=== PATIENT | female | born 1990 | race Caucasian/White ===

== ENCOUNTER → 2019-12-12 | Outpatient (REF) | payer OTHER, MEDICAID | LOC: M PLALAB 10:03 | PROVIDERS: ATTEND Obstetrics & Gynecology | DX: Z53.9 Procedure and treatment not carried out, unspecified reason (principal) ==

== ENCOUNTER → 2019-12-25 | Outpatient (REF) | payer OTHER, MEDICAID | LOC: M LAB REF 19:59 | PROVIDERS: ATTEND Physician Assistant | DX: J02.9 Acute pharyngitis, unspecified (principal) ==

== ENCOUNTER → 2019-12-25 | Outpatient (REF) | payer OTHER, MEDICAID | LOC: M SFHCLERA 18:34 | PROVIDERS: ATTEND Physician Assistant | DX: J02.9 Acute pharyngitis, unspecified (principal) ==

== ENCOUNTER → 2019-12-28 | Outpatient (REF) | payer OTHER, MEDICAID | LOC: M PLALAB 11:02 | PROVIDERS: ATTEND Obstetrics & Gynecology | DX: E28.2 Polycystic ovarian syndrome (principal) ==

== ENCOUNTER → 2020-03-23 | Outpatient (CLI) | payer OTHER ==
[~2020-03-23] MED LIST: LEVO50TA5; LEVO75TA4
[2020-03-23 13:18] LABS: HCG, SERUM QUALITATIVE POSITIVE (NEGATIVE)
[2020-03-23 13:21] LABS: HCG, SERUM QUANTITATIVE 76 MIU/ML
== END ==
LOC: M LAB 12:02
PROVIDERS: ATTEND Physician Assistant Medical
DX: Z32.01 Encounter for pregnancy test, result positive (principal)

== ENCOUNTER 2020-03-28 19:07 | Emergency (ER) | payer OTHER ==
[~2020-03-28] VITALS: Ht 165.1 cm; Wt 147.5 kg
[2020-03-28] MEDS ORDERED: LEVO50TA5 (19:18)
[2020-03-28] MEDS ORDERED: LEVO75TA4 (19:18)
[2020-03-28] MEDS ORDERED: NS 1,000 ML IV ONE (20:00)
[2020-03-28 20:25] LABS: APPEARANCE, URINE HAZY (CLEAR); BACTERIA, URINE AUTO 1+ (NEGATIVE); BILIRUBIN, URINE AUTO NEGATIVE (NEGATIVE); BLOOD, URINE BLOOD NEGATIVE (NEGATIVE); CALCIUM OXALATE CRYSTALS SMALL; COLOR, URINE YELLOW (YELLOW); GLUCOSE, URINE (UA) AUTO NEGATIVE (NEGATIVE); KETONE, URINE AUTO NEGATIVE (NEGATIVE); LEUKOCYTE ESTERASE, URINE AUTO 1+ (NEGATIVE); MUCUS, URINE SMALL (NEGATIVE); NITRITE, URINE AUTO NEGATIVE (NEGATIVE); PROTEIN, URINE AUTO NEGATIVE (NEGATIVE); RBC, URINE AUTO 2 /HPF (0-3); SPECIFIC GRAVITY URINE AUTO 1.025 (1.002-1.035); SQUAMOUS EPITHELIAL CELL UR AU 7 /HPF (0-6); WBC, URINE AUTO 7 /HPF (0-3)
--- NOTE | 2020-03-28 20:58 | REPVR ---
PROCEDURE INFORMATION: Exam: US First Trimester, Transabdominal Exam date and time: 03/28/2020 8:17 PM Age: 30 years old Clinical indication: Lmp or gestational age (in weeks): 3-4 wks; Other: Spotting; ; Additional info: Vaginal bleeding TECHNIQUE: Imaging protocol: Real-time transabdominal obstetrical ultrasound of the maternal pelvis and a first trimester , less than 14 weeks 0 days, with image documentation. COMPARISON: No relevant prior studies available. FINDINGS: Gestation: No gestational sac is apparent within the uterus. Heart rate: n/a Placenta: n/a Amniotic fluid: n/a BIOMETRY: Estimated gestational age: n/a MATERNAL: Uterus: The uterus measures 8.7 x 4.2 x 5 cm. The endometrial bilayer is 1.2 cm. Cervix: Unremarkable. Right adnexa: Right ovary measures 2.7 x 4.1 x 2.9 cm. Blood flow is detected. Left adnexa: The left ovary measures 3.9 x 4.3 x 3.8 cm. Blood flow is detected. Intraperitoneal space: There is a minimal amount of free fluid in the cul-de-sac. IMPRESSION: No gestational sac is seen within the uterus. No fluid is seen within the endometrial canal. A minimal amount of free fluid is seen in the cul-de-sac. The ovaries are normal appearance. Electronically signed by: Deepti Infante On 03/28/2020 20:57:48 PM
[2020-03-28 21:02] LABS: BASO # 0.1 10^3/uL (0.0-0.2); BASO % 0.6 % (0.0-1.0); EOS # 0.1 10^3/uL (0.0-0.5); EOS % 0.6 % (0.0-3.0); HEMATOCRIT 40.4 % (36.0-47.0); HEMOGLOBIN 13.3 g/dl (12.0-15.5); LYMPH # 2.9 10^3/uL (1.5-5.0); LYMPH % 20.9 % (24.0-44.0); MEAN CORPUSCULAR HEMOGLOBIN 30.6 pg (27.0-33.0); MEAN CORPUSCULAR HGB CONC 32.9 g/dl (32.0-36.5); MEAN CORPUSCULAR VOLUME 93.1 fl (80.0-96.0); MONO # 0.7 10^3/uL (0.0-0.8); MONO % 4.9 % (0.0-5.0); NEUTROPHILS # 10.2 10^3/uL (1.5-8.5); NEUTROPHILS % 72.6 % (36.0-66.0); PLATELET COUNT, AUTOMATED 273 10^3/uL (150-450); RED BLOOD COUNT 4.34 10^6/uL (4.00-5.40)
[2020-03-28 21:38] VITALS: BP 145/88
== END 2020-03-28 21:39 | disposition home or self-care (01) ==
LOC: M ED 19:07
DX: O20.9 Hemorrhage in early pregnancy, unspecified (principal); Z3A.01 Less than 8 weeks gestation of pregnancy; O99.511 Diseases of the respiratory system complicating pregnancy, first trimester; J45.909 Unspecified asthma, uncomplicated; O99.281 Endocrine, nutritional and metabolic diseases complicating pregnancy, first trimester; E28.2 Polycystic ovarian syndrome; Z79.899 Other long term (current) drug therapy; Z88.0 Allergy status to penicillin

== ENCOUNTER → 2020-04-01 | Outpatient (CLI) | payer OTHER | LOC: M LAB 11:47 | PROVIDERS: ATTEND Advanced Practice Midwife | DX: O20.0 Threatened abortion (principal) ==

== ENCOUNTER → 2020-04-17 | Outpatient (REF) | payer OTHER, MEDICAID | LOC: M PLALAB 14:33 | PROVIDERS: ATTEND Specialist | DX: N91.2 Amenorrhea, unspecified (principal) ==

== ENCOUNTER → 2020-04-30 | Outpatient (REF) | payer OTHER, MEDICAID ==
[2020-06-15 09:40] LABS: CHOLESTEROL RISK RATIO 3.666 (<5); TOTAL 25(OH) VITAMIN D 17.4 NG/ML (30.0-100.0)
== END ==
LOC: M SFHCPLAZ 15:22
PROVIDERS: ATTEND Physician Assistant
DX: Z13.220 Encounter for screening for lipoid disorders (principal); E55.9 Vitamin D deficiency, unspecified

== ENCOUNTER → 2020-04-30 | Outpatient (REF) | payer OTHER, MEDICAID ==
[2020-05-27 15:03] LABS: BASO % 0.4 % (0.0-1.0); EOS % 0.3 % (0.0-3.0); HEMATOCRIT 42.1 % (36.0-47.0); LYMPH % 17.4 % (24.0-44.0); MEAN CORPUSCULAR HEMOGLOBIN 30.7 pg (27.0-33.0); MEAN CORPUSCULAR HGB CONC 33.3 g/dl (32.0-36.5); MEAN CORPUSCULAR VOLUME 92.3 fl (80.0-96.0); MONO % 4.8 % (0.0-5.0); NEUTROPHILS % 76.8 % (36.0-66.0); PLATELET COUNT, AUTOMATED 274 10^3/uL (150-450); RED BLOOD COUNT 4.56 10^6/uL (4.00-5.40); WHITE BLOOD COUNT 14.2 10^3/uL (4.0-10.0)
[2020-05-27 15:04] LABS: BASO # 0.1 10^3/uL (0.0-0.2); LYMPH # 2.5 10^3/uL (1.5-5.0); MONO # 0.7 10^3/uL (0.0-0.8); NEUTROPHILS # 10.9 10^3/uL (1.5-8.5)
[2020-06-15 09:41] LABS: HEPATITIS C VIRUS ABY INDEX 0.2 INDEX (<0.8); HIV 1&2 SCREEN CENTAUR NEGATIVE (NEGATIVE)
== END ==
LOC: M SFHCWAGY 15:20
PROVIDERS: ATTEND Specialist
DX: Z34.80 Encounter for supervision of other normal pregnancy, unspecified trimester (principal); Z3A.00 Weeks of gestation of pregnancy not specified

== ENCOUNTER → 2020-05-20 | Outpatient (REF) | payer OTHER, MEDICAID ==
[2020-05-20 18:46] LABS: APPEARANCE, URINE HAZY (CLEAR); BACTERIA, URINE AUTO 1+ (NEGATIVE); BILIRUBIN, URINE AUTO NEGATIVE (NEGATIVE); BLOOD, URINE BLOOD NEGATIVE (NEGATIVE); COLOR, URINE YELLOW (YELLOW); GLUCOSE, URINE (UA) AUTO NEGATIVE (NEGATIVE); KETONE, URINE AUTO NEGATIVE (NEGATIVE); LEUKOCYTE ESTERASE, URINE AUTO 2+ (NEGATIVE); MUCUS, URINE SMALL (NEGATIVE); NITRITE, URINE AUTO NEGATIVE (NEGATIVE); PROTEIN, URINE AUTO NEGATIVE (NEGATIVE); RBC, URINE AUTO 1 /HPF (0-3); SPECIFIC GRAVITY URINE AUTO 1.014 (1.002-1.035); SQUAMOUS EPITHELIAL CELL UR AU 2 /HPF (0-6); UROBILINOGEN, URINE AUTO 0.2 mg/dL (0.0-2.0); WBC, URINE AUTO 2 /HPF (0-3)
== END ==
LOC: M LAB REF 18:15
PROVIDERS: ATTEND Obstetrics & Gynecology
DX: R39.15 Urgency of urination (principal)

== ENCOUNTER → 2020-05-22 | Outpatient (REF) | payer OTHER, MEDICAID | LOC: M LAB REF 15:21 | PROVIDERS: ATTEND Obstetrics & Gynecology | DX: R35.0 Frequency of micturition (principal) ==

== ENCOUNTER → 2020-05-28 | Outpatient (REF) | payer OTHER, MEDICAID | LOC: M LAB REF 17:47 | PROVIDERS: ATTEND Specialist | DX: Z36.89 Encounter for other specified antenatal screening (principal) ==

== ENCOUNTER → 2020-07-16 | Outpatient (CLI) | payer OTHER, MEDICAID ==
[2020-07-16 18:20] LABS: HEMATOCRIT 35.2 % (36.0-47.0); HEMOGLOBIN 11.6 g/dl (12.0-15.5); MEAN CORPUSCULAR HEMOGLOBIN 30.2 pg (27.0-33.0); MEAN CORPUSCULAR VOLUME 91.7 fl (80.0-96.0); PLATELET COUNT, AUTOMATED 222 10^3/uL (150-450); RED BLOOD COUNT 3.84 10^6/uL (4.00-5.40); WHITE BLOOD COUNT 12.5 10^3/uL (4.0-10.0)
== END ==
LOC: M PLALAB 15:21
PROVIDERS: ATTEND Specialist
DX: Z34.01 Encounter for supervision of normal first pregnancy, first trimester (principal); Z3A.00 Weeks of gestation of pregnancy not specified

== ENCOUNTER → 2020-07-16 | Outpatient (CLI) | payer OTHER, MEDICAID ==
--- NOTE | 2020-07-16 12:25 | REP ---
INDICATION: ANATOMY COMPARISON: 03/28/2020 TECHNIQUE: Transabdominal obstetrical ultrasound with color Doppler evaluation. FINDINGS: Examination demonstrates a single live intrauterine in cephalic presentation. motion is identified by technologist. Placenta is noted right fundal and grade 1 without evidence for placenta previa or abruption. Amniotic fluid volume is normal. Cervix measures 4.1 cm in length and appears closed. No evidence for nuchal cord. Gestational age by LMP with DAVID . Gestational age by current measurements 20 weeks 1 day with DAVID 12/02/2020. FHR equals 141 beats per minute. BPD: 4.6 cm 19 weeks 6 days HC: 17.2 cm 19 weeks 5 days AC: 14.9 cm 20 weeks 1 day FL: 3.4 cm 20 weeks 5 days HL: 3.1 cm 20 weeks 2 days HC/AC: 1.15 Estimated weight 349 grams (greater than 97th percentile based on age by known estimated date of delivery at 19 weeks 0 days). Anatomical assessment demonstrates normal cranium, cerebellum/posterior fossa, facial profile, diaphragm, stomach, abdominal wall, kidneys/bladder, spine, upper extremities and left lower extremity and 3 vessel cord. Limited evaluation of the cranial ventricles and choroid plexus, nose/lips, heart/ventricular outflow tracts. Right clubfoot cannot be excluded. IMPRESSION: 1. Single live intrauterine in cephalic presentation. 2. Greater than expected estimated weight based on age of 19 weeks 0 days. 3. Anatomical limitations and findings to suggest right clubfoot noted and follow-up may be warranted. <Electronically signed by Manny Rowland > 07/16/20 [id number]
== END ==
LOC: M WHC 10:12
PROVIDERS: ATTEND Obstetrics & Gynecology
DX: O99.212 Obesity complicating pregnancy, second trimester (principal); E66.9 Obesity, unspecified; Z3A.00 Weeks of gestation of pregnancy not specified

== ENCOUNTER → 2020-07-16 | Outpatient (REF) | payer OTHER, MEDICAID ==
[2020-07-16 19:01] LABS: FREE T4 1.09 NG/DL (0.76-1.46)
== END ==
LOC: M PLALAB 15:18
PROVIDERS: ATTEND Obstetrics & Gynecology
DX: Z3A.20 20 weeks gestation of pregnancy (principal)

== ENCOUNTER → 2020-07-30 | Outpatient (CLI) | payer OTHER, MEDICAID | LOC: M WHC 13:11 | PROVIDERS: ATTEND Obstetrics & Gynecology | DX: Z36.89 Encounter for other specified antenatal screening (principal); Z3A.22 22 weeks gestation of pregnancy; Z53.9 Procedure and treatment not carried out, unspecified reason ==

== ENCOUNTER → 2020-08-27 | Outpatient (REF) | payer OTHER, MEDICAID | LOC: M PLALAB 09:42 | PROVIDERS: ATTEND Obstetrics & Gynecology | DX: Z34.92 Encounter for supervision of normal pregnancy, unspecified, second trimester (principal); Z3A.26 26 weeks gestation of pregnancy ==

== ENCOUNTER → 2020-08-27 | Outpatient (CLI) | payer OTHER ==
--- NOTE | 2020-08-27 09:06 | REP ---
INDICATION: F/U ANATOMY COMPARISON: 07/16/2020 TECHNIQUE: Transabdominal obstetrical ultrasound with color Doppler evaluation. FINDINGS: Examination demonstrates a single live intrauterine in cephalic presentation. motion is identified by technologist. Placenta is noted fundal and grade 1 without evidence for placenta previa or abruption. Amniotic fluid volume is normal. Cervix measures 4.1 cm in length and appears closed.. Gestational age by LMP 26 weeks 2 days with DAVID 12/01/2020. Gestational age by current measurements 26 weeks 3 days with DAVID 11/30/2020. FHR equals 144 beats per minute. Estimated weight 925 grams (41stpercentile). Anatomical assessment demonstrates normal structures including cranium, ventricles, choroid plexus, cerebellum/posterior fossa, facial features, nose/lips, diaphragm/stomach, kidneys/bladder, and three-vessel cord. Right lower extremity suggests clubfoot. IMPRESSION: Single live intrauterine in cephalic presentation demonstrating appropriate interval growth. Continued limited evaluation of the heart/ventricular outflow tracts noted along with findings to suggest clubfoot. Follow-up is recommended. <Electronically signed by Manny Rowland > 08/27/20 0902
== END ==
LOC: M WHC 07:48
PROVIDERS: ATTEND Obstetrics & Gynecology
DX: Z3A.22 22 weeks gestation of pregnancy (principal)

== ENCOUNTER → 2020-09-02 | Outpatient (REF) | payer OTHER, MEDICAID ==
[2020-09-02 18:28] LABS: HEMATOCRIT 37.7 % (36.0-47.0); HEMOGLOBIN 12.2 g/dl (12.0-15.5); MEAN CORPUSCULAR HEMOGLOBIN 30.3 pg (27.0-33.0); MEAN CORPUSCULAR HGB CONC 32.4 g/dl (32.0-36.5); MEAN CORPUSCULAR VOLUME 93.5 fl (80.0-96.0); PLATELET COUNT, AUTOMATED 219 10^3/uL (150-450); RED BLOOD COUNT 4.03 10^6/uL (4.00-5.40); WHITE BLOOD COUNT 9.2 10^3/uL (4.0-10.0)
== END ==
LOC: M PLALAB 12:12
PROVIDERS: ATTEND Obstetrics & Gynecology
DX: Z3A.26 26 weeks gestation of pregnancy (principal)

== ENCOUNTER → 2020-09-10 | Outpatient (CLI) | payer OTHER, MEDICAID | LOC: M WHC 14:34 | PROVIDERS: ATTEND Obstetrics & Gynecology | DX: Z36.89 Encounter for other specified antenatal screening (principal); Z3A.28 28 weeks gestation of pregnancy; Z53.9 Procedure and treatment not carried out, unspecified reason ==

== ENCOUNTER 2020-09-11 20:01 | Outpatient (CLI) | payer OTHER, MEDICAID ==
[~2020-09-11] VITALS: Ht 166.4 cm; Wt 154.4 kg
[2020-09-11 20:39] VITALS: BP 144/54
[2020-09-11 21:12] LABS: HEMATOCRIT 35.4 % (36.0-47.0); HEMOGLOBIN 11.5 g/dl (12.0-15.5); MEAN CORPUSCULAR HEMOGLOBIN 29.6 pg (27.0-33.0); MEAN CORPUSCULAR HGB CONC 32.5 g/dl (32.0-36.5); PLATELET COUNT, AUTOMATED 190 10^3/uL (150-450); RED BLOOD COUNT 3.89 10^6/uL (4.00-5.40); WHITE BLOOD COUNT 10.9 10^3/uL (4.0-10.0)
[2020-09-11 21:14] VITALS: BP 108/52
[2020-09-11 21:38] LABS: ALT/SGPT 18 U/L (12-78); BILIRUBIN,TOTAL 0.2 MG/DL (0.2-1.0); CREATININE FOR GFR 0.55 MG/DL (0.55-1.30); GLOMERULAR FILTRATION RATE > 60.0 (>60); LDH LACTATE DEHYDROGENASE 134 U/L (84-246); URIC ACID 3.4 MG/DL (2.6-6.0)
[2020-09-11 21:43] VITALS: BP 117/54
[2020-09-11] MEDS ORDERED: ACETAMINOPHEN 500 MG TAB PO ONE (21:45)
[2020-09-11 22:55] VITALS: BP 111/56
[2020-09-11 23:05] LABS: CREATININE,RANDOM URINE 94.7 MG/DL; TOTAL PROTEIN,RANDOM URINE 21.1 MG/DL (0.0-12.0)
[2020-09-11 23:08] VITALS: BP 111/59
--- NOTE | 2020-09-12 06:50 | IPN ---
PROGRESS NOTE DATE: 09/11/2020 SUBJECTIVE: Lela is a 30-year-old 1 para 0 at 28 weeks and 3 days, EDC of 12/01/2020 based on last menstrual period. She presents to Labor and Delivery with a complaint of a headache and some visual disturbances, seeing black spots after eating dinner. She also reports some mild dizziness at that time. She denies vaginal bleeding, leakage of fluid, the fetus has been active. care was [facility] in the first trimester. course complicated by a history of gastric sleeve. She had an abnormal panorama for triploidy and she did undergo an amniocentesis that was normal. Morbid obesity, hypothyroidism, asthma, migraines, PCOS, and clubfoot. OBSTETRIC HISTORY: Primigravida. PAST MEDICAL HISTORY: PCOS, asthma and hypothyroid. PAST SURGICAL HISTORY: Gastric sleeve, carpal tunnel, D and C, cholecystectomy. FAMILY HISTORY: Coronary artery disease, rheumatoid arthritis, diabetes, hypertension, hypercholesterolemia, and lung cancer. SOCIAL HISTORY: The patient is single although the father of the baby is involved. She is a recent nonsmoker and quit approximately one year ago. She denies alcohol and drug use. Denies a history of any sexually transmitted infections and denies a history of abuse, physical, sexual and emotional. ALLERGIES: Penicillin and latex gloves. CURRENT MEDICATIONS: 1. vitamin. OBJECTIVE: VITAL SIGNS: Upon arrival one elevated blood pressure at 144/54, repeat normotensive 108/52, 117/54, 111/56 and 111/59. Temperature 98.8 and respiratory rate 19. heart rate 130 with moderate variability, positive accelerations, negative decelerations, appropriate for gestational age. There is no pattern of contractions. Sterile vaginal exam deferred. The patient is alert and oriented x3 and she is smiling and talkative. LABORATORY DATA: Preeclamptic profile: Normal results. Hemoglobin 11.5, hematocrit 35.4, platelets 190,000. Spot urine is 0.22. Uric acid 3.4. LDH 134, ALT 18 and AST 4. ASSESSMENT: Intrauterine at 28 and 3 days. heart rate appropriate for gestation. Normotensive pressures. Normal preeclamptic labs. PLAN: Discharge the patient home. She has received 1000 mg of Tylenol and reports her headache is resolving. Denies any current visual disturbances. She is to keep her next appointment that she has scheduled. I did review access to care, danger signs to report, signs and symptoms of labor and movement counseling, all of her questions have been answered.
== END 2020-09-11 23:23 | disposition home or self-care (01) ==
LOC: M LDO 20:01
PROVIDERS: ATTEND Advanced Practice Midwife
DX: O26.893 Other specified pregnancy related conditions, third trimester (principal); R51.9 Headache, unspecified; Z88.0 Allergy status to penicillin; Z3A.28 28 weeks gestation of pregnancy

== ENCOUNTER → 2020-09-16 | Outpatient (CLI) | payer OTHER ==
--- NOTE | 2020-09-16 14:04 | REP ---
INDICATION: F/U ANATOMY FOR CARDIAC VIEWS COMPARISON: 08/27/2020 TECHNIQUE: Transabdominal obstetrical ultrasound with color Doppler evaluation. FINDINGS: Examination demonstrates a single live intrauterine in cephalic presentation. motion is identified by technologist. Placenta is noted fundal and grade 1 without evidence for placenta previa or abruption. Amniotic fluid volume is normal. Cervix measures 3.6 cm in length and appears closed.. Gestational age by LMP 29 weeks 1 day with DAVID 12/01/2020. Gestational age by current measurements 28 weeks 6 days with DAVID 12/03/2020. FHR equals 149 beats per minute. DIMITRY: 14.6 cm Estimated weight 1348 grams (40thpercentile). Anatomical assessment demonstrates normal cranium, facial features, four-chamber heart/ventricular outflow tracts, diaphragm, stomach, and bladder. Right clubfoot is again suggested and warrants follow-up. IMPRESSION: Single live intrauterine in cephalic presentation demonstrating appropriate interval growth. Visualized images of the heart and cardiac ventricular outflow tracts are normal. Clubfoot again suspected. <Electronically signed by Manny Rowland > 09/16/20 1400
== END ==
LOC: M WHC 11:59
PROVIDERS: ATTEND Obstetrics & Gynecology
DX: Z34.93 Encounter for supervision of normal pregnancy, unspecified, third trimester (principal); Z3A.29 29 weeks gestation of pregnancy

== ENCOUNTER → 2020-10-22 | Outpatient (CLI) | payer OTHER | LOC: M WHC 15:13 | PROVIDERS: ATTEND Advanced Practice Midwife | DX: Z53.9 Procedure and treatment not carried out, unspecified reason (principal); O26.849 Uterine size-date discrepancy, unspecified trimester; Z3A.00 Weeks of gestation of pregnancy not specified ==

== ENCOUNTER → 2020-10-31 | Outpatient (CLI) | payer OTHER ==
--- NOTE | 2020-11-01 04:21 | REP ---
INDICATION: UTERINE SIZE DATE DISCREPANCY,GROWTH,DIMITRY COMPARISON: 09/16/2020 TECHNIQUE: Transabdominal obstetrical ultrasound with color Doppler evaluation. FINDINGS: Examination demonstrates a single live intrauterine in cephalic presentation. motion is identified by technologist. Placenta is noted fundal and grade 2 without evidence for placenta previa or abruption. Amniotic fluid volume is normal. Cervix measures 3.9 cm in length and appears closed.. Gestational age by LMP 35 weeks 4 days with DAVID 12/01/2020. Gestational age by current measurements 35 weeks 3 days with DAVID 12/02/2020. FHR equals 136 beats per minute. BPD: 8.6 cm 34 weeks 4 days HC: 32.3 cm 36 weeks 4 days AC: 31.81 cm 35 weeks 0 days FL: 6.8 cm 35 weeks 1 day HL: 6.2 cm 36 weeks 0 days HC/AC: 1.04 Estimated weight 2603 grams (36thpercentile). DIMITRY: 10.3 cm IMPRESSION: Single live intrauterine in cephalic presentation demonstrating appropriate estimated weight and growth. <Electronically signed by Manny Rowland > 11/01/20 0417
== END ==
LOC: M WHC 13:34
PROVIDERS: ATTEND Advanced Practice Midwife
DX: Z36.9 Encounter for antenatal screening, unspecified (principal); Z3A.35 35 weeks gestation of pregnancy

== ENCOUNTER → 2020-11-07 | Outpatient (REF) | payer OTHER | LOC: M PLALAB 08:44 | PROVIDERS: ATTEND Obstetrics & Gynecology | DX: Z34.93 Encounter for supervision of normal pregnancy, unspecified, third trimester (principal); Z3A.36 36 weeks gestation of pregnancy ==

== ENCOUNTER → 2020-11-13 | Outpatient (CLI) | payer OTHER ==
[~2020-11-13] MED LIST changes: +BIOT5000 PO; +MULTTAB20 PO
--- NOTE | 2020-11-14 05:05 | REP ---
INDICATION: GROWTH COMPARISON: 10/31/2020 TECHNIQUE: Transabdominal obstetrical ultrasound with color Doppler evaluation. FINDINGS: Examination demonstrates a single live intrauterine in cephalic presentation. motion is identified by technologist. Placenta is noted anterior and grade 2 without evidence for placenta previa or abruption. Amniotic fluid volume is decreased suggesting oligohydramnios. Cervix measures 3.9 cm in length and appears closed. Gestational age by LMP 37 weeks 3 days with DAVID 12/01/2020. Gestational age by current measurements 36 weeks 6 days with DAVID 12/05/2020. FHR equals 134 beats per minute. BPD: 9.0 cm at 36 weeks 3 days HC: 33.2 cm at 37 weeks 6 days AC: 32.4 cm at 36 weeks 2 days FL: 7.0 cm at 35 weeks 5 days HL: 6.5 cm at 37 weeks 3 days HC/AC: 1.03 Estimated weight 2923 grams (32ndpercentile). DIMITRY: 6.8 cm (7.4-24.2) IMPRESSION: 1. Single live advanced gestation in cephalic presentation. 2. Amniotic fluid volume is below normal range suggesting mild oligohydramnios <Electronically signed by Manny Rowland > 11/14/20 8535
== END ==
LOC: M WHC 10:45
PROVIDERS: ATTEND Obstetrics & Gynecology
DX: O99.213 Obesity complicating pregnancy, third trimester (principal); Z3A.37 37 weeks gestation of pregnancy

== ENCOUNTER 2020-11-16 07:38 | Inpatient (IN) | payer OTHER ==
[2020-11-16] VITALS (17 sets, daily range): BP systolic 89–147; BP diastolic 48–93
[~2020-11-16] VITALS: Ht 165.1 cm; Wt 156.1 kg
[~2020-11-16 07:38] MED LIST changes: -BIOT5000 PO; -MULTTAB20 PO
--- OUTSIDE RECORDS SUMMARY | 2020-11-16 07:41 | CCD ---
Author Author [facility] Organization [facility] Address Unknown Phone Unavailable Care Team Providers Care Career Development Specialist Name Role Phone Christine Palm Unavailable PROBLEMS Type Condition ICD9-CM Code [id number] Code Onset Dates Condition S tatus SNOMED Code Notes Problem Vitamin D deficiency E55.9 Active 63120540 Problem Constipation K59.00 Active 15609850 Problem Morbid obesity E66.01 Active 983629843 Problem Amenorrhea N91.2 Active 49318209 Problem Supervision of other normal Z34.80 Ac tive 324168655 Problem Obesity complicating in second trimester O99.212 Active 925868332779 Problem Obesity E66.9 Active 284534520 ALLERGIES Allergen (clinical drug ingredient) Drug/Non Drug Allergy do cumented on EMR Reaction Allergy Type Onset Date Status penicillin Rash Non Drug Allergy Active Latex Exam Gloves Rash Drug Allergy Activ e ENCOUNTERS from 1989 to 2020-08-31 Encounter Location Date Provider Diagnosis [facility] [address] [place] [id number] Aug, Christine Palm 26 weeks gestation o f Z3A.26 ; Constipation K59.00 ; Nausea R11.0 ; Morbid obesity E66.01 and Obesity complicating in second trimester O99.212 IMMUNIZATIONS No Information SOCIAL HISTORY Tobacco Use: Social History Observation Description Date Details (start date - stop date) Former Smoker Sex Assigned At : Social History Observation Description Sex Assigned At Unknown Alcohol Screening: Question Answer Notes Did you have a drink containing alcohol in the past year? No Points 0 Interpretation Negative Tobacco Use: Question Answer Notes Are you a: former smoker REASON FOR REFERRAL No Information VITAL SIGNS Weight 342 lbs Aug, Height 65 in Aug, BMI 56.912 kg/m2 Aug, Blood pressure systolic 136 mm Hg Aug, Blood pressure diastolic 82 mm Hg Aug, MEDICATIONS Medication SIG (Take, Route, Frequency, Duration) Notes Start Da te End Date Status Rizatriptan Benzoate 10 MG 1 tablet Orally Once a day Not-Taking Iron 325 (65 Fe) MG 1 tablet Orally Once a day Active 27-1 MG 1 tablet Orally Once a day Active MiraLax 17 GM 1 packet mixed with 8 ounces of fluid Orally Once a day for 30 day(s) Aug, Active ClomiPHENE Citrate 50 MG 1 tablet Orally Once a day, day 3-7 for 5 da y(s) Not-Taking Ondansetron 4 MG 1 tablet on the tongue and a llow to dissolve Orally every 6 hours as needed for nausea for 30 day(s) Aug, Active Levothyroxine Sodium 50 MCG 1 tablet in the morning on an empty stomach Orally Once a day Not-Taking Biotin 1000 MCG 1 tablet Orally Once a day Not-Taking Calcium 600 MG 1 tablet with meals Orally Twice a day Active Topiramate 50 MG 1 tablet Orally Once a day Not-Taking Ondansetron 4 MG 1 tablet on the tongue and allow to diss olve Orally Once a day Active Escitalopram Oxalate 20 MG 1 tablet Orally Once a day Not-Taking Colace 100 MG 1 capsule Orally Twice a day for 30 day(s) 0 Aug, Active Metformin HCl 500 MG 1 tablet with a meal Orally twice a day for 30 day(s) January, Not-Taking Gummies/DHA & FA 0.4-32.5 MG as directed Orally Not-Taking PROCEDURES No Information RESULTS Component Value Reference Range CBC - Complete Blood Count Reviewed date:09/03/2020 08:09:44 Interpretation: Performing Lab:[facility] [address] [address] , [place] [address] WHITE BLOOD COUNT 9.2 4.0-10.0 RED BLOOD COUNT 4.03 4.00-5.40 HEMOGLOBIN 12.2 12.0-15.5 HEMATOCRIT 37.7 36.0-47.0 MEAN CORPUSCULAR VOLUME 93.5 80.0-96.0 MEAN CORPUSCULAR HEMOGLOBIN 30.3 27.0-33.0 MEAN CORPUSCULAR HGB CONC 32.4 32.0-36.5 RED CELL DISTRIBUTION WIDTH 13.7 11.5-14.5 PLATELET COUNT, AUTOMATED 219 150-450 Glucose Challenge Test 1 Hour Reviewed date:09/03/2020 08:09:55 Interpretation: Performing Lab:[facility] [address] [address] , [place] [address] GLUCOSE CHALLENGE TEST 1 HOUR 70 LESS THAN 140 REASON FOR VISIT 4WK PN MEDICAL (GENERAL) HISTORY Type Description Date Medical History hypothyroidism Medical History PCOS Medical History asthma Surgical History gastric sleeve 05/2019 Surgical History carpal tunnel both hands Surgical History D&C x 3 Surgical History Gallbladder removal 2017 Hospitalization History Surgical related Goals Section No Information Health Concerns No Information MEDICAL EQUIPMENT No Information MENTAL STATUS No Information FUNCTIONAL STATUS No Information ASSESSMENTS Encounter Date Diagnosis Assessment Notes Treatment Notes Treatm ent Clinical Notes Aug, 26 weeks gestation of (ICD-10 - Z3A.26 ) Aug, Constipation (ICD-10 - K59.00) Aug, Nausea (ICD-10 - R11.0) Aug, Morbid obesity (ICD-10 - E66.01) Aug, Obesity complicating pregnan cy in second trimester (ICD-10 - O99.212) PLAN OF TREATMENT Medication Medication Name Sig Start Date Stop Date Ondansetron 4 MG 1 tablet on the tongue and a llow to dissolve Orally every 6 hours as needed for nausea for 30 day(s) Aug, Colace 100 MG 1 capsule Orally Twice a day for 30 day(s) 2019 MiraLax 17 GM 1 packet mixed with 8 ounces of fluid Orally Once a day for 30 day(s) Aug, Treatment Notes Test Name Order Date CBC - Complete Blood Count 2020-08-31 Glucose Challenge Test 1 Hour 2020-08-31 Next Appt Details 2 Weeks Reason:PN Provider Name:Christine D Arpita, 2020-08 02:00:00 PM, [address] [place], [address], Follow Up:2 WeeksPN Insurance Providers Payer Name Payer Address Payer Phone Insured Name Patient Relati onship to Insured Coverage Start Date Coverage End Date MEDICAID [employer] [address] [facility] [id number] JAMES BETANCUR [facility] CORPORATE CLAIMS DEPT [address] REPLACED BY [facility] [phone] JAMES BETANCUR self
--- OUTSIDE RECORDS SUMMARY | 2020-11-16 07:41 | CCD ---
Author Author [facility] Organization [facility] Address Unknown Phone Unavailable Care Team Providers Care Spiral Winding Machine Helper Name Role Phone Christine Palm Unavailable PROBLEMS Type Condition ICD9-CM Code [id number] Code Onset Dates Condition S tatus SNOMED Code Notes Problem Vitamin D deficiency E55.9 Active 33707893 Problem Amenorrhea N91.2 Active 06290043 Problem Morbid obesity E66.01 Active 896929379 Problem Obesity affecting in third trimester O99 .213 Active 661991621166 Problem Supervision of other normal Z34.80 Ac tive 639330179 Problem Obesity complicating in second trimester O99.212 Active 146204649127 Problem Obesity E66.9 Active 660707125 Problem Constipation K59.00 Active 44339060 ALLERGIES Allergen (clinical drug ingredient) Drug/Non Drug Allergy do cumented on EMR Reaction Allergy Type Onset Date Status penicillin Rash Non Drug Allergy Active Latex Exam Gloves Rash Drug Allergy Activ e ENCOUNTERS from 1989 to 2020-09-17 Encounter Location Date Provider Diagnosis [facility] [address] [place] [address] Aug, Christine Palm Obesity affecting pr egnancy in third trimester O99.213 ; Morbid obesity E66.01 ; 28 weeks gestation of Z3A.28 and Encounter for immunization Z23 IMMUNIZATIONS Vaccine Route Administration Date Status TDAP 0.5mL (Boostrix) IM Intramuscular Sep 10, 2020 Administe red Influenza (6mo & up) Fluzone IM Intramuscular Sep 10, 2020 Ad ministered SOCIAL HISTORY Tobacco Use: Social History Observation [...] FOR REFERRAL No Information VITAL SIGNS Weight 338.2 lbs Aug, Height 65 in Aug, BMI 56.279 kg/m2 Aug, Blood pressure systolic 120 mm Hg Aug, Blood pressure diastolic 74 mm Hg Aug, MEDICATIONS Medication SIG (Take, Route, Frequency, Duration) Notes Start Da te End Date Status Biotin 1000 MCG 1 tablet Orally Once a day Not-Taking Topiramate 50 MG 1 tablet Orally Once a day Not-Taking ClomiPHENE Citrate 50 MG 1 tablet Orally Once a day, day 3-7 for 5 da y(s) Not-Taking Colace 100 MG 1 capsule Orally Twice a day for 30 day(s) 0 Aug, Active Ondansetron 4 MG 1 tablet on the tongue and a llow to dissolve Orally every 6 hours as needed for nausea for 30 day(s) Aug, Active MiraLax 17 GM 1 packet mixed with 8 ounces of fluid Orally Once a day for 30 day(s) Aug, Active Levothyroxine Sodium 50 MCG 1 tablet in the morning on an empty stomach Orally Once a day Not-Taking Gummies/DHA & FA 0.4-32.5 MG as directed Orally Not-Taking 27-1 MG 1 tablet Orally Once a day Active Metformin HCl 500 MG 1 tablet with a meal Orally twice a day for 30 day(s) January, Not-Taking Rizatriptan Benzoate 10 MG 1 tablet Orally Once a day Not-Taking Iron 325 (65 Fe) MG 1 tablet Orally Once a day Active Calcium 600 MG 1 tablet with meals Orally Twice a day Active Zofran 4 MG 1 tablet Orally every 6 hours as needed for naus ea for 30 day(s) Aug, Active Ondansetron 4 MG 1 tablet on the tongue and allow to diss olve Orally Once a day Active Escitalopram Oxalate 20 MG 1 tablet Orally Once a day Not-Taking PROCEDURES from 1989 to 2020-09-17 Procedure Date Ordered Result Body Site Immunization: Boostrix 0.5mL IM (TDAP) 2020-09-10 N/A Immunization: Fluzone (6mo & older) 0.5mL IM (Influenza) 2020-08 N/A RESULTS Component Value Reference Range [facility] OBS FOLLOW UP OR REPEAT Reviewed date:09/17/2020 12:47:13 Interpretation: Performing Lab:[facility],[address] ,[place] [address] REASON FOR VISIT 4WK PN MEDICAL (GENERAL) [...] Treatment Notes Treatm ent Clinical Notes Aug, Obesity affecting in [facility] (ICD-10 - O99.213) Aug, Morbid obesity (ICD-10 - E66.01) Aug, 28 weeks gestation of (ICD-10 - Z3A.28 ) Aug, Encounter for immunization (ICD-10 - Z23) PLAN OF TREATMENT Medication Medication Name Sig Start Date Stop Date Zofran 4 MG 1 tablet Orally every 6 hours as needed for nausea for 30 day(s) Aug, Next Appt Details 2 Weeks Reason:PN Provider Name:Shanita Carrillo, 2020-09-24 1 1:20:00 AM, [address] [place], [address], Follow Up:2 WeeksPN Insurance Providers Payer Name Payer Address Payer Phone Insured Name Patient Relati onship to Insured Coverage Start Date Coverage End Date [facility] CORPORATE CLAIMS DEPT [address] [facility] [phone] JAMES BETANCUR self MEDICAID [employer] [address] [facility] [id number] JAMES BETANCUR self
--- OUTSIDE RECORDS SUMMARY | 2020-11-16 07:41 | CCD ---
Author Author [facility] Organization [facility] Address Unknown Phone Unavailable Care Team Providers Care President [employer] Name Role Phone Katie Choi Unavailable PROBLEMS Type Condition ICD9-CM Code [id number] Code Onset Dates Condition S tatus SNOMED Code Notes Problem Hypothyroidism (acquired) E03.9 Active 945421 002 Problem Anxiety with depression F41.8 Active 78327149 6 Problem Amenorrhea N91.2 Active 91140810 Problem Supervision of other normal Z34.80 Ac tive 310701414 Problem Obesity complicating in second trimester O99.212 Active 239616315685 Problem Obesity complicating , third trimester O9 9.213 Active 058529487443 Problem Vitamin D deficiency E55.9 Active 87939876 Problem Asthma exacerbation J45.901 Active 914338671 Problem Migraine without status migr ainosus, not intractable, unspecified migraine type G43.909 Active 45794967 Problem Obesity E66.9 Active 403225490 Problem Constipation K59.00 Active 53444287 Problem Morbid obesity E66.01 Active 110183007 Problem Obesity affecting in third trimester O99 .213 Active 640716187310 ALLERGIES Allergen (clinical drug ingredient) Drug/Non Drug Allergy do cumented on EMR Reaction Allergy Type Onset Date Status penicillin Rash Non Drug Allergy Active Latex Exam Gloves Rash Drug Allergy Activ e ENCOUNTERS from 1989 to 2020-10-11 Encounter Location Date Provider Diagnosis [facility] Women's [facility] and Breast Care [address] [place] [phone] Sep, Katie Choi Asthma exacerbati on J45.901 IMMUNIZATIONS Vaccine Route Administration Date Status TDAP [...] REASON FOR REFERRAL No Information VITAL SIGNS No information MEDICATIONS Medication SIG (Take, Route, Frequency, Duration) Notes Start Da te End Date Status Ondansetron 4 MG 1 tablet on the tongue and allow to diss olve Orally Once a day Not-Taking Topiramate 50 MG 1 tablet Orally Once a day Not-Taking Calcium 600 MG 1 tablet with meals Orally Twice a day Active Ondansetron 4 MG 1 tablet on the tongue and a llow to dissolve Orally every 6 hours as needed for nausea for 30 day(s) Aug, Not-Taking Iron 325 (65 Fe) MG 1 tablet Orally Once a day Active Metformin HCl 500 MG 1 tablet with a meal Orally twice a day for 30 day(s) January, Not-Taking Zofran 4 MG 1 tablet Orally every 6 hours as needed for naus ea for 30 day(s) Aug, Active MiraLax 17 GM 1 packet mixed with 8 ounces of fluid Orally Once a day for 30 day(s) Aug, Active 27-1 MG 1 tablet Orally Once a day Active Escitalopram Oxalate 20 MG 1 tablet Orally Once a day Not-Taking Gummies/DHA & FA 0.4-32.5 MG as directed Orally Not-Taking Albuterol Sulfate HFA 108 (90 Base) MCG/ACT 2 puffs as needed Inhalation every 4 hrs for 30 days Sep, Active ClomiPHENE Citrate 50 MG 1 tablet Orally Once a day, day 3-7 for 5 da y(s) Not-Taking Rizatriptan Benzoate 10 MG 1 tablet Orally Once a day Not-Taking Biotin 1000 MCG 1 tablet Orally Once a day Active Colace 100 MG 1 capsule Orally Twice a day for 30 day(s) 0 Aug, Active Levothyroxine Sodium 50 MCG 1 tablet in the morning on an empty stomach Orally Once a day Not-Taking PROCEDURES No Information RESULTS No Results REASON FOR VISIT Refill MEDICAL (GENERAL) HISTORY Type Description Date Medical [...] Notes Treatment Notes Treatm ent Clinical Notes Sep, Asthma exacerbation (ICD-10 - J45.901) PLAN OF TREATMENT Medication Medication Name Sig Start Date Stop Date Albuterol Sulfate HFA 108 (90 Base) MCG/ACT 2 puffs as needed Inhalation every 4 hrs for 30 days Sep, Next Appt Details Provider Name:Shanita Carrillo, 2020-10-22 0 2:40:00 PM, [address] [place], [address], Insurance Providers Payer Name Payer Address Payer Phone Insured Name Patient Relati onship to Insured Coverage Start Date Coverage End Date MEDICAID [employer] [address] [facility] [id number] JAMES BETANCUR self [employer] CORPORATE CLAIMS DEPT [address] [facility] [phone] JAMES BETANCUR self
--- OUTSIDE RECORDS SUMMARY | 2020-11-16 07:41 | CCD ---
Author Author [facility] Organization [facility] Address Unknown Phone Unavailable Care Team Providers Care Call Center Operator Name Role Phone Reagan, Tona Unavailable PROBLEMS Type Condition ICD9-CM Code [id number] Code Onset Dates Condition S tatus SNOMED Code Notes Problem Hypothyroidism (acquired) E03.9 Active 000142 002 Problem Anxiety with depression F41.8 Active 40471178 6 Problem Amenorrhea N91.2 Active 90406254 Problem Supervision of other normal Z34.80 Ac tive 364357411 Problem Obesity complicating in second trimester O99.212 Active 562778980541 Problem Obesity complicating , third trimester O9 9.213 Active 482563014470 Problem Vitamin D deficiency E55.9 Active 82430080 Problem Asthma exacerbation J45.901 Active 136810628 Problem Migraine without status migr ainosus, not intractable, unspecified migraine type G43.909 Active 98912391 Problem Obesity E66.9 Active 938321682 Problem Constipation K59.00 Active 07639901 Problem Morbid obesity E66.01 Active 330877675 Problem Obesity affecting in third trimester O99 .213 Active 691678677588 ALLERGIES Allergen (clinical drug ingredient) Drug/Non Drug Allergy do cumented on EMR Reaction Allergy Type Onset Date Status penicillin Rash Non Drug Allergy Active Latex Exam Gloves Rash Drug Allergy Activ e ENCOUNTERS from 1989 to 2020-10-11 Encounter Location Date Provider Diagnosis [address] [address] Mar, Tona Kirk Supervision of other normal Z3 4.80 ; Migraine without status migrainosus, not intractable, unspecified migraine type G43.909 ; Anxiety with depression F41.8 ; Hypothyroidism (acquired) E03.9 ; Vitamin D deficiency E55.9 and Screening for lipid disorders Z13.220 IMMUNIZATIONS Vaccine Route Administration Date Status TDAP [...] FOR REFERRAL No Information VITAL SIGNS Weight 327.0 lbs Mar, Height 65 in Mar, BMI 54.41 kg/m2 Mar, Heart Rate 99 /min Mar, Respiratory Rate 20 /min Mar, Temperature 97.9 degrees Fahrenheit Mar, Oximetry 97 Mar, Blood pressure systolic 126 mm Hg Mar, Blood pressure diastolic 74 mm Hg Mar, MEDICATIONS Medication SIG (Take, Route, Frequency, Duration) [...] Twice a day for 30 day(s) 0 1 Aug, 2020 Active Levothyroxine Sodium 50 MCG 1 tablet in the morning on an empty stomach Orally Once a day Not-Taking PROCEDURES No Information RESULTS No Results REASON FOR VISIT to [facility] MEDICAL (GENERAL) HISTORY Type Description Date Medical [...] Notes Treatment Notes Treatm ent Clinical Notes Mar, Supervision of other normal (ICD-10 - Z34.80) Mar, Migraine without status migr ainosus, not intractable, unspecified migraine type (ICD-10 - G43.909) doing okay without rizatriptan, was well controlled on the rizatripton prior to becoming Mar, Anxiety with depression (ICD-10 - F41.8) was controlled on her medications, we discussed the importance of being honest with her OB about her symptoms, especially post Mar, Hypothyroidism (acquired) (ICD-10 - E03.9) asymptomatic on her current dose of levothyroxine Mar, Vitamin D deficiency (ICD-10 - E55.9) will check patient's vitamin D today Mar, Screening for lipid disorders (ICD-10 - Z13.220) PLAN OF TREATMENT Medication Medication Name Sig Start Date Stop Date Albuterol Sulfate HFA 108 (90 Base) MCG/ACT 2 puffs as needed Inhalation every 4 hrs for 30 days Sep, Treatment Notes Assessment Notes Clinical Notes Migraine without status migrainosus, not intractable, unspecified migraine type doing okay without rizatriptan, was well controlled on the rizatripton prior to becoming Anxiety with depression was controlled o n her medications, we discussed the importance of being honest with her OB about her symptoms, especially post Hypothyroidism (acquired) asymptomatic o n her current dose of levothyroxine Vitamin D deficiency will check patient' s vitamin D today Future Test Test Name Order Date LIPID PANEL (CARDIAC RISK) 20200419 VITAMIN D 25-HYDROXY 20200419 Next Appt Details after patient has her baby Reason: Provider Name:Shanita Carrillo, 2020-10-22 0 2:40:00 PM, [facility] [place], [address], Insurance Providers Payer Name Payer Address Payer Phone Insured Name Patient Relati onship to Insured Coverage Start Date Coverage End Date [facility] [employer] DEPT [address] [facility] [phone] JAMES BETANCUR MEDICAID [facility] [address] [facility] [address] JAMES BETANCUR self
--- OUTSIDE RECORDS SUMMARY | 2020-11-16 07:41 | CCD ---
Author Author [facility] Organization [facility] Address Unknown Phone Unavailable Care Team Providers Care Supervisor Sample Name Role Phone Christine Palm Unavailable PROBLEMS Type Condition ICD9-CM Code [id number] Code Onset Dates Condition S tatus SNOMED Code Notes Problem Vitamin D deficiency E55.9 Active 19920642 Problem Constipation K59.00 Active 60678519 Problem Morbid obesity E66.01 Active 473226028 Problem Amenorrhea N91.2 Active 37424472 Problem Supervision of other normal Z34.80 Ac tive 478846153 Problem Obesity complicating in second trimester O99.212 Active 347160693447 Problem Obesity E66.9 Active 505701322 ALLERGIES Allergen (clinical drug ingredient) Drug/Non Drug Allergy do cumented on EMR Reaction Allergy Type Onset Date Status penicillin Rash Non Drug Allergy Active Latex Exam Gloves Rash Drug Allergy Activ e ENCOUNTERS from 1989 to 2020-08-27 Encounter Location Date Provider Diagnosis [facility] Women's Wellness and Breast Care [facility] [place] [address] Jun, Christine Palm Obesity complicating in second trimester O99.212 ; Maternal care for other (suspected) abnormality and damage, not applicable or unspecified O35.8XX0 and 20 weeks gestation of pregnan cy Z3A.20 IMMUNIZATIONS No Information SOCIAL HISTORY Tobacco Use: [...] FOR REFERRAL No Information VITAL SIGNS Weight 341.8 lbs Jun, Height 65 in Jun, BMI 56.878 kg/m2 Jun, Blood pressure systolic 122 mm Hg Jun, Blood pressure diastolic 74 mm Hg Jun, MEDICATIONS Medication SIG (Take, Route, Frequency, Duration) [...] directed Orally Not-Taking PROCEDURES No Information RESULTS REASON FOR VISIT 4 WK PN MEDICAL (GENERAL) HISTORY Type Description Date [...] Notes Treatment Notes Treatm ent Clinical Notes Jun, Obesity complicating pregnan cy in second trimester (ICD-10 - O99.212) Jun, Maternal care for other (brandt pected) abnormality and damage, not applicable or unspecified (ICD-10 - O35.8XX0) Jun, 20 weeks gestation of (ICD-10 - Z3A.20 ) PLAN OF TREATMENT Medication Medication Name Sig [...] Order Date CBC - Complete Blood Count 2020-08-27 CHLAMYDIA & GC DNA AMPLIFICAT 2020-08-27 Next Appt Details 2 Weeks Reason:COB Provider Name:Christine New Arpita, 2020-08 02:00:00 PM, [address] [place], [address], Follow Up:2 WeeksCOB Insurance Providers Payer Name Payer Address Payer Phone Insured Name Patient Relati onship to Insured Coverage Start Date Coverage End Date MEDICAID [employer] [address] [facility] [id number] JAMES BETANCUR [employer]ATE CLAIMS DEPT [address] [facility] [phone] JAMES BETANCUR self
--- OUTSIDE RECORDS SUMMARY | 2020-11-16 07:41 | CCD ---
Author Author [facility] Organization [facility] Address Unknown Phone Unavailable Care Team Providers Care Transmission Systems Operator Name Role Phone Alejandra Morales Unavailable PROBLEMS Type Condition ICD9-CM Code RKC70-KH Code Onset Dates Condition S tatus SNOMED Code Notes Problem Hypothyroidism (acquired) E03.9 Active 045234 002 Problem Anxiety with depression F41.8 Active 50929860 6 Problem Amenorrhea N91.2 Active 88915787 Problem Supervision of other normal Z34.80 Ac tive 444407358 Problem Obesity complicating in second trimester O99.212 Active 469947452649 Problem Obesity complicating , third trimester O9 9.213 Active 718683375998 Problem Vitamin D deficiency E55.9 Active 92281424 Problem Asthma exacerbation J45.901 Active 326973881 Problem Migraine without status migr ainosus, not intractable, unspecified migraine type G43.909 Active 58503660 Problem Obesity E66.9 Active 924930529 Problem Constipation K59.00 Active 49225966 Problem Morbid obesity E66.01 Active 444673234 Problem Obesity affecting in third trimester O99 .213 Active 783818239790 ALLERGIES Allergen (clinical drug ingredient) Drug/Non Drug Allergy do cumented on EMR Reaction Allergy Type Onset Date Status penicillin Rash Non Drug Allergy Active Latex Exam Gloves Rash Drug Allergy Activ e ENCOUNTERS from 1989 to 2020-10-14 Encounter Location Date Provider Diagnosis [facility] Women's Wellness and Breast Care [address] [place] [phone] Sep, Alejandra Morales Obesity complicating in third trimester O99.213 IMMUNIZATIONS Vaccine Route Administration Date Status TDAP [...] FOR REFERRAL No Information VITAL SIGNS Weight 341.2 lbs Sep, Weight-kg 154.77 kg Sep, Height 65 in Sep, BMI 56.779 kg/m2 Sep, Blood pressure systolic 122 mm Hg Sep, Blood pressure diastolic 80 mm Hg Sep, MEDICATIONS Medication SIG (Take, Route, Frequency, Duration) [...] stomach Orally Once a day Not-Taking PROCEDURES from 1989 to 2020-10-14 Procedure Date Ordered Result Body Site non-stress test 2020-10-03 N/A RESULTS No Results REASON FOR VISIT DECREASED MOVEMENT MEDICAL (GENERAL) HISTORY Type Description Date Medical [...] Treatment Notes Treatm ent Clinical Notes Sep, Obesity complicating pregnan cy in third trimester (ICD-10 - O99.213) PLAN OF TREATMENT Medication Medication Name Sig Start Date Stop Date Albuterol Sulfate HFA 108 (90 Base) MCG/ACT 2 puffs as needed Inhalation every 4 hrs for 30 days Sep, Next Appt Details Provider Name:Shanita Carrillo, 2020-10-22 0 2:40:00 PM, [address] [place], [address], Insurance Providers Payer Name Payer Address Payer Phone Insured Name Patient Relati onship to Insured Coverage Start Date Coverage End Date [facility] CORPORATE CLAIMS DEPT [address] [facility] [phone] JAMES BETANCUR MEDICAID [facility] [address] [facility] [id number] JAMES BETANCUR
--- OUTSIDE RECORDS SUMMARY | 2020-11-16 07:41 | CCD ---
Author Author [facility] [employer] [facility] Organization [facility] [employer] [facility] Address Unknown Phone Unavailable Care Team Providers Care Vest Busheler Name Role Phone Christine Palm Unavailable PROBLEMS Type Condition ICD9-CM Code [id number] Code Onset Dates Condition S tatus W/U Status Risk SNOMED Code Notes Problem Hypothyroidism (acquired) E03.9 Active confirmed 952606491 Problem Anxiety with depression F41.8 Active confirmed 833435722 Problem Amenorrhea N91.2 Active confirmed 48269257 Problem Supervision of other normal Z34.80 Ac tive confirm 180938665 Problem Obesity complicating in second trimester O99.212 Active confirmed 084044936119 Problem Obesity complicating , third trimester O9 9.213 Active confirmed 734314879109 Problem Vitamin D deficiency E55.9 Active confirmed 07579385 Problem Asthma exacerbation J45.901 Active confirmed 452793185 Problem Migraine without status migr ainosus, not intractable, unspecified migraine type G43.909 Active confirmed 68065055 Problem Obesity E66.9 Active confirmed 953409333 Problem Constipation K59.00 Active confirmed 7606557 8 Problem Morbid obesity E66.01 Active confirmed 59628 6002 Problem Obesity affecting in third trimester O99 .213 Active confirmed 230789270632 ALLERGIES Allergen (clinical drug ingredient) Drug/Non Drug Allergy do cumented on EMR Reaction Allergy Type Onset Date Status penicillin Rash Non Drug Allergy Active Latex Exam Gloves Rash Drug Allergy Activ e ENCOUNTERS from 1989 to 2020-11-14 Encounter Location Date Provider Diagnosis [facility] Women's Wellness and Breast Care [address] [place] [phone] 11 Oct, 2020 Christine Palm 36 weeks gestation o f Z3A.36 ; Obesity complicating in third trimester O99.213 ; Morbid obesity E66.01 ; Hypothyroidism (acquired) E03.9 and Endocrine, nutritional and metabolic diseases complicating , third trimester O99.283 IMMUNIZATIONS Vaccine Route Administration Date Status TDAP 0.5mL (Boostrix) IM Intramuscular Sep 10, 2020 Administe red Imm: Influenza 6mo & up Fluzone IM Intramuscular Sep 10, 2020 Administered SOCIAL HISTORY Tobacco Use: Social History Observation [...] FOR REFERRAL No Information VITAL SIGNS Weight 341.0 lbs Oct, Weight-kg 154.67 kg Oct, Height 65 in Oct, BMI 56.745 kg/m2 Oct, Blood pressure systolic 122 mm Hg Oct, Blood pressure diastolic 82 mm Hg Oct, MEDICATIONS Medication SIG (Take, Route, Frequency, Duration) Notes Start Da te End Date Status Topiramate 50 MG 1 tablet Orally Once a day Not-Taking Calcium 600 MG 1 tablet with meals Orally Twice a day Active Albuterol Sulfate HFA 108 (90 Base) MCG/ACT 2 puffs as needed Inhalation every 4 hrs for 30 days Sep, Active Levothyroxine Sodium 50 MCG 1 tablet in the morning on an empty stomach Orally Once a day Not-Taking Metformin HCl 500 MG 1 tablet with a meal Orally twice a day for 30 day(s) January, Not-Taking Gummies/DHA & FA 0.4-32.5 MG as directed Orally Not-Taking Zofran 4 MG 1 tablet Orally every 6 hours as needed for naus ea for 30 day(s) Aug, Active Colace 100 MG 1 capsule Orally Twice a day for 30 day(s) 0 1 Aug, 2020 Active Iron 325 (65 Fe) MG 1 tablet Orally Once a day Active Biotin 1000 MCG 1 tablet Orally Once a day Active ClomiPHENE Citrate 50 MG 1 tablet Orally Once a day, day 3-7 for 5 da y(s) Not-Taking 27-1 MG 1 tablet Orally Once a day Active Ondansetron 4 MG 1 tablet on the tongue and allow to diss olve Orally Once a day Not-Taking Rizatriptan Benzoate 10 MG 1 tablet Orally Once a day Not-Taking MiraLax 17 GM 1 packet mixed with 8 ounces of fluid Orally Once a day for 30 day(s) Aug, Active Ondansetron 4 MG 1 tablet on the tongue and a llow to dissolve Orally every 6 hours as needed for nausea for 30 day(s) Aug, Not-Taking Escitalopram Oxalate 20 MG 1 tablet Orally Once a day Not-Taking PROCEDURES No Information RESULTS Component Value Reference Range GROUP B STREP CULTURE Reviewed date:11/11/2020 09:40:49 Interpretation: Performing Lab:[facility], [facility] [address] [facility] [address] , ,[place] [address] REASON FOR VISIT 2 WK PN MEDICAL (GENERAL) HISTORY Type Description [...] Notes Treatment Notes Treatm ent Clinical Notes Oct, 36 weeks gestation of (ICD-10 - Z3A.36 ) Oct, Obesity complicating pregnan cy in third trimester (ICD-10 - O99.213) Oct, Morbid obesity (ICD-10 - E66.01) Oct, Hypothyroidism (acquired) (ICD-10 - E03.9) Oct, Endocrine, nutritional and m etabolic diseases complicating , third trimester (ICD-10 - O99.283) PLAN OF TREATMENT Treatment Notes Test Name Order Date [facility] OBS FOLLOW UP OR REPEAT 2020-11-07 Next Appt Details 1 Weeks Reason:PN Provider Name:Christine Palm, 2020-10 01:20:00 PM, [address] [place], [address], Follow Up:1 WeeksPN Insurance Providers Payer Name Payer Address Payer Phone Insured Name Patient Relati onship to Insured Coverage Start Date Coverage End Date [facility] CORPORATE CLAIMS DEPT [address] [facility] [phone] JAMES BETANCUR self
--- OUTSIDE RECORDS SUMMARY | 2020-11-16 07:41 | CCD ---
Author Author [facility] Organization [facility] Address Unknown Phone Unavailable Care Team Providers Care Wildland Firefighter Name Role Phone Shanita Carrillo Unavailable PROBLEMS Type Condition ICD9-CM Code RNO79-AA Code Onset Dates Condition S tatus SNOMED Code Notes Problem Vitamin D deficiency E55.9 Active 65064992 Problem Amenorrhea N91.2 Active 71792818 Problem Morbid obesity E66.01 Active 696098123 Problem Obesity affecting in third trimester O99 .213 Active 888244657681 Problem Supervision of other normal Z34.80 Ac tive 577529920 Problem Obesity complicating in second trimester O99.212 Active 242960914882 Problem Obesity E66.9 Active 202546589 Problem Constipation K59.00 Active 89676443 ALLERGIES Allergen (clinical drug ingredient) Drug/Non Drug Allergy do cumented on EMR Reaction Allergy Type Onset Date Status penicillin Rash Non Drug Allergy Active Latex Exam Gloves Rash Drug Allergy Activ e ENCOUNTERS from 1989 to 2020-09-25 Encounter Location Date Provider Diagnosis [facility] Women's Wellness and Breast Care [address] [place] [phone] Aug, Shanita Carrillo Obesity complicating in third trimester O99.213 ; Body mass index (BMI) of 40.0 to 49.9 E66.01 ; 30 weeks gestation of Z3A.30 and Discharge of vagina N89.8 IMMUNIZATIONS Vaccine Route Administration Date Status TDAP [...] FOR REFERRAL No Information VITAL SIGNS Weight 343.8 lbs Aug, Weight-kg 155.94 kg Aug, Height 65 in Aug, BMI 57.211 kg/m2 Aug, Blood pressure systolic 128 mm Hg Aug, Blood pressure diastolic 82 mm Hg Aug, MEDICATIONS Medication SIG (Take, Route, Frequency, Duration) Notes Start Da te End Date Status Biotin 1000 MCG 1 tablet Orally Once a day Active Topiramate 50 MG 1 tablet Orally Once a day Not-Taking Ondansetron 4 MG 1 tablet on the tongue and allow to diss olve Orally Once a day Not-Taking 27-1 MG 1 tablet Orally Once a day Active Metformin HCl 500 MG 1 tablet with a meal Orally twice a day for 30 day(s) January, Not-Taking Ondansetron 4 MG 1 tablet on the tongue and a llow to dissolve Orally every 6 hours as needed for nausea for 30 day(s) Aug, Not-Taking Colace 100 MG 1 capsule Orally Twice a day for 30 day(s) 0 Aug, Active Iron 325 (65 Fe) MG 1 tablet Orally Once a day Active ClomiPHENE Citrate 50 MG 1 tablet Orally Once a day, day 3-7 for 5 da y(s) Not-Taking Rizatriptan Benzoate 10 MG 1 tablet Orally Once a day Not-Taking Levothyroxine Sodium 50 MCG 1 tablet in the morning on an empty stomach Orally Once a day Not-Taking Escitalopram Oxalate 20 MG 1 tablet Orally Once a day Not-Taking Gummies/DHA & FA 0.4-32.5 MG as directed Orally Not-Taking MiraLax 17 GM 1 packet mixed with 8 ounces of fluid Orally Once a day for 30 day(s) Aug, Active Calcium 600 MG 1 tablet with meals Orally Twice a day Active Zofran 4 MG 1 tablet Orally every 6 hours as needed for naus ea for 30 day(s) Aug, Active PROCEDURES No Information RESULTS No Results REASON FOR VISIT 4WK PN MEDICAL (GENERAL) [...] Notes Treatm ent Clinical Notes Aug, Obesity complicating pregnan cy in third trimester (ICD-10 - O99.213) Aug, Body mass index (BMI) of 40.0 to 49.9 (ICD-10 - E66.01) Aug, 30 weeks gestation of (ICD-10 - Z3A.30 ) Aug, Discharge of vagina (ICD-10 - N89.8) PLAN OF TREATMENT Next Appt Details 2 Weeks Reason: Provider Name:Antoine Eric Adam, 08:00:00 AM, [address] [place] [address], [phone], Insurance Providers Payer Name Payer Address Payer Phone Insured Name Patient Relati onship to Insured Coverage Start Date Coverage End Date MEDICAID [employer] [address] [facility] [id number] JAMES BETANCUR [employer] CLAIMS DEPT [address] [facility] [phone] JAMES BETANCUR self
--- OUTSIDE RECORDS SUMMARY | 2020-11-16 07:41 | CCD ---
Author Author [facility] Organization [facility] Address Unknown Phone Unavailable Care Team Providers Care Veneer Jointer Helper Name Role Phone Antoine Adam Unavailable PROBLEMS Type Condition ICD9-CM Code [id number] Code Onset Dates Condition S tatus SNOMED Code Notes Problem Hypothyroidism (acquired) E03.9 Active 362528 002 Problem Anxiety with depression F41.8 Active 87400492 6 Problem Amenorrhea N91.2 Active 65336243 Problem Supervision of other normal Z34.80 Ac tive 389867341 Problem Obesity complicating in second trimester O99.212 Active 498852354783 Problem Obesity complicating , third trimester O9 9.213 Active 334069448376 Problem Vitamin D deficiency E55.9 Active 51790869 Problem Asthma exacerbation J45.901 Active 402822858 Problem Migraine without status migr ainosus, not intractable, unspecified migraine type G43.909 Active 36338696 Problem Obesity E66.9 Active 504261481 Problem Constipation K59.00 Active 36985268 Problem Morbid obesity E66.01 Active 348062042 Problem Obesity affecting in third trimester O99 .213 Active 497070063579 ALLERGIES Allergen (clinical drug ingredient) Drug/Non Drug Allergy do cumented on EMR Reaction Allergy Type Onset Date Status penicillin Rash Non Drug Allergy Active Latex Exam Gloves Rash Drug Allergy Activ e ENCOUNTERS from 1989 to 2020-10-12 Encounter Location Date Provider Diagnosis [facility] [address] [place] [phone] Sep, Antoine Adam 32 weeks gestation o f Z3A.32 and Obesity complicating , third trimester O99.213 IMMUNIZATIONS Vaccine Route Administration [...] FOR REFERRAL No Information VITAL SIGNS Weight 343 lbs Sep, Height 65 in Sep, BMI 57.07 kg/m2 Sep, Blood pressure systolic 118 mm Hg Sep, Blood pressure diastolic 64 mm Hg Sep, MEDICATIONS Medication SIG (Take, [...] Information RESULTS No Results REASON FOR VISIT 2WK PN MEDICAL (GENERAL) HISTORY Type Description Date [...] Treatment Notes Treatm ent Clinical Notes Sep, 32 weeks gestation of (ICD-10 - Z3A.32 ) Sep, Obesity complicating , third tr imester (ICD-10 - O99.213) PLAN OF TREATMENT Medication Medication Name Sig Start Date Stop Date Albuterol Sulfate HFA 108 (90 Base) MCG/ACT 2 puffs as needed Inhalation every 4 hrs for 30 days Sep, Next Appt Details 2 Weeks Reason:follow-up Provider Name:Shanita Carrillo, 2020-10-22 0 2:40:00 PM, [address] [place], [address], Follow Up:2 Weeksfollow-up Insurance Providers Payer Name Payer Address Payer Phone Insured Name Patient Relati onship to Insured Coverage Start Date Coverage End Date MEDICAID [employer] [address] [facility] [id number] [phone] JAMES BETANCUR [employer] DEPT [address] [facility] [phone] AJMES BETANCUR
--- OUTSIDE RECORDS SUMMARY | 2020-11-16 07:41 | CCD ---
Author Author [facility] Organization [facility] Address Unknown Phone Unavailable Care Team Providers Care Drug Room Clerk Name Role Phone Shanita Carrillo Unavailable PROBLEMS Type Condition ICD9-CM Code [id number] Code Onset Dates Condition S tatus SNOMED Code Notes Problem Hypothyroidism (acquired) E03.9 Active 271142 002 Problem Anxiety with depression F41.8 Active 31552203 6 Problem Amenorrhea N91.2 Active 45672335 Problem Supervision of other normal Z34.80 Ac tive 373615636 Problem Obesity complicating in second trimester O99.212 Active 183176581025 Problem Obesity complicating , third trimester O9 9.213 Active 531146125053 Problem Vitamin D deficiency E55.9 Active 88196418 Problem Asthma exacerbation J45.901 Active 319126976 Problem Migraine without status migr ainosus, not intractable, unspecified migraine type G43.909 Active 58052308 Problem Obesity E66.9 Active 541470516 Problem Constipation K59.00 Active 47978157 Problem Morbid obesity E66.01 Active 102479768 Problem Obesity affecting in third trimester O99 .213 Active 537242722154 ALLERGIES Allergen (clinical drug ingredient) Drug/Non Drug Allergy do cumented on EMR Reaction Allergy Type Onset Date Status penicillin Rash Non Drug Allergy Active Latex Exam Gloves Rash Drug Allergy Activ e ENCOUNTERS from 1989 to 2020-10-23 Encounter Location Date Provider Diagnosis [facility] [address] [place] [phone] Sep, Shanita Carrillo Uterine size date di screpancy, antepartum O26.849 and Encounter for supervision of normal first , third trimester Z34.03 IMMUNIZATIONS Vaccine Route Administration Date Status TDAP [...] FOR REFERRAL No Information VITAL SIGNS Weight 338.8 lbs Sep, Weight-kg 153.68 kg Sep, Height 65 in Sep, BMI 56.379 kg/m2 Sep, Blood pressure systolic 120 mm Hg Sep, Blood pressure diastolic 72 mm Hg Sep, MEDICATIONS Medication SIG (Take, Route, Frequency, Duration) Notes Start Da te End Date Status Escitalopram Oxalate 20 MG 1 tablet Orally [...] day 3-7 for 5 da y(s) Not-Taking Metformin HCl 500 MG 1 tablet with a meal Orally twice a day for 30 day(s) January, Not-Taking Zofran 4 MG 1 tablet Orally every 6 hours as needed for naus ea for 30 day(s) Aug, Active Biotin 1000 MCG 1 tablet Orally Once a day Active Calcium 600 MG 1 tablet with meals Orally Twice a day Active Topiramate 50 MG 1 tablet Orally Once a day Not-Taking Albuterol Sulfate HFA 108 (90 Base) MCG/ACT 2 puffs as needed Inhalation every 4 hrs for 30 days Sep, Active Colace 100 MG 1 capsule Orally Twice a day for 30 day(s) 0 1 Aug, 2020 Active Ondansetron 4 MG 1 tablet on the tongue and allow to diss olve Orally Once a day Not-Taking Levothyroxine Sodium 50 MCG 1 tablet in the morning on an empty stomach Orally Once a day Not-Taking Gummies/DHA & FA 0.4-32.5 MG as directed Orally Not-Taking Ondansetron 4 MG 1 tablet on the tongue and a llow to dissolve Orally every 6 hours as needed for nausea for 30 day(s) Aug, Not-Taking Rizatriptan Benzoate 10 MG 1 tablet Orally Once a day Not-Taking PROCEDURES No Information RESULTS No Results REASON FOR VISIT 2WK PN MEDICAL (GENERAL) HISTORY Type Description Date Medical History hypothyroidism Medical History PCOS Medical History asthma Surgical History gastric sleeve 05/2019 Surgical History carpal tunnel both hands Surgical History D&C x 3 Surgical History Gallbladder removal 2016 Hospitalization History Surgical related Goals Section No Information Health Concerns No Information MEDICAL EQUIPMENT No Information MENTAL STATUS No Information FUNCTIONAL STATUS No Information ASSESSMENTS Encounter Date Diagnosis Assessment Notes Treatment Notes Treatm ent Clinical Notes Sep, Uterine size date discrepancy, antepartum (ICD-1 0 - O26.849) Sep, Encounter for supervision of normal first , third trimester (ICD-10 - Z34.03) PLAN OF TREATMENT Treatment Notes Test Name Order Date [facility] OBS FOLLOW UP OR REPEAT 2020-10-23 Next Appt Details 2 Weeks Reason: Provider Name:Christine Palm, 2020-10 02:40:00 PM, [address] [place], [address], Insurance Providers Payer Name Payer Address Payer Phone Insured Name Patient Relati onship to Insured Coverage Start Date Coverage End Date [facility] [employer] [facility] DEPT [address] [place] [phone] JAMES BETANCUR self
--- OUTSIDE RECORDS SUMMARY | 2020-11-16 07:41 | CCD ---
Author Author [facility] Organization [facility] Address Unknown Phone Unavailable Care Team Providers Care Data Visualization Developer Name Role Phone Christine Palm Unavailable PROBLEMS Type Condition ICD9-CM Code [id number] Code Onset Dates Condition S tatus SNOMED Code Notes Problem Vitamin D deficiency E55.9 Active 81209874 Problem Constipation K59.00 Active 25457873 Problem Morbid obesity E66.01 Active 916915675 Problem Amenorrhea N91.2 Active 11256712 Problem Supervision of other normal Z34.80 Ac tive 133990888 Problem Obesity complicating in second trimester O99.212 Active 126398195769 Problem Obesity E66.9 Active 527730213 ALLERGIES Allergen (clinical drug ingredient) Drug/Non Drug Allergy do cumented on EMR Reaction Allergy Type Onset Date Status penicillin Rash Non Drug Allergy Active Latex Exam Gloves Rash Drug Allergy Activ e ENCOUNTERS from 1989 to 2020-08-27 Encounter Location Date Provider Diagnosis [facility] [address] [place] [phone] Jul, Christine Palm Obesity complicating in second trimester O99.212 ; Maternal care for other (suspected) abnormality and damage, not applicable or unspecified O35.8XX0 and 22 weeks gestation of pregnan cy Z3A.22 IMMUNIZATIONS No Information SOCIAL HISTORY Tobacco Use: [...] FOR REFERRAL No Information VITAL SIGNS Weight 344 lbs Jul, Height 65 in Jul, BMI 57.245 kg/m2 Jul, Blood pressure systolic 134 mm Hg Jul, Blood pressure diastolic 82 mm Hg Jul, MEDICATIONS Medication SIG (Take, Route, Frequency, Duration) [...] directed Orally Not-Taking PROCEDURES No Information RESULTS No Results REASON FOR VISIT 2 WK PN MEDICAL [...] Notes Treatment Notes Treatm ent Clinical Notes Jul, Obesity complicating pregnan cy in second trimester (ICD-10 - O99.212) Jul, Maternal care for other (brandt pected) abnormality and damage, not applicable or unspecified (ICD-10 - O35.8XX0) Jul, 22 weeks gestation of (ICD-10 - Z3A.22 ) PLAN OF TREATMENT Medication Medication Name [...] Aug, Treatment Notes Test Name Order Date WW OBS COMPLETE 2020-08-27 Next Appt Details 4 Weeks Reason:COB Provider Name:Christine Palm, 2020-08 02:00:00 PM, [facility] [place], [address], Follow Up:4 WeeksCOB Insurance Providers Payer Name Payer Address Payer Phone Insured Name Patient Relati onship to Insured Coverage Start Date Coverage End Date MEDICAID [employer] [address] [facility] [id number] JAMES BETANCUR [employer]S DEPT [address] [facility] [phone] JAMES BETANCUR self
--- OUTSIDE RECORDS SUMMARY | 2020-11-16 07:42 | CCD ---
Author Author [facility] Organization [facility] Address Unknown Phone Unavailable Care Team Providers Care Mail Processing Clerk Name Role Phone Alfredo CORBETT MD Unavailable Unavailable Alfredo CORBETT MD Unavailable Unavailable Alfredo CORBETT MD Unavailable Unavailable Alfredo CORBETT MD Unavailable Unavailable Alfredo CORBETT MD Unavailable Unavailable Alfredo CORBETT MD Unavailable Unavailable ARIC P CARLINE MONTES DE OCA Unavailable Unavailable ARIC P CARLINE MONTES DE OCA Unavailable Unavailable CORBETT P CARLINE MONTES DE OCA Unavailable Unavailable CORBETT P CARLINE MONTES DE OCA Unavailable Unavailable CORBETT P CARLINE MONTES DE OCA Unavailable Unavailable CORBETT P CARLINE MONTES DE OCA Unavailable Unavailable CORBETT P CARLINE MONTES DE OCA Unavailable Unavailable CORBETT P CARLINE MONTES DE OCA Unavailable Unavailable CORBETT P CARLINE MONTES DE OCA Unavailable Unavailable CORBETT P CARLINE MONTES DE OCA Unavailable Unavailable CORBETT P CARLINE MONTES DE OCA Unavailable Unavailable CORBETT P CARLINE MONTES DE OCA Unavailable Unavailable CORBETT P CARLINE MONTES DE OCA Unavailable Unavailable CORBETT P CARLINE MONTES DE OCA Unavailable Unavailable CORBETT P CARLINE MONTES DE OCA Unavailable Unavailable CORBETT P CARLINE MONTES DE OCA Unavailable Unavailable CORBETT P CARLINE MONTES DE OCA Unavailable Unavailable CORBETT P CARLINE MONTES [place] OCA Unavailable Unavailable CORBETT P CARLINE Unavailable Unavailable CORBETT P CARLINE MD Unavailable Unavailable CORBETT P CARLINE Unavailable Unavailable CORBETT P CARLINE MD Unavailable Unavailable CORBETT P CARLINE MD Unavailable Unavailable CORBETT P CARLINE Unavailable Unavailable CORBETT P CARLINE Unavailable Unavailable CORBETT P CARLINE MD Unavailable Unavailable CORBETT P CARLINE MD Unavailable Unavailable CORBETT P CARLINE Unavailable Unavailable CORBETT P CARLINE Unavailable Unavailable CORBETT P CARLINE MONTES DE OCA Unavailable Unavailable CORBETT P CARLINE MONTES DE OCA Unavailable Unavailable CORBETT, P CARLINE MD Unavailable Unavailable Alfredo CORBETT MD Unavailable Unavailable Alfredo CORBETT MD Unavailable Unavailable NOSOVITCH JRSusan MD Unavailable Unavailable NOSOVITCH JRSusan MD Unavailable Unavailable NOSOVITCH JRSusan MD Unavailable Unavailable NOSOVITCH JRSusan MD Unavailable Unavailable NOSOVITCH JRSusan MD Unavailable Unavailable NOSOVITCH JRSusna MD Unavailable Unavailable NOSOVITCH JRSusan MD Unavailable Unavailable NOSOVITCH JRSusan MD Unavailable Unavailable NOSOVITCH JRSusan MD Unavailable Unavailable NOSOVITCH JRSusan MD Unavailable Unavailable NOSOVITCH JRSusan MD Unavailable Unavailable NOSOVITCH JRSusan MD Unavailable Unavailable NOSOVITCH JRSusan MD Unavailable Unavailable NOSOVITCH JRSusan MD Unavailable Unavailable NOSOVITCH JR, Susan CROWLEY MD Unavailable Unavailable NOSOVITCH JRSusan MD Unavailable Unavailable NOSOVITCH JRSusan MD Unavailable Unavailable NOSOVITCH JRSusan MD Unavailable Unavailable NOSOVITCH JRSusan MD Unavailable Unavailable NOSOVITCH JRSusan MD Unavailable Unavailable NOSOVITCH JRSusan MD Unavailable Unavailable NOSOVITCH JRSusan MD Unavailable Unavailable NOSOVITCH JRSusan MD Unavailable Unavailable NOSOVITCH JRSusan MD Unavailable Unavailable NOSOVITCH JRSusan MD Unavailable Unavailable NOSOVITCH JRSusan MD Unavailable Unavailable NOSOVITCH JR, Susan CROWLEY MD Unavailable Unavailable NOSOVITCH JRSusan MD Unavailable Unavailable RENEEDENA CONTEA TALENT CONSULTANT-C, MSN Unavailable Unavailab le RENEEDENA ROYAL RONAN TALENT CONSULTANT-C, MSN Unavailable Unavailab le RENEEDENA ROYAL RONAN TALENT CONSULTANT-C, MSN Unavailable Unavailab le RENEEDENA RONAN TALENT CONSULTANT-C, MSN Unavailable Unavailab le RENEEDENA RONAN TALENT CONSULTANT-C, MSN Unavailable Unavailab le RENEEDENA RONAN TALENT CONSULTANT-C, MSN Unavailable Unavailab le RENEEDENA RONAN TALENT CONSULTANT-C, MSN Unavailable Unavailab le RENEE, DENA RONAN TALENT CONSULTANT-C, MSN Unavailable Unavailab le RENEE, DENA RONAN TALENT CONSULTANT-C, MSN Unavailable Unavailab le RENEEDENA RONAN TALENT CONSULTANT-C, MSN Unavailable Unavailab le RENEE, DENA RONAN TALENT CONSULTANT-C, MSN Unavailable Unavailab le RENEE, DENA RONAN TALENT CONSULTANT-C, MSN Unavailable Unavailab le RENEE, DENA ORNAN TALENT CONSULTANT-C, MSN Unavailable Unavailab le RENEE, DENA RONAN TALENT CONSULTANT-C, MSN Unavailable Unavailab le RENEE, DENA RONAN TALENT CONSULTANT-C, MSN Unavailable Unavailab le RENEE, DENA RONAN TALENT CONSULTANT-C, MSN Unavailable Unavailab le RENEE, DENA RONAN TALENT CONSULTANT-C, MSN Unavailable Unavailab le RENEE, DENA RONAN TALENT CONSULTANT-C, MSN Unavailable Unavailab le RENEE, DENA RONAN TALENT CONSULTANT-C, MSN Unavailable Unavailab le RENEE, DENA RONAN TALENT CONSULTANT-C, MSN Unavailable Unavailab le RENEE, DENA RONAN TALENT CONSULTANT-C, MSN Unavailable Unavailab le RENEE, DENA RONAN TALENT CONSULTANT-C, MSN Unavailable Unavailab le RENEE, DENA RONAN TALENT CONSULTANT-C, MSN Unavailable Unavailab le RENEE, DENA RONAN TALENT CONSULTANT-C, MSN Unavailable Unavailab le RENEE, DENA RONAN TALENT CONSULTANT-C, MSN Unavailable Unavailab le RENEE, DENA RONAN TALENT CONSULTANT-C, MSN Unavailable Unavailab le RENEE, DENA RONAN TALENT CONSULTANT-C, MSN Unavailable Unavailab le RENEE, DENA RONAN TALENT CONSULTANT-C, MSN Unavailable Unavailab le RENEE, DENA RONAN TALENT CONSULTANT-C, MSN Unavailable Unavailab le RENEE, DENA RONAN TALENT CONSULTANT-C, MSN Unavailable Unavailab le RENEE, DENA RONAN TALENT CONSULTANT-C, MSN Unavailable Unavailab le RENEE, DENA RONAN TALENT CONSULTANT-C, MSN Unavailable Unavailab le RENEE, DENA RONAN TALENT CONSULTANT-C, MSN Unavailable Unavailab le RENEE, DENA RONAN TALENT CONSULTANT-C, MSN Unavailable Unavailab le RENEE, DENA RONAN TALENT CONSULTANT-C, MSN Unavailable Unavailab le RENEE, DENA RONAN TALENT CONSULTANT-C, MSN Unavailable Unavailab le RENEE, DENA RONAN TALENT CONSULTANT-C, MSN Unavailable Unavailab le RENEE, DENA WHATLEYNDA TALENT CONSULTANT-C, MSN Unavailable Unavailab le RENEE, DENA WHATLEYNDA TALENT CONSULTANT-C, MSN Unavailable Unavailab le RENEE, DENA WHATLEYNDA TALENT CONSULTANT-C, MSN Unavailable Unavailab le RENEE, DENA WHATLEYNDA TALENT CONSULTANT-C, MSN Unavailable Unavailab le RENEE, DENA WHATLEYNDA TALENT CONSULTANT-C, MSN Unavailable Unavailab le RENEE, DENA WHATLEYNDA TALENT CONSULTANT-C, MSN Unavailable Unavailab le JESUS, KRUPA Unavailable Unavailable MAESTRI, FRANNY GODINEZ MS Unavailable Unavailable MAESTRI, FRANNY GODINEZ MS Unavailable Unavailable Re-disclosure Warning The records that you are about to access may contain information from federally-assisted alcohol or drug abuse programs. If such information is present, then the following federally mandated warning applies: This information has been disclosed to you from records protected by federal confidentiality rules (42 CFR part 2). The federal rules prohibit you from making any further disclosure of this information unless further disclosure is expressly permitted by the written consent of the person to whom it pertains or as otherwise permitted by 42 CFR part 2. A general authorization for the release of medical or other information is NOT sufficient for this purpose. The Federal rules restrict any use of the information to criminally investigate or prosecute any alcohol or drug abuse patient.The records that you are about to access may contain highly sensitive health information, the redisclosure of which is protected by Article 27-F of the [facility] Public Health law. If you continue you may have access to information: Regarding HIV / AIDS; Provided by facilities licensed or operated by the [facility] Office of Mental Health; or Provided by the [facility] Office for People With Developmental Disabilities. If such information is present, then the following [facility] mandated warning applies: This information has been disclosed to you from confidential records which are protected by state law. State law prohibits you from making any further disclosure of this information without the specific written consent of the person to whom it pertains, or as otherwise permitted by law. Any unauthorized further disclosure in violation of state law may result in a fine or long-term sentence or both. A general authorization for the release of medical or other information is NOT sufficient authorization for further disc losure. Allergies and Adverse Reactions Type Description Substance Reaction Status Data Source(s ) Drug Class PENICILLINS Penicillin [facility] DRUG INGREDI LATEX Latex [facility] penicillin penicillin penicillin Unknown Active eCW1 ([facility]) Latex Latex Latex rash, itching Active eCW1 ([facility]) Penicillin G Sodium Penicillin G Sodium Penicillin G Sodium 150417 UNT/ML Injectable Solution anaphylaxis Active eCW1 ([facility]) Latex Latex Latex rash, itching Active eCW1 ([facility]) Encounters Encounter Providers Location Date Indications Data Source(s ) ( ESTOB) enter Est OB [address] [place] [address] 11/07/2020 12:00:00 AM EST eCW1 (formerly [facility]) ( ESTOB) [facility] Est OB [address] [place] [address] 10/22/2020 12:00:00 AM EST eCW1 (Formerly [facility]) Unknown [address] [facility] [address] 10/11/2020 12:00:00 AM EST eCW1 ([facility]) Outpatient Attender: GRETCHEN BARRAZAGeorge MS 10/10/2020 12:00:[address] [facility] Outpatient 10/10/2020 12:00:[address] [facility] ( ESTOB) [facility] Est OB [address] [place] [address] 10/08/2020 12:00:00 AM EST eCW1 (formerly [facility]) ( ESTOB) enter Est OB [address] [place] [address] 10/03/2020 12:00:00 AM EST eCW1 (formerly [facility]) ( ESTOB) enter Est OB [address] [place] [address] 09/24/2020 12:00:00 AM EST eCW1 (formerly [facility]) ( ESTOB) enter Est OB [address] [place] [address] 09/10/2020 12:00:00 AM EST eCW1 (formerly [facility]) ( ESTOB) [facility] Est OB [address] [place] [address] 08/27/2020 12:00:00 AM EST eCW1 (Formerly [facility]) Outpatient Attender: CARLINE WINTERS ttender: GRETCHEN RONNIE MSAdmitter: CARLINE QUIJANO JRReferrer: CARLINE CORBETT MD [id number] 08/01/2020 12:00 :00 AM EST - 08/01/2020 01:00:30 PM EST Abnormal hematological finding on antena marlon screening of mother [facility] Abnormal hematological finding on antena marlon screening of mother Outpatient Attender: RKUPA LEE 08/01/2020 12:00:[address] [facility] Outpatient 08/01/2020 12:00:[address] [facility] ( ESTOB) [facility] Est OB [address] [place] [address] 07/30/2020 12:00:00 AM EST eCW1 (Formerly [facility]) ( ESTOB) [facility] Est OB [address] [place] [address] 07/16/2020 12:00:00 AM EDT eCW1 (Formerly [facility]) Outpatient Attender: GRETCHEN TRUJILLO MSReferrer: CARLINE CORBETT MD [id number] 07/11/2020 12:00:00 AM EDT - 07/11/2020 01:22:27 PM EDT Abnormal hematological finding on screening of mother [facility] Abnormal hematological finding on antena marlon screening of mother Outpatient Attender: KRUPA LEEReferrer: CARLINE CORBETT MD 07/11/2020 12:00:00 AM [facility] Outpatient Referrer: CARLINE CORBETT MD 07/11/2020 12:00:00 A M [facility] Unknown [address] [facility] [address] 06/18/2020 12:00:00 AM EDT eCW1 (Formerly [facility]) [facility] [address] [place] [address] 05/22/2020 12:00:00 AM EDT eCW1 ([facility]) Outpatient [address] [facility] [address] 04/19/2020 12:00:00 AM EDT eCW1 (Formerly [facility]) Office Visit, New Pt., Level 3 PC [address] [place] [address] 04/17/2020 12:00:00 AM EDT eCW1 ([facility]) Unknown [address] [facility] [place] [address] 04/11/2020 12:00:00 AM EDT eCW1 (Formerly [facility]) [facility] C ENTER 03/18/2020 12:00:00 AM EDT eCW1 ([facility]) [facility] C ENTER 03/18/2020 12:00:00 AM EDT eCW1 ([facility]) [facility] [address] [place] [address] 02/14/2020 12:00:00 AM EDT eCW1 ([facility]) Outpatient [address] [facility] [place] [address] 02/07/2020 12:00:00 AM EDT eCW1 ([facility]) [facility] [address] [place] [address] 01/04/2020 12:00:00 AM EDT eCW1 ([facility]) [facility] [address] [place] [address] 12/25/2019 12:00:00 AM EDT eCW1 (Formerly [facility]) [facility] [address] [place] [address] 12/12/2019 12:00:00 AM EDT eCW1 ([facility]) Outpatient Attender: RONAN HERNANDEZ, MSN 11/29/2019 1 0:18:00 AM EST [facility] C ENTER 11/29/2019 12:00:00 AM EST eCW1 ([facility]) [facility] C ENTER 11/20/2019 12:00:00 AM EST eCW1 ([facility]) [facility] C ENTER 11/17/2019 12:00:00 AM EST eCW1 ([facility]) Outpatient Attender: RONAN HERNANDEZ, MSN 11/08/2019 0 3:00:00 PM EST [facility] Outpatient Attender: RONAN HERNANDEZ, MSNReferr er: RONAN HERNANDEZ, MSN [facility] 10/31/2019 03:00:00 PM EST - 10/31/2019 03:00:00 PM EST [facility] C ENTER 10/31/2019 12:00:00 AM EST eCW1 ([facility]) Immunizations Vaccine Date Status Description Data Source(s) New in 2011. IIV4 09/10/2020 03:18:00 PM EST completed eCW1 ([facility]) Tdap 09/10/2020 03:18:00 PM EST completed e CW1 ([facility]) New in 2011. IIV4 09/10/2020 03:18:00 PM EST completed eCW1 ([facility]) Tdap 09/10/2020 03:18:00 PM EST completed e CW1 ([facility]) New in 2011. IIV4 09/10/2020 03:18:00 PM EST completed eCW1 ([facility]) Tdap 09/10/2020 03:18:00 PM EST completed e CW1 ([facility]) New in 2011. IIV4 09/10/2020 03:18:00 PM EST completed eCW1 ([facility]) Tdap 09/10/2020 03:18:00 PM EST completed e CW1 ([facility]) New in 2011. IIV4 09/10/2020 03:18:00 PM EST completed eCW1 ([facility]) Tdap 09/10/2020 03:18:00 PM EST completed e CW1 ([facility]) New in 2011. IIV4 09/10/2020 03:18:00 PM EST completed eCW1 ([facility]) Tdap 09/10/2020 03:18:00 PM EST completed e CW1 ([facility]) New in 2011. IIV4 09/10/2020 03:18:00 PM EST completed eCW1 ([facility]) Tdap 09/10/2020 03:18:00 PM EST completed e CW1 ([facility]) New in 2011. IIV4 09/10/2020 03:18:00 PM EST completed eCW1 ([facility]) Tdap 09/10/2020 03:18:00 PM EST completed e CW1 ([facility]) Medications Medication Brand Name Start Date Product Form Dose Route Admi nistrative Instructions Pharmacy Instructions Status Indications Reaction Description Data Source(s) Albuterol Sulfate HFA 108 (90 Base) MCG/ACT Albuterol Sulfate HFA 108 (90 Base) MCG/ACT 10/11/2020 12:00:00 AM EST 2.0 {puffs_as_needed} active Albuterol Sulfate HFA 108 (90 Base) MCG/ACT eCW1 ([facility]) Albuterol Sulfate HFA 108 (90 Base) MCG/ACT Albuterol Sulfate HFA 108 (90 Base) MCG/ACT 10/11/2020 12:00:00 AM EST 2.0 {puffs_as_needed} active Albuterol Sulfate HFA 108 (90 Base) MCG/ACT eCW1 ([facility]) Albuterol Sulfate HFA 108 (90 Base) MCG/ACT Albuterol Sulfate HFA 108 (90 Base) MCG/ACT 10/11/2020 12:00:00 AM EST 2.0 {puffs_as_needed} active Albuterol Sulfate HFA 108 (90 Base) MCG/ACT eCW1 ([facility]) Albuterol Sulfate HFA 108 (90 Base) MCG/ACT Albuterol Sulfate HFA 108 (90 Base) MCG/ACT 10/11/2020 12:00:00 AM EST 2.0 {puffs_as_needed} active Albuterol Sulfate HFA 108 (90 Base) MCG/ACT eCW1 ([facility]) Albuterol Sulfate HFA 108 (90 Base) MCG/ACT Albuterol Sulfate HFA 108 (90 Base) MCG/ACT 10/11/2020 12:00:00 AM EST 2.0 {puffs_as_needed} active Albuterol Sulfate HFA 108 (90 Base) MCG/ACT eCW1 ([facility]) Albuterol Sulfate HFA 108 (90 Base) MCG/ACT Albuterol Sulfate HFA 108 (90 Base) MCG/ACT 10/11/2020 12:00:00 AM EST 2.0 {puffs_as_needed} active Albuterol Sulfate HFA 108 (90 Base) MCG/ACT eCW1 ([facility]) Ondansetron 4 MG Oral Tablet [Zofran] Zofran 4 MG Zofran 4 M G 09/10/2020 12:00:00 AM EST 1.0 {tablet} active Zo ashley 4 MG eCW1 ([facility]) Ondansetron 4 MG Oral Tablet [Zofran] Zofran 4 MG Zofran 4 M G 09/10/2020 12:00:00 AM EST 1.0 {tablet} active Zo ashley 4 MG eCW1 ([facility]) Ondansetron 4 MG Oral Tablet [Zofran] Zofran 4 MG Zofran 4 M G 09/10/2020 12:00:00 AM EST 1.0 {tablet} active Zo ashley 4 MG eCW1 ([facility]) Ondansetron 4 MG Oral Tablet [Zofran] Zofran 4 MG Zofran 4 M G 09/10/2020 12:00:00 AM EST 1.0 {tablet} active Zo ashley 4 MG eCW1 ([facility]) Ondansetron 4 MG Oral Tablet [Zofran] Zofran 4 MG Zofran 4 M G 09/10/2020 12:00:00 AM EST 1.0 {tablet} active Zo ashley 4 MG eCW1 ([facility]) Ondansetron 4 MG Oral Tablet [Zofran] Zofran 4 MG Zofran 4 M G 09/10/2020 12:00:00 AM EST 1.0 {tablet} active Zo ashley 4 MG eCW1 ([facility]) Ondansetron 4 MG Oral Tablet [Zofran] Zofran 4 MG Zofran 4 M G 09/10/2020 12:00:00 AM EST 1.0 {tablet} active Zo ashley 4 MG eCW1 ([facility]) Ondansetron 4 MG Oral Tablet [Zofran] Zofran 4 MG Zofran 4 M G 09/10/2020 12:00:00 AM EST 1.0 {tablet} active Zo ashley 4 MG eCW1 ([facility]) Ondansetron 4 MG Disintegrating Oral Tablet Ondansetron 4 MG 08/27/2020 12:00:00 AM EST 1.0 {tablet_on_the_tongue_and_allow_to_dissolve} suspended Ondansetron 4 MG eCW1 ([facility]) POLYETHYLENE GLYCOL 3350 142 MG/ML Oral Solution [Sheridan lax] MiraLax 17 GM MiraLax 17 GM 08/27/2020 12:00:00 AM EST 1.0 {packet_mixed_with_8_ou nces_of_fluid} active MiraLax 17 GM eCW1 ([facility]) POLYETHYLENE GLYCOL 3350 142 MG/ML Oral Solution [Sheridan lax] MiraLax 17 GM MiraLax 17 GM 08/27/2020 12:00:00 AM EST 1.0 {packet_mixed_with_8_ou nces_of_fluid} active MiraLax 17 GM eCW1 ([facility]) Docusate Sodium 100 MG Oral Capsule [Colace] Colace 100 MG C olace 100 MG 08/27/2020 12:00:00 AM EST 1.0 {capsule} active Colace 100 MG eCW1 ([facility]) Docusate Sodium 100 MG Oral Capsule [Colace] Colace 100 MG C olace 100 MG 08/27/2020 12:00:00 AM EST 1.0 {capsule} active Colace 100 MG eCW1 ([facility]) POLYETHYLENE GLYCOL 3350 142 MG/ML Oral Solution [Sheridan lax] MiraLax 17 GM MiraLax 17 GM 08/27/2020 12:00:00 AM EST 1.0 {packet_mixed_with_8_ou nces_of_fluid} active MiraLax 17 GM eCW1 ([facility]) POLYETHYLENE GLYCOL 3350 142 MG/ML Oral Solution [Sheridan lax] MiraLax 17 GM MiraLax 17 GM 08/27/2020 12:00:00 AM EST 1.0 {packet_mixed_with_8_ou nces_of_fluid} active MiraLax 17 GM eCW1 ([facility]) Ondansetron 4 MG Disintegrating Oral Tablet Ondansetron 4 MG 08/27/2020 12:00:00 AM EST 1.0 {tablet_on_the_tongue_and_allow_to_dissolve} suspended Ondansetron 4 MG eCW1 ([facility]) POLYETHYLENE GLYCOL 3350 142 MG/ML Oral Solution [Sheridan lax] MiraLax 17 GM MiraLax 17 GM 08/27/2020 12:00:00 AM EST 1.0 {packet_mixed_with_8_ou nces_of_fluid} active MiraLax 17 GM eCW1 ([facility]) Docusate Sodium 100 MG Oral Capsule [Colace] Colace 100 MG C olace 100 MG 08/27/2020 12:00:00 AM EST 1.0 {capsule} active Colace 100 MG eCW1 ([facility]) Ondansetron 4 MG Disintegrating Oral Tablet Ondansetron 4 MG 08/27/2020 12:00:00 AM EST 1.0 {tablet_on_the_tongue_and_allow_to_dissolve} active Ondansetron 4 MG eCW1 ([facility]) Ondansetron 4 MG Disintegrating Oral Tablet Ondansetron 4 MG 08/27/2020 12:00:00 AM EST 1.0 {tablet_on_the_tongue_and_allow_to_dissolve} suspended Ondansetron 4 MG eCW1 ([facility]) Docusate Sodium 100 MG Oral Capsule [Colace] Colace 100 MG C olace 100 MG 08/27/2020 12:00:00 AM EST 1.0 {capsule} active Colace 100 MG eCW1 ([facility]) Ondansetron 4 MG Disintegrating Oral Tablet Ondansetron 4 MG 08/27/2020 12:00:00 AM EST 1.0 {tablet_on_the_tongue_and_allow_to_dissolve} suspended Ondansetron 4 MG eCW1 ([facility]) Ondansetron 4 MG Disintegrating Oral Tablet Ondansetron 4 MG 08/27/2020 12:00:00 AM EST 1.0 {tablet_on_the_tongue_and_allow_to_dissolve} suspended Ondansetron 4 MG eCW1 ([facility]) Docusate Sodium 100 MG Oral Capsule [Colace] Colace 100 MG C olace 100 MG 08/27/2020 12:00:00 AM EST 1.0 {capsule} active Colace 100 MG eCW1 ([facility]) POLYETHYLENE GLYCOL 3350 142 MG/ML Oral Solution [Sheridan lax] MiraLax 17 GM MiraLax 17 GM 08/27/2020 12:00:00 AM EST 1.0 {packet_mixed_with_8_ou nces_of_fluid} active MiraLax 17 GM eCW1 ([facility]) Docusate Sodium 100 MG Oral Capsule [Colace] Colace 100 MG C olace 100 MG 08/27/2020 12:00:00 AM EST 1.0 {capsule} active Colace 100 MG eCW1 ([facility]) Docusate Sodium 100 MG Oral Capsule [Colace] Colace 100 MG C olace 100 MG 08/27/2020 12:00:00 AM EST 1.0 {capsule} active Colace 100 MG eCW1 ([facility]) Ondansetron 4 MG Disintegrating Oral Tablet Ondansetron 4 MG 08/27/2020 12:00:00 AM EST 1.0 {tablet_on_the_tongue_and_allow_to_dissolve} suspended Ondansetron 4 MG eCW1 ([facility]) POLYETHYLENE GLYCOL 3350 142 MG/ML Oral Solution [Sheridan lax] MiraLax 17 GM MiraLax 17 GM 08/27/2020 12:00:00 AM EST 1.0 {packet_mixed_with_8_ou nces_of_fluid} active MiraLax 17 GM eCW1 ([facility]) POLYETHYLENE GLYCOL 3350 142 MG/ML Oral Solution [Sheridan lax] MiraLax 17 GM MiraLax 17 GM 08/27/2020 12:00:00 AM EST 1.0 {packet_mixed_with_8_ou nces_of_fluid} active MiraLax 17 GM eCW1 ([facility]) Ondansetron 4 MG Disintegrating Oral Tablet Ondansetron 4 MG 08/27/2020 12:00:00 AM EST 1.0 {tablet_on_the_tongue_and_allow_to_dissolve} active Ondansetron 4 MG eCW1 ([facility]) POLYETHYLENE GLYCOL 3350 142 MG/ML Oral Solution [Sheridan lax] MiraLax 17 GM MiraLax 17 GM 08/27/2020 12:00:00 AM EST 1.0 {packet_mixed_with_8_ou nces_of_fluid} active MiraLax 17 GM eCW1 ([facility]) POLYETHYLENE GLYCOL 3350 142 MG/ML Oral Solution [Sheridan lax] MiraLax 17 GM MiraLax 17 GM 08/27/2020 12:00:00 AM EST 1.0 {packet_mixed_with_8_ou nces_of_fluid} active MiraLax 17 GM eCW1 ([facility]) Ondansetron 4 MG Disintegrating Oral Tablet Ondansetron 4 MG 08/27/2020 12:00:00 AM EST 1.0 {tablet_on_the_tongue_and_allow_to_dissolve} active Ondansetron 4 MG eCW1 ([facility]) Docusate Sodium 100 MG Oral Capsule [Colace] Colace 100 MG C olace 100 MG 08/27/2020 12:00:00 AM EST 1.0 {capsule} active Colace 100 MG eCW1 ([facility]) Docusate Sodium 100 MG Oral Capsule [Colace] Colace 100 MG C olace 100 MG 08/27/2020 12:00:00 AM EST 1.0 {capsule} active Colace 100 MG eCW1 ([facility]) Ondansetron 4 MG Disintegrating Oral Tablet Ondansetron 4 MG 08/27/2020 12:00:00 AM EST 1.0 {tablet_on_the_tongue_and_allow_to_dissolve} suspended Ondansetron 4 MG eCW1 ([facility]) Docusate Sodium 100 MG Oral Capsule [Colace] Colace 100 MG C olace 100 MG 08/27/2020 12:00:00 AM EST 1.0 {capsule} active Colace 100 MG eCW1 ([facility]) Docusate Sodium 100 MG Oral Capsule [Colace] Colace 100 MG C olace 100 MG 08/27/2020 12:00:00 AM EST 1.0 {capsule} active Colace 100 MG eCW1 ([facility]) Ondansetron 4 MG Disintegrating Oral Tablet Ondansetron 4 MG 08/27/2020 12:00:00 AM EST 1.0 {tablet_on_the_tongue_and_allow_to_dissolve} active Ondansetron 4 MG eCW1 ([facility]) POLYETHYLENE GLYCOL 3350 142 MG/ML Oral Solution [Sheridan lax] MiraLax 17 GM MiraLax 17 GM 08/27/2020 12:00:00 AM EST 1.0 {packet_mixed_with_8_ou nces_of_fluid} active MiraLax 17 GM eCW1 ([facility]) Metformin hydrochloride 500 MG Oral Tablet Metformin H Cl 500 MG Metformin HCl 500 MG 02/07/2020 12:00:00 AM EDT 1.0 {tablet_with_a_meal} suspended Metformin HCl 500 MG eCW1 ([facility]) Metformin hydrochloride 500 MG Oral Tablet Metformin H Cl 500 MG Metformin HCl 500 MG 02/07/2020 12:00:00 AM EDT 1.0 {tablet_with_a_meal} active Metformin HCl 500 MG eCW1 ([facility]) Metformin hydrochloride 500 MG Oral Tablet Metformin H Cl 500 MG Metformin HCl 500 MG 02/07/2020 12:00:00 AM EDT active 1 tablet with a meal eCW1 ([facility]) Metformin hydrochloride 500 MG Oral Tablet Metformin H Cl 500 MG Metformin HCl 500 MG 02/07/2020 12:00:00 AM EDT 1.0 {tablet_with_a_meal} suspended Metformin HCl 500 MG eCW1 ([facility]) Metformin hydrochloride 500 MG Oral Tablet Metformin H Cl 500 MG Metformin HCl 500 MG 02/07/2020 12:00:00 AM EDT 1.0 {tablet_with_a_meal} suspended Metformin HCl 500 MG eCW1 ([facility]) Metformin hydrochloride 500 MG Oral Tablet Metformin H Cl 500 MG Metformin HCl 500 MG 02/07/2020 12:00:00 AM EDT 1.0 {tablet_with_a_meal} suspended Metformin HCl 500 MG eCW1 ([facility]) Metformin hydrochloride 500 MG Oral Tablet Metformin H Cl 500 MG Metformin HCl 500 MG 02/07/2020 12:00:00 AM EDT 1.0 {tablet_with_a_meal} suspended Metformin HCl 500 MG eCW1 ([facility]) Metformin hydrochloride 500 MG Oral Tablet Metformin H Cl 500 MG Metformin HCl 500 MG 02/07/2020 12:00:00 AM EDT 1.0 {tablet_with_a_meal} suspended Metformin HCl 500 MG eCW1 ([facility]) Metformin hydrochloride 500 MG Oral Tablet Metformin H Cl 500 MG Metformin HCl 500 MG 02/07/2020 12:00:00 AM EDT 1.0 {tablet_with_a_meal} suspended Metformin HCl 500 MG eCW1 ([facility]) Metformin hydrochloride 500 MG Oral Tablet Metformin H Cl 500 MG Metformin HCl 500 MG 02/07/2020 12:00:00 AM EDT 1.0 {tablet_with_a_meal} suspended Metformin HCl 500 MG eCW1 ([facility]) Metformin hydrochloride 500 MG Oral Tablet Metformin H Cl 500 MG Metformin HCl 500 MG 02/07/2020 12:00:00 AM EDT 1.0 {tablet_with_a_meal} suspended Metformin HCl 500 MG eCW1 ([facility]) Metformin hydrochloride 500 MG Oral Tablet Metformin H Cl 500 MG Metformin HCl 500 MG 02/07/2020 12:00:00 AM EDT 1.0 {tablet_with_a_meal} suspended Metformin HCl 500 MG eCW1 ([facility]) Metformin hydrochloride 500 MG Oral Tablet Metformin H Cl 500 MG Metformin HCl 500 MG 02/07/2020 12:00:00 AM EDT 1.0 {tablet_with_a_meal} suspended Metformin HCl 500 MG eCW1 ([facility]) Metformin hydrochloride 500 MG Oral Tablet Metformin H Cl 500 MG Metformin HCl 500 MG 02/07/2020 12:00:00 AM EDT 1.0 {tablet_with_a_meal} suspended Metformin HCl 500 MG eCW1 ([facility]) Metformin hydrochloride 500 MG Oral Tablet Metformin H Cl 500 MG Metformin HCl 500 MG 02/07/2020 12:00:00 AM EDT 1.0 {tablet_with_a_meal} suspended Metformin HCl 500 MG eCW1 ([facility]) Metformin hydrochloride 500 MG Oral Tablet Metformin H Cl 500 MG Metformin HCl 500 MG 02/07/2020 12:00:00 AM EDT 1.0 {tablet_with_a_meal} active Metformin HCl 500 MG eCW1 ([facility]) Loratadine 10 MG Oral Tablet Loratadine 10 MG 11/29/2019 12:00:[address] active 1 tablet eCW1 ([facility]) Sudafed 30 MG Sudafed 30 MG 11/29/2019 12:00:00 AM EST active 2 tablets only as needed eCW1 ([facility]) Flonase Allergy Relief 50 MCG/ACT Flonase Allergy Relief 50 MCG/ACT 11/29/2019 12:00:00 AM EST active 1 spray in each nostril eCW1 ([facility]) Insurance Providers Payer name Policy type / Coverage type Policy ID Covered constitution party ID Covered constitution party's relationship to mcelroy Policy [place]el[place] Plan Information ESTEFANY [id number] SP [id number] [place]ARE [place] [id number] S [id number] EMEDNY [id number] SP [id number] MEDICAID M [id number] S [id number] ESTEFANY I [id number] Self [id number] ESTEFANY CARE MEDICAID [id number] S [id number] MEDICAID [id number] SP [id number] ESTEFANY [facility] [place] [id number] SP [id number] MEDICAID [id number] S [id number] MEDICAID [id number] S [id number] Problems, Conditions, and Diagnoses Code Display Name Description Problem Type Effective Dates Data Source(s) G43.909 [id number] Migraine without sta tus migrainosus, not intractable, unspecified migraine type Problem 10/11/2020 12:00:00 AM EST eCW1 ([facility]) J45.901 Exacerbation of asthma Asthma exacerbation Problem 10/11/2020 12:00:00 AM EST eCW1 ([facility]) F41.8 [id number] Anxiety with depression Problem 10/11/2020 1 2:00:00 AM EST eCW1 ([facility]) E03.9 [id number] Hypothyroidism (acquired) Problem 10/11/2020 12:00:00 AM EST eCW1 ([facility]) O99.213 [id number] Obesity complicating , third tri mester Problem 10/08/2020 12:00:00 AM EST eCW1 ([facility]) O99.213 Maternal obesity complicatin g , childbirth and the puerperium, antepartum Obesity affecting in third trimester Problem 09/11/2020 12:00:00 AM EST eCW1 ([facility]) E66.01 Morbid obesity Morbid obesity Problem 08/27/2020 12:00: 00 AM EST eCW1 ([facility]) K59.00 Constipation Constipation Problem 08/27/2020 12:00:00 A M EST eCW1 ([facility]) E66.9 Obesity Obesity Problem 07/16/2020 12:00:00 AM ED T eCW1 ([facility]) O99.212 Maternal obesity complicatin g , childbirth and the puerperium, antepartum Obesity complicating in second trimester Problem 07/16/2020 12:00:00 AM EDT eCW1 ([facility]) E55.9 [id number] Vitamin D deficiency Problem 04/19/2020 12:0 0:00 AM EDT eCW1 ([facility]) Z34.80 care Supervision of other normal P roblem 04/17/2020 12:00:00 AM EDT eCW1 ([facility]) N91.2 Amenorrhea Amenorrhea Problem 04/17/2020 12:00:00 AM ED T eCW1 ([facility]) J30.9 [id number] Acute allergic rhinitis Problem 11/29/2019 1 2:00:00 AM EST eCW1 ([facility]) E55.9 [id number] Vitamin D deficiency Problem 11/29/2019 12:0 0:00 AM EST eCW1 ([facility]) N92.6 [id number] Missed menses Problem 11/29/2019 12:00:00 AM EST eCW1 ([facility]) G43.009 [id number] Migraine without aur a, not intractable, without status migrainosus Problem 11/08/2019 12:00:00 AM EST eCW1 ([facility]) E28.2 111128915 PCOS (polycystic ovarian syndrome) Proble m 10/31/2019 12:00:00 AM EST eCW1 ([facility]) E66.01 [id number] Obesity, morbid, BMI 50 or higher Problem 10/31/2019 12:00:00 AM EST eCW1 ([facility]) Z68.43 870730561 BMI 50.0-59.9, adult Problem 10/31/2019 12:0 0:00 AM EST eCW1 ([facility]) K21.9 [id number] Gastroesophageal reflux disease without e sophagitis Problem 10/31/2019 12:00:00 AM EST eCW1 ([facility]) E03.9 [id number] Acquired hypothyroidism Problem 10/31/2019 1 2:00:00 AM EST eCW1 ([facility]) D50.9 12615019 Iron deficiency anemia, unspecif ied iron deficiency anemia type Problem 10/31/2019 12:00:00 AM EST eCW1 ([facility]) F41.8 [id number] Depression with anxiety Problem 10/31/2019 1 2:00:00 AM EST eCW1 ([facility]) O28.0 Abnormal hematological finding on antena marlon screening of mother Abnormal hematological finding on screening of mother Diagnosis 07/11/2020 02:47:20 PM [facility] Z31.5 Encounter for procreative genetic counse rhonda Encounter for procreative genetic counseling Diagnosis 07/11/2020 09:14:25 AM [facility] Z03.73 Encounter for suspected anomaly ru led out Encounter for suspected anomaly ruled out Diagnosis 07/11/2020 09:14:25 AM EDT [facility] Z68.42 Body mass index (BMI) 45.0-49.9, adult B EUGENIE MASS INDEX (BMI) 45.0-49.9, ADULT Diagnosis 11/29/2019 10:18:00 AM [facility] l E66.01 Morbid (severe) obesity due to excess ca lories MORBID (SEVERE) OBESITY DUE TO EXCESS CALORIES Diagnosis 11/29/2019 10:18:00 AM [facility] J30.9 Allergic rhinitis, unspecified ALLERGIC RHINITIS, UNSP ECIFIED Diagnosis 11/29/2019 10:18:00 AM [facility] E55.9 Vitamin D deficiency, unspecified VITAMIN D DEFI CIENCY, UNSPECIFIED Diagnosis 11/29/2019 10:18:00 AM [facility] E28.2 Polycystic ovarian syndrome POLYCYSTIC OVARIAN SYNDROM E Diagnosis 11/29/2019 10:18:00 AM [facility] J02.9 Acute pharyngitis, unspecified ACUTE PHARYNGITIS, UNSP ECIFIED Diagnosis 11/29/2019 10:18:00 AM [facility] J00 Acute nasopharyngitis [common cold] ACUTE NASOPH ARYNGITIS [COMMON COLD] Diagnosis 11/29/2019 10:18:00 AM [facility] N92.6 Irregular menstruation, unspecified IRREGULAR ME NSTRUATION, UNSPECIFIED Diagnosis 11/29/2019 10:18:00 AM [facility] E03.9 Hypothyroidism, unspecified HYPOTHYROIDISM, UNSPECIFIE D Diagnosis 11/29/2019 10:18:00 AM [facility] G43.009 Migraine without aura, not intractable, without status migrainosus MIGRAINE W/O AURA, NOT INTRACTABLE, W/O STATUS LISA Diagnosis 12/2019 03:00:00 PM [facility] Z13.21 Encounter for screening for nutritional disorder ENCOUNTER FOR SCREENING FOR NUTRITIONAL DISORDER Diagnosis 10/31/2019 03:00:00 PM [facility] Z68.43 Body mass index (BMI) 50-59.9 , adult ROCIO DY MASS INDEX (BMI) 50.0-59.9, ADULT Diagnosis 10/31/2019 03:00:00 PM [facility] l Z86.69 Personal history of other di seases of the nervous system and sense organs PERSONAL HISTORY OF DIS OF THE NERVOUS S Diagnosis 020 03:00:00 PM [facility] K21.9 Gastro-esophageal reflux disease without esophagitis GASTRO-ESOPHAGEAL REFLUX DISEASE WITHOUT Diagnosis 10/31/2019 03:00:00 PM [facility] Z98.84 Bariatric surgery status BARIATRIC SURGERY STATUS Diag nosis 10/31/2019 03:00:00 PM [facility] Z76.89 Persons encountering health services in other specified circumstances PERSONS ENCOUNTERING HEALTH SERVICES IN Diagnosis 10/31/2019 03:00:00 PM [facility] Z00.00 Encounter for general adult medical examination without abnormal findings ENCNTR FOR GENERAL ADULT MEDICAL EXAM W/ Diagnosis 020 03:00:00 PM [facility] D50.9 Iron deficiency anemia, unspecified IRON DEFICIE NCY ANEMIA, UNSPECIFIED Diagnosis 10/31/2019 03:00:00 PM [facility] Z13.1 Encounter for screening for diabetes varun litus ENCOUNTER FOR SCREENING FOR DIABETES VARUN Diagnosis 10/31/2019 [facility] F[facility].8 Other specified anxiety disorders OTHER SPECIFIE D ANXIETY DISORDERS Diagnosis 10/31/2019 03:00:00 PM [facility] Surgeries/Procedures Procedure Description Date Indications Data Source(s) NONSTRESS TEST 10/03/2020 12:00:00 AM EST eCW1 ([facility]) INFLUENZA VIRUS VACC SPLIT PRSRV FREE 3 YRS/> IM 09/10 12:00:00 AM EST eCW1 ([facility]) Immunization: Boostrix 0.5mL IM (TDAP) 09/10/2020 12:0 0:00 AM EST eCW1 ([facility]) STREP A ASSAY W/OPTIC 12/25/2019 12:00:00 AM EDT eCW1 ([facility]) CULTURE TYPING, ADDED METHOD 11/29/2019 12:00:00 AM ES T eCW1 ([facility]) CHORIONIC GONADOTROPIN ASSAY 11/29/2019 12:00:00 AM ES T eCW1 ([facility]) Results ID Date Data Source GROUP B STREP CULTURE 11/07/2020 12:00:00 AM EST eCW1 ([facility]) Name Value Range Interpretation Code Description Data Nela rce(s) Supporting Document(s) GROUP B STREP CULTURE eCW1 ([facility]) ID Date Data Source WWBC OBS FOLLOW UP OR REPEAT 09/16/2020 12:00:00 AM EST eCW1 ([facility]) Name Value Range Interpretation Code Description Data Nela rce(s) Supporting Document(s) WWBC OBS FOLLOW UP OR REPEAT e CW1 ([facility]) ID Date Data Source Glucose Challenge Test 1 Hour 09/02/2020 12:00:00 AM EST eCW 1 ([facility]) Name Value Range Interpretation Code Description Data Nela rce(s) Supporting Document(s) 70 LESS THAN 140 GLUCOSE CHALLENGE TEST 1 HOUR eCW1 ([facility]) ID Date Data Source CBC - Complete Blood Count 09/02/2020 12:00:00 AM EST eCW1 ( [facility]) Name Value Range Interpretation Code Description Data Nela rce(s) Supporting Document(s) 4.03 4.00-5.40 RED BLOOD COUNT eCW1 ([facility]) 9.2 4.0-10.0 WHITE BLOOD COUNT eCW1 ([facility]) 93.5 80.0-96.0 MEAN CORPUSCULAR VOLUME e CW1 ([facility]) 12.2 12.0-15.5 HEMOGLOBIN eCW1 ([facility]) 37.7 36.0-47.0 HEMATOCRIT eCW1 ([facility]) 30.3 27.0-33.0 MEAN CORPUSCULAR HEMOGLOB IN eCW1 ([facility]) 32.4 32.0-36.5 MEAN CORPUSCULAR HGB CONC eCW1 ([facility]) 13.7 11.5-14.5 RED CELL DISTRIBUTION WID TH eCW1 ([facility]) 219 150-450 PLATELET COUNT, AUTOMATED eCW1 ([facility]) ID Date Data Source [id number] 08/08/2020 05:45:03 PM EST [facility] Name Value Range Interpretation Code Description Data Nela rce(s) Supporting Document(s) Progress Note [facility] YAFOUd0yLcJPCsNw72/JJIpiZKHrt5SlIDmjAPd0YNnwDFFvC1FbWSY1aE4oODU5OQuGVlGwTnQbGZWh lbm [file] AgICAgICAgICAgICAgICAgICAgICAgICAgICAgICAgICAgICAgICAgICAgICAgICAgICAgICAgICAgIC ElUK3CQPJyZJUgHXHeTSDvXGYmTSVwOTLaLGDnILPt ICAgICAgICAgICAgICAgICAgICAgICAgICAgICAgICAgICAgICAgICAgICAgICAgICAgICAgICAgICAg FIJpMZZxLIAlYUOnBH5URGVcNNJvDWVvAZDpDLHwZUBeVUKcBWVqWQWiVHClYERfMJWuPNEuRPLjEHLf ICAgICAgICAgICAgICAgICAgICAgICAgICAgICAgIC NpKNDpAZAlFGQnDPIaDVTdSWKmEOGiLX4FSEVrQVSbXGElDTGiXWAdDIChGGYjEEGpDCKpYPPdFKUyFF AgICAgICAgICAgICAgICAgICAgICAgICAgICAgICAgICAgICAgICAgICAgICAgICAgICAgICAgICAgIC JxFJZbBZ0BIJAfHJUrBQQaORHpFBGdTQZiODKoIUUl ICAgICAgICAgICAgICAgICAgICAgICAgICAgICAgICAgICAgICAgICAgICAgICAgICAgICAgICAgICAg EBLnOLYbQKMyRIEuQKQgWB0ISXHnQNIuHSPqCDSiDDYiMTZmUOUbOGOaGBLqQYVbLWKlMXIaIMLtOHSb ICAgICAgICAgICAgICAgICAgICAgICAgICAgICAgIC YbWIKrPCTpKZOeOHPeFJJjLGUdLEHwHZQdRC9MFGBeKKWtDOSxYUElWVCoCLJfJZOdDFRzAZNrXOPzIS AgICAgICAgICAgICAgICAgICAgICAgICAgICAgICAgICAgICAgICAgICAgICAgICAgICAgICAgICAgIC HgRTRyEBYgSF7LDNSgTJZoJVDcHVXiSPYaFICkMJMi ICAgICAgICAgICAgICAgICAgICAgICAgICAgICAgICAgICAgICAgICAgICAgICAgICAgICAgICAgICAg WIKqOAGzTFPhFKHfOFFvDHSkTB8UMUTiRDTxJYYiDRTpHLDmYWUwRFJeMFBmVVTpMEIiFNTlQTZeMTTi ICAgICAgICAgICAgICAgICAgICAgICAgICAgICAgIC IaKECcZBKrMTLtJKMcDEWxWRPcIIMoGUDpKGQrUI1JTNFzQYMhOVSmNIJmBQNiSSCcLCDqUJWcLIIqSO AgICAgICAgICAgICAgICAgICAgICAgICAgICAgICAgICAgICAgICAgICAgICAgICAgICAgICAgICAgIC PuXHZvYWLiZPPeHT1CGN10aCJod0K4ADDyUS3tjlw/ By8NXWlovwAzlKVoUT7IZtGtZV4bis8OBxEgBV9qgh1DDEqQHhWjP4X5tRWnFTItLHQHTdLwZ45dPLaj Jj71HQgaDRCzDzSqWEa1Mj5ZXhJpY6jqCHUyGhL5GFErGfT5PTFkQrQdQNidNU1Hx7RypAIaWNe+Pg0K SN6nh9VjOUneHGRcVA8ljj9HEKuGDdVoZ6RyilX6GR PmXXAaNu3CQDVjRJRoaGFzVkCsFIQKJbCiC7TuiH73ZLWDLq9+NHykclSgQmaLLfSmNTGxm8OiXEb7MQ 9OSLPiVYb5vJXyGULyM8Twb8IjQs01QMRyIkknQo5wfrFPFB7cq475qNZaoHhrFYCbADCwHSIrHZ9hEH QmEOLaUvLvPRGZDC3CXPOkERGsiCBvCWSdPGTTIH5S UVhwWEH1OLWdflBniIYsJGkmRA8JSVVncsPwSaMoEXMMSTo+Xd4RQA7lk4YwSOrlNfWpWN8cnj9ATJkJ TnYeT2B5pAXmO6S7YIfrLq9VRNEzKTRpSBlaIVVNWMbqAI7KPG2pokG2MN9InNDxYHRuSAXpwIFlHRx0 Y79gdHRqPNmtMX1YGCP+Lilly+Bc2MCHGtBSGoHZVpKd HtAIIXDwKoR5AuW7QTp7SmW8WxXU72rWxixgZcITxtRJ0EAA8sQWIdNTKHRP0JpQQnmP6dcfJtMACjAX EZQzUaP46ezKKeQFVzPBEwVOFeKz9RCFCvD5QrgjBmhXxgwrBoGUAfBJZXCB1ZMPnzuiOpwHSfaLkwGC 37pQtcPV5CPk6MZjZgNO8xvu5BnFDnJw8DALDmJS8D YSWtMKVnLMYwQSB3OZCoHwFnLXkdXUEeZKXsKYW7AJGxUYQqHN2KWkYhWINxEHvxSGWxJBBwGWMqrq1R BYElWRFpNPJpNcCyBYFdSSOxQTaqBTTiQESvMSB7EVKmMERnLC8JGnUhMOBvBZYfABXyDESaRVDwbn1Q NOPdTHVlGjJ4YWYyHDXoRNPwEGxnNDIsEWEiFHU3FO YjSUJtHZ9KLmBqWVCqXGVwBgYlCSSsMGCyof1YODIfJOMaTNY8MGEoLZMjSEOkCMelOGCvEEI6OJa0JF ErNKZoMN4IPlNrFOXbBWP1YkSnBCVaTGJyie8TLEXnIVWpGEAnZTRdHYQuHKWoAFdyJULiQKF7UNG2UJ HrOAIhUJ3TRqJrQZMwNEVhRWGiZIJoZMVybb1VFEMn LWNzLoB6DJUkFPRfEHNvKWecFAPjOCX6Kvi7HTRcTUSxLG4FEjWjONDfMUa8PZQsDFXxLPQaxi0LBGYx GRSzDUIgNUJaBCIeOVFuFRiuOVMeJQL1DbzqVIUrLFSkNP4AUyHdSWLvRAt8YOAcJJYrSGRknk0UNBJs SDSqPQGcTzAtEMPfKCYtBInlVJVwPXUuXJl9WTRxZU IyJH8BPaUjFXSnVaQoKNvwXNKoCTStdp7WrMSazXyxut0MEPkDYw7JxWfaOZA2QIlbZp0mhCWuIbBgLO YYWt1NolLxSNSoFKCLRHzfTWPhYCIvQZXjOGJ4ZOVhRbzaXYRcXKa9JfTfUZO4EjX7UPttAqL3DKF4KT J8NGF3GWArCKCjFNVbJsmbUDGpPwxiQhN6BpA+IF0g DQo+Yh0Hj9ZsroS7muUpYUenHIZ3Yb4AYGRMO2RXIv== ID Date Data Source [id number] 08/02/2020 12:37:00 PM EST [facility] Cytogenetics Report See Addendum BelowNa me: JAMES BETANCURMRN: [id number] Number: [id number] Date: 08/01/2020 12:22Received Date: 08/01/2020 14:19Physician(s): CARLINE QUIJANO MD NOSOVITCH, JOHN T,DONELLpecimen(s) ReceivedA: Amnio -Karyotype and Interphase FISHClinical [id number] patient with 21-week, 2-day specimen being tested forpossible triploidyTEST REQUESTED/PERFORMED: Karyotype Analysis and Fluorescence in situhybridization - FISHProcedures/AddendaAddendum Date Complete: 08/08/2020 Date Reported: 08/08/2020 16:28 Addendum Diagnosis T EST REQUESTED/PERFORMED: Karyotype Analysis CYTOGENETIC RESULTS: 46,XY INTERPRETATION: A male chromosome complement was observed in 15 metaphases analyzed.Within the limits of the resolution of this karyotype analysis, nostructural and/ or numerical chromosome aberration was detected. Geneticcounseling suggested.A concurrent fluorescence in situ hybridization (FISH) study showed anormal signal pattern (2 signals each) for chromosomes 13,18 and 21, onesignal for the DXZ1 locus, and one signal for the DYZ3 locus, indicatingan XY (male) sex chromosome complement, and was reported on 08/02/20. Test DataChromosome Analysis:Colonies Evaluated Metaphases Counted and Analyzed Metaphases KaryotypedBanding Technique Band Resolution Culture Type 15 15 2 GTG 400-450 Insitu, 21-week, 2-day specimen Disclaimer: Conventional chromosomeanalysis may not detect submicroscopic chromosome aberrations or low levelmosaicism. Procedure Electronically Signed Amber Bowden, Ph.D., [facility], Director of Cytogenetics 08/08/2020 16:28 FISH RESULTS: nuc mj(DXZ1,DYZ3x1)x1[100],(13q14.2x2)[100],(S43D7d8)[100],(E99M638/X89T851/F27Z895 )x2[97/100]INTERPRETATION:Fluorescence in situ hybridization (FISH) showed a normal signal pattern(2 signals each) for chromosomes 13,18 and 21, one signal for the QRG1rxggp, and one signal for the DYZ3 locus, indicating an XY (male) sexchromosome complement. Genetic counseling suggested.Karyotype results are pending and will be reported in an addendum oncecomplete.Electronically Signed By Amber Bowden, Ph.D., [facility], Director ofCytogenetics 08/02/2020 12:37 :28DATA:NUCLEI EVALUATED FOR FISH: 200ISCN NOMENCLATURE: nuc mj(DXZ1,DYZ3x1)x1[100],(13q14.2x2)[100],(L38X6o1)[100],(R84N328/E24N454/R28J127 )x2[97/100] COMMENTS:To investigate the possibility of trisomy 13,18 or 21, or an abnormal sexchromosome complement, molecular cytogenetic studies (fluorescence in situhybridization - FISH) were performed. Interphase FISH was performedutilizing chromosome 13,18,21 and X and Y probes from [email or web address], whichincludes the following probe mixtures:Probe Mixture #1: CEP 18 - D18Z1: This is an alpha satellite probe that hybridizes tocentromere region of chromo some 18 (18 p11.1-q11.1) and is labeledspectrum aqua.CEP X - DXZ1: This is an alpha satellite probe that hybridizes to thecentromere region of the X chromosome (Xp11.1-q11.1) and is labeledspectrum green.CEP Y - DYZ3: This is an alpha satellite probe that hybridizes to thecentromere region of the Y chromosome (Yp11.1-q1.1) and is labeledspectrum orange.Probe Mixture #2: LSI 13/13q14.2: This probe hybridizes to chromosome 13 at the 13q14.2locus and is labeled spectrum green.LSI 21/21q22.13: This is a combination probe that hybridizes tochromosome 21 at loci T50P087, A29L572, and S29S536. It is labeledspectrum orange. These three probes are located within the Down syndromecritical region.Hybridization was carried out as per the stated protocol and cells werecounterstained with DAPI. There was no significant background or crosshybridization of signal. The laboratory validation data for this probeindicated 3% as the lower limit for sensitivity. Two signals each for the13, 18 and 21 probes were detected. There is no evidence in this study tosupport the presence of a trisomy involving chromosomes 13,18 or 21. Forthe X and Y probes, one green and one orange signal was observed,indicating an XY (male) chromosome complement.NOTE: This test was developed and its performance determined by theCytogenetics section of the Department of Clinical Pathology at [facility]. Although the test has not been cleared orapproved by the U.S. Food and Drug Administration (FDA), the FDA has determined that suchapproval is not necessary. The test has been validated and authorized forclinical use by the [facility] ([facility]). However, theprocedure is considered investigational, and should not be used as thesole criteria for diagnosis. Name Value Range Interpretation Code Description Data Nela rce(s) Supporting Document(s) ID Date Data Source [id number] 08/06/2020 12:06:07 AM [facility] Name Value Range Interpretation Code Description Data Nela rce(s) Supporting Document(s) AFP,Amniotic Fluid [facility] 4.2 Srcxb-9-Grhswgqeotl [Multiple of the median] adjusted in Amnioti c fluid 0.77 [facility] Gestational age in weeks 21 [facility] Aphzv-0-Xfhhvvffurq interpretation in Amniotic [facility] (NOTE)The amniotic fluid AFP value is NO T ELEVATED for the gestational ageprovided.Comment(NOTE)Kathia Goldberg, Ph.D., DABCCDirectorPerformed At: [facility] [id number] [facility] [place], [place] [id number] Ph:[phone] ID Date Data Source SYPHILIS ANTIBODY (RPR SCREEN) 07/16/2020 12:00:00 AM EDT eC W1 ([facility]) Name Value Range Interpretation Code Description Data Nela rce(s) Supporting Document(s) NONREACTIVE NONREACTIVE eCW1 ([facility]) ID Date Data Source FREE T4 & TSH PANEL 07/16/2020 12:00:00 AM EDT eCW1 ([facility]) Name Value Range Interpretation Code Description Data Nela rce(s) Supporting Document(s) 1.09 0.76-1.46 eCW1 ([facility]) 1.170 0.358-3.740 eCW1 ([facility]) ID Date Data Source [id number] 07/11/2020 02:51:18 PM EDT [facility] Name Value Range Interpretation Code Description Data Nela rce(s) Supporting Document(s) Progress Note [facility] KSWNGt0jFvLZRgWo76/NTZqmRQSjn2ExXLliXOs0UAthDQOvO9JcEGU6cA5zBJF7YIyPYxYtNeBuMMV7 lbm VdPwiPZuJbWUSoXwoPOiSoVEsxDtthrUBrSW2KiDB3XSZdH76hSPZhCXPoD3CoLYM9ZBI+Fh8QDXIloM CsEN3GTifM0V2Eg1pSEN1RcH7EQDUUD4aP8ruWWMMBc10TLX9glGBC4cSKsmDdNZ87XhgPc99ZY36Qoe 9R4OtnkVTtQ65gaoeg4csdKg5b48QwEJov9pvN/3c/ 59N5EmkAZ//iLB/tfa9tz6/eToUKrYQ5Zm4Qdbzeyr/2vOQmD4dvZAzw7O5tTVPCUCKadO3fEN0+eHH5 +/j9sSX1T29zUodd3+bVnik38mi3jK/nzKYDOKlO3mpDQ98y/upUohbCymz57Geu0eD/ZZedX7jWLF/y 32A2jsAAjDdrI/rSkqDuaXb2vwh8N/VjE7I/s+qwUz fb+WHv9FNHyQIj718WngryYCSXfCKoXn9gw0exDc0KW6v3zIyn7l0TR/PJ+BTsHE6pDR6jn7c7r9FypA HhiPwcd1W15l8UqjYss4aOQcSa68bQXDfNXObpsnkotc3zqCZ79o8OE4Z25k3czTrMh0Rv9YZzz2lXz4 GxpldnQePsEVyFlajnZ21TjKLFwCYjot/tperggygH [file] nkK0gmQiMTkbZHH5Fz8GIRFUN7RWFj== ID Date Data Source HCG, SERUM QUANTITATIVE 04/19/2020 08:21:28 AM EDT eCW1 ([facility]) Name Value Range Interpretation Code Description Data Nela rce(s) Supporting Document(s) [id number] HCG, SERUM QUANTITATIVE eCW1 ( [facility]) ID Date Data Source [id number] 11/15/2019 09:49:00 AM EST [facility] DATE OF EXAMINATION: 11/15/2019 9:17 EST THYROID COMPARED TO: No priors HISTORY: Hypothyroidism Real-time ultrasound imaging was performed utilizing B-mode/churchill scale and colorDoppler imaging where applicable. Both thyroid lobes appear normal with the right thyroid lobe measuring 4 x 2 x2cm and the left thyroid lobe measuring 5 x 1.5 x 1.5cm. Normal homogeneousarchitecture is noted throughout without any focal nodules or cysts. IMPRESSION: Normal thyroid sonogram. Electronically signed in PS360 by: Monserrat Larose M.D. 11/15/2019 9:43 EST Name Value Range Interpretation Code Description Data Nela rce(s) Supporting Document(s) ID Date Data Source [id number] 11/16/2019 06:09:00 PM EST [facility] Name Value Range Interpretation Code Description Data Nela rce(s) Supporting Document(s) FOLATE (FOLIC ACID), SERUM 18.5 ng/mL >3.0 [facility] A serum folate concentration of less conor n 3.1 ng/mL isconsidered to represent clinical deficiency.Performed at: [facility] [id number] Director: Rebeca Yoder MD, Phone: [phone] ID Date Data Source [id number] 11/16/2019 08:10:00 AM EST [facility] Name Value Range Interpretation Code Description Data Nela rce(s) Supporting Document(s) VITAMIN D, 25-HYDROXY 39.8 ng/mL 30.0-100.0 [facility] Vitamin D deficiency has been defined by the [place] and an Endocrine Society practice guideline as alevel of serum 25-OH vitamin D less than 20 ng/mL (1,2).The Endocrine Society went on to further define vitamin Dinsufficiency as a level between 21 and 29 ng/mL (2).1. IOM ([place] [employer]). 2010. Dietary reference intakes for calcium and D. Self DC: The National Academies Press.2. Linda MF, Mary NC, Nidia SEGUNDO, et al. Evaluation, treatment, and prevention of vitamin D deficiency: an Endocrine Society clinical practice guideline. JCEM. 2010; 96(7):1911- 30.Performed at: [facility] [id number] Director: Rebeca Yoder MD, Phone: [phone] ID Date Data Source [id number] 11/16/2019 04:05:00 PM EST [facility] l Name Value Range Interpretation Code Description Data Nela rce(s) Supporting Document(s) VITAMIN B12 736 pg/mL 232-1245 [facility] Performed at: [facility] [address] [place], [place] [id number] Director: Rebeca Yoder MD, Phone: [phone] ID Date Data Source [id number] 11/16/2019 08:07:00 AM EST [facility] Name Value Range Interpretation Code Description Data Nela rce(s) Supporting Document(s) Vitamin D, 25-Hydroxy 39.8 ng/mL 30.0-100.0 [facility] Vitamin D deficiency has been defined by the [place] [employer] and an Endocrine Society practice guideline as alevel of serum 25-OH vitamin D less than 20 ng/mL (1,2).The Endocrine Society went on to further define vitamin Dinsufficiency as a level between 21 and 29 ng/mL (2).1. IOM ([place] [employer]). 2010. Dietary reference intakes for calcium and D. Self DC: The National Academies Press.2. Linda MF, Mary NC, Nidia SEGUNDO, et al. Evaluation, treatment, and prevention of vitamin D deficiency: an Endocrine Society clinical practice guideline. JCEM. 2010; 96(3):1911-30. ID Date Data Source [id number] 11/16/2019 04:05:00 PM EST [facility] Name Value Range Interpretation Code Description Data Nela rce(s) Supporting Document(s) Vitamin B12 736 pg/mL 232-1245 [facility] ID Date Data Source [id number] 11/16/2019 06:05:00 PM EST [facility] Name Value Range Interpretation Code Description Data Nela rce(s) Supporting Document(s) Folate (Folic Acid), Serum 18.5 ng/mL >3.0 [facility] A serum folate concentration of less conor n 3.1 ng/mL isconsidered to represent clinical deficiency. ID Date Data Source [id number] 11/15/2019 10:00:00 AM EST [facility] Name Value Range Interpretation Code Description Data Nela rce(s) Supporting Document(s) IRON 57 ug/dL 50-170 [facility] TIBC 263 ug/dL 250-450 [facility] % SATURATION 22 % 20-50 [facility] ID Date Data Source [id number] 11/15/2019 10:01:00 AM EST [facility] Name Value Range Interpretation Code Description Data Nela rce(s) Supporting Document(s) TSH 4.99 uIU/mL 0.36-3.74 H [facility] ID Date Data Source [id number] 11/15/2019 10:01:00 AM EST [facility] Name Value Range Interpretation Code Description Data Nela rce(s) Supporting Document(s) FREE T4 0.94 ng/dL 0.76-1.46 [facility] ID Date Data Source [id number] 11/15/2019 10:00:00 AM EST [facility] Name Value Range Interpretation Code Description Data Nela rce(s) Supporting Document(s) FERRITIN 196 ng/mL 8-252 [facility] ID Date Data Source [id number] 11/15/2019 10:00:00 AM [facility] l Name Value Range Interpretation Code Description Data Nela rce(s) Supporting Document(s) GLUCOSE 91 mg/dL 74-106 [facility] BLOOD UREA NITROGEN 12 mg/dL 7-18 [facility] ital CREATININE 0.7 mg/dL 0.6-1.0 [facility] SODIUM 144 mmol/L 136-145 [facility] POTASSIUM 3.7 mmol/L 3.5-5.1 [facility] CHLORIDE 106 mmol/L 98-107 [facility] CO2 29 mmol/L 21-32 [facility] CALCIUM 8.5 mg/dL 8.5-10.1 [facility] ANION GAP 9.0 mmol/L 5-12 [facility] GLOMERULAR FILTRATION RATE >90 mL/min [facility] GFR IS CALCULATED IN mL/min/1.73m2 LEYLA L FUNCTION: >90MILDLY DECREASED: 60-89MILDY TO MODERATELY DECREASED: 45-59 MODERATELY TO SEVERELY DECREASED: 30-44SEVERELY DECREASED: 15-29RENAL FAILURE: <15 ID Date Data Source [id number] 11/15/2019 09:29:00 AM [facility] l Name Value Range Interpretation Code Description Data Nela rce(s) Supporting Document(s) HGBA1C 5.2 % 4.5-6.2 [facility] ID Date Data Source [id number] 11/15/2019 09:29:00 AM [facility] Name Value Range Interpretation Code Description Data Nela rce(s) Supporting Document(s) ESTIMATED AVERAGE GLUCOSE 102.5 mg/dL [facility] ID Date Data Source [id number] 11/15/2019 09:16:00 AM [facility] Name Value Range Interpretation Code Description Data Nela rce(s) Supporting Document(s) WHITE BLOOD COUNT 9.9 K/mm3 4.0-10.0 [facility] al RED BLOOD COUNT 4.44 M/mm3 4.00-5.50 [facility] HEMOGLOBIN 13.7 gm/dL 12.0-16.0 [facility] HEMATOCRIT 40.2 % 36.0-48.8 [facility] MEAN CELL VOLUME 90.5 fl 80-96 [facility] CORPUSCULAR HEMOGLOBIN 30.9 pg 27.0-31.0 [facility] MEAN CORPUSCULAR HGB CONC 34.1 g/dl 32.0-36.0 [facility] RED CELL DISTRIBUTION WIDTH 12.6 % 10.0-14.5 [facility] PLATELET COUNT 268 K/mm3 172-450 [facility] MEAN PLATELET VOLUME 9.9 fl 9.0-13.0 [facility] pital GRAN % 69.7 % 50-80.0 [facility] IG% 0.2 % 0.0-0.2 [facility] LYMPH % 23.6 % 25.0-50.0 L [facility] MONO % 5.0 % 2.0-10.0 [facility] EOS % 1.1 % 0-5.0 [facility] BASO % 0.4 % 0.0-2.0 [facility] GRAN # 6.9 K/mm3 2.0-8.00 [facility] IG# 0.0 K/mm3 0.0-0.2 [facility] LYMPH # 2.3 K/mm3 1.0-5.0 [facility] MONO # 0.5 K/mm3 0.10-1.20 [facility] EOS # 0.1 K/mm3 0.0-0.5 [facility] BASO # 0.0 K/mm3 0.0-0.2 [facility] Procedure Social History Code Duration Value Status Description Data Source(s ) Smoking 11/07/2020 12:00:00 AM EST Former Smoker completed Former Smoker eCW1 ([facility]) Smoking 10/17/2020 12:00:00 AM EST Former Smoker completed Former Smoker eCW1 ([facility]) Smoking 10/08/2020 12:00:00 AM EST Former Smoker completed Former Smoker eCW1 ([facility]) Smoking 10/08/2020 12:00:00 AM EST Former Smoker completed Former Smoker eCW1 ([facility]) Smoking 10/08/2020 12:00:00 AM EST Former Smoker completed Former Smoker eCW1 ([facility]) Smoking 10/08/2020 12:00:00 AM EST Former Smoker completed Former Smoker eCW1 ([facility]) Smoking 09/23/2020 12:00:00 AM EST Former Smoker completed Former Smoker eCW1 ([facility]) Smoking 09/16/2020 12:00:00 AM EST Former Smoker completed Former Smoker eCW1 ([facility]) Smoking 08/27/2020 12:00:00 AM EST Former Smoker completed Former Smoker eCW1 ([facility]) Smoking 08/27/2020 12:00:00 AM EST Former Smoker completed Former Smoker eCW1 ([facility]) Smoking 08/27/2020 12:00:00 AM EST Former Smoker completed Former Smoker eCW1 ([facility]) Smoking 04/19/2020 12:00:00 AM EDT Former Smoker completed Former Smoker eCW1 ([facility]) Smoking 04/19/2020 12:00:00 AM EDT Former Smoker completed Former Smoker eCW1 ([facility]) Smoking 02/07/2020 12:00:00 AM EDT Never Smoker completed Never S moker eCW1 ([facility]) Smoking 02/07/2020 12:00:00 AM EDT Never Smoker completed Never S moker eCW1 ([facility]) Vital Signs ID Date Data Source [id number] Name Value Range Interpretation Code Description Data Source(s) Diastolic blood pressure 82 mm[Hg] 82 mm[Hg] eCW1 ([facility]) Systolic blood pressure 122 mm[Hg] 122 mm[Hg] e CW1 ([facility]) Body mass index (BMI) [Ratio] 56.745 kg/m2 56.7 45 kg/m2 W1 ([facility]) Body height 65 [in_i] 65 [in_i] eCW1 ([facility]) Body weight 154.67 kg 154.67 kg W1 ([facility]) Body weight 341.0 [lb_av] 341.0 [lb_av] eCW1 ([facility]) Diastolic blood pressure 72 mm[Hg] 72 mm[Hg] eCW1 ([facility]) Systolic blood pressure 120 mm[Hg] 120 mm[Hg] e CW1 ([facility]) Body mass index (BMI) [Ratio] 56.379 kg/m2 56.3 79 kg/m2 eCW1 ([facility]) Body height 65 [in_i] 65 [in_i] eCW1 ([facility]) Body weight 153.68 kg 153.68 kg eCW1 ([facility]) Body weight 338.8 [lb_av] 338.8 [lb_av] eCW1 ([facility]) Diastolic blood pressure 64 mm[Hg] 64 mm[Hg] eCW1 ([facility]) Systolic blood pressure 118 mm[Hg] 118 mm[Hg] e CW1 ([facility]) Body mass index (BMI) [Ratio] 57.07 kg/m2 57.07 kg/m2 eCW1 ([facility]) Body height 65 [in_i] 65 [in_i] eCW1 ([facility]) Body weight 343 [lb_av] 343 [lb_av] eCW1 ([facility]) Diastolic blood pressure 80 mm[Hg] 80 mm[Hg] eCW1 ([facility]) Systolic blood pressure 122 mm[Hg] 122 mm[Hg] e CW1 ([facility]) Body mass index (BMI) [Ratio] 56.779 kg/m2 56.7 79 kg/m2 W1 ([facility]) Body height 65 [in_i] 65 [in_i] eCW1 ([facility]) Body weight 154.77 kg 154.77 kg eCW1 ([facility]) Body weight 341.2 [lb_av] 341.2 [lb_av] eCW1 ([facility]) Diastolic blood pressure 82 mm[Hg] 82 mm[Hg] eCW1 ([facility]) Systolic blood pressure 128 mm[Hg] 128 mm[Hg] e CW1 ([facility]) Body mass index (BMI) [Ratio] 57.211 kg/m2 57.2 11 kg/m2 eCW1 ([facility]) Body height 65 [in_i] 65 [in_i] eCW1 ([facility]) Body weight 155.94 kg 155.94 kg eCW1 ([facility]) Body weight 343.8 [lb_av] 343.8 [lb_av] eCW1 ([facility]) Diastolic blood pressure 74 mm[Hg] 74 mm[Hg] eCW1 ([facility]) Systolic blood pressure 120 mm[Hg] 120 mm[Hg] e CW1 ([facility]) Body mass index (BMI) [Ratio] 56.279 kg/m2 56.2 79 kg/m2 eCW1 ([facility]) Body height 65 [in_i] 65 [in_i] eCW1 ([facility]) Body weight 338.2 [lb_av] 338.2 [lb_av] eCW1 ([facility]) Diastolic blood pressure 82 mm[Hg] 82 mm[Hg] eCW1 ([facility]) Systolic blood pressure 136 mm[Hg] 136 mm[Hg] e CW1 ([facility]) Body mass index (BMI) [Ratio] 56.912 kg/m2 56.9 12 kg/m2 eCW1 ([facility]) Body height 65 [in_i] 65 [in_i] eCW1 ([facility]) Body weight 342 [lb_av] 342 [lb_av] eCW1 ([facility]) Diastolic blood pressure 82 mm[Hg] 82 mm[Hg] eCW1 ([facility]) Systolic blood pressure 134 mm[Hg] 134 mm[Hg] e CW1 ([facility]) Body mass index (BMI) [Ratio] 57.245 kg/m2 57.2 45 kg/m2 eCW1 ([facility]) Body height 65 [in_i] 65 [in_i] eCW1 ([facility]) Body weight 344 [lb_av] 344 [lb_av] eCW1 ([facility]) Diastolic blood pressure 74 mm[Hg] 74 mm[Hg] eCW1 ([facility]) Systolic blood pressure 122 mm[Hg] 122 mm[Hg] e CW1 ([facility]) Body mass index (BMI) [Ratio] 56.878 kg/m2 56.8 78 kg/m2 eCW1 ([facility]) Body height 65 [in_i] 65 [in_i] eCW1 ([facility]) Body weight 341.8 [lb_av] 341.8 [lb_av] eCW1 ([facility]) Diastolic blood pressure 74 mm[Hg] 74 mm[Hg] eCW1 ([facility]) Systolic blood pressure 126 mm[Hg] 126 mm[Hg] e CW1 ([facility]) Body temperature 97.9 [degF] 97.9 [degF] eCW1 ( [facility]) Respiratory rate 20 /min 20 /min eCW1 ([facility]) Heart rate 99 /min 99 /min eCW1 ([facility]) Body mass index (BMI) [Ratio] 54.41 kg/m2 54.41 kg/m2 eCW1 ([facility]) Body height 65 [in_i] 65 [in_i] eCW1 ([facility]) Body weight 327.0 [lb_av] 327.0 [lb_av] eCW1 ([facility]) Diastolic blood pressure 76 mm[Hg] 76 mm[Hg] eCW1 ([facility]) Systolic blood pressure 124 mm[Hg] 124 mm[Hg] e CW1 ([facility]) Body mass index (BMI) [Ratio] 54.05 kg/m2 54.05 kg/m2 eCW1 ([facility]) Body height 65 [in_i] 65 [in_i] eCW1 ([facility]) Body weight 324.8 [lb_av] 324.8 [lb_av] eCW1 ([facility]) Diastolic blood pressure 86 mm[Hg] 86 mm[Hg] eCW1 ([facility]) Systolic blood pressure 138 mm[Hg] 138 mm[Hg] e CW1 ([facility]) Body mass index (BMI) [Ratio] 53.24 kg/m2 53.24 kg/m2 eCW1 ([facility]) Body height 65 [in_i] 65 [in_i] eCW1 ([facility]) Body weight 320 [lb_av] 320 [lb_av] eCW1 ([facility]) Diastolic blood pressure 82 mm[Hg] 82 mm[Hg] eCW1 ([facility]) Systolic blood pressure 137 mm[Hg] 137 mm[Hg] e CW1 ([facility]) Body temperature 97.8 [degF] 97.8 [degF] eCW1 ( [facility]) Respiratory rate 20 /min 20 /min eCW1 ([facility]) Heart rate 84 /min 84 /min eCW1 ([facility]) Body mass index (BMI) [Ratio] 51.75 kg/m2 51.75 kg/m2 eCW1 ([facility]) Body height 65 [in_us] 65 [in_us] eCW1 ([facility]) Body weight Measured 311 [lb_av] 311 [lb_av] eC W1 ([facility]) Deprecated Oxygen saturation in Capillary blood by Oximetry 98 % 98 % eCW1 ([facility]) Respiratory rate 18 /min 18 /min eCW1 ([facility]) Heart rate 69 /min 69 /min eCW1 ([facility]) Body temperature 98.3 [degF] 98.3 [degF] eCW1 ( [facility]) Body mass index (BMI) [Ratio] 50.55 kg/m2 50.55 kg/m2 eCW1 ([facility]) Body weight Measured 313.2 [lb_av] 313.2 [lb_av ] eCW1 ([facility]) Body height 66 [in_us] 66 [in_us] eCW1 ([facility]) Deprecated Oxygen saturation in Capillary blood by Oximetry 97 % 97 % eCW1 ([facility]) Respiratory rate 18 /min 18 /min eCW1 ([facility]) Heart rate 86 /min 86 /min eCW1 ([facility]) Body temperature 98.2 [degF] 98.2 [degF] eCW1 ( [facility]) Body mass index (BMI) [Ratio] 50.58 kg/m2 50.58 kg/m2 eCW1 ([facility]) Body weight Measured 313.4 [lb_av] 313.4 [lb_av ] eCW1 ([facility]) Body height 66 [in_us] 66 [in_us] eCW1 ([facility]) Patient Treatment Plan of Care Planned Activity Planned Date Details Description Data Source (s) Albuterol Sulfate HFA 108 (90 Base) MCG/ACT 10/11/2020 12:00:00 AM EST eCW1 ([facility]) Albuterol Sulfate HFA 108 (90 Base) MCG/ACT 10/11/2020 12:00:00 AM EST eCW1 ([facility]) Albuterol Sulfate HFA 108 (90 Base) MCG/ACT 10/11/2020 12:00:00 AM EST eCW1 ([facility]) Albuterol Sulfate HFA 108 (90 Base) MCG/ACT 10/11/2020 12:00:00 AM EST eCW1 ([facility]) Ondansetron 4 MG Oral Tablet [Zofran] 09/10/2020 12:00:00 AM EST eCW1 ([facility]) Docusate Sodium 100 MG Oral Capsule [Colace] 08/27/2020 12:00:00 AM EST eCW1 ([facility]) Ondansetron 4 MG Disintegrating Oral Tablet 08/27/2020 12:00:00 AM EST eCW1 ([facility]) POLYETHYLENE GLYCOL 3350 142 MG/ML Oral Solution [Sheridan lax] 08/27/2020 12:00:00 AM EST eCW1 ([facility]) Docusate Sodium 100 MG Oral Capsule [Colace] 08/27/2020 12:00:00 AM EST eCW1 ([facility]) Ondansetron 4 MG Disintegrating Oral Tablet 08/27/2020 12:00:00 AM EST eCW1 ([facility]) POLYETHYLENE GLYCOL 3350 142 MG/ML Oral Solution [Sheridan lax] 08/27/2020 12:00:00 AM EST eCW1 ([facility]) Docusate Sodium 100 MG Oral Capsule [Colace] 08/27/2020 12:00:00 AM EST eCW1 ([facility]) Ondansetron 4 MG Disintegrating Oral Tablet 08/27/2020 12:00:00 AM EST eCW1 ([facility]) POLYETHYLENE GLYCOL 3350 142 MG/ML Oral Solution [Sheridan lax] 08/27/2020 12:00:00 AM EST eCW1 ([facility]) Metformin hydrochloride 500 MG Oral Tablet 02/07/2020 12:00:00 AM E DT eCW1 ([facility]) Metformin hydrochloride 500 MG Oral Tablet 02/07/2020 12:00:00 AM E DT eCW1 ([facility]) Metformin hydrochloride 500 MG Oral Tablet 02/07/2020 12:00:00 AM E DT eCW1 ([facility]) Loratadine 10 MG Oral Tablet 11/29/2019 12:00:00 AM EST eCW1 ([facility]) Sudafed 30 MG 11/29/2019 12:00:00 AM EST eCW1 ([facility]) Flonase Allergy Relief 50 MCG/ACT 11/29/2019 12:00:00 AM EST eCW1 ([facility])
[2020-11-16] MEDS ORDERED: MULTTAB20 PO (08:03)
[2020-11-16] MEDS ORDERED: BIOT5000 PO (08:03)
--- NOTE | 2020-11-16 08:35 | HPEPDOC ---
Obstetrical History & Physical General Date of Admission Nov 16, 2020 at 07:38 History of Present Illness 30 yo at 37 6/7 weeks gestation by LMP c/w 1st trimester ultrasound present s for laboir induction due to borderline oligohydramnios. Information Provided By: Patient Care Care: Good Care Dating Final EDC: Dec 01, 2020 Final EDC by: LMP, 1st trimester (US) Antepartum Course Diagnos(e)s Abnormal NIPT suggesting triploidy. Amniocentesis was normal. Past Medical History Past Obstetrical History : Past Obstetrical History: Primgravida Past Medical History Medical History med hx: PCOS obesity asthma surgical hx: gastric sleeve Family History Significant Family History: No pertinent family hx Social History Marital Status: Single Family situation: Spouse/partner home * Smoker: non-smoker Allergies Coded Allergies: latex (Verified Allergy, Intermediate, hives, 11/16/20) Penicillins (Verified Allergy, Unknown, rash, 03/28/20) Medications Scheduled No122/Iron/Folic Acid ( Multi Tablet) 1 Each Tablet, 1 TAB PO DAILY Miscellaneous Medications Biotin (Biotin) 5 Mg Capsule, 5,000 MCG PO Physical Examination Physical Examination GENERAL: Alert and oriented times three. BREAST: . ABDOMEN: Gravid and non-tender to touch. FETUS: Is vertex (VTX) by sterile vaginal examination (SVE), fetus is vertex (VTX) by Javi. HEART RATE: Regular rate and rhythm. LUNGS: Clear to auscultation (CTA). EXTREMITIES: No edema. No clonus. Deep tendon reflexes (DTRs) + . Laboratory Data [facility] Laboratory Tests 2 11/16/20 07:53: Serology Scanned Report Hepatitis B Testing Pertinent Laboratoy Data Blood Type: A+ Group B Streptococcus: Negative Steroid Therapy Steroid Therapy: No Vaginal Examination Dilation: None Effacement: 30% Station: -3 Cervical Consistency: Medium Cervical Position: Posterior Presentation: Cephalic presentation Assessment Variability: Moderate Accelerations: Positive Decelerations: None Tocometer Contractions: No Assessment/Plan Assessment Pt is a 30-year-old (G)1 para (P)0 at 37+6 weeks by LMP c/w 7-week ultrasound presents to Labor and Delivery for induction due to borderline oligohydramnios. Plan Admit and orient. Hydrotherapist and consent. Group B Streptococcus (GBS) negative. Labs and intravenous (IV) per unit protocol. Counseled on Misoprostol and induction of labor (IOL). CARLINE CORBETT MD Nov 16, 2020 08:35
[2020-11-16 08:56] LABS: HEMATOCRIT 33.2 % (36.0-47.0); HEMOGLOBIN 11.3 g/dl (12.0-15.5); MEAN CORPUSCULAR HEMOGLOBIN 30.7 pg (27.0-33.0); MEAN CORPUSCULAR VOLUME 90.2 fl (80.0-96.0); PLATELET COUNT, AUTOMATED 206 10^3/uL (150-450); RED BLOOD COUNT 3.68 10^6/uL (4.00-5.40); WHITE BLOOD COUNT 9.5 10^3/uL (4.0-10.0)
[2020-11-16] MEDS: miSOPROStol 50MCG 1/2 TABLET SL SCH ×3 (08:56→17:22)
[2020-11-17] VITALS (12 sets, daily range): BP systolic 97–120; BP diastolic 50–69
[2020-11-17] MEDS: miSOPROStol 50MCG 1/2 TABLET SL SCH (05:19)
[2020-11-17] MEDS ORDERED: ACETAMINOPHEN 500 MG TAB PO ONE (05:45)
[2020-11-17] MEDS ORDERED: LACTATED RINGER'S 1000 ML IV STA (09:12)
[2020-11-17] MEDS ORDERED: ceFAZolin SOD 2 GM in IV 1 EA IV STA (09:12)
[2020-11-17] MEDS ORDERED: LR 1,000 ML IV SCH (09:12)
[2020-11-17] MEDS ORDERED: BICITRA 30ML SOLN UDC PO ONE (09:15)
--- NOTE | 2020-11-17 09:21 | IPNPDOC ---
Obstetrical Progress Note Date of Service Nov 17, 2020 Subjective 30 yo at 38 weeks day#2 induction for oligohydramnios. Pt has moderate cramping. Objective Vital Signs Date Time Temp Pulse Resp B/P (MAP) Pulse Ox O2 Delivery O2 Flow Rate FiO2 11/17/20 05:12 76 16 98/50 (66) 11/17/20 04:31 98.0 11/16/20 20:56 100 Room Air Assessment Variability: Moderate Accelerations: Positive Decelerations: None Heart Rate Tracing: Category I Tocometer Contractions: Yes Frequency: regular Sterile Vaginal Examination Dilation: None Effacement (%): 30% Station: -3 Cervical Consistency: Medium Cervical Position: Anterior Postion/Presentation: Cephalic presentation Assessment and Plan Status: Reassuring Additional Comments 30 G1 at 38 weeks, Day#2 induction for oligohydramnios No progress after >24 hours Pt has received 4 doses of Misoprostol vertex is still extremely high Likelihood of vaginal delivery is very low After discussing pros/cons of continuing induction, pt has opted for delivery CARLINE CORBETT MD Nov 17, 2020 09:21
[2020-11-17] MEDS ORDERED: MORPHINE PRES-FREE INJ 10 MG/10 ML VIAL (J2274) As Ordered ONE (09:22)
[2020-11-17] MEDS ORDERED: OXYTOCIN 30 UNITS IN 0.9% NaCl 500ML IV BAG (J2590) As Ordered ONE ×2 (09:22→10:51)
[2020-11-17] MEDS ORDERED: METOCLOPRAMIDE INJ 10MG/2ML VIAL (J2765 PER 1) IV PRN (09:45)
[2020-11-17] MEDS ORDERED: ONDANSETRON 4MG/2ML VIAL IV PRN ×3 (09:45→11:00)
[2020-11-17] MEDS ORDERED: NALOXONE INJ 0.4MG/1ML VIAL (J2310 PER 1MG) IV PRN ×2 (09:45)
[2020-11-17] MEDS ORDERED: NALBUPHINE HCL 10 MG/ML AMP (J2300) IV PRN (09:45)
[2020-11-17] MEDS ORDERED: ePHEDrine SULFATE 25 MG/5 ML(5MG/ML) SYRINGE As Ordered ONE (09:50)
[2020-11-17] MEDS ORDERED: ONDANSETRON 4MG/2ML VIAL As Ordered ONE ×2 (09:52→10:36)
[2020-11-17] MEDS ORDERED: METOCLOPRAMIDE INJ 10MG/2ML VIAL (J2765 PER 1) As Ordered ONE (10:36)
[2020-11-17] MEDS ORDERED: dexameTHASONE 4 MG/ML 1ML VIAL (J1100 PER 1MG) As Ordered ONE (10:36)
[2020-11-17] MEDS ORDERED: OXYTOCIN DRIP 30 UNITS in IV 1 EA IV SCH (10:47)
[2020-11-17] MEDS ORDERED: PERCOCET 5MG/325MG TAB PO PRN ×2 (11:00)
[2020-11-17] MEDS ORDERED: oxyCODONE 5MG TAB PO PRN (11:00)
[2020-11-17] MEDS ORDERED: MEASLES,MUMPS,RUBELLA VACCINE INJ (MMR-II) (90707) SC SCH (11:00)
[2020-11-17] MEDS ORDERED: SIMETHICONE 80MG CHEW TAB PO PRN (11:00)
[2020-11-17] MEDS ORDERED: RHOGAM 300 MCG (1500 IU) INJ (J2790) IM SCH (11:00)
[2020-11-17] MEDS ORDERED: fentaNYL 100 MCG/2 ML INJECTION (J3010) IV PRN (11:00)
[2020-11-17] MEDS ORDERED: DOCUSATE SODIUM 100MG CAPSULE PO PRN (11:00)
[2020-11-17] MEDS: KETOROLAC 30 MG/ML 1ML VIAL IV SCH ×3 (12:30→22:38)
--- NOTE | 2020-11-17 13:43 | ROOPDOC ---
[facility] Report Of Operation Report of Operation DATE OF PROCEDURE: 11/17/20 Report of operation Preoperative diagnosis: 38 weeks, oligohydramnios, arrest of dilation Postoperative diagnosis: same Procedure: Primary low transverse section Surgeon: Carline oCrbett M.D. Asst.: Jose Luis Enrique DO EBL: 600 ml. Urine output: 100 mL's. Findings: 6 lbs. 5 oz. male , Score 8 and 9 g normal uterus, fallopian tubes, ovaries. Operative summary: Patient taken to the operating room where spinal anesthesia was induced. She was prepped and draped in a sterile fashion in the supine po sition. A Black catheter was placed. A Pfannenstiel skin incision was made with scalpel. Fascia was incised and extended bilaterally. The peritoneal cavity was entered. A Mobius retractor was placed. A bladder flap was created. A curvilinear incision was made in lower uterine segment until Clear fluid was noted. The incision was extended manually. The was delivered from the vertex position without difficulty. Cord was double clamped and cut. The was handed waiting nurses. . The placenta was expressed. Uterus was closed with O-Vicryl in a running locked fashion. A second imbricating layer of Vicryl was placed. Peritoneum was closed with 2-0 Vicryl a running fashion. Fascia was closed with 0 Vicryl in running fashion. Skin was closed 4-0 Monocryl subcuticular sutures. Sponge, instrument and needle counts were correct. Jose Luis Enrique DO, assisted with all aspects of the procedure. She helped each layer of the incision and deliver the fetus. CARLINE CORBETT MD Nov 17, 2020 13:43
[2020-11-17] MEDS: diphenhydrAMINE 50MG/ML VIAL (J1200) IV PRN ×2 (15:35→20:28)
[2020-11-17] MEDS: LR 1,000 ML IV SCH ×2 (15:35→17:48)
[2020-11-18 01:58] VITALS: BP 100/52
[2020-11-18] MEDS: LR 1,000 ML IV SCH (05:48)
[2020-11-18 05:55] VITALS: BP 127/64
--- NOTE | 2020-11-18 06:32 | IPNPDOC ---
Progress Note Date of Service: Nov 18, 2020 Progress Note SUBJECT:No complaints OBJECTIVE: VITAL SIGNS: Within normal limits, afebrile. Alert and oriented times three. Breath sounds clear to auscultation. Heart rate: Regular rate and rhythm, no murmurs, rubs or gallops. Abdomen: Fundus firm at U-2. Soft, NTTP. [Minimal] lochia. ASSESSMENT: 30 yo POD#1 s/p section PLAN: Doing well. Ambulate. D/C parra. CBC pending for this morning. VS, I&O, 24H, Fishbone Vital Signs/I&O Vital Signs Date Time Temp Pulse Resp B/P (MAP) Pulse Ox O2 Delivery O2 Flow Rate FiO2 11/18/20 05:55 96.2 65 18 127/64 (85) 98 Room Air I&O- Last 24 Hours up to 6 AM 11/18/20 06:00 Intake Total 1450 ml Output Total 1760 ml Balance -310 ml Laboratory Data Microbiology Microbiology 11/17/20 Respiratory Virus Panel (PCR) ([facility]) - Final, Complete CARLINE CORBETT MD Nov 18, 2020 06:32
[2020-11-18 06:55] LABS: HEMATOCRIT 31.4 % (36.0-47.0); HEMOGLOBIN 10.4 g/dl (12.0-15.5); MEAN CORPUSCULAR HEMOGLOBIN 30.2 pg (27.0-33.0); MEAN CORPUSCULAR HGB CONC 33.1 g/dl (32.0-36.5); MEAN CORPUSCULAR VOLUME 91.3 fl (80.0-96.0); PLATELET COUNT, AUTOMATED 195 10^3/uL (150-450); RED BLOOD COUNT 3.44 10^6/uL (4.00-5.40); WHITE BLOOD COUNT 11.8 10^3/uL (4.0-10.0)
[2020-11-18] MEDS ORDERED: IBUPROFEN 800 MG TAB PO SCH (07:00)
[2020-11-18] MEDS: PRENATAL VITAMINS CHEWABLE TABLET PO SCH (07:31)
[2020-11-18 10:00] VITALS: BP 137/68
[2020-11-18 14:00] VITALS: BP 134/70
[2020-11-18 18:00] VITALS: BP 132/71
[2020-11-18] MEDS ORDERED: CitaloPRAM (CeleXA) 10 MG TABLET PO SCH (21:00)
[2020-11-18 22:00] VITALS: BP 110/53
[2020-11-19 02:00] VITALS: BP 100/50
[2020-11-19 06:00] VITALS: BP 114/61
[2020-11-19] MEDS: PRENATAL VITAMINS CHEWABLE TABLET PO SCH (08:28)
--- NOTE | 2020-11-19 08:41 | DS.PDOC ---
Discharge Summary General Date of Admission Nov 16, 2020 at 07:38 Date of Discharge 11/19/20 Attending Physician: CARLINE CORBETT MD Discharge Summary PROCEDURES PERFORMED DURING STAY: Primary section ADMITTING DIAGNOSES: 1. IUP at 37.6 weeks 2. oligohydramnios 3. PCOS 4. Morbid obesity DISCHARGE DIAGNOSES: 1. Primary section. COMPLICATIONS/CHIEF COMPLAINT: Induction. HISTORY OF PRESENT ILLNESS: Lela is a 30-year-old female who is now a who presented to L&D for an induction of labor. She received 24 hour of Cytotec for induction. The decision was made to have a primary section due to arrest of dilation. Her was complicated by PCOS, gastric bypass, morbid obesity, and boarder line oligohydramnios. DISCHARGE MEDICATIONS: Please see below. ALLERGIES: Please see below. PHYSICAL EXAMINATION ON DISCHARGE: VITAL SIGNS: Please see below. GENERAL: No apparent distress. Alert and oriented. Speech is clear. RESPIRATORY EXAMINATION: Regular rate with no use of accessory muscles. ABDOMINAL EXAMINATION: Fundus is firm. Incision is covered with dressing without erythema. EXTREMITIES: 1+ pitting edema. SKIN: warm, dry without rash or lesion. PSYCHIATRIC EXAMINATION: Mood is appropriate and happy. Affect is normal. LABORATORY DATA: Please see below. ACTIVITY: As tolerated. DIET: regular DISCHARGE INSTRUCTIONS: 1. Patient discharged to home 2. Patient to make appointment for 1-2 weeks for incision check and 6-8 weeks for . 3. Patient needs to remove bandage in 3 days. 4. Reviewed DISCHARGE CONDITION: Stable. Vital Signs/I&Os Vital Signs Date Time Temp Pulse Resp B/P (MAP) Pulse Ox O2 Delivery O2 Flow Rate FiO2 11/19/20 06:00 98.4 81 16 114/61 (78) 97 Room Air I&O- Last 24 Hours up to 6 AM 11/19/20 06:00 Intake Total 1480 ml Output Total 850 ml Balance 630 ml Laboratory Data CBC/BMP Item Value Date Time White Blood Count 11.8 10^3/uL H 11/18/20618 Red Blood Count 3.44 10^6/uL L 11/18/20618 Hemoglobin 10.4 g/dl L 11/18/20618 Hematocrit 31.4 % L 11/18/20618 Mean Corpuscular Volume 91.3 fl 11/18/20618 Mean Corpuscular Hemoglobin 30.2 pg 11/18/20618 Platelet Count 195 10^3/uL 11/18/20618 Mean Corpuscular Hemoglobin Concent 33.1 g/dl 11/18/20618 Red Cell Distribution Width 14.4 % 11/18/20618 Microbiology Microbiology 11/17/20 Respiratory Virus Panel (PCR) ([facility]) - Final, Complete Discharge Medications Scheduled No122/Iron/Folic Acid ( Multi Tablet) 1 Each Tablet, 1 TAB PO DAILY, (Reported) Miscellaneous Medications Biotin (Biotin) 5 Mg Capsule, 5,000 MCG PO, (Reported) Allergies Coded Allergies: latex (Verified Allergy, Intermediate, hives, 11/16/20) Penicillins (Verified Allergy, Unknown, rash, 03/28/20) RUCHI VILLASEÑOR CNM Nov 19, 2020 08:41
[2020-11-19] MEDS ORDERED: CELE10TA PO (08:53)
[2020-11-19] MEDS ORDERED: PERCOCET PO (08:53)
[2020-11-19 10:00] VITALS: BP 116/53
[2020-11-19] MEDS ORDERED: OXYC1TAB23 PO (10:04)
== END 2020-11-19 11:45 | disposition home or self-care (01) | DRG 540 ==
LOC: M LDI 07:38 → M OBS 11-17 12:10
PROVIDERS: ADMIT Specialist; ATTEND Specialist
PROC: 3E0DXGC Introduction of Other Therapeutic Substance into Mouth and Pharynx, External Approach (ICD-10-PCS; 2020-11-16)
PROC: 10D00Z1 Extraction of Products of Conception, Low, Open Approach (ICD-10-PCS; principal; 2020-11-17 09:13)
DX: O41.03X0 Oligohydramnios, third trimester, not applicable or unspecified (principal); O62.0 Primary inadequate contractions; Z37.0 Single live birth; Z3A.37 37 weeks gestation of pregnancy; Z88.0 Allergy status to penicillin; Z91.040 Latex allergy status

== ENCOUNTER → 2021-02-14 | Outpatient (REF) | payer OTHER ==
[~2021-02-14] MED LIST changes: +BIOT5000 PO; +CELE10TA PO; +MULTTAB20 PO; +OXYC1TAB23 PO; +PERCOCET PO
[2021-02-14 14:10] LABS: FREE T4 0.98 NG/DL (0.76-1.46); THYROID STIMULATING HORMONE 1.93 uIU/ML (0.358-3.740)
== END ==
LOC: M PLALAB 12:50
PROVIDERS: ATTEND Physician Assistant
DX: E03.9 Hypothyroidism, unspecified (principal)

== ENCOUNTER → 2021-03-20 | Outpatient (CLI) | payer OTHER ==
--- NOTE | 2021-03-20 12:50 | REP ---
INDICATION: PAIN. COMPARISON: None. TECHNIQUE: AP view bilateral knees, lateral and sunrise views left knee. FINDINGS: There is no acute fracture or dislocation. There is not significant joint space narrowing bilaterally. There is a mild to moderate suprapatellar effusion on the left. There is a tiny spur of the lateral patellar facet. IMPRESSION: Joint spaces are unremarkable. Mild to moderate left suprapatellar effusion. <Electronically signed by Mathew Green > 03/20/21 [id number]
== END ==
LOC: M SOG 08:34
PROVIDERS: ATTEND Orthopaedic Surgery Adult Reconstructive Orthopaedic Surgery
DX: M25.462 Effusion, left knee (principal); M25.562 Pain in left knee

== ENCOUNTER → 2021-06-10 | Outpatient (CLI) | payer OTHER ==
[2021-06-10 10:54] LABS: BASO % 0.4 % (0.0-1.0); EOS # 0.1 10^3/uL (0.0-0.5); EOS % 0.9 % (0.0-3.0); HEMATOCRIT 39.6 % (36.0-47.0); HEMOGLOBIN 12.8 g/dl (12.0-15.5); LYMPH # 2.2 10^3/uL (1.5-5.0); LYMPH % 24.4 % (24.0-44.0); MEAN CORPUSCULAR HEMOGLOBIN 27.9 pg (27.0-33.0); MEAN CORPUSCULAR HGB CONC 32.3 g/dl (32.0-36.5); MEAN CORPUSCULAR VOLUME 86.5 fl (80.0-96.0); MONO # 0.5 10^3/uL (0.0-0.8); MONO % 5.1 % (2.0-8.0); NEUTROPHILS # 6.2 10^3/uL (1.5-8.5); NEUTROPHILS % 68.9 % (36.0-66.0); PLATELET COUNT, AUTOMATED 279 10^3/uL (150-450); RED BLOOD COUNT 4.58 10^6/uL (4.00-5.40); WHITE BLOOD COUNT 8.9 10^3/uL (4.0-10.0)
[2021-06-10 11:26] LABS: ALBUMIN 3.4 GM/DL (3.2-5.2); ALT/SGPT 17 U/L (12-78); BILIRUBIN,TOTAL 0.6 MG/DL (0.2-1.0); BLOOD UREA NITROGEN 9 MG/DL (7-18); CALCIUM LEVEL 8.5 MG/DL (8.5-10.1); CARBON DIOXIDE LEVEL 31 MEQ/L (21-32); CHLORIDE LEVEL 105 MEQ/L (98-107); CHOLESTEROL LEVEL 169 MG/DL (<200); CREATININE FOR GFR 0.63 MG/DL (0.55-1.30); FREE T4 0.95 NG/DL (0.76-1.46); GLOMERULAR FILTRATION RATE > 60.0 (>60); GLUCOSE, FASTING 91 MG/DL (70-100); HDL CHOLESTEROL 48 MG/DL (>40); LDL CHOLESTEROL 98 MG/DL (<100); NON-HDL-C 121 MG/DL; POTASSIUM SERUM 4.5 MEQ/L (3.5-5.1); SODIUM LEVEL 139 MEQ/L (136-145); TOTAL PROTEIN 6.5 GM/DL (6.4-8.2); TRIGLYCERIDES LEVEL 115 MG/DL (<150)
[2021-06-10 11:28] LABS: TOTAL 25(OH) VITAMIN D 16.7 NG/ML (30.0-100.0); VITAMIN B12 LEVEL 527 PG/ML (247-911)
[2021-06-10 13:24] LABS: HEMOGLOBIN A1c 5.3 %
== END ==
LOC: M PLALAB 08:49
PROVIDERS: ATTEND Surgery
DX: K21.9 Gastro-esophageal reflux disease without esophagitis (principal)

== ENCOUNTER 2021-07-27 09:15 | Emergency (ER) | payer OTHER ==
[~2021-07-27] VITALS: Ht 165.1 cm; Wt 163.6 kg
[2021-07-27 09:15] VITALS: BP 138/88
--- OUTSIDE RECORDS SUMMARY | 2021-07-27 09:20 | CCD ---
Author Author [facility] Organization [facility] Address Unknown Phone Unavailable Care Team Providers Care Electrical Automation Engineer Name Role Phone Mariia Linda Unavailable PROBLEMS Type Condition ICD9-CM Code [id number] Code Onset Dates Condition S tatus W/U Status Risk SNOMED Code Notes Problem Anxiety with depression F41.8 Active confirmed 026053520 Problem Migraine without status migr ainosus, not intractable, unspecified migraine type G43.909 Active confirmed 09746635 Problem Hypothyroidism (acquired) E03.9 Active confirmed 465088625 Problem Amenorrhea N91.2 Active confirmed 63824848 Problem Obesity complicating in second trimester O99.212 Active confirmed 665592444169 Problem Obesity E66.9 Active confirmed 828755782 Problem Asthma exacerbation J45.901 Active confirmed 504496940 Problem Supervision of other normal Z34.80 Ac tive confirm 393006864 Problem Mild intermittent asthma without complication J45. 20 Active confirmed 887886855 Problem Vitamin D deficiency E55.9 Active confirmed 43343163 Problem Constipation K59.00 Active confirmed 6740596 8 Problem Morbid obesity E66.01 Active confirmed 50594 6002 Problem Obesity affecting in third trimester O99 .213 Active confirmed 729103776962 Problem Obesity complicating , third trimester O9 9.213 Active confirmed 492395845882 ALLERGIES Allergen (clinical drug ingredient) Drug/Non Drug Allergy do cumented on EMR Reaction Allergy Type Onset Date Status penicillin V Penicillin Rash Drug Allergy Active Tape Unknown Drug Allergy 11/15/2020 Active Latex Exam Gloves Rash Drug Allergy Activ e ENCOUNTERS from 1989 to 2021-07-17 Encounter Location Date Provider Diagnosis [facility] [address] [facility] [phone] [place] [address] Jun, Mariia Linda IMMUNIZATIONS Vaccine Route Administration Date Status COVID-19 dose #2 given elsewhere Unspecified Unknown Feb Administered COVID-19 dose #1 given elsewhere Unspecified Unknown Feb Administered TDAP 0.5mL (Boostrix) IM Intramuscular Sep 10, 2020 Administe red Influenza 6mo & up Fluzone IM Intramuscular Sep 10, 2020 Admi nistered SOCIAL HISTORY Tobacco Use: Social History Observation Description Date Details (start date - stop date) Former Smoker Sex Assigned At : Social History Observation Description Sex Assigned At Unknown Education: Question Answer Notes Level of Education: High School Audit Question Answer Notes Total Score: 0 Interpretation: Alcohol Education Language: Question Answer Notes Languages spoken: Estonian Yazidism: Question Answer Notes Yazidism 08 Sikhism Sexual Hx: Question Answer Notes Had sex in the last 12 months (vaginal, oral, or anal)? Yes LMP: 01/2021 Have you ever had an STD? No Prevention Strategies discussed: Other with Men only Use protection? No Drug and Alcohol Question Answer Notes Total Score: 0 Interpretation: No problems reported Alcohol Screening: Question Answer Notes Did you have a drink containing alcohol in the past year? No Points 0 Interpretation Negative Tobacco Use: Question Answer Notes Are you a: former smoker REASON FOR REFERRAL No Information VITAL SIGNS No information MEDICATIONS Medication SIG (Take, Route, Frequency, Duration) Notes Start Da te End Date Status 27-1 MG 1 tablet Orally Once a day Active Gummies/DHA & FA 0.4-32.5 MG as directed [...] empty stomach Orally Once a day Not-Taking metFORMIN HCl 500 MG 1 tablet with a meal Orally twice a day for 30 day(s) January, Not-Taking Rizatriptan Benzoate 10 MG 1 tablet at onset of sympto ms and if symptoms persist 2 hours later can take 1 more tablet Orally MDD: 2; 3-4 migraines a month for 30 days Active Citalopram Hydrobromide 20 MG take 1 tablet by mouth o nce daily at bedtime Orally for 30 Days Active Ondansetron 4 MG 1 tablet on the tongue and allow to diss olve Orally Once a day Not-Taking Topiramate 50 MG 1 tablet Orally Once a day Not-Taking Iron 325 (65 Fe) MG 1 tablet Orally Once a day Active MiraLax 17 GM 1 packet mixed with 8 ounces of fluid Orally Once a day for 30 day(s) Aug, Not-Taking clomiPHENE Citrate 50 MG 1 tablet Orally Once a day, day 3-7 for 5 day(s) days 3-7 of menses Not-Taking Zofran 4 MG 1 tablet Orally every 6 hours as needed for naus ea for 30 day(s) Aug, Active Albuterol Sulfate HFA 108 (90 Base) MCG/ACT 2 puffs as needed Inhalation every 4 hrs for 30 days Sep, Active Calcium 600 MG 1 tablet with meals Orally Twice a day Active Colace 100 MG 1 capsule Orally Twice a day for 30 day(s) 0 Aug, Not-Taking Biotin 1000 MCG 1 tablet Orally Once a day Active PROCEDURES No Information RESULTS No Results REASON FOR VISIT paperwork for gastric bypass sx MEDICAL (GENERAL) HISTORY Type Description Date Medical History hypothyroidism Medical History PCOS Medical History asthma Surgical History gastric sleeve 05/2019 Surgical History carpal tunnel both hands Surgical History D&C x 3 Surgical History Gallbladder removal 2016 Surgical History 11/17/2020 Hospitalization History Surgical related Hospitalization History Childbirth Goals Section No Information Health Concerns No Information MEDICAL EQUIPMENT No Information MENTAL STATUS No Information FUNCTIONAL STATUS No Information ASSESSMENTS No Information PLAN OF TREATMENT Next Appt Details Provider Name:Meghana Chavarria, 2021-07-17 10:20:00 AM, [address] [place] [address] , [place], [address], Provider Name:Mariia Linda, 2020-09 08:15:00 AM, [address] [place] [address] , [place], [address], Provider Name:Mariia Linda, 2020-09 01:00:00 PM, [address] [place] [address] , [place], [address], Insurance Providers Payer Name Payer Address Payer Phone Insured Name Patient Relati onship to Insured Coverage Start Date Coverage End Date [facility] DEPT [address] FOR[facility] [phone] JAMES BETANCUR self
--- OUTSIDE RECORDS SUMMARY | 2021-07-27 09:20 | CCD ---
Author Author [facility] Organization [facility] Address Unknown Phone Unavailable Care Team Providers Care Group Manager Name Role Phone Mariia Linda Unavailable PROBLEMS Type Condition ICD9-CM Code BOY99-CE Code Onset Dates Condition S tatus W/U Status Risk SNOMED Code Notes Problem Anxiety with depression F41.8 Active confirmed 879325469 Problem Migraine without status migr ainosus, not intractable, unspecified migraine type G43.909 Active confirmed 73301580 Problem Hypothyroidism (acquired) E03.9 Active confirmed 422754748 Problem Amenorrhea N91.2 Active confirmed 26893089 Problem Obesity complicating in second trimester O99.212 Active confirmed 947359397228 Problem Obesity E66.9 Active confirmed 664925064 Problem Asthma exacerbation J45.901 Active confirmed 720260623 Problem Supervision of other normal Z34.80 Ac tive confirm 875392348 Problem Mild intermittent asthma without complication J45. 20 Active confirmed 760179070 Problem Vitamin D deficiency E55.9 Active confirmed 65095040 Problem Constipation K59.00 Active confirmed 6754692 8 Problem Morbid obesity E66.01 Active confirmed 84483 6002 Problem Obesity affecting in third trimester O99 .213 Active confirmed 513965179296 Problem Obesity complicating , third trimester O9 9.213 Active confirmed 854343834388 ALLERGIES Allergen (clinical drug ingredient) Drug/Non Drug Allergy do cumented on EMR Reaction Allergy Type Onset Date Status penicillin V Penicillin Rash Drug Allergy Active Tape Unknown Drug Allergy 11/15/2020 Active Latex Exam Gloves Rash Drug Allergy Activ e ENCOUNTERS from 1989 to 2021-07-22 Encounter Location Date Provider Diagnosis [facility] [address] [facility] [phone] [place] [address] Jun, Mariia Linda IMMUNIZATIONS Vaccine Route Administration [...] Education Language: Question Answer Notes Languages spoken: [place]an Sikh: Question Answer Notes Sikh 08 Lutheran Sexual Hx: Question Answer Notes Had sex [...] Information RESULTS No Results REASON FOR VISIT no show MEDICAL (GENERAL) HISTORY Type Description Date Medical [...] PLAN OF TREATMENT Next Appt Details Provider Name:Mariia Linda, 2020-09 01:00:00 PM, [address] [facility], , [place], [address], Insurance Providers Payer Name Payer Address Payer Phone Insured Name Patient Relati onship to Insured Coverage Start Date Coverage End Date [facility] [employer]POR[facility] CLAIMS DEPT [address] [facility] [phone] JAMES BETANCUR self
--- OUTSIDE RECORDS SUMMARY | 2021-07-27 09:21 | CCD | Continuity of Care Document ---
Author Author Lela KIRAN DO Organization Unknown Address [address] [place] [address], [address] [place] [address] Phone [phone] Care Team Providers Care Low Heel Builder Name Role Phone No PCP AUTM Unavailable Problems Description No Information Available Social History Type Date Description Comments Sex Unknown ETOH Use Denies alcohol use Tobacco Use Start: Unknown End: Unknown Patient is a former smoker Allergies, Adverse Reactions, Alerts Active Allergies Criticality Reaction | Severity Comments Date Penicillin V Unable to assess criticality 06/05/2021 Medications Active Medications SIG Qnty Indications Ordering Provide r Date Citalopram Hydrobromide 20mg Table ts Take 1 Tablet By Mouth Once Daily AT Bedtime Unknown Rizatriptan Benzoate 10mg Tablets Unknown Albuterol Sulfate HFA 108(90Base) mcg/Act Aerosol Unknown Immunizations Description No Information Available Vital Signs Date Vital Result Comment 06/05/2021 12:52pm Height 65.00 inches 5'5" Weight 358.12 lb BMI (Body Mass Index) 59.6 kg/m2 BP Systolic 123 mmHg BP Diastolic 72 mmHg Heart Rate 103 /min Body Temperature 97.0 F Body Temperature 36.1 C O2 % BldC Oximetry 97 % Results Description No Information Available Procedures Date Code Description Status 06/05/2021 81696 Office/Outpatient New Moderate M DM 45-59 Minutes Completed Medical Devices Description No Information Available Encounters Type Date Location Provider Dx Diagnosis Office Visit 06/05/2021 1:00p [facility] Mich Kiran DO K21.9 Gastro-esophageal reflux disease without esophagitis E66.01 Morbid (severe) obesity due to excess calories Z68.43 Body mass index [BMI] 50.0-5 9.9, adult Assessments Date Code Description Provider 06/05/2021 K21.9 Gastro-esophageal reflux disease without esophagitis Mich Kiran, 06/05/2021 E66.01 Morbid (severe) obesity due to e xcess calories Mich Kiran DO 06/05/2021 Z68.43 Body mass index [BMI] 50.0-59.9, adult Mich Kiran DO Plan of Treatment Future Appointment(s):* 07/24/2021 9:30 am - Mich Kiran DO at [facility] Surgical Services 06/05/2021 - Mich Kiran DO* K21.9 Gastro-esophageal reflux disease without esophagitis * E66.01 Morbid (severe) obesity due to excess calories* Referral:* Manasa Hernandez RD CDN, Dietitian, Registered * Yoni Kee M.D., Clinical/Psych * Z68.43 Body mass index [BMI] 50.0-59.9, adult* Comments:* Provided dietary and behavioral counseling. Encouraged weight loss. Encouraged daily physical activity exercise consistent with the patients abilities. Discussed risks benefits, and complications of the bariatric procedure. Encouraged patient to attend the support group. Given her her GERD symptoms and think the only logical course is to pursue a gastric bypass. I would like to do an endoscopy to assess her esophagus that she reports a lot of symptoms with respect to the GERD. Functional Status Description No Information Available Mental Status Description No Information Available Referrals Refer to Dr Reason for Referral Status Appt Date Manasa Hernandez RD CDN Obesity Created [address], [address] [place] [address] [phone] Yoni Kee M.D. Obesity Created [facility], [facility] [address], [address] [place] [address] [phone]
--- OUTSIDE RECORDS SUMMARY | 2021-07-27 09:21 | CCD | Continuity of Care Document ---
Author Author Lela KIRAN DO Organization Unknown Address [address] [place] [address], [address] [place] [address] Phone [phone] Care Team Providers Care Ice Cream Freezer Helper Name Role Phone No PCP AUTM Unavailable [...] Available Procedures Date Code Description Status 06/05/2021 11131 Office/Outpatient New Moderate M DM 45-59 Minutes [...] 9:30 am - Mich Kiran DO at [facility] Surgical Services 06/05/2021 - Mich Kiran DO* [...] Manasa Hernandez RD CDN Obesity Created [address], [address] [place] [address] [phone] Yoni Kee M.D. Obesity Created [facility], [facility] [address] [facility], [address] [place] [address] [phone]
--- OUTSIDE RECORDS SUMMARY | 2021-07-27 09:21 | CCD ---
Author Author [facility] Organization [facility] Address Unknown Phone Unavailable Care Team Providers Care Plate Shear Operator Name Role Phone Tona Kirk Unavailable PROBLEMS Type Condition ICD9-CM Code SQR10-ZO Code Onset Dates Condition S tatus W/U Status Risk SNOMED Code Notes Problem Anxiety with depression F41.8 Active confirmed 662404589 Problem Migraine without status migr ainosus, not intractable, unspecified migraine type G43.909 Active confirmed 84133770 Problem Hypothyroidism (acquired) E03.9 Active confirmed 289340271 Problem Amenorrhea N91.2 Active confirmed 63898309 Problem Obesity complicating in second trimester O99.212 Active confirmed 933358893501 Problem Obesity E66.9 Active confirmed 739258560 Problem Asthma exacerbation J45.901 Active confirmed 021567005 Problem Supervision of other normal Z34.80 Ac tive confirm 811852179 Problem Mild intermittent asthma without complication J45. 20 Active confirmed 123660066 Problem Vitamin D deficiency E55.9 Active confirmed 91589702 Problem Constipation K59.00 Active confirmed 9657168 8 Problem Morbid obesity E66.01 Active confirmed 29557 6002 Problem Obesity affecting in third trimester O99 .213 Active confirmed 910785338899 Problem Obesity complicating , third trimester O9 9.213 Active confirmed 741032340652 ALLERGIES Allergen (clinical drug ingredient) Drug/Non Drug Allergy do cumented on EMR Reaction Allergy Type Onset Date Status Penicillin penicillin Rash Non Drug Allergy Active Latex Exam Gloves Rash Drug Allergy Activ e tape Unknown Non Drug Allergy 11/15/2020 Active ENCOUNTERS from 1989 to 2021-06-18 Encounter Location Date Provider Diagnosis [facility] [address] [facility] [phone] [place] [address] 20 May, 2021 Tona Kirk IMMUNIZATIONS Vaccine Route Administration Date Status COVID-19 [...] Education Language: Question Answer Notes Languages spoken: Turkish Advent: Question Answer Notes Advent 08 Cheondoism Sexual Hx: Question Answer Notes Had sex [...] Information RESULTS No Results REASON FOR VISIT blood work results MEDICAL (GENERAL) HISTORY Type Description Date Medical [...] Details Provider Name:Meghana Chavarria, 2021-07-17 10:20:00 AM, [address] [place] [address], , [place], [address], Provider Name:Mariia Linda, 2020-09 01:00:00 PM, [address] [place] [address], , [place], [address], Insurance Providers Payer Name Payer Address Payer Phone Insured Name Patient Relati onship to Insured Coverage Start Date Coverage End Date [employer] CLAIMS DEPT [address] FOR[facility]LY [facility] [phone] JAMES BETANCUR self
--- OUTSIDE RECORDS SUMMARY | 2021-07-27 09:21 | CCD | Continuity of Care Document ---
Author Author eLla KIRAN DO Organization Unknown Address [address], [address] [place] [address] Phone [phone] Care Team Providers Care Sql Server Bi Developer Name Role Phone No PCP AUTM Unavailable [...] O2 % BldC Oximetry 97 % Results Test Acquired Date Facility Test Result H/L Range Note CBC With Differential 06/10/2021 [facility] [address] [place] [address] [phone] White Blood Count 8.9 10 Normal 4.0-10.0 Red Blood Count 4.58 10 Normal 4.00-5.40 Hemoglobin 12.8 g/dL Normal 12.0-15.5 Hematocrit 39.6 % Normal 36.0-47.0 Mean Corpuscular Volume 86.5 fl Normal 80.0-96.0 Mean Corpuscular Hemoglobin 27.9 pg Normal 27.0-33.0 Mean Corpuscular HGB Conc 32.3 g/dL Normal 32.0-36.5 Red Cell Distribution Width 13.2 % Normal 11.5-14.5 Platelet Count, Automated 279 10 Normal 150-450 Neutrophils % 68.9 % High 36.0-66.0 Lymph % 24.4 % Normal 24.0-44.0 [place] % 5.1 % Normal 2.0-8.0 Eos % 0.9 % Normal 0.0-3.0 Baso % 0.4 % Normal 0.0-1.0 Immature Granulocyte % 0.3 % Normal 0-3.0 Nucleated Red Blood Cell % 0.0 % Normal 0-0 Neutrophils # 6.2 10 Normal 1.5-8.5 Lymph # 2.2 10 Normal 1.5-5.0 [place] # 0.5 10 Normal 0.0-0.8 Eos # 0.1 10 Normal 0.0-0.5 Baso # 0.0 10 Normal 0.0-0.2 Hemoglobin A1c 06/10/2021 [facility] [address] [place] [address] [phone] Hemoglobin A1c 5.3 % Normal 1 Estimated Average Glucose 105 mg/dL Normal 60-110 Comprehensive Metabolic Profil 06/10/2021 [address] [place] [address] [phone] Glucose, Fasting 91 mg/dL Normal 70-100 Blood Urea Nitrogen 9 mg/dL Normal 7-18 Creatinine For GFR 0.63 mg/dL Normal 0.55-1.30 Glomerular Filtration Rate > 60.0 Normal >60 2 Sodium Level 139 mEq/L Normal 136-145 Potassium Serum 4.5 mEq/L Normal 3.5-5.1 Chloride Level 105 mEq/L Normal 98-107 Carbon Dioxide Level 31 mEq/L Normal 21-32 Anion Gap 3 mEq/L Low 8-16 Calcium Level 8.5 mg/dL Normal 8.5-10.1 Ast/Sgot 8 U/L Normal 7-37 Alt/SGPT 17 U/L Normal 12-78 Alkaline Phosphatase 75 U/L Normal 45-117 Bilirubin,Total 0.6 mg/dL Normal 0.2-1.0 Total Protein 6.5 GM/DL Normal 6.4-8.2 Albumin 3.4 GM/DL Normal 3.2-5.2 Albumin/Globulin Ratio 1.1 Low 1.2-2.2 Lipid Panel 06/10/2021 [facility] [address] [place] [id number] [phone] Triglycerides Level 115 mg/dL Normal <150 Cholesterol Level 169 mg/dL Normal <200 HDL Cholesterol 48 mg/dL Normal >40 LDL Cholesterol 98 mg/dL Normal <100 Non-HDL-C 121 mg/dL Normal Cholesterol Risk Ratio 3.520 Normal <5 FT4&TSH Panel 06/10/2021 [facility] [address] [place] [address] [phone] Thyroid Stimulating Hormone 2.570 uIU/ML Normal 0. 358-3.740 Free T4 0.95 ng/dL Normal 0.76-1.46 Laboratory test finding 06/10/2021 [facility] [address] [place] [address] [phone] Vitamin B12 Level 527 pg/mL Normal 247-911 3 Total 25(Oh) Vitamin D 16.7 NG/ML Low 30.0-100.0 1 REFERENCE RANGES: <=5.6% NORMAL 5.7-6.4% SUGGESTS IMPAIRED GLUCOSE META BOLISM/PREDIABETIC >= 6.5% ABNORMAL 2 Units are mL/min/1.73 m2 Chronic Kidney Disease Staging per NKF: Stage I & II GFR >=60 Normal to Mildly Decreased Stage III GFR 30-59 Moderately Decreased Stage IV GFR 15-29 Severely Decreased Stage V GFR <15 Very Little GFR Left ESRD GFR <15 on VALVE ASSEMBLER 3 VITAMIN B12 NORMAL RANGE NORMAL 247 - 911 PG/ML INDETERMINATE 211 - 246 PG/ML DEFICIENT LESS THAN 211 PG/ML Procedures Date Code Description Status 06/05/2021 00174 Office/Outpatient New Moderate M DM 45-59 Minutes Completed Medical Devices Description No Information Available Encounters Type Date Location Provider Dx Diagnosis Office Visit 06/05/2021 1:00p [facility] Surgical Services Mich Kiran DO K21.9 Gastro-esophageal reflux disease without esophagitis E66.01 Morbid (severe) obesity due to excess calories Z68.43 Body mass index [BMI] 50.0-5 9.9, adult Assessments Date Code Description Provider 06/05/2021 K21.9 Gastro-esophageal reflux disease without esophagitis Mich Kiran DO 06/05/2021 E66.01 Morbid (severe) obesity due to e xcess calories Mich Kiran DO 06/05/2021 Z68.43 Body mass index [BMI] 50.0-59.9, adult Mich Kiran DO Plan of Treatment Future Appointment(s):* 07/24/2021 9:30 am - Mich Kiran DO at [facility] Surgical Services 06/05/2021 - Mich Kiran DO* [...] Appt Date Manasa Hernandez RD CDN Obesity Closed 000 [facility] [address], [address] [place] [address] [phone] Yoni Kee M.D. Obesity Closed [facility], [facility] [address], [address] [place] [address] [phone]
--- OUTSIDE RECORDS SUMMARY | 2021-07-27 09:21 | CCD | Continuity of Care Document ---
Author Author Lela KIRAN DO Organization Unknown Address [address], [address] [place] [address] Phone [phone] Care Team Providers Care Radial Arm Saw Operator Name Role Phone No PCP AUTM Unavailable [...] H/L Range Note CBC With Differential 06/10/2021 [facility] [address] [place] [address] [phone] White Blood Count 8.9 10 Normal 4.0-10.0 [...] 36.0-66.0 Lymph % 24.4 % Normal 24.0-44.0 [place] % 5.1 % Normal 2.0-8.0 Eos % 0.9 % Normal 0.0-3.0 Baso % 0.4 % Normal 0.0-1.0 Immature Granulocyte % 0.3 % Normal 0-3.0 Nucleated Red Blood Cell % 0.0 % Normal 0-0 Neutrophils # 6.2 10 Normal 1.5-8.5 Lymph # 2.2 10 Normal 1.5-5.0 [place] # 0.5 10 Normal 0.0-0.8 Eos # 0.1 10 Normal 0.0-0.5 Baso # 0.0 10 Normal 0.0-0.2 Hemoglobin A1c 06/10/2021 [facility] [address] [place] [address] [phone] Hemoglobin A1c 5.3 % Normal 1 Estimated Average Glucose 105 mg/dL Normal 60-110 Comprehensive Metabolic Profil 06/10/2021 [address] [place] [address] [phone] Glucose, Fasting 91 mg/dL Normal 70-100 Blood [...] Ratio 1.1 Low 1.2-2.2 Lipid Panel 06/10/2021 [facility] [address] [place] [id number] [phone] Triglycerides Level 115 mg/dL Normal <150 Cholesterol Level 169 mg/dL Normal <200 HDL Cholesterol 48 mg/dL Normal >40 LDL Cholesterol 98 mg/dL Normal <100 Non-HDL-C 121 mg/dL Normal Cholesterol Risk Ratio 3.520 Normal <5 FT4&TSH Panel 06/10/2021 [facility] [address] [place] [address] [phone] Thyroid Stimulating Hormone 2.570 uIU/ML Normal 0. 358-3.740 Free T4 0.95 ng/dL Normal 0.76-1.46 Laboratory test finding 06/10/2021 [facility] [address] [place] [address] [phone] Vitamin B12 Level 527 pg/mL Normal 247-911 [...] Little GFR Left ESRD GFR <15 on FOUND[employer]ATIVE OFFICER 3 VITAMIN B12 NORMAL RANGE NORMAL 247 - 911 PG/ML INDETERMINATE 211 - 246 PG/ML DEFICIENT LESS THAN 211 PG/ML Procedures Date Code Description Status 06/05/2021 60303 Office/Outpatient New Moderate M DM 45-59 Minutes Completed Medical Devices Description No Information Available Encounters Type Date Location Provider Dx Diagnosis Office Visit 06/05/2021 1:00p [facility] Surgical Services Mich Kiran DO K21.9 Gastro-esophageal reflux disease without esophagitis E66.01 Morbid (severe) obesity due to excess calories Z71.3 Dietary counseling and surve illance Z68.43 Body mass index [BMI] 50.0-5 9.9, adult Assessments Date Code Description Provider 06/05/2021 K21.9 Gastro-esophageal reflux disease without esophagitis Mich Kiran, 06/05/2021 E66.01 Morbid (severe) obesity due to e xcess calories Mich Kiran, 06/05/2021 Z71.3 Dietary counseling and surveilla nce Mich Kiran, DO 06/05/2021 Z68.43 Body mass index [BMI] 50.0-59.9, adult Mich Kiran DO Plan of Treatment Future Appointment(s):* 07/24/2021 9:30 am - Mich Kiran DO at [facility] Surgical Services 06/05/2021 - Mich Kiran DO* K21.9 Gastro-esophageal reflux disease without esophagitis * E66.01 Morbid (severe) obesity due to excess calories* Referral:* Manasa Hernandez RD CDN, Dietitian, Registered * Yoni Kee M.D., Clinical/Psych * Z71.3 Dietary counseling and surveillance * Z68.43 Body mass index [BMI] 50.0-59.9, [...] Date Manasa Hernandez RD CDN Obesity Closed 0 000 [facility] [address], [address] [place] [address] [phone] Yoni Kee M.D. Obesity Closed [facility] Psychological Associates, [facility] [address] [facility] [address] [facility], [address] [place] [address] [phone]
--- OUTSIDE RECORDS SUMMARY | 2021-07-27 09:21 | CCD | Continuity of Care Document ---
Author Author Lela KIRAN DO Organization Unknown Address [address] [place] [address], [address] [place] [address] Phone [phone] Care Team Providers Care Manager Machine Name Role Phone No PCP AUTM Unavailable [...] Available Procedures Date Code Description Status 06/05/2021 32753 Office/Outpatient New Moderate M DM 45-59 Minutes [...] 9:30 am - Mich Kiran DO at [facility] Surgical Services 06/05/2021 - Mich Kiran [...] Manasa Hernandez RD CDN Obesity Created 000 [address], [address] [place] [address] [phone] Yoni Kee M.D. Obesity Created [facility], [facility] [address], [address] [place] [address] [phone]
--- OUTSIDE RECORDS SUMMARY | 2021-07-27 09:21 | CCD | Continuity of Care Document ---
Author Author Lela KIRAN DO Organization Unknown Address [address] [place] [address], [address] [place] [address] Phone [phone] Care Team Providers Care Java Lead Developer Name Role Phone No PCP AUTM [...] Available Procedures Date Code Description Status 06/05/2021 39622 Office/Outpatient New Moderate M DM 45-59 Minutes [...] 9:30 am - Mich Kiran DO at [facility] Surgical Services 06/05/2021 - Mich Kiran [...] Manasa Hernandez RD CDN Obesity Created [address], [address] [place] [address] [phone] Yoni Kee M.D. Obesity Created [facility], [facility] [address], [address] [place] [address] [phone]
--- OUTSIDE RECORDS SUMMARY | 2021-07-27 09:21 | CCD ---
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 Role Phone Maring, Francis PA Unavailable Unavailable Maring, Francis PA Unavailable Unavailable Maring, Francis PA Unavailable Unavailable Maring, Francis PA Unavailable Unavailable Maring, Francis PA Unavailable Unavailable Maring, Francis PA Unavailable Unavailable Maring, Francis PA Unavailable Unavailable Maring, Francis PA Unavailable Unavailable Maring, Francis PA Unavailable Unavailable Maring, Francis PA Unavailable Unavailable Maring, Francis PA Unavailable Unavailable Maring, Francis PA Unavailable Unavailable Maring, Francis PA Unavailable Unavailable Maring, Francis PA Unavailable Unavailable Maring, Francis PA Unavailable Unavailable Maring, Francis PA Unavailable Unavailable KRUPA LEE Unavailable Unavailable Sky Landaverde MD Unavailable Unavailable Sky Landaverde MD Unavailable Unavailable Sky Landaverde MD Unavailable Unavailable Sky Landaverde MD Unavailable Unavailable Sky Landaverde MD Unavailable Unavailable Sky Landaverde MD Unavailable Unavailable Sky Landaevrde MD Unavailable Unavailable Sky Landaverde MD Unavailable Unavailable Sky Landaverde MD Unavailable Unavailable Sky Landaverde MD Unavailable Unavailable Alfredo CORBETT MD Unavailable Unavailable Alfredo CORBETT MD Unavailable Unavailable Alfredo CORBETT MD Unavailable Unavailable Alfredo CORBETT MD Unavailable Unavailable Alfredo CORBETT MD Unavailable Unavailable Alfredo CORBETT MD Unavailable Unavailable Alfredo CORBETT MD Unavailable Unavailable Alfredo CORBETT MD Unavailable Unavailable Alfredo CORBETT MD Unavailable Unavailable Alfredo CORBETT MD Unavailable Unavailable Alfredo CORBETT MD Unavailable Unavailable CORBETT, P CARLINE MD Unavailable Unavailable CORBETT, P CARLINE MD Unavailable Unavailable CORBETT, P CARLINE MD Unavailable Unavailable CORBETT, P CARLINE MD Unavailable Unavailable CORBETT, P CARLINE MD Unavailable Unavailable CORBETT, P CARLINE MD Unavailable Unavailable CORBETT, P CARLINE MD Unavailable Unavailable CORBETT, P CARLINE MD Unavailable Unavailable CORBETT, P CARLINE MD Unavailable Unavailable CORBETT, P CARLINE MD Unavailable Unavailable CORBETT, P CARLINE MD Unavailable Unavailable CORBETT, P CARLINE MD Unavailable Unavailable CORBETT, P CARLINE MD Unavailable Unavailable CORBETT, P CARLINE MD Unavailable Unavailable CORBETT, P CARLINE MD Unavailable Unavailable CORBETT, P CARLINE MD Unavailable Unavailable CORBETT, P CARLINE MD Unavailable Unavailable CORBETT, P CARLINE MD Unavailable Unavailable CORBETT, P CARLINE MD Unavailable Unavailable CORBETT, P CARLINE MD Unavailable Unavailable CORBETT, P CARLINE MD Unavailable Unavailable CORBETT, P CARLINE MD Unavailable Unavailable CORBETT, P CARLINE MD Unavailable Unavailable CORBETT, P CARLINE MD Unavailable Unavailable CORBETT, P CARLINE MD Unavailable Unavailable CORBETT, P CARLINE MD Unavailable Unavailable CORBETT, P CARLINE MD Unavailable Unavailable CORBETT, P CARLINE MD Unavailable Unavailable CORBETT, P CARLINE MD Unavailable Unavailable CORBETT, P CARLINE MD Unavailable Unavailable CORBETT, P CARLINE MD Unavailable Unavailable CORBETT, P CARLINE MD Unavailable Unavailable MAFRANNY CASSIDY MS Unavailable Unavailable MAESTRFRANNY Vazquez MS Unavailable Unavailable NOSOVITCH Susan RUIZ MD Unavailable Unavailable NOSOVITCH Susan RUIZ MD Unavailable Unavailable NOSOVITCH Susan RUIZ MD Unavailable Unavailable NOSOVITCH Susan RUIZ MD Unavailable Unavailable NOSOVITCH Susan RUIZ MD Unavailable Unavailable NOSOVITCH Susan RUIZ MD Unavailable Unavailable NOSOVITCH Susan RUIZ MD Unavailable Unavailable NOSOVITCH Susan RUIZ MD Unavailable Unavailable NOSOVITCH Susan RUIZ MD Unavailable Unavailable NOSOVITCH Susan RUIZ MD Unavailable Unavailable NOSOVITCH Susan RUIZ MD Unavailable Unavailable NOSOVITCH Susan RUIZ MD Unavailable Unavailable NOSOVITCH Susan RUIZ MD Unavailable Unavailable NOSOVITCH Susan RUIZ MD Unavailable Unavailable NOSOVITCH Susan RUIZ MD Unavailable Unavailable NOSOVITCH Susan RUIZ MD Unavailable Unavailable NOSOVITCH Susan RUIZ MD Unavailable Unavailable NOSOVITCH Susan RUIZ MD Unavailable Unavailable NOSOVITCH Susan RUIZ MD Unavailable Unavailable NOSOVITCH Susan RUIZ MD Unavailable Unavailable NOSOVITCH Susan RUIZ MD Unavailable Unavailable NOSOVITCH Susan RUIZ MD Unavailable Unavailable NOSOVITCH Susan RUIZ MD Unavailable Unavailable NOSOVITCH Susan RUIZ MD Unavailable Unavailable NOSOVITCH Susan RUIZ MD Unavailable Unavailable NOSOVITCH Susan RUIZ MD Unavailable Unavailable NOSOVITCH JR, Susan CROWLEY MD Unavailable Unavailable NOSOVITCH , T CARLINE [place]CA Unavailable Unavailable NOSOVITCH , T CARLINE [place] Unavailable Unavailable NOSOVITCH , T CARLINE [place] Unavailable Unavailable NOSOVITCH , T CARLINE [place] Unavailable Unavailable MAGNO, M CAPRI DO Unavailable Unavailable MAGNO, M CAPRI DO Unavailable Unavailable MAGNO, M CAPRI DO Unavailable Unavailable MAGNO, M CAPRI DO Unavailable Unavailable MAGNO, M CAPRI DO Unavailable Unavailable MAGNO, M CAPRI DO Unavailable Unavailable MAGNO, M CAPRI DO Unavailable Unavailable MAGNO, M CAPRI DO Unavailable Unavailable MAGNO, M CAPRI DO Unavailable Unavailable MAGNO, M CAPRI DO Unavailable Unavailable MAGNO, M CAPRI DO Unavailable Unavailable MAGNO, M CAPRI DO Unavailable Unavailable MAGNO, M CAPRI DO Unavailable Unavailable MAGNO, M CAPRI DO Unavailable Unavailable MAGNO, M CAPRI DO Unavailable Unavailable MAGNO, M CAPRI DO Unavailable Unavailable MAGNO, M CAPRI DO Unavailable Unavailable MAGNO, M CAPRI DO Unavailable Unavailable MAGNO, M CAPRI DO Unavailable Unavailable MAGNO, M CAPRI DO Unavailable Unavailable MAGNO, M CAPRI DO Unavailable Unavailable MAGNO, M CAPRI DO Unavailable Unavailable MAGNO, M CAPRI DO Unavailable Unavailable MAGNO, M CAPRI DO Unavailable Unavailable MAGNO, M CAPRI DO Unavailable Unavailable MAGNO, M CAPRI DO Unavailable Unavailable MAGNO, M CAPRI DO Unavailable Unavailable MAGNO, M CAPRI DO Unavailable Unavailable MAGNO, M CAPRI DO Unavailable Unavailable MAGNO, M CAPRI DO Unavailable Unavailable MAGNO, M CAPRI DO Unavailable Unavailable MAGNO, M CAPRI DO Unavailable Unavailable MAGNO, M CAPRI DO Unavailable Unavailable MAGNO, M CAPRI DO Unavailable Unavailable MAGNO, M CAPRI DO Unavailable Unavailable MAGNO, M CAPRI DO Unavailable Unavailable MAGNO, M CAPRI DO Unavailable Unavailable MAGNO, M CAPRI DO Unavailable Unavailable MAGNO, M CAPRI DO Unavailable Unavailable MAGNO, M CAPRI DO Unavailable Unavailable MAGNO, M CAPRI DO Unavailable Unavailable MAGNO, M CAPRI DO Unavailable Unavailable MAGNO, M CAPRI DO Unavailable Unavailable MAGNO, M CAPRI DO Unavailable Unavailable MAGNO, M CAPRI DO Unavailable Unavailable AMGNO, M CAPRI DO Unavailable Unavailable MAGNO, M CAPRI DO Unavailable Unavailable MAGNO, M CAPRI DO Unavailable Unavailable MAGNO, M CAPRI DO Unavailable Unavailable MAGNO, M CAPRI DO Unavailable Unavailable MAGNO, M CAPRI DO Unavailable Unavailable MAGNO, M CAPRI DO Unavailable Unavailable MAGNO, M CAPRI DO Unavailable Unavailable MAGNO, M CAPRI DO Unavailable Unavailable MAGNO, M CAPRI DO Unavailable Unavailable MAGNO, M CAPRI DO Unavailable Unavailable MAGNO, M CAPRI DO Unavailable Unavailable MAGNO, M CAPRI DO Unavailable Unavailable MAGNO, M CAPRI DO Unavailable Unavailable MAGNO, M CAPRI DO Unavailable Unavailable MAGNO, M CAPRI DO Unavailable Unavailable MAGNO, M CAPRI DO Unavailable Unavailable MAGNO, M CAPRI DO Unavailable Unavailable MAGNO, M CAPRI DO Unavailable Unavailable MAGNO, M CAPRI DO Unavailable Unavailable MAGNO, M CAPRI DO Unavailable Unavailable MAGNO, M CAPRI DO Unavailable Unavailable MAGNO, M CAPRI DO Unavailable Unavailable Re-disclosure Warning The records that [...] is protected by Article 27-F of the [facility] Public Health law. If you continue you may have access to information: Regarding HIV / AIDS; Provided by facilities licensed or operated by the [facility] Office of Mental Health; or Provided by the [facility] Office for People With Developmental Disabilities. If such information is present, then the following [facility] mandated warning applies: This information has been [...] law may result in a fine or senior care sentence or both. A general authorization for the release of medical or other information is NOT sufficient authorization for further disc losure. Allergies and Adverse Reactions Type Description Substance Reaction Status Data Source(s ) Propensity to adverse reactions Tape Drug allergy Unknown Ac tive eCW1 ([facility]) Propensity to adverse reactions Tape Drug allergy Unknown Ac tive eCW1 ([facility]) Propensity to adverse reactions tape Propensity to adverse reactions Unknown Active eCW1 ([facility]) Propensity to adverse reactions tape Propensity to adverse reactions Unknown Active eCW1 ([facility]) Propensity to adverse reactions tape Propensity to adverse reactions Unknown Active eCW1 ([facility]) Propensity to adverse reactions tape Propensity to adverse reactions Unknown Active eCW1 ([facility]) Propensity to adverse reactions tape Propensity to adverse reactions Unknown Active eCW1 ([facility]) Propensity to adverse reactions tape Propensity to adverse reactions Unknown Active eCW1 ([facility]) Propensity to adverse reactions tape Propensity to adverse reactions Unknown Active eCW1 ([facility]) Propensity to adverse reactions tape Propensity to adverse reactions Unknown Active eCW1 ([facility]) Propensity to adverse reactions PENICILLINS Penicillin [facility] Propensity to adverse reactions LATEX Latex [facility] Encounters Encounter Providers Location Date Indications Data Source(s ) [place] [address] [facility] [address] 07/22/2021 12:00:00 AM EDT eCW1 ([facility]) [place] [address] [facility] [address] 07/14/2021 12:00:00 AM EDT eCW1 ([facility]) [place] [address] [facility] [address] 06/16/2021 12:00:00 AM EDT eCW1 ([facility]) Outpatient Attender: Francis ALTAMIRANO 06/07/20 08:46:17 AM EDT - 06/07/2021 08:49:30 AM EDT DocuTap ([facility] ) Outpatient Attender: CAPRI KIRAN DO, CMP Internal [facility] 06/05/2021 01:00:00 PM EDT MEDENT ([facility]) Outpatient Attender: Sky Vega/Socorro/Minh/Rein israel 03/20/2021 10:30:00 AM EDT [facility] ([facility]) [place] [address] [facility] [address] 03/17/2021 12:00:00 AM EDT eCW1 ([facility]) Unknown [address] [facility] [place] [address] 02/25/2021 12:00:00 AM EDT eCW1 ([facility]) (WC ESTOB) [facility] Est OB [address] [place] [address] 02/06/2021 12:00:00 AM EDT eCW1 ([facility]) [place] [address] [facility] [address] 02/05/2021 12:00:00 AM EDT eCW1 ([facility]) Outpatient [address] [facility] [place] [address] 02/04/2021 12:00:00 AM EDT eCW1 ([facility]) Unknown [address] [facility] [place] [address] 11/27/2020 12:00:00 AM EST eCW1 ([facility]) (WC ESTOB) [facility] [address] [place] [address] 11/15/2020 12:00:00 AM EST eCW1 ([facility]) (WC ESTOB) [facility] [address] [place] [address] 11/07/2020 12:00:00 AM EST eCW1 ([facility]) (WC ESTOB) [facility] [address] [place] [address] 10/22/2020 12:00:00 AM EST eCW1 ([facility]) Unknown [address] [facility] [place] [address] 10/11/2020 12:00:00 AM EST eCW1 ([facility]) Outpatient Attender: GRETCHEN TRUJILLO MS 10/10/2020 12:00:00 A M [facility] Outpatient 10/10/2020 12:00:00 AM [facility] ( ESTOB) [facility] [address] [place] [address] 10/08/2020 12:00:00 AM EST eCW1 ([facility]) ( ESTOB) [facility] [address] [place] [address] 10/03/2020 12:00:00 AM EST eCW1 ([facility]) ( ESTOB) [facility] [address] [place] [address] 09/24/2020 12:00:00 AM EST eCW1 ([facility]) ( ESTOB) [facility] [address] [place] [address] 09/10/2020 12:00:00 AM EST eCW1 ([facility]) ( ESTOB) [facility] OB [address] [place] [address] 08/27/2020 12:00:00 AM EST eCW1 ([facility]) Outpatient Attender: CARLINE WINTERS ttender: GRETCHEN TRUJILLO MSAdmitter: CARLINE QUIJANO JRReferrer: CARLINE CORBETT MD [id number] 08/01/2020 12:00 :00 AM EST - 08/01/2020 01:00:30 PM EST Abnormal hematological finding on antena marlon screening of mother [facility] Abnormal hematological finding on antena marlon screening of mother Outpatient Attender: KRUPA LEE 08/01/2020 12:00:00 AM [facility] Outpatient 08/01/2020 12:00:00 AM [facility] ( ESTOB) [facility] OB [address] [place] [address] 07/30/2020 12:00:00 AM EST eCW1 ([facility]) ( ESTOB) enter Est OB [address] [place] [address] 07/16/2020 12:00:00 AM EDT eCW1 ([facility]) Outpatient Attender: GRETCHEN TRUJILLO MSReferrer: CARLINE CORBETT MD [id number] 07/11/2020 12:00:00 AM EDT - 07/11/2020 01:22:27 PM EDT Abnormal hematological finding on screening of mother [facility] Abnormal hematological finding on antena marlon screening of mother Outpatient Attender: KRUPA LEEReferrer: CARLINE CORBETT MD 07/11/2020 12:00:00 AM EDT [facility] Outpatient Referrer: CARLINE CORBETT MD 07/11/2020 12:00:00 A M EDT [facility] Unknown [address] [facility] [address] 06/18/2020 12:00:00 AM EDT eCW1 ([facility]) Immunizations Vaccine Date Status Description Data Source(s) COVID-19 dose #2 given elsewhere Unspecified 03/24/2021 11:3 3:00 AM EDT completed eCW1 ([facility]) COVID-19 dose #2 given elsewhere Unspecified 03/24/2021 11:3 3:00 AM EDT completed eCW1 ([facility]) COVID-19 dose #2 given elsewhere Unspecified 03/24/2021 11:3 3:00 AM EDT completed eCW1 ([facility]) COVID-19 dose #2 given elsewhere Unspecified 03/24/2021 11:3 3:00 AM EDT completed eCW1 ([facility]) COVID-19 VACCINE Moderna 03/24/2021 12:00:00 AM EDT completed [facility] Vaccine Series Complete: YESThis Data wa s Submitted to [facility] Via [employer]. COVID-19 dose #1 given elsewhere Unspecified 02/25/2021 03:3 6:00 PM EDT completed eCW1 ([facility]) COVID-19 dose #1 given elsewhere Unspecified 02/25/2021 03:3 6:00 PM EDT completed eCW1 ([facility]) COVID-19 dose #1 given elsewhere Unspecified 02/25/2021 03:3 6:00 PM EDT completed eCW1 ([facility]) COVID-19 dose #1 given elsewhere Unspecified 02/25/2021 03:3 6:00 PM EDT completed eCW1 ([facility]) COVID-19 dose #1 given elsewhere Unspecified 02/25/2021 03:3 6:00 PM EDT completed eCW1 ([facility]) COVID-19 dose #1 given elsewhere Unspecified 02/25/2021 03:3 6:00 PM EDT completed eCW1 ([facility]) COVID-19 VACCINE Moderna 02/25/2021 12:00:00 AM EDT completed [facility] Vaccine Series Complete: NOThis Data was Submitted to [facility] Via [employer]. New in 2011. IIV4 09/10/2020 03:18:00 PM EST completed eCW1 ([facility]) Tdap 09/10/2020 03:18:00 PM EST completed e CW1 ([facility]) New in 2011. IIV4 09/10/2020 03:18:00 PM EST completed eCW1 ([facility]) Tdap 09/10/2020 03:18:00 PM EST completed e CW1 ([facility]) New in 2011. IIV4 09/10/2020 03:18:00 PM EST completed eCW1 ([facility]) Tdap 09/10/2020 03:18:00 PM EST completed e CW1 ([facility]) New in 2011. IIV4 09/10/2020 03:18:00 PM EST completed eCW1 ([facility]) Tdap 09/10/2020 03:18:00 PM EST completed e CW1 ([facility]) New in 2011. IIV4 09/10/2020 03:18:00 PM EST completed eCW1 ([facility]) Tdap 09/10/2020 03:18:00 PM EST completed e CW1 ([facility]) New in 2011. IIV4 09/10/2020 03:18:00 PM EST completed eCW1 ([facility]) Tdap 09/10/2020 03:18:00 PM EST completed e CW1 ([facility]) New in 2011. IIV4 09/10/2020 03:18:00 PM EST completed eCW1 ([facility]) Tdap 09/10/2020 03:18:00 PM EST completed e CW1 ([facility]) New in 2011. IIV4 09/10/2020 03:18:00 PM EST completed eCW1 ([facility]) Tdap 09/10/2020 03:18:00 PM EST completed e CW1 ([facility]) New in 2011. IIV4 09/10/2020 03:18:00 PM EST completed eCW1 ([facility]) Tdap 09/10/2020 03:18:00 PM EST completed e CW1 ([facility]) New in 2011. IIV4 09/10/2020 03:18:00 PM EST completed eCW1 ([facility]) Tdap 09/10/2020 03:18:00 PM EST completed e CW1 ([facility]) New in 2011. IIV4 09/10/2020 03:18:00 PM EST completed eCW1 ([facility]) Tdap 09/10/2020 03:18:00 PM EST completed e CW1 ([facility]) New in 2011. IIV4 09/10/2020 03:18:00 PM EST completed eCW1 ([facility]) Tdap 09/10/2020 03:18:00 PM EST completed e CW1 ([facility]) New in 2011. IIV4 09/10/2020 03:18:00 PM EST completed eCW1 ([facility]) Tdap 09/10/2020 03:18:00 PM EST completed e CW1 ([facility]) New in 2011. IIV4 09/10/2020 03:18:00 PM EST completed eCW1 ([facility]) Tdap 09/10/2020 03:18:00 PM EST completed e CW1 ([facility]) New in 2011. IIV4 09/10/2020 03:18:00 PM EST completed eCW1 ([facility]) Tdap 09/10/2020 03:18:00 PM EST completed e CW1 ([facility]) New in 2011. IIV4 09/10/2020 03:18:00 PM EST completed eCW1 ([facility]) Tdap 09/10/2020 03:18:00 PM EST completed e CW1 ([facility]) New in 2011. IIV4 09/10/2020 03:18:00 PM EST completed eCW1 ([facility]) Tdap 09/10/2020 03:18:00 PM EST completed e CW1 ([facility]) New in 2011. IIV4 09/10/2020 03:18:00 PM EST completed eCW1 ([facility]) Tdap 09/10/2020 03:18:00 PM EST completed e CW1 ([facility]) Medications Medication Brand Name Start Date Product Form Dose Route Admi nistrative Instructions Pharmacy Instructions Status Indications Reaction Description Data Source(s) Albuterol Sulfate HFA 108 (90 Base) MCG/ACT Albuterol Sulfate HFA 108 (90 Base) MCG/ACT 10/11/2020 12:00:00 AM EST 2.0 {puffs_as_needed} active Albuterol Sulfate HFA 108 (90 Base) MCG/ACT eCW1 ([facility]) Albuterol Sulfate HFA 108 (90 Base) MCG/ACT Albuterol Sulfate HFA 108 (90 Base) MCG/ACT 10/11/2020 12:00:00 AM EST 2.0 {puffs_as_needed} active Albuterol Sulfate HFA 108 (90 Base) MCG/ACT eCW1 ([facility]) Albuterol Sulfate HFA 108 (90 Base) MCG/ACT Albuterol Sulfate HFA 108 (90 Base) MCG/ACT 10/11/2020 12:00:00 AM EST 2.0 {puffs_as_needed} active Albuterol Sulfate HFA 108 (90 Base) MCG/ACT eCW1 ([facility]) Albuterol Sulfate HFA 108 (90 Base) MCG/ACT Albuterol Sulfate HFA 108 (90 Base) MCG/ACT 10/11/2020 12:00:00 AM EST 2.0 {puffs_as_needed} active Albuterol Sulfate HFA 108 (90 Base) MCG/ACT eCW1 ([facility]) Albuterol Sulfate HFA 108 (90 Base) MCG/ACT Albuterol Sulfate HFA 108 (90 Base) MCG/ACT 10/11/2020 12:00:00 AM EST 2.0 {puffs_as_needed} active Albuterol Sulfate HFA 108 (90 Base) MCG/ACT eCW1 ([facility]) Albuterol Sulfate HFA 108 (90 Base) MCG/ACT Albuterol Sulfate HFA 108 (90 Base) MCG/ACT 10/11/2020 12:00:00 AM EST 2.0 {puffs_as_needed} active Albuterol Sulfate HFA 108 (90 Base) MCG/ACT eCW1 ([facility]) Albuterol Sulfate HFA 108 (90 Base) MCG/ACT Albuterol Sulfate HFA 108 (90 Base) MCG/ACT 10/11/2020 12:00:00 AM EST 2.0 {puffs_as_needed} active Albuterol Sulfate HFA 108 (90 Base) MCG/ACT eCW1 ([facility]) Albuterol Sulfate HFA 108 (90 Base) MCG/ACT Albuterol Sulfate HFA 108 (90 Base) MCG/ACT 10/11/2020 12:00:00 AM EST 2.0 {puffs_as_needed} active Albuterol Sulfate HFA 108 (90 Base) MCG/ACT eCW1 ([facility]) Albuterol Sulfate HFA 108 (90 Base) MCG/ACT Albuterol Sulfate HFA 108 (90 Base) MCG/ACT 10/11/2020 12:00:00 AM EST 2.0 {puffs_as_needed} active Albuterol Sulfate HFA 108 (90 Base) MCG/ACT eCW1 ([facility]) Albuterol Sulfate HFA 108 (90 Base) MCG/ACT Albuterol Sulfate HFA 108 (90 Base) MCG/ACT 10/11/2020 12:00:00 AM EST 2.0 {puffs_as_needed} active Albuterol Sulfate HFA 108 (90 Base) MCG/ACT eCW1 ([facility]) Albuterol Sulfate HFA 108 (90 Base) MCG/ACT Albuterol Sulfate HFA 108 (90 Base) MCG/ACT 10/11/2020 12:00:00 AM EST 2.0 {puffs_as_needed} active Albuterol Sulfate HFA 108 (90 Base) MCG/ACT eCW1 ([facility]) Albuterol Sulfate HFA 108 (90 Base) MCG/ACT Albuterol Sulfate HFA 108 (90 Base) MCG/ACT 10/11/2020 12:00:00 AM EST 2.0 {puffs_as_needed} active Albuterol Sulfate HFA 108 (90 Base) MCG/ACT eCW1 ([facility]) Albuterol Sulfate HFA 108 (90 Base) MCG/ACT Albuterol Sulfate HFA 108 (90 Base) MCG/ACT 10/11/2020 12:00:00 AM EST 2.0 {puffs_as_needed} active Albuterol Sulfate HFA 108 (90 Base) MCG/ACT eCW1 ([facility]) Albuterol Sulfate HFA 108 (90 Base) MCG/ACT Albuterol Sulfate HFA 108 (90 Base) MCG/ACT 10/11/2020 12:00:00 AM EST 2.0 {puffs_as_needed} active Albuterol Sulfate HFA 108 (90 Base) MCG/ACT eCW1 ([facility]) Albuterol Sulfate HFA 108 (90 Base) MCG/ACT Albuterol Sulfate HFA 108 (90 Base) MCG/ACT 10/11/2020 12:00:00 AM EST 2.0 {puffs_as_needed} active Albuterol Sulfate HFA 108 (90 Base) MCG/ACT eCW1 ([facility]) Albuterol Sulfate HFA 108 (90 Base) MCG/ACT Albuterol Sulfate HFA 108 (90 Base) MCG/ACT 10/11/2020 12:00:00 AM EST 2.0 {puffs_as_needed} active Albuterol Sulfate HFA 108 (90 Base) MCG/ACT eCW1 ([facility]) Ondansetron 4 MG Oral Tablet [Zofran] Zofran 4 MG Zofran 4 M G 09/10/2020 12:00:00 AM EST 1.0 {tablet} active Zo ashley 4 MG eCW1 ([facility]) Ondansetron 4 MG Oral Tablet [Zofran] Zofran 4 MG Zofran 4 M G 09/10/2020 12:00:00 AM EST 1.0 {tablet} active Zo ashley 4 MG eCW1 ([facility]) Ondansetron 4 MG Oral Tablet [Zofran] Zofran 4 MG Zofran 4 M G 09/10/2020 12:00:00 AM EST 1.0 {tablet} active Zo ashley 4 MG eCW1 ([facility]) Ondansetron 4 MG Oral Tablet [Zofran] Zofran 4 MG Zofran 4 M G 09/10/2020 12:00:00 AM EST 1.0 {tablet} active Zo ashley 4 MG eCW1 ([facility]) Ondansetron 4 MG Oral Tablet [Zofran] Zofran 4 MG Zofran 4 M G 09/10/2020 12:00:00 AM EST 1.0 {tablet} active Zo ashley 4 MG eCW1 ([facility]) Ondansetron 4 MG Oral Tablet [Zofran] Zofran 4 MG Zofran 4 M G 09/10/2020 12:00:00 AM EST 1.0 {tablet} active Zo ashley 4 MG eCW1 ([facility]) Ondansetron 4 MG Oral Tablet [Zofran] Zofran 4 MG Zofran 4 M G 09/10/2020 12:00:00 AM EST 1.0 {tablet} active Zo ashley 4 MG eCW1 ([facility]) Ondansetron 4 MG Oral Tablet [Zofran] Zofran 4 MG Zofran 4 M G 09/10/2020 12:00:00 AM EST 1.0 {tablet} active Zo ashley 4 MG eCW1 ([facility]) Ondansetron 4 MG Oral Tablet [Zofran] Zofran 4 MG Zofran 4 M G 09/10/2020 12:00:00 AM EST 1.0 {tablet} active Zo ashley 4 MG eCW1 ([facility]) Ondansetron 4 MG Oral Tablet [Zofran] Zofran 4 MG Zofran 4 M G 09/10/2020 12:00:00 AM EST 1.0 {tablet} active Zo ashley 4 MG eCW1 ([facility]) Ondansetron 4 MG Oral Tablet [Zofran] Zofran 4 MG Zofran 4 M G 09/10/2020 12:00:00 AM EST 1.0 {tablet} active Zo ashley 4 MG eCW1 ([facility]) Ondansetron 4 MG Oral Tablet [Zofran] Zofran 4 MG Zofran 4 M G 09/10/2020 12:00:00 AM EST 1.0 {tablet} active Zo ashley 4 MG eCW1 ([facility]) Ondansetron 4 MG Oral Tablet [Zofran] Zofran 4 MG Zofran 4 M G 09/10/2020 12:00:00 AM EST 1.0 {tablet} active Zo ashley 4 MG eCW1 ([facility]) Ondansetron 4 MG Oral Tablet [Zofran] Zofran 4 MG Zofran 4 M G 09/10/2020 12:00:00 AM EST 1.0 {tablet} active Zo ashley 4 MG eCW1 ([facility]) Ondansetron 4 MG Oral Tablet [Zofran] Zofran 4 MG Zofran 4 M G 09/10/2020 12:00:00 AM EST 1.0 {tablet} active Zo ashley 4 MG eCW1 ([facility]) Ondansetron 4 MG Oral Tablet [Zofran] Zofran 4 MG Zofran 4 M G 09/10/2020 12:00:00 AM EST 1.0 {tablet} active Zo ashley 4 MG eCW1 ([facility]) Ondansetron 4 MG Oral Tablet [Zofran] Zofran 4 MG Zofran 4 M G 09/10/2020 12:00:00 AM EST 1.0 {tablet} active Zo ashley 4 MG eCW1 ([facility]) Ondansetron 4 MG Oral Tablet [Zofran] Zofran 4 MG Zofran 4 M G 09/10/2020 12:00:00 AM EST 1.0 {tablet} active Zo ashley 4 MG eCW1 ([facility]) Docusate Sodium 100 MG Oral Capsule [Colace] Colace 100 MG C olace 100 MG 08/27/2020 12:00:00 AM EST 1.0 {capsule} active Colace 100 MG eCW1 ([facility]) Docusate Sodium 100 MG Oral Capsule [Colace] Colace 100 MG C olace 100 MG 08/27/2020 12:00:00 AM EST 1.0 {capsule} suspended Colace 100 MG eCW1 ([facility]) Docusate Sodium 100 MG Oral Capsule [Colace] Colace 100 MG C olace 100 MG 08/27/2020 12:00:00 AM EST 1.0 {capsule} active Colace 100 MG eCW1 ([facility]) Docusate Sodium 100 MG Oral Capsule [Colace] Colace 100 MG C olace 100 MG 08/27/2020 12:00:00 AM EST 1.0 {capsule} suspended Colace 100 MG eCW1 ([facility]) Ondansetron 4 MG Disintegrating Oral Tablet Ondansetron 4 MG 08/27/2020 12:00:00 AM EST 1.0 {tablet_on_the_tongue_and_allow_to_dissolve} active Ondansetron 4 MG eCW1 ([facility]) POLYETHYLENE GLYCOL 3350 142 MG/ML Oral Solution [Sheridan lax] MiraLax 17 GM MiraLax 17 GM 08/27/2020 12:00:00 AM EST 1.0 {packet_mixed_with_8_ou nces_of_fluid} active MiraLax 17 GM eCW1 ([facility]) Docusate Sodium 100 MG Oral Capsule [Colace] Colace 100 MG C olace 100 MG 08/27/2020 12:00:00 AM EST 1.0 {capsule} suspended Colace 100 MG eCW1 ([facility]) Docusate Sodium 100 MG Oral Capsule [Colace] Colace 100 MG C olace 100 MG 08/27/2020 12:00:00 AM EST 1.0 {capsule} suspended Colace 100 MG eCW1 ([facility]) POLYETHYLENE GLYCOL 3350 142 MG/ML Oral Solution [Sheridan lax] MiraLax 17 GM MiraLax 17 GM 08/27/2020 12:00:00 AM EST 1.0 {packet_mixed_with_8_ou nces_of_fluid} active MiraLax 17 GM eCW1 ([facility]) Ondansetron 4 MG Disintegrating Oral Tablet Ondansetron 4 MG 08/27/2020 12:00:00 AM EST 1.0 {tablet_on_the_tongue_and_allow_to_dissolve} suspended Ondansetron 4 MG eCW1 ([facility]) Docusate Sodium 100 MG Oral Capsule [Colace] Colace 100 MG C olace 100 MG 08/27/2020 12:00:00 AM EST 1.0 {capsule} suspended Colace 100 MG eCW1 ([facility]) Ondansetron 4 MG Disintegrating Oral Tablet Ondansetron 4 MG 08/27/2020 12:00:00 AM EST 1.0 {tablet_on_the_tongue_and_allow_to_dissolve} suspended Ondansetron 4 MG eCW1 ([facility]) POLYETHYLENE GLYCOL 3350 142 MG/ML Oral Solution [Sheridan lax] MiraLax 17 GM MiraLax 17 GM 08/27/2020 12:00:00 AM EST 1.0 {packet_mixed_with_8_ou nces_of_fluid} suspended MiraLax 17 GM eCW1 ([facility]) Docusate Sodium 100 MG Oral Capsule [Colace] Colace 100 MG C olace 100 MG 08/27/2020 12:00:00 AM EST 1.0 {capsule} suspended Colace 100 MG eCW1 ([facility]) Ondansetron 4 MG Disintegrating Oral Tablet Ondansetron 4 MG 08/27/2020 12:00:00 AM EST 1.0 {tablet_on_the_tongue_and_allow_to_dissolve} active Ondansetron 4 MG eCW1 ([facility]) POLYETHYLENE GLYCOL 3350 142 MG/ML Oral Solution [Sheridan lax] MiraLax 17 GM MiraLax 17 GM 08/27/2020 12:00:00 AM EST 1.0 {packet_mixed_with_8_ou nces_of_fluid} suspended MiraLax 17 GM eCW1 ([facility]) POLYETHYLENE GLYCOL 3350 142 MG/ML Oral Solution [Sheridan lax] MiraLax 17 GM MiraLax 17 GM 08/27/2020 12:00:00 AM EST 1.0 {packet_mixed_with_8_ou nces_of_fluid} suspended MiraLax 17 GM eCW1 ([facility]) Ondansetron 4 MG Disintegrating Oral Tablet Ondansetron 4 MG 08/27/2020 12:00:00 AM EST 1.0 {tablet_on_the_tongue_and_allow_to_dissolve} suspended Ondansetron 4 MG eCW1 ([facility]) Docusate Sodium 100 MG Oral Capsule [Colace] Colace 100 MG C olace 100 MG 08/27/2020 12:00:00 AM EST 1.0 {capsule} active Colace 100 MG eCW1 ([facility]) POLYETHYLENE GLYCOL 3350 142 MG/ML Oral Solution [Sheridan lax] MiraLax 17 GM MiraLax 17 GM 08/27/2020 12:00:00 AM EST 1.0 {packet_mixed_with_8_ou nces_of_fluid} suspended MiraLax 17 GM eCW1 ([facility]) POLYETHYLENE GLYCOL 3350 142 MG/ML Oral Solution [Sheridan lax] MiraLax 17 GM MiraLax 17 GM 08/27/2020 12:00:00 AM EST 1.0 {packet_mixed_with_8_ou nces_of_fluid} active MiraLax 17 GM eCW1 ([facility]) Ondansetron 4 MG Disintegrating Oral Tablet Ondansetron 4 MG 08/27/2020 12:00:00 AM EST 1.0 {tablet_on_the_tongue_and_allow_to_dissolve} suspended Ondansetron 4 MG eCW1 ([facility]) Ondansetron 4 MG Disintegrating Oral Tablet Ondansetron 4 MG 08/27/2020 12:00:00 AM EST 1.0 {tablet_on_the_tongue_and_allow_to_dissolve} suspended Ondansetron 4 MG eCW1 ([facility]) POLYETHYLENE GLYCOL 3350 142 MG/ML Oral Solution [Sheridan lax] MiraLax 17 GM MiraLax 17 GM 08/27/2020 12:00:00 AM EST 1.0 {packet_mixed_with_8_ou nces_of_fluid} active MiraLax 17 GM eCW1 ([facility]) POLYETHYLENE GLYCOL 3350 142 MG/ML Oral Solution [Sheridan lax] MiraLax 17 GM MiraLax 17 GM 08/27/2020 12:00:00 AM EST 1.0 {packet_mixed_with_8_ou nces_of_fluid} active MiraLax 17 GM eCW1 ([facility]) POLYETHYLENE GLYCOL 3350 142 MG/ML Oral Solution [Sheridan lax] MiraLax 17 GM MiraLax 17 GM 08/27/2020 12:00:00 AM EST 1.0 {packet_mixed_with_8_ou nces_of_fluid} suspended MiraLax 17 GM eCW1 ([facility]) Docusate Sodium 100 MG Oral Capsule [Colace] Colace 100 MG C olace 100 MG 08/27/2020 12:00:00 AM EST 1.0 {capsule} active Colace 100 MG eCW1 ([facility]) Ondansetron 4 MG Disintegrating Oral Tablet Ondansetron 4 MG 08/27/2020 12:00:00 AM EST 1.0 {tablet_on_the_tongue_and_allow_to_dissolve} suspended Ondansetron 4 MG eCW1 ([facility]) Docusate Sodium 100 MG Oral Capsule [Colace] Colace 100 MG C olace 100 MG 08/27/2020 12:00:00 AM EST 1.0 {capsule} active Colace 100 MG eCW1 ([facility]) Ondansetron 4 MG Disintegrating Oral Tablet Ondansetron 4 MG 08/27/2020 12:00:00 AM EST 1.0 {tablet_on_the_tongue_and_allow_to_dissolve} suspended Ondansetron 4 MG eCW1 ([facility]) POLYETHYLENE GLYCOL 3350 142 MG/ML Oral Solution [Sheridan lax] MiraLax 17 GM MiraLax 17 GM 08/27/2020 12:00:00 AM EST 1.0 {packet_mixed_with_8_ou nces_of_fluid} suspended MiraLax 17 GM eCW1 ([facility]) POLYETHYLENE GLYCOL 3350 142 MG/ML Oral Solution [Sheridan lax] MiraLax 17 GM MiraLax 17 GM 08/27/2020 12:00:00 AM EST 1.0 {packet_mixed_with_8_ou nces_of_fluid} active MiraLax 17 GM eCW1 ([facility]) Ondansetron 4 MG Disintegrating Oral Tablet Ondansetron 4 MG 08/27/2020 12:00:00 AM EST 1.0 {tablet_on_the_tongue_and_allow_to_dissolve} suspended Ondansetron 4 MG eCW1 ([facility]) Ondansetron 4 MG Disintegrating Oral Tablet Ondansetron 4 MG 08/27/2020 12:00:00 AM EST 1.0 {tablet_on_the_tongue_and_allow_to_dissolve} suspended Ondansetron 4 MG eCW1 ([facility]) Ondansetron 4 MG Disintegrating Oral Tablet Ondansetron 4 MG 08/27/2020 12:00:00 AM EST 1.0 {tablet_on_the_tongue_and_allow_to_dissolve} suspended Ondansetron 4 MG eCW1 ([facility]) POLYETHYLENE GLYCOL 3350 142 MG/ML Oral Solution [Sheridan lax] MiraLax 17 GM MiraLax 17 GM 08/27/2020 12:00:00 AM EST 1.0 {packet_mixed_with_8_ou nces_of_fluid} active MiraLax 17 GM eCW1 ([facility]) Ondansetron 4 MG Disintegrating Oral Tablet Ondansetron 4 MG 08/27/2020 12:00:00 AM EST 1.0 {tablet_on_the_tongue_and_allow_to_dissolve} active Ondansetron 4 MG eCW1 ([facility]) Ondansetron 4 MG Disintegrating Oral Tablet Ondansetron 4 MG 08/27/2020 12:00:00 AM EST 1.0 {tablet_on_the_tongue_and_allow_to_dissolve} suspended Ondansetron 4 MG eCW1 ([facility]) POLYETHYLENE GLYCOL 3350 142 MG/ML Oral Solution [Sheridan lax] MiraLax 17 GM MiraLax 17 GM 08/27/2020 12:00:00 AM EST 1.0 {packet_mixed_with_8_ou nces_of_fluid} active MiraLax 17 GM eCW1 ([facility]) Ondansetron 4 MG Disintegrating Oral Tablet Ondansetron 4 MG 08/27/2020 12:00:00 AM EST 1.0 {tablet_on_the_tongue_and_allow_to_dissolve} suspended Ondansetron 4 MG eCW1 ([facility]) Ondansetron 4 MG Disintegrating Oral Tablet Ondansetron 4 MG 08/27/2020 12:00:00 AM EST 1.0 {tablet_on_the_tongue_and_allow_to_dissolve} suspended Ondansetron 4 MG eCW1 ([facility]) Docusate Sodium 100 MG Oral Capsule [Colace] Colace 100 MG C olace 100 MG 08/27/2020 12:00:00 AM EST 1.0 {capsule} active Colace 100 MG eCW1 ([facility]) Ondansetron 4 MG Disintegrating Oral Tablet Ondansetron 4 MG 08/27/2020 12:00:00 AM EST 1.0 {tablet_on_the_tongue_and_allow_to_dissolve} active Ondansetron 4 MG eCW1 ([facility]) Docusate Sodium 100 MG Oral Capsule [Colace] Colace 100 MG C olace 100 MG 08/27/2020 12:00:00 AM EST 1.0 {capsule} active Colace 100 MG eCW1 ([facility]) POLYETHYLENE GLYCOL 3350 142 MG/ML Oral Solution [Sheridan lax] MiraLax 17 GM MiraLax 17 GM 08/27/2020 12:00:00 AM EST 1.0 {packet_mixed_with_8_ou nces_of_fluid} active MiraLax 17 GM eCW1 ([facility]) Ondansetron 4 MG Disintegrating Oral Tablet Ondansetron 4 MG 08/27/2020 12:00:00 AM EST 1.0 {tablet_on_the_tongue_and_allow_to_dissolve} suspended Ondansetron 4 MG eCW1 ([facility]) POLYETHYLENE GLYCOL 3350 142 MG/ML Oral Solution [Sheridan lax] MiraLax 17 GM MiraLax 17 GM 08/27/2020 12:00:00 AM EST 1.0 {packet_mixed_with_8_ou nces_of_fluid} active MiraLax 17 GM eCW1 ([facility]) Ondansetron 4 MG Disintegrating Oral Tablet Ondansetron 4 MG 08/27/2020 12:00:00 AM EST 1.0 {tablet_on_the_tongue_and_allow_to_dissolve} suspended Ondansetron 4 MG eCW1 ([facility]) POLYETHYLENE GLYCOL 3350 142 MG/ML Oral Solution [Sheridan lax] MiraLax 17 GM MiraLax 17 GM 08/27/2020 12:00:00 AM EST 1.0 {packet_mixed_with_8_ou nces_of_fluid} active MiraLax 17 GM eCW1 ([facility]) Docusate Sodium 100 MG Oral Capsule [Colace] Colace 100 MG C olace 100 MG 08/27/2020 12:00:00 AM EST 1.0 {capsule} active Colace 100 MG eCW1 ([facility]) Docusate Sodium 100 MG Oral Capsule [Colace] Colace 100 MG C olace 100 MG 08/27/2020 12:00:00 AM EST 1.0 {capsule} active Colace 100 MG eCW1 ([facility]) Docusate Sodium 100 MG Oral Capsule [Colace] Colace 100 MG C olace 100 MG 08/27/2020 12:00:00 AM EST 1.0 {capsule} active Colace 100 MG eCW1 ([facility]) POLYETHYLENE GLYCOL 3350 142 MG/ML Oral Solution [Sheridan lax] MiraLax 17 GM MiraLax 17 GM 08/27/2020 12:00:00 AM EST 1.0 {packet_mixed_with_8_ou nces_of_fluid} suspended MiraLax 17 GM eCW1 ([facility]) Docusate Sodium 100 MG Oral Capsule [Colace] Colace 100 MG C olace 100 MG 08/27/2020 12:00:00 AM EST 1.0 {capsule} active Colace 100 MG eCW1 ([facility]) POLYETHYLENE GLYCOL 3350 142 MG/ML Oral Solution [Sheridan lax] MiraLax 17 GM MiraLax 17 GM 08/27/2020 12:00:00 AM EST 1.0 {packet_mixed_with_8_ou nces_of_fluid} active MiraLax 17 GM eCW1 ([facility]) POLYETHYLENE GLYCOL 3350 142 MG/ML Oral Solution [Sheridan lax] MiraLax 17 GM MiraLax 17 GM 08/27/2020 12:00:00 AM EST 1.0 {packet_mixed_with_8_ou nces_of_fluid} suspended MiraLax 17 GM eCW1 ([facility]) Docusate Sodium 100 MG Oral Capsule [Colace] Colace 100 MG C olace 100 MG 08/27/2020 12:00:00 AM EST 1.0 {capsule} suspended Colace 100 MG eCW1 ([facility]) Docusate Sodium 100 MG Oral Capsule [Colace] Colace 100 MG C olace 100 MG 08/27/2020 12:00:00 AM EST 1.0 {capsule} suspended Colace 100 MG eCW1 ([facility]) Ondansetron 4 MG Disintegrating Oral Tablet Ondansetron 4 MG 08/27/2020 12:00:00 AM EST 1.0 {tablet_on_the_tongue_and_allow_to_dissolve} suspended Ondansetron 4 MG eCW1 ([facility]) Ondansetron 4 MG Disintegrating Oral Tablet Ondansetron 4 MG 08/27/2020 12:00:00 AM EST 1.0 {tablet_on_the_tongue_and_allow_to_dissolve} suspended Ondansetron 4 MG eCW1 ([facility]) Docusate Sodium 100 MG Oral Capsule [Colace] Colace 100 MG C olace 100 MG 08/27/2020 12:00:00 AM EST 1.0 {capsule} active Colace 100 MG eCW1 ([facility]) Docusate Sodium 100 MG Oral Capsule [Colace] Colace 100 MG C olace 100 MG 08/27/2020 12:00:00 AM EST 1.0 {capsule} active Colace 100 MG eCW1 ([facility]) POLYETHYLENE GLYCOL 3350 142 MG/ML Oral Solution [Sheridan lax] MiraLax 17 GM MiraLax 17 GM 08/27/2020 12:00:00 AM EST 1.0 {packet_mixed_with_8_ou nces_of_fluid} active MiraLax 17 GM eCW1 ([facility]) Insurance Providers Payer name Policy type / Coverage type Policy ID Covered green party ID Covered green party's relationship to mcelroy Policy Mcelroy Plan Information ESTEFANY I [id number] Self [id number] 100 Medicaid Medicaid [id number] Self [id number] [employer] [id number] Self [id number] MEDICAID M [id number] S [id number] ESTEFANY CARE MEDICAID [id number] S [id number] MEDICAID [id number] SP [id number] ESTEFANY [facility] [place] [id number] SP [id number] MEDICAID [id number] S [id number] ESTEFANY [id number] SP [id number] 100 MEDICAID [id number] S [id number] ESTEFANY CARE [place] [id number] S [id number] EMEDNY [id number] SP [id number] Problems, Conditions, and Diagnoses Code Display Name Description Problem Type Effective Dates Data Source(s) O28.0 Abnormal hematological finding on antena marlon screening of mother Abnormal hematological finding on screening of mother Diagnosis 07/11/2020 02:47:20 PM EDT [facility] Z31.5 Encounter for procreative genetic counse rhonda Encounter for procreative genetic counseling Diagnosis 07/11/2020 09:14:25 AM EDT [facility] Z03.73 Encounter for suspected anomaly ru led out Encounter for suspected anomaly ruled out Diagnosis 07/11/2020 09:14:[address] [facility] J45.20 [id number] Mild intermittent asthma without complica tion Problem 02/04/2021 12:00:00 AM EDT eCW1 ([facility]) J45.901 Exacerbation of asthma Asthma exacerbation Problem 10/11/2020 12:00:00 AM EST eCW1 ([facility]) E03.9 [id number] Hypothyroidism (acquired) Problem 10/11/2020 12:00:00 AM EST eCW1 ([facility]) G43.909 [id number] Migraine without sta tus migrainosus, not intractable, unspecified migraine type Problem 10/11/2020 12:00:00 AM EST eCW1 ([facility]) F41.8 [id number] Anxiety with depression Problem 10/11/2020 1 2:00:00 AM EST eCW1 ([facility]) O99.213 [id number] Obesity complicating , third tri mester Problem 10/08/2020 12:00:00 AM EST eCW1 ([facility]) O99.213 Maternal obesity complicatin g , childbirth and the puerperium, antepartum Obesity affecting in third trimester Problem 09/11/2020 12:00:00 AM EST eCW1 ([facility]) E66.01 Morbid obesity Morbid obesity Problem 08/27/2020 12:00: 00 AM EST eCW1 ([facility]) K59.00 Constipation Constipation Problem 08/27/2020 12:00:00 A M EST eCW1 ([facility]) E66.9 Obesity Obesity Problem 07/16/2020 12:00:00 AM ED T eCW1 ([facility]) O99.212 Maternal obesity complicatin g , childbirth and the puerperium, antepartum Obesity complicating in second trimester Problem 07/16/2020 12:00:00 AM EDT eCW1 ([facility]) Surgeries/Procedures Procedure Description Date Indications Data Source(s) OFFICE OUTPATIENT NEW 45 MINUTES 06/05/2021 12:00:00 A M EDT [facility] ([facility]) OFFICE OUTPATIENT NEW 30 MINUTES 03/20/2021 12:00:00 A M EDT [facility] ([facility], ) NONSTRESS TEST 10/03/2020 12:00:00 AM EST eCW1 ([facility]) INFLUENZA VIRUS VACC SPLIT PRSRV FREE 3 YRS/> IM 09/10 12:00:00 AM EST eCW1 ([facility]) Immunization: Boostrix 0.5mL IM (TDAP) 09/10/2020 12:0 0:00 AM EST eC1 ([facility]) Results ID Date Data Source [id number] 06/10/2021 09:10:00 AM EDT [facility]) Name Value Range Interpretation Code Description Data Nela rce(s) Supporting Document(s) Cobalamin (Vitamin B12) [Mass/volume] in Serum or Plasma 527 pg/ mL 247-911 Normal (applies to non-numeric results) [facility] ([facility]) VITAMIN B12 NORMAL RANGE NORMAL 247 - 911 PG/ML INDETERMINATE 211 - 246 PG/ML DEFICIENT LESS THAN 211 PG/ML Calcidiol [Mass/volume] in Serum or Plasma 16.7 ng/mL 30.0- 100.0 Below low normal [facility] ([facility] [place]) ID Date Data Source [id number] 06/10/2021 09:10:00 AM EDT [facility] ([facility]) Name Value Range Interpretation Code Description Data Nela rce(s) Supporting Document(s) Thyroid Stimulating Hormone 2.570 uIU/ML 0.358-3.740 Norm al (applies to non- numeric results) [facility] Free T4 0.95 ng/dL 0.76-1.46 Normal (applies to non-numeric resul ts) [facility] ID Date Data Source [id number] 06/10/2021 09:10:00 AM EDT [facility] ([facility]) Name Value Range Interpretation Code Description Data Nela rce(s) Supporting Document(s) HDL Cholesterol 48 mg/dL Normal (applies to non-numeric results) [facility]) Triglycerides Level 115 mg/dL Normal (applies to non-nume ayan results) [facility]) Cholesterol Level 169 mg/dL Normal (applies to non-numeri c results) [facility]) Non-HDL-C 121 mg/dL Normal (applies to non-numeric resul ts) [facility]) LDL Cholesterol 98 mg/dL Normal (applies to non-numeric results) [facility]) Cholesterol Risk Ratio 3.520 Normal (applies to non-n umeric results) [facility]) ID Date Data Source [id number] 06/10/2021 09:10:00 AM EDT [facility]) Name Value Range Interpretation Code Description Data Nela rce(s) Supporting Document(s) Glucose, Fasting 91 mg/dL 70-100 Normal (applies to non-numeric results) [facility]) Blood Urea Nitrogen 9 mg/dL 7-18 Normal (applies to non-nume ayan results) [facility]) Glomerular Filtration Rate Laboratory test result Normal (applies to non- numeric results) [facility]) <content>Units are mL/min/1.73 m2</content>
<content></content>
<content>Chronic Kidney Disease Staging per NKF:</content>
<content></content>
<content>Stage I & II GFR >=60 Normal to Mildly Decreased</content>
<content>Stage III GFR 30- 59 Moderately Decreased</content>
<content>Stage IV GFR 15-29 Severely Decreased</content>
<content>Stage V GFR <15 Very Little GFR Left</content>
<content>ESRD GFR <15 on ORDER ENTRY TECHNICIAN</content>
<content></content> Creatinine For GFR 0.63 mg/dL 0.55-1.30 Normal (applies to non -numeric results) [facility]) Sodium Level 139 meq/L 136-145 Normal (applies to non-numeric res ults) [facility]) Potassium Serum 4.5 meq/L 3.5-5.1 Normal (applies to non-numeric results) [facility]) Chloride Level 105 meq/L 98-107 Normal (applies to non-numeric r esults) [facility]) Calcium Level 8.5 mg/dL 8.5-10.1 Normal (applies to non-numeric re sults) [facility] ([facility]) Anion Gap 3 meq/L 8-16 Below low normal [facility] ([facility]) Carbon Dioxide Level 31 meq/L 21-32 Normal (applies to non-num andrey results) [facility]) Ast/Sgot 8 U/L 7-37 Normal (applies to non-numeric resul ts) [facility] ([facility]) Alt/SGPT 17 U/L 12-78 Normal (applies to non-numeric resul ts) [facility] ([facility]) Alkaline Phosphatase 75 U/L 45-117 Normal (applies to non-num andrey results) [facility]) Total Protein 6.5 GM/DL 6.4-8.2 Normal (applies to non-numeric re sults) [facility]) Bilirubin,Total 0.6 mg/dL 0.2-1.0 Normal (applies to non-numeric results) [facility]) Albumin 3.4 GM/DL 3.2-5.2 Normal (applies to non-numeric resul ts) [facility]) Albumin/Globulin Ratio 1.1 1.2-2.2 Below low normal [facility] ([facility]) ID Date Data Source [id number] 06/10/2021 09:10:00 AM EDT [facility]) Name Value Range Interpretation Code Description Data Nlea rce(s) Supporting Document(s) Hemoglobin A1c 5.3 % Normal (applies to non-numeric r esults) [facility]) <content>REFERENCE RANGES:</content><br/ ><content></content>
<content><=5.6% NORMAL</content>
<content>5.7-6.4% SUGGESTS IMPAIRED GLUCOSE METABOLISM/PREDIABETIC</content>
<content>>= 6.5% ABNORMAL</content>
<content></content> Estimated Average Glucose 105 mg/dL 60-110 Normal (applies to non-numeric results) [facility]) ID Date Data Source [id number] 06/10/2021 09:10:00 AM EDT [facility] ([facility]) Name Value Range Interpretation Code Description Data Nela rce(s) Supporting Document(s) Red Blood Count 4.58 10 4.00-5.40 Normal (applies to non-numeric results) [facility]) White Blood Count 8.9 10 4.0-10.0 Normal (applies to non-numeri c results) [facility]) Hematocrit 39.6 % 36.0-47.0 Normal (applies to non-numeric resul ts) [facility] [facility] Hemoglobin 12.8 g/dL 12.0-15.5 Normal (applies to non-numeric resul ts) [facility]) Mean Corpuscular Volume 86.5 fl 80.0-96.0 Normal ( applies to non-numeric results) [facility]) Mean Corpuscular HGB Conc 32.3 g/dL 32.0-36.5 Normal (applies to non-numeric results) [facility]) Mean Corpuscular Hemoglobin 27.9 pg 27.0-33.0 Norm al (applies to non-numeric results) [facility]) Neutrophils % 68.9 % 36.0-66.0 Above high normal MEDE NT [facility]) Red Cell Distribution Width 13.2 % 11.5-14.5 Norm al (applies to non-numeric results) [facility]) Platelet Count, Automated 279 10 150-450 Normal (applies to non-numeric results) [facility]) Lymph % 24.4 % 24.0-44.0 Normal (applies to non-numeric resul ts) [facility] Winn % 5.1 % 2.0-8.0 Normal (applies to non-numeric resul ts) [facility]) Immature Granulocyte % 0.3 % 0-3.0 Normal (applies to non-n umeric results) [facility]) Eos % 0.9 % 0.0-3.0 Normal (applies to non-numeric resul ts) [facility] Baso % 0.4 % 0.0-1.0 Normal (applies to non-numeric resul ts) [facility] Nucleated Red Blood Cell % 0.0 % 0-0 Normal (applies to n on-numeric results) [facility] ([facility]) Lymph # 2.2 10 1.5-5.0 Normal (applies to non-numeric resul ts) [facility] ([facility]) Winn # 0.5 10 0.0-0.8 Normal (applies to non-numeric resul ts) [facility] ([facility]) Neutrophils # 6.2 10 1.5-8.5 Normal (applies to non-numeric re sults) [facility] ([facility]) Baso # 0.0 10 0.0-0.2 Normal (applies to non-numeric resul ts) [facility] ([facility]) Eos # 0.1 10 0.0-0.5 Normal (applies to non-numeric resul ts) [facility] ([facility]) ID Date Data Source [id number] 06/07/2021 09:00:00 AM EDT [facility] Name Value Range Interpretation Code Description Data Nela rce(s) Supporting Document(s) SARS-CoV-2 RNA Resp Ql MARYSE+probe NOT DETECTED [facility] This lab was ordered by NGUYEN seals and reported by NGUYEN Camilo. ID Date Data Source [id number] 11/17/2020 08:00:00 AM EST [facility] Name Value Range Interpretation Code Description Data Nela rce(s) Supporting Document(s) SARS-CoV-2 (COVID 19) NEGATIVE - SARS-CoV-2 (COVID19) [facility] This lab was ordered by [facility] a nd reported by [facility]. ID Date Data Source GROUP B STREP CULTURE 11/07/2020 12:00:00 AM EST eCW1 ([facility]) Name Value Range Interpretation Code Description Data Nela rce(s) Supporting Document(s) GROUP B STREP CULTURE eCW1 ([facility]) ID Date Data Source WWBC OBS FOLLOW UP OR REPEAT 09/16/2020 12:00:00 AM EST eCW1 ([facility]) Name Value Range Interpretation Code Description Data Nela rce(s) Supporting Document(s) WWBC OBS FOLLOW UP OR REPEAT e CW1 ([facility]) ID Date Data Source Glucose Challenge Test 1 Hour 09/02/2020 12:00:00 AM EST eCW 1 ([facility]) Name Value Range Interpretation Code Description Data Nela rce(s) Supporting Document(s) 70 LESS THAN 140 GLUCOSE CHALLENGE TEST 1 HOUR eCW1 ([facility]) ID Date Data Source CBC - Complete Blood Count 09/02/2020 12:00:00 AM EST eCW1 ( [facility]) Name Value Range Interpretation Code Description Data Nela rce(s) Supporting Document(s) 4.03 4.00-5.40 RED BLOOD COUNT eCW1 ([facility]) 9.2 4.0-10.0 WHITE BLOOD COUNT eCW1 ([facility]) 93.5 80.0-96.0 MEAN CORPUSCULAR VOLUME e CW1 ([facility]) 12.2 12.0-15.5 HEMOGLOBIN eCW1 ([facility]) 37.7 36.0-47.0 HEMATOCRIT eCW1 ([facility]) 30.3 27.0-33.0 MEAN CORPUSCULAR HEMOGLOB IN eCW1 ([facility]) 32.4 32.0-36.5 MEAN CORPUSCULAR HGB CONC eCW1 ([facility]) 13.7 11.5-14.5 RED CELL DISTRIBUTION WID TH eCW1 ([facility]) 219 150-450 PLATELET COUNT, AUTOMATED eCW1 ([facility]) ID Date Data Source [id number] 08/08/2020 05:45:03 PM [facility] Name Value Range Interpretation Code Description Data Nela rce(s) Supporting Document(s) Progress Note [facility] JLIUWe8fSuPPXmQk33/OORyiTLVaj2FnNDbrIZz7OTauQXBtF2PmSFG3cC5sOUS3PRbRUeHuEbVkBWIn lbm [file] AgICAgICAgICAgICAgICAgICAgICAgICAgICAgICAgICAgICAgICAgICAgICAgICAgICAgICAgICAgIC CjFR0HABNsYYKgNXWdXWNhWNJxISGyGOSkGIXfKOVk ICAgICAgICAgICAgICAgICAgICAgICAgICAgICAgICAgICAgICAgICAgICAgICAgICAgICAgICAgICAg EPRuAOIsKATgGIYoVU5EHRBbZJTdJWLdGXMcSBXjKPXvTCGcEMInXTXuHTWrGGIwCFKrBGSzBJNzSRUa ICAgICAgICAgICAgICAgICAgICAgICAgICAgICAgIC LcGWYtVRFyBKXzDWVqLYLqALQsDYOhSK4GFFAyRBNtQZDrAIExJGSxQHKfTYCxIRGgLOFwZVSdPAZtGF AgICAgICAgICAgICAgICAgICAgICAgICAgICAgICAgICAgICAgICAgICAgICAgICAgICAgICAgICAgIC FsLXZfEI6QYHXvXHHmXFPfTMJkYFBfAFMcHEMlVCVo ICAgICAgICAgICAgICAgICAgICAgICAgICAgICAgICAgICAgICAgICAgICAgICAgICAgICAgICAgICAg HKXmFIZzFPEpFLZaGWWjVU7QBPXePQRkLPKvGLTyKWTkTQLsWEVhQBOkEFTfEFKrXMSgTDQjYWHoQQCs ICAgICAgICAgICAgICAgICAgICAgICAgICAgICAgIC ZaIMYpTGUeRJNhEXObSCSqFDKmUBMySQFfBK9TLVYjHNDvKWKwYDFdOLGwVZTjYQBqKSIqDKZiLOCuRS AgICAgICAgICAgICAgICAgICAgICAgICAgICAgICAgICAgICAgICAgICAgICAgICAgICAgICAgICAgIC RkSIOeDBQhGL3SHSNuKQAsLICmFWJdPJCmMTIfYPFz ICAgICAgICAgICAgICAgICAgICAgICAgICAgICAgICAgICAgICAgICAgICAgICAgICAgICAgICAgICAg BPWtTUNjNHQmQKQkDZOzHZMaAO6PMVFjWAFmLZNiUMXbSDGdNEZuGZHgIOLuGJOzNRWoHYUpKYZoLZMf ICAgICAgICAgICAgICAgICAgICAgICAgICAgICAgIC HfEXMzWUMsEILdDTOtZGCkPNQbTURyWHQdJMWiUR2HQIIdOVVrTXGpWREiEAHkYFRsRQHnRFJgPWTlLH AgICAgICAgICAgICAgICAgICAgICAgICAgICAgICAgICAgICAgICAgICAgICAgICAgICAgICAgICAgIC CeDBDiXMGgRJQgMK3DYK33jKZne2W2DJQwXQ9ufch/ Wn7BGTqtnpXkmYYnYP3UAjDeGZ1xaj4DMdKqVP2bat2AAVaHDyZtP4P4jFAoPKNqCYNCGlScJ82bTFrm Ek72MDkiJCUjCjMwCOp8Lx8OMaOhQ1gtBGVsQyV7GGDlKkI0FHLsYuQgSXhqTH5Vc3TneNBdKKb+Pg0K LT7xx7UyEPigTGGeRH9njr3OKRpRBvAmU2MlycR6PZ HqEUTuKu4EGBXbBSNznKKvFvBeZXWRHqRkH5IsfS77LVNOOl5+JSbhbgImBbwJBrXzEQVeg3OtSNd2NB 5CHNBnYMa1jSHgLDFjK8Xmq0XaWp43LGPaPhddGk1egcWRAD2rh346oYWgiVnhWZJyGHMkBAFqRH9hBD IkBNHeDeBaUWKXCE1ZFKWnJUYghFQuOKIrXAFRNX1C NOhcVUI5HOIxnvRleLXaPEssEX2VOOWaoiSsEsSrQLBOMCh+Vd2VUL9tj2TlZBopWiQvCR9jxl8FDMaQ UmQaP3A5rCWyE0E7XAwyRh5MDOJzEWHvFPzqWDAMXKihRT1WNK0sfoH8SP8OrATbZWXiRWYvvXPsYYi7 J80spUDgENhfHZ0VILH+Lilly+Pi1KAFFsMOPfMUPfVy GaHZKBQdNkB5AlT7MJc0IpC6WnLH78zXurtbNlSPcmEO7YWD9pZYFeQGDFXL0MmSRpjO5ivjTyKOLkVQ LPStQnX46xqROjKTYlVURuSZFxRp7CWAEoJ7OitwHgeMhwkmHrOENaVCHJFU9EWObirwFjbGRfjJfrDM 62xRqsCI2PYs0UPeBrNN8cnw9EzLQmBd6TWVWaDJ5Z PECjIXZcEYLwOCI3UIJbGyNeRKjiIVMpOSRdUKQ1DNLoKBAbWH4FPsRgEUIvIVzkWFGhEJXnVBVxgl2T CPXjXZJpFGChZgEhCYToJQBuQEoxFZMsUOSxTCF9FPZrDOKnKR3EOcRgPKQiREFkEXOnRJXpPJQlla3Y ZRVdWSKsQyL1PLXsPYQwSKWnRSfvTGXzBSJvFGM7YK AdSMKpVT4TEkMkSRUsMBBdFlFgQTUfUSKlmg1PFPWhILCiDFO5NZChESStJVVsIAwhDQIkJRR9LSj7AA WvLMUyTP6SCdAgQFDgOAC1VjSmMGHrOFBtzz9RZWTcJBKoDZQzDEOuYGSmEFPcFLkwIWOuGIU8KNO8KP IiTENrIT2JBuRnQDCfZMKmSFYlKFQjVOHruo2ZTHVd BZVrOwL4MGXpYMAiQCSgMTzjPJHbGWK3Spb0IKIaMOApYW1KDhFxAAIsJGd8FHUpBKYkTBZhgk1OWZLl HLYfVUMlJAXnRCYbUSFuYLoyFYImAWK8PlvzDUPuKUUfAW5VVtPgZAXoPLc8SDNwMRFkRGZpij4NRBKp SXKoGPGcSnMzBLZuLAGhKZylWGTkPTKlXOu3SMLqMN RbZV8BMwHlUVIlJsPaJKriRVYiXCTfxz8UkGBllLpugs0ZNGjEFk7ElAxlRFZ1XZyfBk5nvPBeUcLfYM LSRt4GcbRrRRAbZXIJHNjuQOBcGBXwFECoQNG9MGGyVylsFMBkWGo5NySqXFH5IcB0HGlqRyV6HGM7SZ P3YHT5ADPxMMJwGEJgCjjuYBZhDibnUxS3OwY+IF0g DQo+We0Jg6BotcK1tuMiTKxnBPP4Po7EHFVDF5ZZDj== ID Date Data Source [id number] 08/02/2020 12:37:00 PM [facility] Cytogenetics Report See Addendum BelowNa me: JAMES BETANCURMRN: [id number] Number: [id number] Date: 08/01/2020 12:22Received Date: 08/01/2020 14:19Physician(s): CARLINE QUIJANO MD NOSOVITCH, JOHN T,DONELLpecimen(s) ReceivedA: Amnio -Karyotype and Interphase FISHClinical [id number]-his patient with 21-week, 2-day specimen being tested [...] levelmosaicism. Procedure Electronically Signed Amber Bowden, Ph.D., 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 Genetic counseling suggested.Karyotype results are pending and will be reported in an addendum oncecomplete.Electronically Signed By Amber Bowden, Ph.D., [facility], Director ofCytogenetics 08/02/2020 12:37 :28DATA:NUCLEI EVALUATED FOR FISH: 200ISCN NOMENCLATURE: nuc mj(DXZ1,DYZ3x1)x1[100],(13q14.2x2)[100],(D18Z0x3)[100],(S37Y888/X73A064/K61Z704 )x2[97/100] COMMENTS:To investigate the possibility of trisomy 13,18 or 21, or an abnormal sexchromosome complement, molecular cytogenetic studies (fluorescence in situhybridization - FISH) were performed. Interphase FISH was performedutilizing chromosome 13,18,21 and X and Y probes from [employer], whichincludes the following probe mixtures:Probe Mixture #1: [...] probe that hybridizes tochromosome 21 at loci O16J888, L66X691, and M61I573. It is labeledspectrum orange. These three probes [...] of the Department of Clinical Pathology at [facility]. Although the test has not been cleared orapproved by the U.S. Food and Drug Administration (FDA), the FDA has determined that suchapproval is not necessary. The test has been validated and authorized forclinical use by the [facility] ([facility]). However, theprocedure is considered investigational, and should not be used as thesole criteria for diagnosis. Name Value Range Interpretation Code Description Data Nela rce(s) Supporting Document(s) ID Date Data Source [id number] 08/06/2020 12:06:07 AM EST [facility] Name Value Range Interpretation Code Description Data Nela rce(s) Supporting Document(s) AFP,Amniotic Fluid [facility] 4.2 Fmmxw-4-Gnphpgoljyf [Multiple of the median] adjusted in Amnioti c fluid 0.77 [facility] Gestational age in weeks [facility] Yywcx-9-Fwxbiaqwqyu interpretation in Amniotic fluid [facility] (NOTE)The amniotic fluid AFP value is NO T ELEVATED for the gestational ageprovided.Comment(NOTE)Kathia Goldberg, Ph.D., DABCCDirectorPerformed At: [facility] [id number] [place], [place] [id number] An[facility] Ph:[phone] ID Date Data Source SYPHILIS ANTIBODY (RPR SCREEN) 07/16/2020 12:00:00 AM EDT eC W1 ([facility]) Name Value Range Interpretation Code Description Data Nela rce(s) Supporting Document(s) NONREACTIVE NONREACTIVE eCW1 ([facility]) ID Date Data Source FREE T4 & TSH PANEL 07/16/2020 12:00:00 AM EDT eCW1 [facility] Name Value Range Interpretation Code Description Data Nela rce(s) Supporting Document(s) 1.09 0.76-1.46 eCW1 ([facility]) 1.170 0.358-3.740 eCW1 ([facility]) ID Date Data Source [id number] 07/11/2020 02:51:18 PM EDT [facility] Name Value Range Interpretation Code Description Data Nela rce(s) Supporting Document(s) Progress Note [facility] DQRKDb8xUwSBIzHn39/LTYevKUPnh5JuZAzzVCf5IFfaEEYoD5EtPQQ3uR0mZKK1EXkVGeWcIqPiHBX3 lbm OlTwtWRoJkJHDwPimJUjJrRYblVwwjdARtFD0KgEF3YVOcF20kBLPhQVGcE6AwXUV5OTD+Cn4GLXEbzW ZaXT4UMobQ7G1Vm5sYHQ8ErD1AFTZQA4nY7rnROFLIz99JRA4uyDWH1pJPwaIwZA19OhjQu55IP09Zwk 6S4MgynTQzV23medwu8thsZl6z72ZzMKfl3qwB/3c/ 66T1RstSP//iLB/vlm9sh1/mEcZIxBL7Mo8Mhaiqgp/5lSSxS0awGSvi2V9fBAVCZIOdxC2uVB0+eHH5 +/d2pRZ5H41uIpzg8+qRvmb69ih8pX/boKAFUZwQ9unFF72k/nwZodoZxzc48Cad8dK/MFbmO4yQWX/y 27L3xzFIpPrhJ/rJxtIwwHp0hty8N/VjE7I/s+qwUz fb+MHt9NQXyRBj016MvtnsJJGGiBStYr9oj6ngUt6SG8x0vUpj1l6SC/PJ+NOhKX6uMG4ia6d9s5JnwT UrhSdxv6F07b0NwnBrd0lZIdDe41mBNMzQNHfutewqcp4orEE86g7SF6M49b9iiLzCy9Uq7NVij4aDw3 ZzrjsiZiQhYUmZtguaD05NxHQGpAAfqt/tperggygH [file] iaH2gaQlEYoqYYT7Hq9OGNWJZ5JBNn== Procedure Social History Code Duration Value Status Description Data Source(s ) Smoking 07/11/2021 12:00:00 AM EDT Former Smoker completed Former Smoker eCW1 ([facility]) Smoking 07/11/2021 12:00:00 AM EDT Former Smoker completed Former Smoker eCW1 ([facility]) Smoking 03/17/2021 12:00:00 AM EDT Former Smoker completed Former Smoker eCW1 ([facility]) Smoking 03/17/2021 12:00:00 AM EDT Former Smoker completed Former Smoker eCW1 ([facility]) Smoking 02/06/2021 12:00:00 AM EDT Former Smoker completed Former Smoker eCW1 ([facility]) Smoking 02/06/2021 12:00:00 AM EDT Former Smoker completed Former Smoker eCW1 ([facility]) Smoking 02/06/2021 12:00:00 AM EDT Former Smoker completed Former Smoker eCW1 ([facility]) Smoking 02/06/2021 12:00:00 AM EDT Former Smoker completed Former Smoker eCW1 ([facility]) Smoking 11/15/2020 12:00:00 AM EST Former Smoker completed Former Smoker eCW1 ([facility]) Smoking 11/15/2020 12:00:00 AM EST Former Smoker completed Former Smoker eCW1 ([facility]) Smoking 11/07/2020 12:00:00 AM EST Former Smoker completed Former Smoker eCW1 ([facility]) Smoking 10/17/2020 12:00:00 AM EST Former Smoker completed Former Smoker eCW1 ([facility]) Smoking 10/08/2020 12:00:00 AM EST Former Smoker completed Former Smoker eCW1 ([facility]) Smoking 10/08/2020 12:00:00 AM EST Former Smoker completed Former Smoker eCW1 ([facility]) Smoking 10/08/2020 12:00:00 AM EST Former Smoker completed Former Smoker eCW1 ([facility]) Smoking 10/08/2020 12:00:00 AM EST Former Smoker completed Former Smoker eCW1 ([facility]) Smoking 09/23/2020 12:00:00 AM EST Former Smoker completed Former Smoker eCW1 ([facility]) Smoking 09/16/2020 12:00:00 AM EST Former Smoker completed Former Smoker eCW1 ([facility]) Smoking 08/27/2020 12:00:00 AM EST Former Smoker completed Former Smoker eCW1 ([facility]) Smoking 08/27/2020 12:00:00 AM EST Former Smoker completed Former Smoker eCW1 ([facility]) Smoking 08/27/2020 12:00:00 AM EST Former Smoker completed Former Smoker eCW1 ([facility]) Vital Signs ID Date Data Source UNK Name Value Range Interpretation Code Description Data Source(s) Oxygen saturation in Arterial blood by Pulse oximetry 97 % 97 % [facility] Diastolic blood pressure 72 mm[Hg] 72 mm[Hg] [facility] Heart rate 103 /min 103 /min [facility] Systolic blood pressure 123 mm[Hg] 123 mm[Hg] M EDENT ([facility]) Body temperature 97.0 [degF] 97.0 [degF] MED[facility] ([facility]) Body temperature 36.1 Anabella 36.1 Anabella MEDENT ( [facility]) Body height 65.00 [in_i] 65.00 [in_i] MED[facility] ([facility]) 5'5" Body weight 358.12 [lb_av] 358.12 [lb_av] MEDEN T ([facility]) Body mass index (BMI) [Ratio] 59.6 kg/m2 59.6 k g/m2 MEDENT ([facility]) Body height 65 [in_i] 65 [in_i] MEDENT ([facility], ) 5'5" Body weight 336.00 [lb_av] 336.00 [lb_av] MEDEN T ([facility], ) Body mass index (BMI) [Ratio] 55.9 kg/m2 55.9 k g/m2 MEDENT ([facility]) Orestes body weight 125 [lb_av] 125 [lb_av] MEDEN T ([facility]) Body weight 152.410 kg 152.410 kg MEDENT ([facility]) Body surface area Derived from formula 2.47 m2 2.47 m2 MEDENT ([facility]) Body temperature 95.9 [degF] 95.9 [degF] MEDENT ([facility]) Body weight 336.8 [lb_av] 336.8 [lb_av] eCW1 ([facility]) Body height 65 [in_i] 65 [in_i] eCW1 [facility] Body mass index (BMI) [Ratio] 56.04 kg/m2 56.04 kg/m2 W1 ([facility]) Heart rate 111 /min 111 /min eCW1 ([facility]) Respiratory rate 20 /min 20 /min eCW1 ([facility]) Body temperature 96.8 [degF] 96.8 [degF] eCW1 ( [facility]) Systolic blood pressure 120 mm[Hg] 120 mm[Hg] e CW1 ([facility]) Diastolic blood pressure 78 mm[Hg] 78 mm[Hg] eCW1 ([facility]) Body weight 332.2 [lb_av] 332.2 [lb_av] eCW1 ([facility]) Body height 65 [in_i] 65 [in_i] eCW1 ([facility]) Body mass index (BMI) [Ratio] 55.27 kg/m2 55.27 kg/m2 eCW1 ([facility]) Systolic blood pressure 120 mm[Hg] 120 mm[Hg] e CW1 ([facility]) Diastolic blood pressure 78 mm[Hg] 78 mm[Hg] eCW1 ([facility]) Body weight 330 [lb_av] 330 [lb_av] eCW1 ([facility]) Body height 65 [in_i] 65 [in_i] eCW1 ([facility] Body mass index (BMI) [Ratio] 54.91 kg/m2 54.91 kg/m2 eCW1 ([facility]) Heart rate 105 /min 105 /min eCW1 ([facility]) Respiratory rate 18 /min 18 /min eCW1 ([facility]) Body temperature 96.7 [degF] 96.7 [degF] eCW1 ( [facility]) Systolic blood pressure 124 mm[Hg] 124 mm[Hg] e CW1 ([facility]) Diastolic blood pressure 82 mm[Hg] 82 mm[Hg] eCW1 ([facility]) Body weight 343 [lb_av] 343 [lb_av] eCW1 ([facility]) Body height 65 [in_i] 65 [in_i] eCW1 ([facility] Body mass index (BMI) [Ratio] 57.078 kg/m2 57.0 78 kg/m2 eCW1 ([facility]) Systolic blood pressure 124 mm[Hg] 124 mm[Hg] e CW1 ([facility]) Diastolic blood pressure 84 mm[Hg] 84 mm[Hg] eCW1 ([facility]) Body weight 341.0 [lb_av] 341.0 [lb_av] eCW1 ([facility]) Body weight 154.67 kg 154.67 kg eCW1 ([facility]) Body height 65 [in_i] 65 [in_i] eCW1 ([facility]) Body mass index (BMI) [Ratio] 56.745 kg/m2 56.7 45 kg/m2 eCW1 ([facility]) Systolic blood pressure 122 mm[Hg] 122 mm[Hg] e CW1 ([facility]) Diastolic blood pressure 82 mm[Hg] 82 mm[Hg] eCW1 ([facility]) Body weight 338.8 [lb_av] 338.8 [lb_av] eCW1 ([facility]) Body weight 153.68 kg 153.68 kg eCW1 ([facility]) Body height 65 [in_i] 65 [in_i] eCW1 ([facility]) Body mass index (BMI) [Ratio] 56.379 kg/m2 56.3 79 kg/m2 eCW1 ([facility]) Systolic blood pressure 120 mm[Hg] 120 mm[Hg] e CW1 ([facility]) Diastolic blood pressure 72 mm[Hg] 72 mm[Hg] eCW1 ([facility]) Body weight 343 [lb_av] 343 [lb_av] eCW1 ([facility]) Body height 65 [in_i] 65 [in_i] eCW1 ([facility]) Body mass index (BMI) [Ratio] 57.07 kg/m2 57.07 kg/m2 eCW1 ([facility]) Systolic blood pressure 118 mm[Hg] 118 mm[Hg] e CW1 ([facility]) Diastolic blood pressure 64 mm[Hg] 64 mm[Hg] eCW1 ([facility]) Body weight 341.2 [lb_av] 341.2 [lb_av] eCW1 ([facility]) Body weight 154.77 kg 154.77 kg eCW1 ([facility]) Body height 65 [in_i] 65 [in_i] eCW1 ([facility]) Body mass index (BMI) [Ratio] 56.779 kg/m2 56.7 79 kg/m2 eCW1 ([facility]) Systolic blood pressure 122 mm[Hg] 122 mm[Hg] e CW1 ([facility]) Diastolic blood pressure 80 mm[Hg] 80 mm[Hg] eCW1 ([facility]) Body weight 343.8 [lb_av] 343.8 [lb_av] eCW1 ([facility]) Body weight 155.94 kg 155.94 kg eCW1 ([facility]) Body height 65 [in_i] 65 [in_i] eCW1 ([facility]) Body mass index (BMI) [Ratio] 57.211 kg/m2 57.2 11 kg/m2 eCW1 ([facility]) Systolic blood pressure 128 mm[Hg] 128 mm[Hg] e CW1 ([facility]) Diastolic blood pressure 82 mm[Hg] 82 mm[Hg] eCW1 ([facility]) Body weight 338.2 [lb_av] 338.2 [lb_av] eCW1 ([facility]) Body height 65 [in_i] 65 [in_i] eCW1 ([facility]) Body mass index (BMI) [Ratio] 56.279 kg/m2 56.2 79 kg/m2 eCW1 ([facility]) Systolic blood pressure 120 mm[Hg] 120 mm[Hg] e CW1 ([facility]) Diastolic blood pressure 74 mm[Hg] 74 mm[Hg] eCW1 ([facility]) Body weight 342 [lb_av] 342 [lb_av] eCW1 ([facility]) Body height 65 [in_i] 65 [in_i] eCW1 ([facility]) Body mass index (BMI) [Ratio] 56.912 kg/m2 56.9 12 kg/m2 eCW1 ([facility]) Systolic blood pressure 136 mm[Hg] 136 mm[Hg] e CW1 ([facility]) Diastolic blood pressure 82 mm[Hg] 82 mm[Hg] eCW1 ([facility]) Body weight 344 [lb_av] 344 [lb_av] eCW1 ([facility]) Body height 65 [in_i] 65 [in_i] eCW1 ([facility]) Body mass index (BMI) [Ratio] 57.245 kg/m2 57.2 45 kg/m2 eCW1 ([facility]) Systolic blood pressure 134 mm[Hg] 134 mm[Hg] e CW1 ([facility]) Diastolic blood pressure 82 mm[Hg] 82 mm[Hg] eCW1 ([facility]) Body weight 341.8 [lb_av] 341.8 [lb_av] eCW1 ([facility]) Body height 65 [in_i] 65 [in_i] eCW1 ([facility]) Body mass index (BMI) [Ratio] 56.878 kg/m2 56.8 78 kg/m2 eCW1 ([facility]) Systolic blood pressure 122 mm[Hg] 122 mm[Hg] e CW1 ([facility]) Diastolic blood pressure 74 mm[Hg] 74 mm[Hg] eCW1 ([facility]) Patient Treatment Plan of Care Planned Activity Planned Date Details Description Data Source (s) Albuterol Sulfate HFA 108 (90 Base) MCG/ACT 10/11/2020 12:00:00 AM EST eCW1 ([facility]) Albuterol Sulfate HFA 108 (90 Base) MCG/ACT 10/11/2020 12:00:00 AM EST eCW1 ([facility]) Albuterol Sulfate HFA 108 (90 Base) MCG/ACT 10/11/2020 12:00:00 AM EST eCW1 ([facility]) Albuterol Sulfate HFA 108 (90 Base) MCG/ACT 10/11/2020 12:00:00 AM EST eCW1 ([facility]) Ondansetron 4 MG Oral Tablet [Zofran] 09/10/2020 12:00:00 AM EST eCW1 ([facility]) Docusate Sodium 100 MG Oral Capsule [Colace] 08/27/2020 12:00:00 AM EST eCW1 ([facility]) Ondansetron 4 MG Disintegrating Oral Tablet 08/27/2020 12:00:00 AM EST eCW1 ([facility]) POLYETHYLENE GLYCOL 3350 142 MG/ML Oral Solution [[place] lax] 08/27/2020 12:00:00 AM EST eCW1 ([facility]) Docusate Sodium 100 MG Oral Capsule [Colace] 08/27/2020 12:00:00 AM EST eCW1 ([facility]) Ondansetron 4 MG Disintegrating Oral Tablet 08/27/2020 12:00:00 AM EST eCW1 ([facility]) POLYETHYLENE GLYCOL 3350 142 MG/ML Oral Solution [[place] lax] 08/27/2020 12:00:00 AM EST eCW1 ([facility]) Docusate Sodium 100 MG Oral Capsule [Colace] 08/27/2020 12:00:00 AM EST eCW1 ([facility]) Ondansetron 4 MG Disintegrating Oral Tablet 08/27/2020 12:00:00 AM EST eCW1 ([facility]) POLYETHYLENE GLYCOL 3350 142 MG/ML Oral Solution [Sheridan lax] 08/27/2020 12:00:00 AM EST [id number] ([facility])
--- OUTSIDE RECORDS SUMMARY | 2021-07-27 12:02 | CCD ---
Author Author [facility] Organization [facility] Address Unknown Phone Unavailable Care Team Providers Care Business Services Assistant Name Role Phone Maring, Francis PA Unavailable [...] NOSOVITCH Susan RUIZ MD Unavailable Unavailable NOSOVITCH uSsan RUIZ MD Unavailable Unavailable NOSOVITCH Susan RUIZ [...] OCA Unavailable Unavailable NOSOVITCH , T CARLINE MNOTES DE OCA Unavailable Unavailable MAGNO, M CAPRI [...] is protected by Article 27-F of the [facility] Public Health law. If you continue you may have access to information: Regarding HIV / AIDS; Provided by facilities licensed or operated by the [facility] Office of Mental Health; or Provided by the [facility] Office for People With Developmental Disabilities. If such information is present, then the following [facility] mandated warning applies: This information has [...] law may result in a fine or care home sentence or both. A general authorization for the release of medical or other information is NOT sufficient authorization for further disc losure. Allergies and Adverse Reactions Type Description Substance Reaction Status Data Source(s ) Propensity to adverse reactions Tape Drug allergy Unknown Ac tive eCW1 ([facility]) Propensity to adverse reactions Tape Drug allergy Unknown Ac tive eCW1 ([facility]) Propensity to adverse reactions tape Propensity to adverse reactions Unknown Active eCW1 ([facility]) Propensity to adverse reactions tape Propensity to adverse reactions Unknown Active eCW1 ([facility]) Propensity to adverse reactions tape Propensity to adverse reactions Unknown Active eCW1 ([facility]) Propensity to adverse reactions tape Propensity to adverse reactions Unknown Active eCW1 ([facility]) Propensity to adverse reactions tape Propensity to adverse reactions Unknown Active eCW1 ([facility]) Propensity to adverse reactions tape Propensity to adverse reactions Unknown Active eCW1 ([facility]) Propensity to adverse reactions tape Propensity to adverse reactions Unknown Active eCW1 ([facility]) Propensity to adverse reactions tape Propensity to adverse reactions Unknown Active eCW1 ([facility]) Propensity to adverse reactions PENICILLINS Penicillin [facility] Propensity to adverse reactions LATEX Latex [facility] Encounters Encounter Providers Location Date Indications Data Source(s ) [place] [address] [facility] [address] 07/22/2021 12:00:00 AM EDT eCW1 ([facility]) [place] [address] [facility] [address] 07/14/2021 12:00:00 AM EDT eCW1 ([facility]) [place] [address] [facility] [address] 06/16/2021 12:00:00 AM EDT eCW1 ([facility]) Outpatient Attender: Francis ALTAMIRANO 06/07/20 08:46:17 AM EDT - 06/07/2021 08:49:30 AM EDT DocuTap ([facility] ) Outpatient Attender: CAPRI KIRAN DO, CMP Internal Med at [place] 06/05/2021 01:00:00 PM EDT [facility] ([facility]) Outpatient Attender: Sky Vega/Socorro/Minh/Rein israel 03/20/2021 10:30:00 AM EDT [facility]ENT ([facility]) [place] [address] [facility] [address] 03/17/2021 12:00:00 AM EDT eCW1 ([facility]) Unknown [address] [facility] [place] [address] 02/25/2021 12:00:00 AM EDT eCW1 ([facility]) (WC ESTOB) WCenter Est OB [address] [place] [address] 02/06/2021 12:00:00 AM EDT eCW1 ([facility]) [place] [address] [facility] [address] 02/05/2021 12:00:00 AM EDT eCW1 ([facility]) Outpatient [address] [facility] [place] [address] 02/04/2021 12:00:00 AM EDT eCW1 ([facility]) Unknown [address] [facility] [place] [address] 11/27/2020 12:00:00 AM EST eCW1 ([facility]) (WC ESTOB) [facility] [address] [place] [address] 11/15/2020 12:00:00 AM EST eCW1 ([facility]) (WC ESTOB) [facility] [address] [place] [address] 11/07/2020 12:00:00 AM EST eCW1 ([facility]) (WC ESTOB) [facility] OB [address] [place] [address] 10/22/2020 12:00:00 AM EST eCW1 ([facility]) Unknown [address] [facility] [place] [address] 10/11/2020 12:00:00 AM EST eCW1 ([facility]) Outpatient Attender: GRETCHEN TRUJILLO MS 10/10/2020 12:00:00 A M [facility] Outpatient 10/10/2020 12:00:00 AM [facility] ( ESTOB) [facility] Est OB [address] [place] [address] 10/08/2020 12:00:00 AM EST eCW1 ([facility]) ( ESTOB) [facility] Est OB [address] [place] [address] 10/03/2020 12:00:00 AM EST eCW1 ([facility]) ( ESTOB) [facility] Est OB [address] [place] [address] 09/24/2020 12:00:00 AM EST eCW1 ([facility]) ( ESTOB) [facility] Est OB [address] [place] [address] 09/10/2020 12:00:00 AM EST eCW1 ([facility]) ( ESTOB) [facility] Est OB [address] [place] [address] 08/27/2020 12:00:00 AM EST eCW1 ([facility]) Outpatient Attender: CARLINE WINTERS ttender: GRETCHEN TRUJILLO MSAdmitter: CARLINE QUIJANO JRReferrer: CARLINE CORBETT MD [id number] 08/01/2020 12:00 :00 AM EST - 08/01/2020 01:00:30 PM EST Abnormal hematological finding on antena maroln screening of mother [facility] Abnormal hematological finding on antena marlon screening of mother Outpatient Attender: KRUPA LEE 08/01/2020 12:00:00 AM [facility] Outpatient 08/01/2020 12:00:00 AM [facility] ( ESTOB) [facility] Est OB [address] [place] [address] 07/30/2020 12:00:00 AM EST eCW1 ([facility]) ( ESTOB) enter Est OB [address] [place] [address] 07/16/2020 12:00:00 AM EDT eCW1 ([facility]) Outpatient Attender: GRETCHEN TRUJILLO MSReferrer: CARLINE CORBETT MD [id number] 07/11/2020 12:00:00 AM EDT - 07/11/2020 01:22:27 PM EDT Abnormal hematological finding on screening of mother [facility] Abnormal hematological finding on antena marlon screening of mother Outpatient Attender: KRUPA LEEReferrer: CARLINE CORBETT MD 07/11/2020 12:00:00 AM EDT [facility] Outpatient Referrer: CARLINE CORBETT MD 07/11/2020 12:00:00 A M EDT [facility] Unknown [address] [facility] [address] 06/18/2020 12:00:00 AM EDT eCW1 ([facility]) Immunizations Vaccine Date Status Description Data Source(s) COVID-19 dose #2 given elsewhere Unspecified 03/24/2021 11:3 3:00 AM EDT completed eCW1 ([facility]) COVID-19 dose #2 given elsewhere Unspecified 03/24/2021 11:3 3:00 AM EDT completed eCW1 ([facility]) COVID-19 dose #2 given elsewhere Unspecified 03/24/2021 11:3 3:00 AM EDT completed eCW1 ([facility]) COVID-19 dose #2 given elsewhere Unspecified 03/24/2021 11:3 3:00 AM EDT completed eCW1 ([facility]) COVID-19 VACCINE Moderna 03/24/2021 12:00:00 AM EDT completed [employer] Vaccine Series Complete: YESThis Data wa s Submitted to [facility] Via [employer]. COVID-19 dose #1 given elsewhere Unspecified 02/25/2021 03:3 6:00 PM EDT completed eCW1 ([facility]) COVID-19 dose #1 given elsewhere Unspecified 02/25/2021 03:3 6:00 PM EDT completed eCW1 ([facility]) COVID-19 dose #1 given elsewhere Unspecified 02/25/2021 03:3 6:00 PM EDT completed eCW1 ([facility]) COVID-19 dose #1 given elsewhere Unspecified 02/25/2021 03:3 6:00 PM EDT completed eCW1 ([facility]) COVID-19 dose #1 given elsewhere Unspecified 02/25/2021 03:3 6:00 PM EDT completed eCW1 ([facility]) COVID-19 dose #1 given elsewhere Unspecified 02/25/2021 03:3 6:00 PM EDT completed eCW1 ([facility]) COVID-19 VACCINE Moderna 02/25/2021 12:00:00 AM EDT completed [employer] Vaccine Series Complete: NOThis Data was Submitted to [facility] Via [employer]. New in 2011. IIV4 09/10/2020 03:18:00 PM EST completed eCW1 ([facility]) Tdap 09/10/2020 03:18:00 PM EST completed e CW1 ([facility]) New in 2011. IIV4 09/10/2020 03:18:00 PM EST completed eCW1 ([facility]) Tdap 09/10/2020 03:18:00 PM EST completed e CW1 ([facility]) New in 2011. IIV4 09/10/2020 03:18:00 PM EST completed eCW1 ([facility]) Tdap 09/10/2020 03:18:00 PM EST completed e CW1 ([facility]) New in 2011. IIV4 09/10/2020 03:18:00 PM EST completed eCW1 ([facility]) Tdap 09/10/2020 03:18:00 PM EST completed e CW1 ([facility]) New in 2011. IIV4 09/10/2020 03:18:00 PM EST completed eCW1 ([facility]) Tdap 09/10/2020 03:18:00 PM EST completed e CW1 ([facility]) New in 2011. IIV4 09/10/2020 03:18:00 PM EST completed eCW1 ([facility]) Tdap 09/10/2020 03:18:00 PM EST completed e CW1 ([facility]) New in 2011. IIV4 09/10/2020 03:18:00 PM EST completed eCW1 ([facility]) Tdap 09/10/2020 03:18:00 PM EST completed e CW1 ([facility]) New in 2011. IIV4 09/10/2020 03:18:00 PM EST completed eCW1 ([facility]) Tdap 09/10/2020 03:18:00 PM EST completed e CW1 ([facility]) New in 2011. IIV4 09/10/2020 03:18:00 PM EST completed eCW1 ([facility]) Tdap 09/10/2020 03:18:00 PM EST completed e CW1 ([facility]) New in 2011. IIV4 09/10/2020 03:18:00 PM EST completed eCW1 ([facility]) Tdap 09/10/2020 03:18:00 PM EST completed e CW1 ([facility]) New in 2011. IIV4 09/10/2020 03:18:00 PM EST completed eCW1 ([facility]) Tdap 09/10/2020 03:18:00 PM EST completed e CW1 ([facility]) New in 2011. IIV4 09/10/2020 03:18:00 PM EST completed eCW1 ([facility]) Tdap 09/10/2020 03:18:00 PM EST completed e CW1 ([facility]) New in 2011. IIV4 09/10/2020 03:18:00 PM EST completed eCW1 ([facility]) Tdap 09/10/2020 03:18:00 PM EST completed e CW1 ([facility]) New in 2011. IIV4 09/10/2020 03:18:00 PM EST completed eCW1 ([facility]) Tdap 09/10/2020 03:18:00 PM EST completed e CW1 ([facility]) New in 2011. IIV4 09/10/2020 03:18:00 PM EST completed eCW1 ([facility]) Tdap 09/10/2020 03:18:00 PM EST completed e CW1 ([facility]) New in 2011. IIV4 09/10/2020 03:18:00 PM EST completed eCW1 ([facility]) Tdap 09/10/2020 03:18:00 PM EST completed e CW1 ([facility]) New in 2011. IIV4 09/10/2020 03:18:00 PM EST completed eCW1 ([facility]) Tdap 09/10/2020 03:18:00 PM EST completed e CW1 ([facility]) New in 2011. IIV4 09/10/2020 03:18:00 PM EST completed eCW1 ([facility]) Tdap 09/10/2020 03:18:00 PM EST completed e CW1 ([facility]) Medications Medication Brand Name Start Date Product Form Dose Route Admi nistrative Instructions Pharmacy Instructions Status Indications Reaction Description Data Source(s) Albuterol Sulfate HFA 108 (90 Base) MCG/ACT Albuterol Sulfate HFA 108 (90 Base) MCG/ACT 10/11/2020 12:00:00 AM EST 2.0 {puffs_as_needed} active Albuterol Sulfate HFA 108 (90 Base) MCG/ACT eCW1 ([facility]) Albuterol Sulfate HFA 108 (90 Base) MCG/ACT Albuterol Sulfate HFA 108 (90 Base) MCG/ACT 10/11/2020 12:00:00 AM EST 2.0 {puffs_as_needed} active Albuterol Sulfate HFA 108 (90 Base) MCG/ACT eCW1 ([facility]) Albuterol Sulfate HFA 108 (90 Base) MCG/ACT Albuterol Sulfate HFA 108 (90 Base) MCG/ACT 10/11/2020 12:00:00 AM EST 2.0 {puffs_as_needed} active Albuterol Sulfate HFA 108 (90 Base) MCG/ACT eCW1 ([facility]) Albuterol Sulfate HFA 108 (90 Base) MCG/ACT Albuterol Sulfate HFA 108 (90 Base) MCG/ACT 10/11/2020 12:00:00 AM EST 2.0 {puffs_as_needed} active Albuterol Sulfate HFA 108 (90 Base) MCG/ACT eCW1 ([facility]) Albuterol Sulfate HFA 108 (90 Base) MCG/ACT Albuterol Sulfate HFA 108 (90 Base) MCG/ACT 10/11/2020 12:00:00 AM EST 2.0 {puffs_as_needed} active Albuterol Sulfate HFA 108 (90 Base) MCG/ACT eCW1 ([facility]) Albuterol Sulfate HFA 108 (90 Base) MCG/ACT Albuterol Sulfate HFA 108 (90 Base) MCG/ACT 10/11/2020 12:00:00 AM EST 2.0 {puffs_as_needed} active Albuterol Sulfate HFA 108 (90 Base) MCG/ACT eCW1 ([facility]) Albuterol Sulfate HFA 108 (90 Base) MCG/ACT Albuterol Sulfate HFA 108 (90 Base) MCG/ACT 10/11/2020 12:00:00 AM EST 2.0 {puffs_as_needed} active Albuterol Sulfate HFA 108 (90 Base) MCG/ACT eCW1 ([facility]) Albuterol Sulfate HFA 108 (90 Base) MCG/ACT Albuterol Sulfate HFA 108 (90 Base) MCG/ACT 10/11/2020 12:00:00 AM EST 2.0 {puffs_as_needed} active Albuterol Sulfate HFA 108 (90 Base) MCG/ACT eCW1 ([facility]) Albuterol Sulfate HFA 108 (90 Base) MCG/ACT Albuterol Sulfate HFA 108 (90 Base) MCG/ACT 10/11/2020 12:00:00 AM EST 2.0 {puffs_as_needed} active Albuterol Sulfate HFA 108 (90 Base) MCG/ACT eCW1 ([facility]) Albuterol Sulfate HFA 108 (90 Base) MCG/ACT Albuterol Sulfate HFA 108 (90 Base) MCG/ACT 10/11/2020 12:00:00 AM EST 2.0 {puffs_as_needed} active Albuterol Sulfate HFA 108 (90 Base) MCG/ACT eCW1 ([facility]) Albuterol Sulfate HFA 108 (90 Base) MCG/ACT Albuterol Sulfate HFA 108 (90 Base) MCG/ACT 10/11/2020 12:00:00 AM EST 2.0 {puffs_as_needed} active Albuterol Sulfate HFA 108 (90 Base) MCG/ACT eCW1 ([facility]) Albuterol Sulfate HFA 108 (90 Base) MCG/ACT Albuterol Sulfate HFA 108 (90 Base) MCG/ACT 10/11/2020 12:00:00 AM EST 2.0 {puffs_as_needed} active Albuterol Sulfate HFA 108 (90 Base) MCG/ACT eCW1 ([facility]) Albuterol Sulfate HFA 108 (90 Base) MCG/ACT Albuterol Sulfate HFA 108 (90 Base) MCG/ACT 10/11/2020 12:00:00 AM EST 2.0 {puffs_as_needed} active Albuterol Sulfate HFA 108 (90 Base) MCG/ACT eCW1 ([facility]) Albuterol Sulfate HFA 108 (90 Base) MCG/ACT Albuterol Sulfate HFA 108 (90 Base) MCG/ACT 10/11/2020 12:00:00 AM EST 2.0 {puffs_as_needed} active Albuterol Sulfate HFA 108 (90 Base) MCG/ACT eCW1 ([facility]) Albuterol Sulfate HFA 108 (90 Base) MCG/ACT Albuterol Sulfate HFA 108 (90 Base) MCG/ACT 10/11/2020 12:00:00 AM EST 2.0 {puffs_as_needed} active Albuterol Sulfate HFA 108 (90 Base) MCG/ACT eCW1 ([facility]) Albuterol Sulfate HFA 108 (90 Base) MCG/ACT Albuterol Sulfate HFA 108 (90 Base) MCG/ACT 10/11/2020 12:00:00 AM EST 2.0 {puffs_as_needed} active Albuterol Sulfate HFA 108 (90 Base) MCG/ACT eCW1 ([facility]) Ondansetron 4 MG Oral Tablet [Zofran] Zofran 4 MG Zofran 4 M G 09/10/2020 12:00:00 AM EST 1.0 {tablet} active Zo ashley 4 MG eCW1 ([facility]) Ondansetron 4 MG Oral Tablet [Zofran] Zofran 4 MG Zofran 4 M G 09/10/2020 12:00:00 AM EST 1.0 {tablet} active Zo ashley 4 MG eCW1 ([facility]) Ondansetron 4 MG Oral Tablet [Zofran] Zofran 4 MG Zofran 4 M G 09/10/2020 12:00:00 AM EST 1.0 {tablet} active Zo ashley 4 MG eCW1 ([facility]) Ondansetron 4 MG Oral Tablet [Zofran] Zofran 4 MG Zofran 4 M G 09/10/2020 12:00:00 AM EST 1.0 {tablet} active Zo ashley 4 MG eCW1 ([facility]) Ondansetron 4 MG Oral Tablet [Zofran] Zofran 4 MG Zofran 4 M G 09/10/2020 12:00:00 AM EST 1.0 {tablet} active Zo ashley 4 MG eCW1 ([facility]) Ondansetron 4 MG Oral Tablet [Zofran] Zofran 4 MG Zofran 4 M G 09/10/2020 12:00:00 AM EST 1.0 {tablet} active Zo ashley 4 MG eCW1 ([facility]) Ondansetron 4 MG Oral Tablet [Zofran] Zofran 4 MG Zofran 4 M G 09/10/2020 12:00:00 AM EST 1.0 {tablet} active Zo ashley 4 MG eCW1 ([facility]) Ondansetron 4 MG Oral Tablet [Zofran] Zofran 4 MG Zofran 4 M G 09/10/2020 12:00:00 AM EST 1.0 {tablet} active Zo ashley 4 MG eCW1 ([facility]) Ondansetron 4 MG Oral Tablet [Zofran] Zofran 4 MG Zofran 4 M G 09/10/2020 12:00:00 AM EST 1.0 {tablet} active Zo ashley 4 MG eCW1 ([facility]) Ondansetron 4 MG Oral Tablet [Zofran] Zofran 4 MG Zofran 4 M G 09/10/2020 12:00:00 AM EST 1.0 {tablet} active Zo ashley 4 MG eCW1 ([facility]) Ondansetron 4 MG Oral Tablet [Zofran] Zofran 4 MG Zofran 4 M G 09/10/2020 12:00:00 AM EST 1.0 {tablet} active Zo ashley 4 MG eCW1 ([facility]) Ondansetron 4 MG Oral Tablet [Zofran] Zofran 4 MG Zofran 4 M G 09/10/2020 12:00:00 AM EST 1.0 {tablet} active Zo ashley 4 MG eCW1 ([facility]) Ondansetron 4 MG Oral Tablet [Zofran] Zofran 4 MG Zofran 4 M G 09/10/2020 12:00:00 AM EST 1.0 {tablet} active Zo ashley 4 MG eCW1 ([facility]) Ondansetron 4 MG Oral Tablet [Zofran] Zofran 4 MG Zofran 4 M G 09/10/2020 12:00:00 AM EST 1.0 {tablet} active Zo ashley 4 MG eCW1 ([facility]) Ondansetron 4 MG Oral Tablet [Zofran] Zofran 4 MG Zofran 4 M G 09/10/2020 12:00:00 AM EST 1.0 {tablet} active Zo ashley 4 MG eCW1 ([facility]) Ondansetron 4 MG Oral Tablet [Zofran] Zofran 4 MG Zofran 4 M G 09/10/2020 12:00:00 AM EST 1.0 {tablet} active Zo ashley 4 MG eCW1 ([facility]) Ondansetron 4 MG Oral Tablet [Zofran] Zofran 4 MG Zofran 4 M G 09/10/2020 12:00:00 AM EST 1.0 {tablet} active Zo ashley 4 MG eCW1 ([facility]) Ondansetron 4 MG Oral Tablet [Zofran] Zofran 4 MG Zofran 4 M G 09/10/2020 12:00:00 AM EST 1.0 {tablet} active Zo ashley 4 MG eCW1 ([facility]) Docusate Sodium 100 MG Oral Capsule [Colace] Colace 100 MG C olace 100 MG 08/27/2020 12:00:00 AM EST 1.0 {capsule} active Colace 100 MG eCW1 ([facility]) Docusate Sodium 100 MG Oral Capsule [Colace] Colace 100 MG C olace 100 MG 08/27/2020 12:00:00 AM EST 1.0 {capsule} suspended Colace 100 MG eCW1 ([facility]) Docusate Sodium 100 MG Oral Capsule [Colace] Colace 100 MG C olace 100 MG 08/27/2020 12:00:00 AM EST 1.0 {capsule} active Colace 100 MG eCW1 ([facility]) Docusate Sodium 100 MG Oral Capsule [Colace] Colace 100 MG C olace 100 MG 08/27/2020 12:00:00 AM EST 1.0 {capsule} suspended Colace 100 MG eCW1 ([facility]) Ondansetron 4 MG Disintegrating Oral Tablet Ondansetron 4 MG 08/27/2020 12:00:00 AM EST 1.0 {tablet_on_the_tongue_and_allow_to_dissolve} active Ondansetron 4 MG eCW1 ([facility]) POLYETHYLENE GLYCOL 3350 142 MG/ML Oral Solution [Sheridan lax] MiraLax 17 GM MiraLax 17 GM 08/27/2020 12:00:00 AM EST 1.0 {packet_mixed_with_8_ou nces_of_fluid} active MiraLax 17 GM eCW1 ([facility]) Docusate Sodium 100 MG Oral Capsule [Colace] Colace 100 MG C olace 100 MG 08/27/2020 12:00:00 AM EST 1.0 {capsule} suspended Colace 100 MG eCW1 ([facility]) Docusate Sodium 100 MG Oral Capsule [Colace] Colace 100 MG C olace 100 MG 08/27/2020 12:00:00 AM EST 1.0 {capsule} suspended Colace 100 MG eCW1 ([facility]) POLYETHYLENE GLYCOL 3350 142 MG/ML Oral Solution [Sheridan lax] MiraLax 17 GM MiraLax 17 GM 08/27/2020 12:00:00 AM EST 1.0 {packet_mixed_with_8_ou nces_of_fluid} active MiraLax 17 GM eCW1 ([facility]) Ondansetron 4 MG Disintegrating Oral Tablet Ondansetron 4 MG 08/27/2020 12:00:00 AM EST 1.0 {tablet_on_the_tongue_and_allow_to_dissolve} suspended Ondansetron 4 MG eCW1 ([facility]) Docusate Sodium 100 MG Oral Capsule [Colace] Colace 100 MG C olace 100 MG 08/27/2020 12:00:00 AM EST 1.0 {capsule} suspended Colace 100 MG eCW1 ([facility]) Ondansetron 4 MG Disintegrating Oral Tablet Ondansetron 4 MG 08/27/2020 12:00:00 AM EST 1.0 {tablet_on_the_tongue_and_allow_to_dissolve} suspended Ondansetron 4 MG eCW1 ([facility]) POLYETHYLENE GLYCOL 3350 142 MG/ML Oral Solution [Sheridan lax] MiraLax 17 GM MiraLax 17 GM 08/27/2020 12:00:00 AM EST 1.0 {packet_mixed_with_8_ou nces_of_fluid} suspended MiraLax 17 GM eCW1 ([facility]) Docusate Sodium 100 MG Oral Capsule [Colace] Colace 100 MG C olace 100 MG 08/27/2020 12:00:00 AM EST 1.0 {capsule} suspended Colace 100 MG eCW1 ([facility]) Ondansetron 4 MG Disintegrating Oral Tablet Ondansetron 4 MG 08/27/2020 12:00:00 AM EST 1.0 {tablet_on_the_tongue_and_allow_to_dissolve} active Ondansetron 4 MG eCW1 ([facility]) POLYETHYLENE GLYCOL 3350 142 MG/ML Oral Solution [Sheridan lax] MiraLax 17 GM MiraLax 17 GM 08/27/2020 12:00:00 AM EST 1.0 {packet_mixed_with_8_ou nces_of_fluid} suspended MiraLax 17 GM eCW1 ([facility]) POLYETHYLENE GLYCOL 3350 142 MG/ML Oral Solution [Sheridan lax] MiraLax 17 GM MiraLax 17 GM 08/27/2020 12:00:00 AM EST 1.0 {packet_mixed_with_8_ou nces_of_fluid} suspended MiraLax 17 GM eCW1 ([facility]) Ondansetron 4 MG Disintegrating Oral Tablet Ondansetron 4 MG 08/27/2020 12:00:00 AM EST 1.0 {tablet_on_the_tongue_and_allow_to_dissolve} suspended Ondansetron 4 MG eCW1 ([facility]) Docusate Sodium 100 MG Oral Capsule [Colace] Colace 100 MG C olace 100 MG 08/27/2020 12:00:00 AM EST 1.0 {capsule} active Colace 100 MG eCW1 ([facility]) POLYETHYLENE GLYCOL 3350 142 MG/ML Oral Solution [Sheridan lax] MiraLax 17 GM MiraLax 17 GM 08/27/2020 12:00:00 AM EST 1.0 {packet_mixed_with_8_ou nces_of_fluid} suspended MiraLax 17 GM eCW1 ([facility]) POLYETHYLENE GLYCOL 3350 142 MG/ML Oral Solution [Sheridan lax] MiraLax 17 GM MiraLax 17 GM 08/27/2020 12:00:00 AM EST 1.0 {packet_mixed_with_8_ou nces_of_fluid} active MiraLax 17 GM eCW1 ([facility]) Ondansetron 4 MG Disintegrating Oral Tablet Ondansetron 4 MG 08/27/2020 12:00:00 AM EST 1.0 {tablet_on_the_tongue_and_allow_to_dissolve} suspended Ondansetron 4 MG eCW1 ([facility]) Ondansetron 4 MG Disintegrating Oral Tablet Ondansetron 4 MG 08/27/2020 12:00:00 AM EST 1.0 {tablet_on_the_tongue_and_allow_to_dissolve} suspended Ondansetron 4 MG eCW1 ([facility]) POLYETHYLENE GLYCOL 3350 142 MG/ML Oral Solution [Sheridan lax] MiraLax 17 GM MiraLax 17 GM 08/27/2020 12:00:00 AM EST 1.0 {packet_mixed_with_8_ou nces_of_fluid} active MiraLax 17 GM eCW1 ([facility]) POLYETHYLENE GLYCOL 3350 142 MG/ML Oral Solution [Sheridan lax] MiraLax 17 GM MiraLax 17 GM 08/27/2020 12:00:00 AM EST 1.0 {packet_mixed_with_8_ou nces_of_fluid} active MiraLax 17 GM eCW1 ([facility]) POLYETHYLENE GLYCOL 3350 142 MG/ML Oral Solution [Sheridan lax] MiraLax 17 GM MiraLax 17 GM 08/27/2020 12:00:00 AM EST 1.0 {packet_mixed_with_8_ou nces_of_fluid} suspended MiraLax 17 GM eCW1 ([facility]) Docusate Sodium 100 MG Oral Capsule [Colace] Colace 100 MG C olace 100 MG 08/27/2020 12:00:00 AM EST 1.0 {capsule} active Colace 100 MG eCW1 ([facility]) Ondansetron 4 MG Disintegrating Oral Tablet Ondansetron 4 MG 08/27/2020 12:00:00 AM EST 1.0 {tablet_on_the_tongue_and_allow_to_dissolve} suspended Ondansetron 4 MG eCW1 ([facility]) Docusate Sodium 100 MG Oral Capsule [Colace] Colace 100 MG C olace 100 MG 08/27/2020 12:00:00 AM EST 1.0 {capsule} active Colace 100 MG eCW1 ([facility]) Ondansetron 4 MG Disintegrating Oral Tablet Ondansetron 4 MG 08/27/2020 12:00:00 AM EST 1.0 {tablet_on_the_tongue_and_allow_to_dissolve} suspended Ondansetron 4 MG eCW1 ([facility]) POLYETHYLENE GLYCOL 3350 142 MG/ML Oral Solution [Sheridan lax] MiraLax 17 GM MiraLax 17 GM 08/27/2020 12:00:00 AM EST 1.0 {packet_mixed_with_8_ou nces_of_fluid} suspended MiraLax 17 GM eCW1 ([facility]) POLYETHYLENE GLYCOL 3350 142 MG/ML Oral Solution [Sheridan lax] MiraLax 17 GM MiraLax 17 GM 08/27/2020 12:00:00 AM EST 1.0 {packet_mixed_with_8_ou nces_of_fluid} active MiraLax 17 GM eCW1 ([facility]) Ondansetron 4 MG Disintegrating Oral Tablet Ondansetron 4 MG 08/27/2020 12:00:00 AM EST 1.0 {tablet_on_the_tongue_and_allow_to_dissolve} suspended Ondansetron 4 MG eCW1 ([facility]) Ondansetron 4 MG Disintegrating Oral Tablet Ondansetron 4 MG 08/27/2020 12:00:00 AM EST 1.0 {tablet_on_the_tongue_and_allow_to_dissolve} suspended Ondansetron 4 MG eCW1 ([facility]) Ondansetron 4 MG Disintegrating Oral Tablet Ondansetron 4 MG 08/27/2020 12:00:00 AM EST 1.0 {tablet_on_the_tongue_and_allow_to_dissolve} suspended Ondansetron 4 MG eCW1 ([facility]) POLYETHYLENE GLYCOL 3350 142 MG/ML Oral Solution [Sheridan lax] MiraLax 17 GM MiraLax 17 GM 08/27/2020 12:00:00 AM EST 1.0 {packet_mixed_with_8_ou nces_of_fluid} active MiraLax 17 GM eCW1 ([facility]) Ondansetron 4 MG Disintegrating Oral Tablet Ondansetron 4 MG 08/27/2020 12:00:00 AM EST 1.0 {tablet_on_the_tongue_and_allow_to_dissolve} active Ondansetron 4 MG eCW1 ([facility]) Ondansetron 4 MG Disintegrating Oral Tablet Ondansetron 4 MG 08/27/2020 12:00:00 AM EST 1.0 {tablet_on_the_tongue_and_allow_to_dissolve} suspended Ondansetron 4 MG eCW1 ([facility]) POLYETHYLENE GLYCOL 3350 142 MG/ML Oral Solution [Sheridan lax] MiraLax 17 GM MiraLax 17 GM 08/27/2020 12:00:00 AM EST 1.0 {packet_mixed_with_8_ou nces_of_fluid} active MiraLax 17 GM eCW1 ([facility]) Ondansetron 4 MG Disintegrating Oral Tablet Ondansetron 4 MG 08/27/2020 12:00:00 AM EST 1.0 {tablet_on_the_tongue_and_allow_to_dissolve} suspended Ondansetron 4 MG eCW1 ([facility]) Ondansetron 4 MG Disintegrating Oral Tablet Ondansetron 4 MG 08/27/2020 12:00:00 AM EST 1.0 {tablet_on_the_tongue_and_allow_to_dissolve} suspended Ondansetron 4 MG eCW1 ([facility]) Docusate Sodium 100 MG Oral Capsule [Colace] Colace 100 MG C olace 100 MG 08/27/2020 12:00:00 AM EST 1.0 {capsule} active Colace 100 MG eCW1 ([facility]) Ondansetron 4 MG Disintegrating Oral Tablet Ondansetron 4 MG 08/27/2020 12:00:00 AM EST 1.0 {tablet_on_the_tongue_and_allow_to_dissolve} active Ondansetron 4 MG eCW1 ([facility]) Docusate Sodium 100 MG Oral Capsule [Colace] Colace 100 MG C olace 100 MG 08/27/2020 12:00:00 AM EST 1.0 {capsule} active Colace 100 MG eCW1 ([facility]) POLYETHYLENE GLYCOL 3350 142 MG/ML Oral Solution [Sheridan lax] MiraLax 17 GM MiraLax 17 GM 08/27/2020 12:00:00 AM EST 1.0 {packet_mixed_with_8_ou nces_of_fluid} active MiraLax 17 GM eCW1 ([facility]) Ondansetron 4 MG Disintegrating Oral Tablet Ondansetron 4 MG 08/27/2020 12:00:00 AM EST 1.0 {tablet_on_the_tongue_and_allow_to_dissolve} suspended Ondansetron 4 MG eCW1 ([facility]) POLYETHYLENE GLYCOL 3350 142 MG/ML Oral Solution [Sheridan lax] MiraLax 17 GM MiraLax 17 GM 08/27/2020 12:00:00 AM EST 1.0 {packet_mixed_with_8_ou nces_of_fluid} active MiraLax 17 GM eCW1 ([facility]) Ondansetron 4 MG Disintegrating Oral Tablet Ondansetron 4 MG 08/27/2020 12:00:00 AM EST 1.0 {tablet_on_the_tongue_and_allow_to_dissolve} suspended Ondansetron 4 MG eCW1 ([facility]) POLYETHYLENE GLYCOL 3350 142 MG/ML Oral Solution [Sheridan lax] MiraLax 17 GM MiraLax 17 GM 08/27/2020 12:00:00 AM EST 1.0 {packet_mixed_with_8_ou nces_of_fluid} active MiraLax 17 GM eCW1 ([facility]) Docusate Sodium 100 MG Oral Capsule [Colace] Colace 100 MG C olace 100 MG 08/27/2020 12:00:00 AM EST 1.0 {capsule} active Colace 100 MG eCW1 ([facility]) Docusate Sodium 100 MG Oral Capsule [Colace] Colace 100 MG C olace 100 MG 08/27/2020 12:00:00 AM EST 1.0 {capsule} active Colace 100 MG eCW1 ([facility]) Docusate Sodium 100 MG Oral Capsule [Colace] Colace 100 MG C olace 100 MG 08/27/2020 12:00:00 AM EST 1.0 {capsule} active Colace 100 MG eCW1 ([facility]) POLYETHYLENE GLYCOL 3350 142 MG/ML Oral Solution [Sheridan lax] MiraLax 17 GM MiraLax 17 GM 08/27/2020 12:00:00 AM EST 1.0 {packet_mixed_with_8_ou nces_of_fluid} suspended MiraLax 17 GM eCW1 ([facility]) Docusate Sodium 100 MG Oral Capsule [Colace] Colace 100 MG C olace 100 MG 08/27/2020 12:00:00 AM EST 1.0 {capsule} active Colace 100 MG eCW1 ([facility]) POLYETHYLENE GLYCOL 3350 142 MG/ML Oral Solution [Sheridan lax] MiraLax 17 GM MiraLax 17 GM 08/27/2020 12:00:00 AM EST 1.0 {packet_mixed_with_8_ou nces_of_fluid} active MiraLax 17 GM eCW1 ([facility]) POLYETHYLENE GLYCOL 3350 142 MG/ML Oral Solution [Sheridan lax] MiraLax 17 GM MiraLax 17 GM 08/27/2020 12:00:00 AM EST 1.0 {packet_mixed_with_8_ou nces_of_fluid} suspended MiraLax 17 GM eCW1 ([facility]) Docusate Sodium 100 MG Oral Capsule [Colace] Colace 100 MG C olace 100 MG 08/27/2020 12:00:00 AM EST 1.0 {capsule} suspended Colace 100 MG eCW1 ([facility]) Docusate Sodium 100 MG Oral Capsule [Colace] Colace 100 MG C olace 100 MG 08/27/2020 12:00:00 AM EST 1.0 {capsule} suspended Colace 100 MG eCW1 ([facility]) Ondansetron 4 MG Disintegrating Oral Tablet Ondansetron 4 MG 08/27/2020 12:00:00 AM EST 1.0 {tablet_on_the_tongue_and_allow_to_dissolve} suspended Ondansetron 4 MG eCW1 ([facility]) Ondansetron 4 MG Disintegrating Oral Tablet Ondansetron 4 MG 08/27/2020 12:00:00 AM EST 1.0 {tablet_on_the_tongue_and_allow_to_dissolve} suspended Ondansetron 4 MG eCW1 ([facility]) Docusate Sodium 100 MG Oral Capsule [Colace] Colace 100 MG C olace 100 MG 08/27/2020 12:00:00 AM EST 1.0 {capsule} active Colace 100 MG eCW1 ([facility]) Docusate Sodium 100 MG Oral Capsule [Colace] Colace 100 MG C olace 100 MG 08/27/2020 12:00:00 AM EST 1.0 {capsule} active Colace 100 MG eCW1 ([facility]) POLYETHYLENE GLYCOL 3350 142 MG/ML Oral Solution [Sheridan lax] MiraLax 17 GM MiraLax 17 GM 08/27/2020 12:00:00 AM EST 1.0 {packet_mixed_with_8_ou nces_of_fluid} active MiraLax 17 GM eCW1 ([facility]) Insurance Providers Payer name Policy type / Coverage type Policy ID Covered alliance party ID Covered alliance party's relationship to mcelroy Policy Mcelroy Plan Information ESTEFANY I [id number] Self [id number] Medicaid Medicaid [id number] Self [id number] [employer] [id number] Self [id number] MEDICAID M [id number] S [id number] ESTEFANY CARE MEDICAID [id number] S [id number] MEDICAID [id number] SP [id number] ESTEFANY [facility] [place] [id number] SP [id number] MEDICAID [id number] S [id number] ESTEFANY [id number] SP [id number] 100 MEDICAID [id number] S [id number] [place]EF[place] [id number] S [id number] EMEDNY [id number] SP [id number] Problems, Conditions, and Diagnoses Code Display Name Description Problem Type Effective Dates Data Source(s) O28.0 Abnormal hematological finding on antena marlon screening of mother Abnormal hematological finding on screening of mother Diagnosis 07/11/2020 02:47:20 PM EDT [facility] Z31.5 Encounter for procreative genetic counse rhonda Encounter for procreative genetic counseling Diagnosis 07/11/2020 09:14:25 AM EDT [facility] Z03.73 Encounter for suspected anomaly ru led out Encounter for suspected anomaly ruled out Diagnosis 07/11/2020 09:14:25 AM EDT [facility] J45.20 [id number] Mild intermittent asthma without complica tion Problem 02/04/2021 12:00:00 AM EDT eCW1 ([facility]) J45.901 Exacerbation of asthma Asthma exacerbation Problem 10/11/2020 12:00:00 AM EST eCW1 ([facility]) E03.9 [id number] Hypothyroidism (acquired) Problem 10/11/2020 12:00:00 AM EST eCW1 ([facility]) G43.909 [id number] Migraine without sta tus migrainosus, not intractable, unspecified migraine type Problem 10/11/2020 12:00:00 AM EST eCW1 ([facility]) F41.8 [id number] Anxiety with depression Problem 10/11/2020 1 2:00:00 AM EST eCW1 ([facility]) O99.213 [id number] Obesity complicating , third tri mester Problem 10/08/2020 12:00:00 AM EST eCW1 ([facility]) O99.213 Maternal obesity complicatin g , childbirth and the puerperium, antepartum Obesity affecting in third trimester Problem 09/11/2020 12:00:00 AM EST eCW1 ([facility]) E66.01 Morbid obesity Morbid obesity Problem 08/27/2020 12:00: 00 AM EST eCW1 ([facility]) K59.00 Constipation Constipation Problem 08/27/2020 12:00:00 A M EST eCW1 ([facility]) E66.9 Obesity Obesity Problem 07/16/2020 12:00:00 AM ED T eCW1 ([facility]) O99.212 Maternal obesity complicatin g , childbirth and the puerperium, antepartum Obesity complicating in second trimester Problem 07/16/2020 12:00:00 AM EDT eCW1 ([facility]) Surgeries/Procedures Procedure Description Date Indications Data Source(s) OFFICE OUTPATIENT NEW 45 MINUTES 06/05/2021 12:00:00 A M EDT [facility] ([facility]) OFFICE OUTPATIENT NEW 30 MINUTES 03/20/2021 12:00:00 A M EDT [facility] ([facility], ) NONSTRESS TEST 10/03/2020 12:00:00 AM EST eCW1 ([facility]) INFLUENZA VIRUS VACC SPLIT PRSRV FREE 3 YRS/> IM 09/10 12:00:00 AM EST eCW1 ([facility]) Immunization: Boostrix 0.5mL IM (TDAP) 09/10/2020 12:0 0:00 AM EST eC1 ([facility]) Results ID Date Data Source [id number] 06/10/2021 09:10:00 AM EDT [facility]) Name Value Range Interpretation Code Description Data Nela rce(s) Supporting Document(s) Cobalamin (Vitamin B12) [Mass/volume] in Serum or Plasma 527 pg/ mL 247-911 Normal (applies to non-numeric results) [facility] ([facility]) VITAMIN B12 NORMAL RANGE NORMAL 247 - 911 PG/ML INDETERMINATE 211 - 246 PG/ML DEFICIENT LESS THAN 211 PG/ML Calcidiol [Mass/volume] in Serum or Plasma 16.7 ng/mL 30.0- 100.0 Below low normal [facility] ([facility]) ID Date Data Source [id number] 06/10/2021 09:10:00 AM EDT [facility] ([facility]) Name Value Range Interpretation Code Description Data Nela rce(s) Supporting Document(s) Thyroid Stimulating Hormone 2.570 uIU/ML 0.358-3.740 Norm al (applies to non- numeric results) [facility] Free T4 0.95 ng/dL 0.76-1.46 Normal (applies to non-numeric resul ts) [facility] ID Date Data Source [id number] 06/10/2021 09:10:00 AM EDT [facility] ([facility]) Name Value Range Interpretation Code Description Data Nela rce(s) Supporting Document(s) HDL Cholesterol 48 mg/dL Normal (applies to non-numeric results) [facility] ([facility]) Triglycerides Level 115 mg/dL Normal (applies to non-nume ayan results) [facility] ([facility]) Cholesterol Level 169 mg/dL Normal (applies to non-numeri c results) [facility] ([facility]) Non-HDL-C 121 mg/dL Normal (applies to non-numeric resul ts) [facility] ([facility]) LDL Cholesterol 98 mg/dL Normal (applies to non-numeric results) [facility]) Cholesterol Risk Ratio 3.520 Normal (applies to non-n umeric results) [facility]) ID Date Data Source [id number] 06/10/2021 09:10:00 AM EDT [facility]) Name Value Range Interpretation Code Description Data Nela rce(s) Supporting Document(s) Glucose, Fasting 91 mg/dL 70-100 Normal (applies to non-numeric results) [facility]) Blood Urea Nitrogen 9 mg/dL 7-18 Normal (applies to non-nume ayan results) [facility]) Glomerular Filtration Rate Laboratory test result Normal (applies to non- numeric results) [facility]) <content>Units are mL/min/1.73 m2</content>
<content></content>
<content>Chronic Kidney Disease Staging per NKF:</content>
<content></content>
<content>Stage I & II GFR >=60 Normal to Mildly Decreased</content>
<content>Stage III GFR 30- 59 Moderately Decreased</content>
<content>Stage IV GFR 15-29 Severely Decreased</content>
<content>Stage V GFR <15 Very Little GFR Left</content>
<content>ESRD GFR <15 on INSPECTOR WIRE ROPE</content>
<content></content> Creatinine For GFR 0.63 mg/dL 0.55-1.30 Normal (applies to non -numeric results) [facility]) Sodium Level 139 meq/L 136-145 Normal (applies to non-numeric res ults) [facility]) Potassium Serum 4.5 meq/L 3.5-5.1 Normal (applies to non-numeric results) [facility]) Chloride Level 105 meq/L 98-107 Normal (applies to non-numeric r esults) [facility]) Calcium Level 8.5 mg/dL 8.5-10.1 Normal (applies to non-numeric re sults) [facility] ([facility]) Anion Gap 3 meq/L 8-16 Below low normal [facility] ([facility]) Carbon Dioxide Level 31 meq/L 21-32 Normal (applies to non-num andrey results) [facility] Ast/Sgot 8 U/L 7-37 Normal (applies to non-numeric resul ts) [facility] ([facility]) Alt/SGPT 17 U/L 12-78 Normal (applies to non-numeric resul ts) [facility] ([facility]) Alkaline Phosphatase 75 U/L 45-117 Normal (applies to non-num andrey results) [facility]) Total Protein 6.5 GM/DL 6.4-8.2 Normal (applies to non-numeric re sults) [facility]) Bilirubin,Total 0.6 mg/dL 0.2-1.0 Normal (applies to non-numeric results) [facility]) Albumin 3.4 GM/DL 3.2-5.2 Normal (applies to non-numeric resul ts) [facility] [place]) Albumin/Globulin Ratio 1.1 1.2-2.2 Below low normal [facility] ([facility] [place]) ID Date Data Source [id number] 06/10/2021 09:10:00 AM EDT [facility]) Name Value Range Interpretation Code Description Data Nela rce(s) Supporting Document(s) Hemoglobin A1c 5.3 % Normal (applies to non-numeric r esults) [facility]) <content>REFERENCE RANGES:</content><br/ ><content></content>
<content><=5.6% NORMAL</content>
<content>5.7-6.4% SUGGESTS IMPAIRED GLUCOSE METABOLISM/PREDIABETIC</content>
<content>>= 6.5% ABNORMAL</content>
<content></content> Estimated Average Glucose 105 mg/dL 60-110 Normal (applies to non-numeric results) [facility]) ID Date Data Source [id number] 06/10/2021 09:10:00 AM EDT [facility] ([facility]) Name Value Range Interpretation Code Description Data Nela rce(s) Supporting Document(s) Red Blood Count 4.58 10 4.00-5.40 Normal (applies to non-numeric results) [facility]) White Blood Count 8.9 10 4.0-10.0 Normal (applies to non-numeri c results) [facility]) Hematocrit 39.6 % 36.0-47.0 Normal (applies to non-numeric resul ts) [facility]) Hemoglobin 12.8 g/dL 12.0-15.5 Normal (applies to non-numeric resul ts) [facility]) Mean Corpuscular Volume 86.5 fl 80.0-96.0 Normal ( applies to non-numeric results) [facility]) Mean Corpuscular HGB Conc 32.3 g/dL 32.0-36.5 Normal (applies to non-numeric results) [facility]) Mean Corpuscular Hemoglobin 27.9 pg 27.0-33.0 Norm al (applies to non-numeric results) [facility]) Neutrophils % 68.9 % 36.0-66.0 Above high normal [facility]) Red Cell Distribution Width 13.2 % 11.5-14.5 Norm al (applies to non-numeric results) [facility]) Platelet Count, Automated 279 10 150-450 Normal (applies to non-numeric results) [facility]) Lymph % 24.4 % 24.0-44.0 Normal (applies to non-numeric resul ts) [facility]) [place] % 5.1 % 2.0-8.0 Normal (applies to non-numeric resul ts) [facility]) Immature Granulocyte % 0.3 % 0-3.0 Normal (applies to non-n umeric results) [facility]) Eos % 0.9 % 0.0-3.0 Normal (applies to non-numeric resul ts) [facility]) Baso % 0.4 % 0.0-1.0 Normal (applies to non-numeric resul ts) [facility] [place]) Nucleated Red Blood Cell % 0.0 % 0-0 Normal (applies to n on-numeric results) [facility] ([facility]) Lymph # 2.2 10 1.5-5.0 Normal (applies to non-numeric resul ts) [facility] ([facility]) [place] # 0.5 10 0.0-0.8 Normal (applies to non-numeric resul ts) [facility] ([facility]) Neutrophils # 6.2 10 1.5-8.5 Normal (applies to non-numeric re sults) [facility] ([facility]) Baso # 0.0 10 0.0-0.2 Normal (applies to non-numeric resul ts) [facility] ([facility]) Eos # 0.1 10 0.0-0.5 Normal (applies to non-numeric resul ts) [facility] ([facility]) ID Date Data Source [id number] 06/07/2021 09:00:00 AM EDT [facility] Name Value Range Interpretation Code Description Data Nela rce(s) Supporting Document(s) SARS-CoV-2 RNA Resp Ql MARYSE+probe NOT DETECTED [facility] This lab was ordered by [facility] and reported by [facility]. ID Date Data Source [id number] 11/17/2020 08:00:00 AM EST [facility] Name Value Range Interpretation Code Description Data Nela rce(s) Supporting Document(s) SARS-CoV-2 (COVID 19) NEGATIVE - SARS-CoV-2 (COVID19) [facility] This lab was ordered by [facility] a nd reported by [facility]. ID Date Data Source GROUP B STREP CULTURE 11/07/2020 12:00:00 AM EST eCW1 ([facility]) Name Value Range Interpretation Code Description Data Nela rce(s) Supporting Document(s) GROUP B STREP CULTURE eCW1 ([facility]) ID Date Data Source WWBC OBS FOLLOW UP OR REPEAT 09/16/2020 12:00:00 AM EST eCW1 ([facility]) Name Value Range Interpretation Code Description Data Nela rce(s) Supporting Document(s) WWBC OBS FOLLOW UP OR REPEAT e CW1 ([facility]) ID Date Data Source Glucose Challenge Test 1 Hour 09/02/2020 12:00:00 AM EST eCW 1 ([facility]) Name Value Range Interpretation Code Description Data Nela rce(s) Supporting Document(s) 70 LESS THAN 140 GLUCOSE CHALLENGE TEST 1 HOUR eCW1 ([facility]) ID Date Data Source CBC - Complete Blood Count 09/02/2020 12:00:00 AM EST eCW1 ( [facility]) Name Value Range Interpretation Code Description Data Nela rce(s) Supporting Document(s) 4.03 4.00-5.40 RED BLOOD COUNT eCW1 ([facility]) 9.2 4.0-10.0 WHITE BLOOD COUNT eCW1 ([facility]) 93.5 80.0-96.0 MEAN CORPUSCULAR VOLUME e CW1 ([facility]) 12.2 12.0-15.5 HEMOGLOBIN eCW1 ([facility]) 37.7 36.0-47.0 HEMATOCRIT eCW1 ([facility]) 30.3 27.0-33.0 MEAN CORPUSCULAR HEMOGLOB IN eCW1 ([facility]) 32.4 32.0-36.5 MEAN CORPUSCULAR HGB CONC eCW1 ([facility]) 13.7 11.5-14.5 RED CELL DISTRIBUTION WID TH eCW1 ([facility]) 219 150-450 PLATELET COUNT, AUTOMATED eCW1 ([facility]) ID Date Data Source [id number] 08/08/2020 05:45:03 PM [facility] Name Value Range Interpretation Code Description Data Nela rce(s) Supporting Document(s) Progress Note [facility] KARLLj0qNlTXZtWd07/FMZoqSBYfq2XnFCvmYXx0ZZaeBMYqV7EnOZJ9jZ5qHJZ6RNnLUdZhGvDbEOKx lbm [file] AgICAgICAgICAgICAgICAgICAgICAgICAgICAgICAgICAgICAgICAgICAgICAgICAgICAgICAgICAgIC WqHR8YHNSqQZWuZDBiKBPaPEKeBMIqGBIzSDSjTGBx ICAgICAgICAgICAgICAgICAgICAgICAgICAgICAgICAgICAgICAgICAgICAgICAgICAgICAgICAgICAg XNBbFGNxGRZoPFTjSL2FTHQkJKBoDAZcMEJmAFXxLQFbLSTrDROrDNClRWMrGAJxXOOfHIVpHFGsKFHk ICAgICAgICAgICAgICAgICAgICAgICAgICAgICAgIC AbBNIiRGMcEHLeOEEoZTRhVIWdDJScOK7XYXHlSAEkFVKcLINwQQIyZIPvBNXjAIYdXLKqBKVeLJMwUX AgICAgICAgICAgICAgICAgICAgICAgICAgICAgICAgICAgICAgICAgICAgICAgICAgICAgICAgICAgIC QlOVCgZY6PXAQeVUDxDSMpBKSdPHRkBTCePKNjBROc ICAgICAgICAgICAgICAgICAgICAgICAgICAgICAgICAgICAgICAgICAgICAgICAgICAgICAgICAgICAg SIIkUUYhHQKjADEnHBApKM5VDLEjONFiJGFtOWHkOCWqJONuGMWxVWHxFDAkNITnQDQcWKJeDONpWENk ICAgICAgICAgICAgICAgICAgICAgICAgICAgICAgIC VbJJPnDBIiBJGgSOLeXGYyELAfZQRfAHYrII9LROBuXUFoZXBsIFBbQNLbUXTyXBHoIIJtCFPkJPHxNI AgICAgICAgICAgICAgICAgICAgICAgICAgICAgICAgICAgICAgICAgICAgICAgICAgICAgICAgICAgIC LwAIOcEUCfUM8VPYNzTAGfPUWgPKVwOHSuTWPjDXWr ICAgICAgICAgICAgICAgICAgICAgICAgICAgICAgICAgICAgICAgICAgICAgICAgICAgICAgICAgICAg XQRkKVRiTLUcPWSaNCKeBDLlFC5LLXGdQNNzVXNxIUZeMAVpRNJeYUVaVZPmSJWzTLMoVTPjJBNvUECb ICAgICAgICAgICAgICAgICAgICAgICAgICAgICAgIC OcOUMeMWJnOSIfLIDfNIAoPDQxHSIjEKLuVCPlQB6UOWVyADRyUUPtXTAbQJZsNKKxICGrERZvJMHbIA AgICAgICAgICAgICAgICAgICAgICAgICAgICAgICAgICAgICAgICAgICAgICAgICAgICAgICAgICAgIC LpYGWdTUWtCWHeIO5ZCC86sMTgi1I7YUZlHO6wmgu/ Fq8KWKsgwjDdgTDqUJ3LBvScOL6xfl4SNvQoTP0ifg8LEXiCLiDhC4X3aSRvLSRhXBXQPoVfE48yYHei Hj47MIadHDWxUvHxCIy5Jn8JZqGcA5urTCEhOeE0OMWrPcG7VRInEmUqCZsuAV5Jd3PngOWfMSk+Pg0K EQ1os6ZgALwjHIYdVD7gjq9EQRuDGvOeE5RnsaN9IR CqZUNyAc8TPEMrXMKseLDpFoTiWXCGExQmF6TpwR06SQNRZv5+DXqyjnBkIyuOHbVaAEFkj9ZdUJv2ED 9ZTHPfWMg9eKAaMIDnR8Xyn9ImYl44TMKmAyrwYe7czoQABY2ij166dINfdKvvTRHjHJPqAQFgPY7yGG FgLNDrFgZrKDABYH9RDPRaQUYohJMpVPJdMQRABX2E BAcsDPD9ZFJhsbNgdSRuPLrtPD5YMOFunwOfLpDaWBWUTGb+Zz4CUI6qu4OtNQeeEwWzVR3ttf8HMYxN YzWsZ1Q8hQEeF9K8JHpwMe8UFPXzYVHqYOvaUDCXLVrqIZ3LZQ1osvG1PP7HtHVaVTCmXQJzkEWbUCh2 Y26mqQMlNGwdVO8ZRGO+Lilly+Cy1RZZBhGMZtUZElGt NwXZCJVuWiI7MeO7EZs7NmO4HqFB62yGdfqeQcKIkfCT0FEW7fGWYpAULHHJ8BmPXjgL0ylrXvKTNmRT UJDzRkM13qjJIvIAIfALKbPRRnSy0BFJWuH3MgofHkzDlceeUkKLLqWCJFJL8JYRyjpyYhbMGqgYluYM 30dJxdHS4OMa6CRuOwWS7cjq9OmZVgEk2HQWOnHN4G EMQsNTUtDMZuLBM9FJNzZtKhJRteOHIxBYXqTEA4KZUuLKIhCS7FVoXuIVTwBYolWFFcTSWfBGEpoc5V KDPtFVCnOXIpRrXjGYHvWLQdMOpkLQLxUYSbTRW4ZRTlEXGnWO6IWrNkUGQhITNkHUYyPCCdUAPvmm8C FVOqTBSgOsY4UXHjAYLpBRReJLzjGVAdSLDkZCJ2DX GpOAAdXB9BKjFjVKLvMDWqYcLrPBRdSUNkog0KSFFgPTAgFVO3FUOrQKAuKBOpSZmmKAYqKNY5VHa6QW FlLKFrLR5DFpTjLXLwNMT3ZbYnYEBzSKJjoe9CMPRqRSFyAKHuFSZgKXIvJKPmPCsyAROdZUH3XKL8UZ OpHXNbZX0TKcSpLHHfVKQpSEVgRNStXAWgui3DRUCy NSBuPhZ4GNNeINQrREUkWGztYMGqWDI1Kif6NDOeJCGtWX8GFhEtGYGmBPj9HTWiZIClIGYluy8WFTRc MPUbPCOuRFNuBEOgARNwMNzcKKMyRUF6JbbaBDXcZZRyAZ6JYlXzJIUmHVg9AYSwLABaSVFrke4XRUDl GTDvXSGmGsMiBYLbHKIfLRymHIOaKTKxPXo9UCMgIJ RlVM0RQoNnXLYtHjZpAWpeZJKcDMBzhz6GuSArvRrfia2BIWeNYa9PzZbsPYT7RIzrQw0ujUFbGoCxXX IMBa9MzlRtDELvREIBKCsmVTGfBNFuPDSfYGV3OOZxEwmlOBObERm3AjXgIZS4FqD3HWfiEgK2WXV3UH G7UMT6VINuYELaOCEiOckrGWDaEufeTuP3SyI+IF0g DQo+Xm5En8FfpdJ3faDpERqkXZS9Cb7MOJEAZ8XCKc== ID Date Data Source [id number] 08/02/2020 12:37:00 PM [facility] Cytogenetics Report See Addendum BelowNa me: JAMES BETANCURMRN: [id number] Number: [id number] Date: 08/01/2020 12:22Received Date: 08/01/2020 14:19Physician(s): CARLINE QUIJANO MD NOSOVITCH, JOHN T,DONELLpecimen(s) ReceivedA: Amnio -Karyotype and Interphase FISHClinical Dbivkih91-mgvg-aee patient with 21-week, 2-day specimen being tested [...] levelmosaicism. 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 Genetic counseling suggested.Karyotype results are pending and will be reported in an addendum oncecomplete.Electronically Signed By Amber Bowden, Ph.D., [facility], Director ofCytogenetics 08/02/2020 12:37 :28DATA:NUCLEI EVALUATED FOR FISH: 200ISCN NOMENCLATURE: nuc mj(DXZ1,DYZ3x1)x1[100],(13q14.2x2)[100],(F79A7g3)[100],(N23S614/W02C079/F04F382 )x2[97/100] COMMENTS:To investigate the possibility of trisomy 13,18 or 21, or an abnormal sexchromosome complement, molecular cytogenetic studies (fluorescence in situhybridization - FISH) were performed. Interphase FISH was performedutilizing chromosome 13,18,21 and X and Y probes from [employer], whichincludes the following probe mixtures:Probe Mixture #1: [...] probe that hybridizes tochromosome 21 at loci X26S109, K79Z495, and O11F245. It is labeledspectrum orange. These three probes [...] of the Department of Clinical Pathology at [facility]. Although the test has not been cleared orapproved by the U.S. Food and Drug Administration (FDA), the FDA has determined that suchapproval is not necessary. The test has been validated and authorized forclinical use by the [facility] ([facility]). However, theprocedure is considered investigational, and should not be used as thesole criteria for diagnosis. Name Value Range Interpretation Code Description Data Nela rce(s) Supporting Document(s) ID Date Data Source [id number] 08/06/2020 12:06:07 AM EST [facility] Name Value Range Interpretation Code Description Data Nela rce(s) Supporting Document(s) AFP,Amniotic Fluid [facility] 4.2 Lyipl-0-Jjjytqwlhod [Multiple of the median] adjusted in Amnioti c fluid 0.77 [facility]ational [facility] in weeks [facility] Bccyj-4-Qkrbjzzcnyr interpretation in Amniotic fluid [facility] (NOTE)The amniotic fluid AFP value is NO T ELEVATED for the gestational ageprovided.Comment(NOTE)Kathia Goldberg, Ph.D., DABCCDirectorPerformed At: [facility] [id number] [place], [place] [id number] Anjen [facility] Ph:[phone] ID Date Data Source SYPHILIS ANTIBODY (RPR SCREEN) 07/16/2020 12:00:00 AM EDT eC W1 ([facility]) Name Value Range Interpretation Code Description Data Nela rce(s) Supporting Document(s) NONREACTIVE NONREACTIVE eCW1 ([facility]) ID Date Data Source FREE T4 & TSH PANEL 07/16/2020 12:00:00 AM EDT eCW1 ([facility]) Name Value Range Interpretation Code Description Data Nela rce(s) Supporting Document(s) 1.09 0.76-1.46 eCW1 ([facility]) 1.170 0.358-3.740 eCW1 ([facility]) ID Date Data Source [id number] 07/11/2020 02:51:18 PM EDT [facility] Name Value Range Interpretation Code Description Data Nela rce(s) Supporting Document(s) Progress Note [facility] TUMHUd8pOpRWHrKu16/CEVpgNZIpj2BrQVimWIx3KSprRFElM2BlMNK5tX6hUHS8DGfCQeHcTuDuWMF7 lbm FtTudPIjCvHQIdSvoGQzWvGKpdZoawtAWqDP3NiCP6AOJfG87iNKQiRBVyD6OnEQZ4PJM+Tf5AJLMygI UgUU9ANhxN3D5Ll7rUQV1JaE1IBSQQF4aG6pkVYFERp99BCA5sfCKC7qYKroLdBL09UftWp69OZ17Ows 5A4BtxuIFmY22ryues2fzcWu9y16ReFOwe3gkH/3c/ 53O2BwvZP//iLB/ytc8zd4/bIzXVhDM4Zq8Aksbblb/9xXZyU8pvPCwi9J8sGRXDKHMbpT7xRM9+eHH5 +/i9pRE1H23bKgeh9+eSvdy08uo4gL/fsMTNDZpW7tcWH11b/bwPuzlUvdx40Cev7zL/UAxaM9mOGI/y 84W6vfCBoUcqP/gFilNjmSs1pdp0U/VjE7I/s+qwUz fb+PUc1NWAzQWg159OtjiyVEQSmSVfVr9ob5xvHi2RQ9s3gHoj1e3WR/PJ+IJnXU6nUH0hg0j2c6BaeP LwuMgcn8O89i5BpvEwd4tTYwAo08mADNqZPSjacajklu2vgTC24o9WU2X56s4qqAhWi3Uc8OUsd4aWg8 JeqiloKnBoBPbCxtzaO90SzFGAhMJvxd/tperggygH [file] drJ8gbVmCYbeRLR5Av2BUVNYB9QNGz== Procedure Social History Code Duration Value Status Description Data Source(s ) Smoking 07/11/2021 12:00:00 AM EDT Former Smoker completed Former Smoker eCW1 ([facility]) Smoking 07/11/2021 12:00:00 AM EDT Former Smoker completed Former Smoker eCW1 ([facility]) Smoking 03/17/2021 12:00:00 AM EDT Former Smoker completed Former Smoker eCW1 ([facility]) Smoking 03/17/2021 12:00:00 AM EDT Former Smoker completed Former Smoker eCW1 ([facility]) Smoking 02/06/2021 12:00:00 AM EDT Former Smoker completed Former Smoker eCW1 ([facility]) Smoking 02/06/2021 12:00:00 AM EDT Former Smoker completed Former Smoker eCW1 ([facility]) Smoking 02/06/2021 12:00:00 AM EDT Former Smoker completed Former Smoker eCW1 ([facility]) Smoking 02/06/2021 12:00:00 AM EDT Former Smoker completed Former Smoker eCW1 ([facility]) Smoking 11/15/2020 12:00:00 AM EST Former Smoker completed Former Smoker eCW1 ([facility]) Smoking 11/15/2020 12:00:00 AM EST Former Smoker completed Former Smoker eCW1 ([facility]) Smoking 11/07/2020 12:00:00 AM EST Former Smoker completed Former Smoker eCW1 ([facility]) Smoking 10/17/2020 12:00:00 AM EST Former Smoker completed Former Smoker eCW1 ([facility]) Smoking 10/08/2020 12:00:00 AM EST Former Smoker completed Former Smoker eCW1 ([facility]) Smoking 10/08/2020 12:00:00 AM EST Former Smoker completed Former Smoker eCW1 ([facility]) Smoking 10/08/2020 12:00:00 AM EST Former Smoker completed Former Smoker eCW1 ([facility]) Smoking 10/08/2020 12:00:00 AM EST Former Smoker completed Former Smoker eCW1 ([facility]) Smoking 09/23/2020 12:00:00 AM EST Former Smoker completed Former Smoker eCW1 ([facility]) Smoking 09/16/2020 12:00:00 AM EST Former Smoker completed Former Smoker eCW1 ([facility]) Smoking 08/27/2020 12:00:00 AM EST Former Smoker completed Former Smoker eCW1 ([facility]) Smoking 08/27/2020 12:00:00 AM EST Former Smoker completed Former Smoker eCW1 ([facility]) Smoking 08/27/2020 12:00:00 AM EST Former Smoker completed Former Smoker eCW1 ([facility]) Vital Signs ID Date Data Source UNK Name Value Range Interpretation Code Description Data Source(s) Systolic blood pressure 123 mm[Hg] 123 mm[Hg] M EDENT ([facility]) Diastolic blood pressure 72 mm[Hg] 72 mm[Hg] MEDENT ([facility]) Heart rate 103 /min 103 /min [facility] Oxygen saturation in Arterial blood by Pulse oximetry 97 % 97 % [facility] Body temperature 97.0 [degF] 97.0 [degF] MEDENT ([facility]) Body temperature 36.1 Anabella 36.1 Anabella MEDENT ( [facility]) Body height 65.00 [in_i] 65.00 [in_i] MEDENT ([facility]) 5'5" Body weight 358.12 [lb_av] 358.12 [lb_av] MEDEN T ([facility]) Body mass index (BMI) [Ratio] 59.6 kg/m2 59.6 k g/m2 MEDENT ([facility]) Body height 65 [in_i] 65 [in_i] MEDENT ([facility], ) 5'5" Body weight 336.00 [lb_av] 336.00 [lb_av] MEDEN T ([facility], ) Body mass index (BMI) [Ratio] 55.9 kg/m2 55.9 k g/m2 MEDENT ([facility]) [place] body weight 125 [lb_av] 125 [lb_av] MEDEN T ([facility]) Body weight 152.410 kg 152.410 kg MEDENT ([facility]) Body surface area Derived from formula 2.47 m2 2.47 m2 MEDENT ([facility]) Body temperature 95.9 [degF] 95.9 [degF] MEDENT ([facility]) Body weight 336.8 [lb_av] 336.8 [lb_av] eCW1 ([facility]) Body height 65 [in_i] 65 [in_i] eCW1 ([facility]) Body mass index (BMI) [Ratio] 56.04 kg/m2 56.04 kg/m2 W1 ([facility]) Heart rate 111 /min 111 /min eCW1 ([facility]) Respiratory rate 20 /min 20 /min eCW1 ([facility]) Body temperature 96.8 [degF] 96.8 [degF] eCW1 ( [facility]) Systolic blood pressure 120 mm[Hg] 120 mm[Hg] e CW1 ([facility]) Diastolic blood pressure 78 mm[Hg] 78 mm[Hg] eCW1 ([facility]) Body weight 332.2 [lb_av] 332.2 [lb_av] eCW1 ([facility]) Body height 65 [in_i] 65 [in_i] eCW1 ([facility]) Body mass index (BMI) [Ratio] 55.27 kg/m2 55.27 kg/m2 eCW1 ([facility]) Systolic blood pressure 120 mm[Hg] 120 mm[Hg] e CW1 ([facility]) Diastolic blood pressure 78 mm[Hg] 78 mm[Hg] eCW1 ([facility]) Body weight 330 [lb_av] 330 [lb_av] eCW1 ([facility]) Body height 65 [in_i] 65 [in_i] eCW1 ([facility]) Body mass index (BMI) [Ratio] 54.91 kg/m2 54.91 kg/m2 eCW1 ([facility]) Heart rate 105 /min 105 /min eCW1 ([facility]) Respiratory rate 18 /min 18 /min eCW1 ([facility]) Body temperature 96.7 [degF] 96.7 [degF] eCW1 ( [facility]) Systolic blood pressure 124 mm[Hg] 124 mm[Hg] e CW1 ([facility]) Diastolic blood pressure 82 mm[Hg] 82 mm[Hg] eCW1 ([facility]) Body weight 343 [lb_av] 343 [lb_av] eCW1 ([facility]) Body height 65 [in_i] 65 [in_i] eCW1 ([facility]) Body mass index (BMI) [Ratio] 57.078 kg/m2 57.0 78 kg/m2 eCW1 ([facility]) Systolic blood pressure 124 mm[Hg] 124 mm[Hg] e CW1 ([facility]) Diastolic blood pressure 84 mm[Hg] 84 mm[Hg] eCW1 ([facility]) Body weight 341.0 [lb_av] 341.0 [lb_av] eCW1 ([facility]) Body weight 154.67 kg 154.67 kg eCW1 ([facility]) Body height 65 [in_i] 65 [in_i] eCW1 ([facility]) Body mass index (BMI) [Ratio] 56.745 kg/m2 56.7 45 kg/m2 eCW1 ([facility]) Systolic blood pressure 122 mm[Hg] 122 mm[Hg] e CW1 ([facility]) Diastolic blood pressure 82 mm[Hg] 82 mm[Hg] eCW1 ([facility]) Body weight 338.8 [lb_av] 338.8 [lb_av] eCW1 ([facility]) Body weight 153.68 kg 153.68 kg eCW1 ([facility]) Body height 65 [in_i] 65 [in_i] eCW1 ([facility]) Body mass index (BMI) [Ratio] 56.379 kg/m2 56.3 79 kg/m2 eCW1 ([facility]) Systolic blood pressure 120 mm[Hg] 120 mm[Hg] e CW1 ([facility]) Diastolic blood pressure 72 mm[Hg] 72 mm[Hg] eCW1 ([facility]) Body weight 343 [lb_av] 343 [lb_av] eCW1 ([facility]) Body height 65 [in_i] 65 [in_i] eCW1 ([facility]) Body mass index (BMI) [Ratio] 57.07 kg/m2 57.07 kg/m2 eCW1 ([facility]) Systolic blood pressure 118 mm[Hg] 118 mm[Hg] e CW1 ([facility]) Diastolic blood pressure 64 mm[Hg] 64 mm[Hg] eCW1 ([facility]) Body weight 341.2 [lb_av] 341.2 [lb_av] eCW1 ([facility]) Body weight 154.77 kg 154.77 kg eCW1 ([facility]) Body height 65 [in_i] 65 [in_i] eCW1 ([facility]) Body mass index (BMI) [Ratio] 56.779 kg/m2 56.7 79 kg/m2 eCW1 ([facility]) Systolic blood pressure 122 mm[Hg] 122 mm[Hg] e CW1 ([facility]) Diastolic blood pressure 80 mm[Hg] 80 mm[Hg] eCW1 ([facility]) Body weight 343.8 [lb_av] 343.8 [lb_av] eCW1 ([facility]) Body weight 155.94 kg 155.94 kg eCW1 ([facility]) Body height 65 [in_i] 65 [in_i] eCW1 ([facility]) Body mass index (BMI) [Ratio] 57.211 kg/m2 57.2 11 kg/m2 eCW1 ([facility]) Systolic blood pressure 128 mm[Hg] 128 mm[Hg] e CW1 ([facility]) Diastolic blood pressure 82 mm[Hg] 82 mm[Hg] eCW1 ([facility]) Body weight 338.2 [lb_av] 338.2 [lb_av] eCW1 ([facility]) Body height 65 [in_i] 65 [in_i] eCW1 ([facility]) Body mass index (BMI) [Ratio] 56.279 kg/m2 56.2 79 kg/m2 eCW1 ([facility]) Systolic blood pressure 120 mm[Hg] 120 mm[Hg] e CW1 ([facility]) Diastolic blood pressure 74 mm[Hg] 74 mm[Hg] eCW1 ([facility]) Body weight 342 [lb_av] 342 [lb_av] eCW1 ([facility]) Body height 65 [in_i] 65 [in_i] eCW1 ([facility]) Body mass index (BMI) [Ratio] 56.912 kg/m2 56.9 12 kg/m2 eCW1 ([facility]) Systolic blood pressure 136 mm[Hg] 136 mm[Hg] e CW1 ([facility]) Diastolic blood pressure 82 mm[Hg] 82 mm[Hg] eCW1 ([facility]) Body weight 344 [lb_av] 344 [lb_av] eCW1 ([facility]) Body height 65 [in_i] 65 [in_i] eCW1 ([facility]) Body mass index (BMI) [Ratio] 57.245 kg/m2 57.2 45 kg/m2 eCW1 ([facility]) Systolic blood pressure 134 mm[Hg] 134 mm[Hg] e CW1 ([facility]) Diastolic blood pressure 82 mm[Hg] 82 mm[Hg] eCW1 ([facility]) Body weight 341.8 [lb_av] 341.8 [lb_av] eCW1 ([facility]) Body height 65 [in_i] 65 [in_i] eCW1 ([facility]) Body mass index (BMI) [Ratio] 56.878 kg/m2 56.8 78 kg/m2 eCW1 ([facility]) Systolic blood pressure 122 mm[Hg] 122 mm[Hg] e CW1 ([facility]) Diastolic blood pressure 74 mm[Hg] 74 mm[Hg] eCW1 ([facility]) Patient Treatment Plan of Care Planned Activity Planned Date Details Description Data Source (s) Albuterol Sulfate HFA 108 (90 Base) MCG/ACT 10/11/2020 12:00:00 AM EST eCW1 ([facility]) Albuterol Sulfate HFA 108 (90 Base) MCG/ACT 10/11/2020 12:00:00 AM EST eCW1 ([facility]) Albuterol Sulfate HFA 108 (90 Base) MCG/ACT 10/11/2020 12:00:00 AM EST eCW1 ([facility]) Albuterol Sulfate HFA 108 (90 Base) MCG/ACT 10/11/2020 12:00:00 AM EST eCW1 ([facility]) Ondansetron 4 MG Oral Tablet [Zofran] 09/10/2020 12:00:00 AM EST eCW1 ([facility]) Docusate Sodium 100 MG Oral Capsule [Colace] 08/27/2020 12:00:00 AM EST eCW1 ([facility]) Ondansetron 4 MG Disintegrating Oral Tablet 08/27/2020 12:00:00 AM EST eCW1 ([facility]) POLYETHYLENE GLYCOL 3350 142 MG/ML Oral Solution [[place] lax] 08/27/2020 12:00:00 AM EST eCW1 ([facility]) Docusate Sodium 100 MG Oral Capsule [Colace] 08/27/2020 12:00:00 AM EST eCW1 ([facility]) Ondansetron 4 MG Disintegrating Oral Tablet 08/27/2020 12:00:00 AM EST eCW1 ([facility]) POLYETHYLENE GLYCOL 3350 142 MG/ML Oral Solution [[place] lax] 08/27/2020 12:00:00 AM EST eCW1 ([facility]) Docusate Sodium 100 MG Oral Capsule [Colace] 08/27/2020 12:00:00 AM EST eCW1 ([facility]) Ondansetron 4 MG Disintegrating Oral Tablet 08/27/2020 12:00:00 AM EST eCW1 ([facility]) POLYETHYLENE GLYCOL 3350 142 MG/ML Oral Solution [[place] lax] 08/27/2020 12:00:00 AM EST eCW1 ([facility])
== END 2021-07-27 11:30 | disposition left against medical advice (07) ==
LOC: M ED 09:15
DX: Z53.29 Procedure and treatment not carried out because of patient's decision for other reasons (principal)

== ENCOUNTER → 2021-09-25 | Outpatient (REF) | payer OTHER ==
[2021-09-25 11:53] LABS: HCG, SERUM QUANTITATIVE 11 MIU/ML
[2021-09-25 12:35] LABS: HCG, SERUM QUALITATIVE NEGATIVE (NEGATIVE)
== END ==
LOC: M LAB REF 11:03
PROVIDERS: ATTEND Physician Assistant
DX: Z32.00 Encounter for pregnancy test, result unknown (principal)

== ENCOUNTER → 2021-10-28 | Outpatient (REF) | payer OTHER | LOC: M PLALAB 11:35 | PROVIDERS: ATTEND Specialist | DX: Z53.20 Procedure and treatment not carried out because of patient's decision for unspecified reasons (principal) ==

== ENCOUNTER → 2021-11-18 | Outpatient (CLI) | payer OTHER ==
[2021-11-18 13:48] LABS: HEMATOCRIT 39.2 % (36.0-47.0); HEMOGLOBIN 12.7 g/dl (12.0-15.5); MEAN CORPUSCULAR HEMOGLOBIN 28.2 pg (27.0-33.0); MEAN CORPUSCULAR HGB CONC 32.4 g/dl (32.0-36.5); MEAN CORPUSCULAR VOLUME 87.1 fl (80.0-96.0); PLATELET COUNT, AUTOMATED 237 10^3/uL (150-450)
[2021-11-18 15:05] LABS: HEPATITIS B SURFACE ANTIGEN NEGATIVE (NEGATIVE); HEPATITIS C VIRUS ABY INDEX 0.1 INDEX (<0.8); HIV 1&2 SCREEN CENTAUR NEGATIVE (NEGATIVE)
[2021-11-18 15:16] LABS: GC DNA AMPLIFICATION NEGATIVE (NEGATIVE)
== END ==
LOC: M PLALAB 09:19
PROVIDERS: ATTEND Specialist
DX: Z34.81 Encounter for supervision of other normal pregnancy, first trimester (principal); Z3A.00 Weeks of gestation of pregnancy not specified

== ENCOUNTER → 2021-11-25 | Outpatient (REF) | payer OTHER ==
[2021-11-25 18:04] LABS: APPEARANCE, URINE CLOUDY (CLEAR); BACTERIA, URINE AUTO NEGATIVE (NEGATIVE); BILIRUBIN, URINE AUTO NEGATIVE (NEGATIVE); BLOOD, URINE BLOOD NEGATIVE (NEGATIVE); CALCIUM OXALATE CRYSTALS SMALL; COLOR, URINE YELLOW (YELLOW); GLUCOSE, URINE (UA) AUTO NEGATIVE (NEGATIVE); KETONE, URINE AUTO TRACE mg/dL (NEGATIVE); LEUKOCYTE ESTERASE, URINE AUTO 1+ (NEGATIVE); MUCUS, URINE SMALL (NEGATIVE); NITRITE, URINE AUTO NEGATIVE (NEGATIVE); PROTEIN, URINE AUTO 1+ mg/dL (NEGATIVE); RBC, URINE AUTO 2 /HPF (0-3); SPECIFIC GRAVITY URINE AUTO 1.028 (1.002-1.035); SQUAMOUS EPITHELIAL CELL UR AU 19 /HPF (0-6); WBC, URINE AUTO 21 /HPF (0-3)
== END ==
LOC: M SFHCWAGY 16:44
PROVIDERS: ATTEND Obstetrics & Gynecology
DX: R39.15 Urgency of urination (principal)

== ENCOUNTER → 2021-12-01 | Outpatient (CLI) | payer OTHER | LOC: M PLALAB 09:34 | PROVIDERS: ATTEND Obstetrics & Gynecology | DX: Z34.82 Encounter for supervision of other normal pregnancy, second trimester (principal); Z53.9 Procedure and treatment not carried out, unspecified reason ==

== ENCOUNTER → 2022-01-15 | Outpatient (CLI) | payer OTHER | LOC: M WHC 08:23 | PROVIDERS: ATTEND Obstetrics & Gynecology | DX: Z36.2 Encounter for other antenatal screening follow-up (principal); Z3A.19 19 weeks gestation of pregnancy ==

== ENCOUNTER → 2022-02-10 | Outpatient (CLI) | payer OTHER | LOC: M WHC 10:54 | PROVIDERS: ATTEND Advanced Practice Midwife | DX: O99.212 Obesity complicating pregnancy, second trimester (principal) ==

== ENCOUNTER → 2022-03-12 | Outpatient (CLI) | payer OTHER ==
[2022-03-12 13:04] LABS: HEMATOCRIT 34.9 % (36.0-47.0); HEMOGLOBIN 11.6 g/dl (12.0-15.5); MEAN CORPUSCULAR HEMOGLOBIN 29.7 pg (27.0-33.0); MEAN CORPUSCULAR HGB CONC 33.2 g/dl (32.0-36.5); MEAN CORPUSCULAR VOLUME 89.3 fl (80.0-96.0); PLATELET COUNT, AUTOMATED 214 10^3/uL (150-450); RED BLOOD COUNT 3.91 10^6/uL (4.00-5.40); WHITE BLOOD COUNT 9.8 10^3/uL (4.0-10.0)
[2022-03-12 13:57] LABS: FREE T4 0.93 NG/DL (0.76-1.46); THYROID STIMULATING HORMONE 1.36 uIU/ML (0.358-3.740)
[2022-03-12 15:31] LABS: GC DNA AMPLIFICATION NEGATIVE (NEGATIVE)
== END ==
LOC: M PLALAB 11:02
PROVIDERS: ATTEND Advanced Practice Midwife
DX: O99.212 Obesity complicating pregnancy, second trimester (principal)

== ENCOUNTER → 2022-03-17 | Outpatient (CLI) | payer OTHER | LOC: M WHC 10:18 | PROVIDERS: ATTEND Advanced Practice Midwife | DX: O34.211 Maternal care for low transverse scar from previous cesarean delivery (principal); Z3A.29 29 weeks gestation of pregnancy ==

== ENCOUNTER 2022-03-31 14:03 | Outpatient (CLI) | payer OTHER ==
[~2022-03-31] VITALS: Ht 166.4 cm; Wt 167.1 kg
[2022-03-31] MEDS ORDERED: diphenhydrAMINE 50MG/ML VIAL (J1200) IV ONE (14:50)
[2022-03-31] MEDS ORDERED: METOCLOPRAMIDE INJ 10MG/2ML VIAL (J2765 PER 1) IV ONE (14:50)
[2022-03-31 15:36] LABS: HEMATOCRIT 32.7 % (36.0-47.0); MEAN CORPUSCULAR HEMOGLOBIN 29.7 pg (27.0-33.0); MEAN CORPUSCULAR HGB CONC 33.6 g/dl (32.0-36.5); MEAN CORPUSCULAR VOLUME 88.4 fl (80.0-96.0); PLATELET COUNT, AUTOMATED 221 10^3/uL (150-450); WHITE BLOOD COUNT 9.4 10^3/uL (4.0-10.0)
[2022-03-31 15:43] LABS: ALT/SGPT 13 U/L (12-78); BILIRUBIN,TOTAL 0.3 MG/DL (0.2-1.0); CREATININE FOR GFR 0.59 MG/DL (0.55-1.30); GLOMERULAR FILTRATION RATE > 60.0 (>60); LDH LACTATE DEHYDROGENASE 187 U/L (84-246); URIC ACID 3.8 MG/DL (2.6-6.0)
[2022-03-31] MEDS ORDERED: FIORICET TAB PO ONE (16:15)
[2022-03-31 16:48] LABS: TOTAL PROTEIN,RANDOM URINE 36.4 MG/DL (0.0-12.0)
== END 2022-03-31 17:25 | disposition home or self-care (01) ==
LOC: M LDO 14:03
PROVIDERS: ATTEND Obstetrics & Gynecology
DX: O16.3 Unspecified maternal hypertension, third trimester (principal); R51.9 Headache, unspecified; Z3A.29 29 weeks gestation of pregnancy

== ENCOUNTER → 2022-04-14 | Outpatient (CLI) | payer OTHER | LOC: M WHC 12:17 | PROVIDERS: ATTEND Specialist | DX: Z34.83 Encounter for supervision of other normal pregnancy, third trimester (principal); Z3A.31 31 weeks gestation of pregnancy ==

== ENCOUNTER 2022-04-21 12:49 | Outpatient (CLI) | payer OTHER ==
[~2022-04-21] VITALS: Ht 165.1 cm; Wt 166.8 kg
[2022-04-21 13:13] VITALS: BP 146/78
[2022-04-21] MEDS ORDERED: MACR100C42 PO (15:36)
== END 2022-04-21 15:42 | disposition home or self-care (01) ==
LOC: M LDO 12:49
PROVIDERS: ATTEND Obstetrics & Gynecology
DX: O26.853 Spotting complicating pregnancy, third trimester (principal); O23.43 Unspecified infection of urinary tract in pregnancy, third trimester; O26.893 Other specified pregnancy related conditions, third trimester; R25.2 Cramp and spasm; Z3A.32 32 weeks gestation of pregnancy

== ENCOUNTER → 2022-04-28 | Outpatient (CLI) | payer OTHER ==
[~2022-04-28] MED LIST changes: +MACR100C42 PO
== END ==
LOC: M WHC 06:52
PROVIDERS: ATTEND Obstetrics & Gynecology
DX: O41.03X0 Oligohydramnios, third trimester, not applicable or unspecified (principal); Z3A.33 33 weeks gestation of pregnancy

== ENCOUNTER 2022-05-05 14:00 | Outpatient (CLI) | payer OTHER ==
[~2022-05-05] VITALS: Ht 165.1 cm; Wt 167.9 kg
[2022-05-05] MEDS ORDERED: ACET-897 PO (14:31)
[2022-05-05 14:46] VITALS: BP 136/70
[2022-05-05] MEDS ORDERED: HOME MED LIST COMPLETE! XX SCH (15:00)
== END 2022-05-05 16:18 | disposition home or self-care (01) ==
LOC: M LDO 14:00
PROVIDERS: ATTEND Specialist
DX: O36.8130 Decreased fetal movements, third trimester, not applicable or unspecified (principal); Z3A.34 34 weeks gestation of pregnancy

== ENCOUNTER 2022-05-11 10:03 | Outpatient (CLI) | payer OTHER ==
[~2022-05-11] VITALS: Ht 166.4 cm; Wt 167.3 kg
[~2022-05-11 10:03] MED LIST changes: +ACET-897 PO
[2022-05-11 10:47] VITALS: BP 112/56
[2022-05-11 11:53] VITALS: BP 126/62
[2022-05-11] MEDS ORDERED: ACETAMINOPHEN 500 MG TAB PO ONE (11:55)
[2022-05-11] MEDS ORDERED: HOME MED LIST COMPLETE! XX SCH (12:00)
[2022-05-11 13:08] VITALS: BP 144/75
[2022-05-11 13:25] VITALS: BP 127/59
== END 2022-05-11 13:34 | disposition home or self-care (01) ==
LOC: M LDO 10:03
PROVIDERS: ATTEND Advanced Practice Midwife
DX: O26.853 Spotting complicating pregnancy, third trimester (principal); O41.03X9 Oligohydramnios, third trimester, other fetus; O34.219 Maternal care for unspecified type scar from previous cesarean delivery; O99.213 Obesity complicating pregnancy, third trimester; O26.893 Other specified pregnancy related conditions, third trimester; O36.8130 Decreased fetal movements, third trimester, not applicable or unspecified; O71.4 Obstetric high vaginal laceration alone; E66.01 Morbid (severe) obesity due to excess calories; R51.9 Headache, unspecified; Z3A.35 35 weeks gestation of pregnancy; Z90.3 Acquired absence of stomach [part of]

== ENCOUNTER → 2022-05-19 | Outpatient (CLI) | payer OTHER ==
[~2022-05-19] MED LIST changes: +FAMO1TAB11 PO
== END ==
LOC: M LABSMTC 09:24
PROVIDERS: ATTEND Anesthesiology
DX: Z01.818 Encounter for other preprocedural examination (principal); Z11.52 Encounter for screening for COVID-19

== ENCOUNTER 2022-05-21 05:15 | Inpatient (IN) | payer OTHER ==
[2022-05-21] VITALS (9 sets, daily range): BP systolic 101–132; BP diastolic 57–72
[~2022-05-21] VITALS: Ht 166.4 cm; Wt 167.8 kg
[2022-05-21] MEDS ORDERED: LR 1,000 ML IV ONE (05:55)
[2022-05-21] MEDS ORDERED: LR 1,000 ML IV SCH (05:55)
[2022-05-21] MEDS ORDERED: ceFAZolin SOD 2 GM in IV 1 EA IV ONE (06:00)
[2022-05-21] MEDS ORDERED: BICITRA 30ML SOLN UDC PO ONE (06:00)
[2022-05-21] MEDS ORDERED: ceFAZolin SOD 1 GM in D5W MINI-BAG PLUS 50 ML IV ONE (06:00)
[2022-05-21 06:15] LABS: HEMATOCRIT 33.9 % (36.0-47.0); HEMOGLOBIN 11.2 g/dl (12.0-15.5); MEAN CORPUSCULAR HEMOGLOBIN 28.4 pg (27.0-33.0); PLATELET COUNT, AUTOMATED 223 10^3/uL (150-450); RED BLOOD COUNT 3.94 10^6/uL (4.00-5.40)
[2022-05-21] MEDS ORDERED: MORPHINE PRES-FREE INJ 10 MG/10 ML VIAL As Ordered ONE (07:03)
[2022-05-21] MEDS ORDERED: OXYTOCIN 30 UNITS IN 0.9% NaCl 500ML IV BAG (J2590) As Ordered ONE ×2 (07:10→08:57)
[2022-05-21] MEDS ORDERED: PHENYLephrine 500MCG 5ML (100MCG/ML) SYRINGE As Ordered ONE (08:05)
[2022-05-21] MEDS ORDERED: ePHEDrine SULFATE 25 MG/5 ML(5MG/ML) SYRINGE As Ordered ONE (08:05)
[2022-05-21] MEDS ORDERED: ONDANSETRON 4MG 2ML VIAL As Ordered ONE (08:09)
[2022-05-21] MEDS ORDERED: dexameTHASONE 4 MG/ML 1ML VIAL (J1100 PER 1MG) As Ordered ONE (08:09)
[2022-05-21] MEDS ORDERED: ACETAMINOPHEN 1000MG 100ML IV BTL (OFIRMEV) (J0131 PER 10MG) As Ordered ONE (08:39)
[2022-05-21] MEDS ORDERED: fentaNYL 100 MCG/2 ML INJECTION IV PRN (08:55)
[2022-05-21] MEDS ORDERED: oxyCODONE 5MG TAB PO PRN (08:55)
[2022-05-21] MEDS ORDERED: diphenhydrAMINE 50MG/ML VIAL (J1200) IV PRN (08:55)
[2022-05-21] MEDS ORDERED: HYDROMORPHONE HCL 0.5 MG/ 0.5 ML SYRINGE (J1170 PER 1) IV PRN (08:55)
[2022-05-21] MEDS ORDERED: PERCOCET 5MG/325MG TAB PO PRN ×2 (08:55)
[2022-05-21] MEDS ORDERED: ONDANSETRON 4MG 2ML VIAL IV PRN ×2 (08:55)
[2022-05-21] MEDS ORDERED: OXYTOCIN DRIP 30 UNITS in IV 1 EA IV SCH (08:55)
[2022-05-21] MEDS ORDERED: SIMETHICONE 80MG CHEW TAB PO PRN (08:55)
[2022-05-21] MEDS ORDERED: MEPERIDINE INJ 25 MG/ML VIAL (J2175) IV PRN (08:55)
[2022-05-21] MEDS ORDERED: DOCUSATE SODIUM 100MG CAPSULE PO PRN (08:55)
[2022-05-21] MEDS ORDERED: METOCLOPRAMIDE INJ 10MG/2ML VIAL (J2765 PER 1) IV PRN (08:55)
[2022-05-21] MEDS: LR 1,000 ML IV SCH ×2 (08:55→18:52)
[2022-05-21] MEDS: SLF 3 ML SYR IV SCH ×2 (08:55→16:55)
[2022-05-21] MEDS ORDERED: RHOGAM 300 MCG (1500 IU) INJ (J2790) IM SCH (08:55)
[2022-05-21] MEDS ORDERED: NALOXONE INJ 0.4MG/1ML VIAL (J2310 PER 1MG) IV PRN ×2 (08:55)
[2022-05-21] MEDS ORDERED: **NOTE PATIENT COMMENT** MISC XX SCH (08:55)
[2022-05-21] MEDS ORDERED: NALBUPHINE HCL 10 MG/ML AMP (J2300) IV PRN (08:55)
[2022-05-21] MEDS: PRENATAL VITAMINS CHEWABLE TABLET PO SCH (11:30)
[2022-05-21] MEDS: KETOROLAC 30 MG/ML 1ML VIAL IV SCH (20:49)
[2022-05-22 02:00] VITALS: BP 118/70
[2022-05-22] MEDS: KETOROLAC 30 MG/ML 1ML VIAL IV SCH ×3 (02:03→14:08)
[2022-05-22] MEDS: SLF 3 ML SYR IV SCH (02:04)
[2022-05-22 05:47] VITALS: BP 126/72
[2022-05-22] MEDS ORDERED: OXYC1TAB23 PO (07:21)
[2022-05-22] MEDS: PRENATAL VITAMINS CHEWABLE TABLET PO SCH (08:02)
[2022-05-22 08:41] LABS: HEMATOCRIT 27.6 % (36.0-47.0); MEAN CORPUSCULAR HEMOGLOBIN 27.9 pg (27.0-33.0); MEAN CORPUSCULAR HGB CONC 31.5 g/dl (32.0-36.5); MEAN CORPUSCULAR VOLUME 88.5 fl (80.0-96.0); PLATELET COUNT, AUTOMATED 174 10^3/uL (150-450); RED BLOOD COUNT 3.12 10^6/uL (4.00-5.40); WHITE BLOOD COUNT 10.1 10^3/uL (4.0-10.0)
[2022-05-22 08:50] LABS: HEMOGLOBIN 8.7 g/dl (12.0-15.5)
[2022-05-22 10:55] VITALS: BP 119/68
[2022-05-22 18:52] VITALS: BP 118/74
[2022-05-22 22:00] VITALS: BP 118/54
[2022-05-23 02:00] VITALS: BP 108/56
[2022-05-23 06:00] VITALS: BP 121/61
[2022-05-23] MEDS ORDERED: MEASLES,MUMPS,RUBELLA VACCINE INJ (MMR-II) (90707) SC.IMMUN ONE (09:00)
[2022-05-23] MEDS: PRENATAL VITAMINS CHEWABLE TABLET PO SCH (09:31)
[2022-05-23 10:00] VITALS: BP 107/60
== END 2022-05-23 12:40 | disposition home or self-care (01) | DRG 540 ==
LOC: M LDI 05:15 → M OBS 10:40
PROVIDERS: ADMIT Specialist; ATTEND Specialist
PROC: 0UB70ZZ Excision of Bilateral Fallopian Tubes, Open Approach (ICD-10-PCS; 2022-05-21)
PROC: 10D00Z1 Extraction of Products of Conception, Low, Open Approach (ICD-10-PCS; principal; 2022-05-21 07:30)
DX: O34.211 Maternal care for low transverse scar from previous cesarean delivery (principal); O13.2 Gestational [pregnancy-induced] hypertension without significant proteinuria, second trimester; O41.03X0 Oligohydramnios, third trimester, not applicable or unspecified; Z3A.37 37 weeks gestation of pregnancy; Z37.0 Single live birth; Z30.2 Encounter for sterilization

== ENCOUNTER 2023-01-25 16:37 | Emergency (ER) | payer MEDICAID, OTHER ==
[~2023-01-25] VITALS: Ht 167.6 cm; Wt 163.2 kg
[2023-01-25 18:15] LABS: BASO # 0.1 10^3/uL (0.0-0.2); BASO % 0.5 % (0.0-1.0); EOS # 0.1 10^3/uL (0.0-0.5); EOS % 0.9 % (0.0-3.0); HEMATOCRIT 36.6 % (36.0-47.0); LYMPH # 2.5 10^3/uL (1.5-5.0); LYMPH % 22.9 % (24.0-44.0); MEAN CORPUSCULAR HEMOGLOBIN 23.3 pg (27.0-33.0); MEAN CORPUSCULAR HGB CONC 30.1 g/dl (32.0-36.5); MEAN CORPUSCULAR VOLUME 77.4 fl (80.0-96.0); MONO # 0.6 10^3/uL (0.0-0.8); MONO % 5.4 % (2.0-8.0); NEUTROPHILS # 7.5 10^3/uL (1.5-8.5); NEUTROPHILS % 69.9 % (36.0-66.0); PLATELET COUNT, AUTOMATED 307 10^3/uL (150-450); RED BLOOD COUNT 4.73 10^6/uL (4.00-5.40); WHITE BLOOD COUNT 10.7 10^3/uL (4.0-10.0)
[2023-01-25 18:48] LABS: ALBUMIN 3.5 G/DL (3.2-5.2); ALKALINE PHOSPHATASE 83 U/L (46-116); ALT/SGPT 15 U/L (7.0-40); AST/SGOT 15 U/L (<34); BILIRUBIN,TOTAL 0.4 MG/DL (0.3-1.2); BLOOD UREA NITROGEN 11 MG/DL (9-23); CALCIUM LEVEL 8.5 MG/DL (8.5-10.1); CARBON DIOXIDE LEVEL 28 MMOL/L (20-31); CHLORIDE LEVEL 106 MMOL/L (98-107); CK-MB VALUE MASS < 1.0 NG/ML (<3.6); CREATININE FOR GFR 0.64 MG/DL (0.55-1.30); GLOMERULAR FILTRATION RATE > 60.0 (>60); GLUCOSE, FASTING 92 MG/DL (60-100); MAGNESIUM LEVEL 1.9 MG/DL (1.8-2.4); POTASSIUM SERUM 3.8 MMOL/L (3.5-5.1); SODIUM LEVEL 139 MMOL/L (136-145); TOTAL PROTEIN 6.9 G/DL (5.7-8.2)
[2023-01-25 18:50] LABS: CPK CREATINE PHOSPHOKINASE 44 U/L (34-145); MB/CK RELATIVE INDEX 2.27 (< OR =4)
[2023-01-25 18:52] LABS: FREE T4 0.97 NG/DL (0.89-1.76)
[2023-01-25 18:53] LABS: THYROID STIMULATING HORMONE 3.317 uIU/ML (0.55-4.78)
[2023-01-25 19:41] LABS: ERYTHROCYTE SEDIMENTATION RATE 54 mm/hr (0-20)
[2023-01-25] MEDS ORDERED: PRED20TA PO (21:25)
[2023-01-25 21:35] VITALS: BP 140/86
== END 2023-01-25 21:40 | disposition home or self-care (01) ==
LOC: M ED 16:37
DX: R42 Dizziness and giddiness (principal); R51.9 Headache, unspecified; J45.909 Unspecified asthma, uncomplicated; E28.2 Polycystic ovarian syndrome; E03.9 Hypothyroidism, unspecified; F41.9 Anxiety disorder, unspecified; F32.A Depression, unspecified; Z88.0 Allergy status to penicillin; Z91.040 Latex allergy status

== ENCOUNTER → 2023-03-23 | Outpatient (CLI) | payer OTHER, MEDICAID ==
[~2023-03-23] MED LIST changes: +PRED20TA PO
[2023-03-23 14:24] LABS: BASO % 0.5 % (0.0-1.0); EOS # 0.1 10^3/uL (0.0-0.5); EOS % 0.8 % (0.0-3.0); HEMATOCRIT 35.5 % (36.0-47.0); HEMOGLOBIN 10.5 g/dl (12.0-15.5); LYMPH # 1.8 10^3/uL (1.5-5.0); LYMPH % 23.2 % (24.0-44.0); MEAN CORPUSCULAR HEMOGLOBIN 23.4 pg (27.0-33.0); MEAN CORPUSCULAR HGB CONC 29.6 g/dl (32.0-36.5); MEAN CORPUSCULAR VOLUME 79.1 fl (80.0-96.0); MONO # 0.4 10^3/uL (0.0-0.8); MONO % 5.2 % (2.0-8.0); NEUTROPHILS # 5.4 10^3/uL (1.5-8.5); NEUTROPHILS % 69.9 % (36.0-66.0); PLATELET COUNT, AUTOMATED 296 10^3/uL (150-450); RED BLOOD COUNT 4.49 10^6/uL (4.00-5.40); WHITE BLOOD COUNT 7.7 10^3/uL (4.0-10.0)
[2023-03-23 14:49] LABS: HEMOGLOBIN A1c 5.5 % (4.0-6.0)
[2023-03-23 14:55] LABS: ALBUMIN 3.6 G/DL (3.2-5.2); ALKALINE PHOSPHATASE 77 U/L (46-116); ALT/SGPT < 9 U/L (7.0-40); AST/SGOT 15 U/L (<34); BILIRUBIN,TOTAL 0.5 MG/DL (0.3-1.2); BLOOD UREA NITROGEN 12 MG/DL (9-23); CALCIUM LEVEL 8.4 MG/DL (8.5-10.1); CARBON DIOXIDE LEVEL 26 MMOL/L (20-31); CHLORIDE LEVEL 110 MMOL/L (98-107); CHOLESTEROL LEVEL 144 MG/DL (<200); CHOLESTEROL RISK RATIO 3.72 (<5); CREATININE FOR GFR 0.66 MG/DL (0.55-1.30); GLOMERULAR FILTRATION RATE > 60.0 (>60); GLUCOSE, FASTING 94 MG/DL (60-100); HDL CHOLESTEROL 38.7 MG/DL (>40); LDL CHOLESTEROL 82.7 MG/DL (<100); NON-HDL-C 105.3 MG/DL; POTASSIUM SERUM 4.5 MMOL/L (3.5-5.1); SODIUM LEVEL 141 MMOL/L (136-145); TOTAL PROTEIN 6.3 G/DL (5.7-8.2); TRIGLYCERIDES LEVEL 113 MG/DL (<150)
[2023-03-23 14:57] LABS: FREE T4 1.04 NG/DL (0.89-1.76)
== END ==
LOC: M WUC 08:36
PROVIDERS: ATTEND Student in an Organized Health Care Education/Training Program
DX: E66.01 Morbid (severe) obesity due to excess calories (principal)

== ENCOUNTER 2023-05-30 14:45 | Emergency (ER) | payer MEDICAID, OTHER ==
[~2023-05-30] VITALS: Ht 165.1 cm; Wt 166.0 kg
[2023-05-30] MEDS ORDERED: LEVE500T5 (14:56)
[2023-05-30] MEDS ORDERED: AMIT25TA19 (14:56)
[2023-05-30 16:42] LABS: BLOOD UREA NITROGEN 10 MG/DL (9-23); CALCIUM LEVEL 8.3 MG/DL (8.5-10.1); CARBON DIOXIDE LEVEL 27 MMOL/L (20-31); CHLORIDE LEVEL 105 MMOL/L (98-107); CREATININE FOR GFR 0.58 MG/DL (0.55-1.30); GLOMERULAR FILTRATION RATE > 60.0 (>60); GLUCOSE, FASTING 91 MG/DL (60-100); POTASSIUM SERUM 4.5 MMOL/L (3.5-5.1); SODIUM LEVEL 138 MMOL/L (136-145)
[2023-05-30 16:43] LABS: BASO # 0.1 10^3/uL (0.0-0.2); BASO % 0.5 % (0.0-1.0); EOS # 0.1 10^3/uL (0.0-0.5); HEMATOCRIT 35.7 % (36.0-47.0); HEMOGLOBIN 10.7 g/dl (12.0-15.5); LYMPH # 2.4 10^3/uL (1.5-5.0); LYMPH % 26.3 % (24.0-44.0); MEAN CORPUSCULAR HEMOGLOBIN 23.1 pg (27.0-33.0); MEAN CORPUSCULAR VOLUME 77.1 fl (80.0-96.0); MONO # 0.5 10^3/uL (0.0-0.8); MONO % 5.7 % (2.0-8.0); NEUTROPHILS # 6.1 10^3/uL (1.5-8.5); NEUTROPHILS % 66.2 % (36.0-66.0); PLATELET COUNT, AUTOMATED 322 10^3/uL (150-450); RED BLOOD COUNT 4.63 10^6/uL (4.00-5.40); WHITE BLOOD COUNT 9.3 10^3/uL (4.0-10.0)
[2023-05-30] MEDS ORDERED: KEPP10002 PO (17:51)
[2023-05-30] MEDS ORDERED: levETIRAcetam 250MG TABLET (KEPPRA) PO ONE (17:55)
[2023-05-30 17:57] VITALS: BP 138/78; TEMP 98.2; O2SAT 97
== END 2023-05-30 17:58 | disposition home or self-care (01) ==
LOC: M ED 14:45
DX: R56.9 Unspecified convulsions (principal); Z88.0 Allergy status to penicillin; Z91.040 Latex allergy status

== ENCOUNTER → 2023-07-20 | Outpatient (REF) ==
[~2023-07-20] MED LIST changes: +AMIT25TA19; +KEPP10002 PO; +LEVE500T5
== END ==
LOC: M PLAIMG 12:28
PROVIDERS: ATTEND Internal Medicine
DX: R52 Pain, unspecified (principal)

== ENCOUNTER → 2023-07-27 | Outpatient (CLI) | payer OTHER ==
[2023-07-27 16:39] LABS: BASO # 0.1 10^3/uL (0.0-0.2); BASO % 0.7 % (0.0-1.0); EOS # 0.1 10^3/uL (0.0-0.5); EOS % 1.2 % (0.0-3.0); HEMATOCRIT 37.7 % (36.0-47.0); HEMOGLOBIN 11.4 g/dl (12.0-15.5); LYMPH # 2.8 10^3/uL (1.5-5.0); LYMPH % 28.3 % (24.0-44.0); MEAN CORPUSCULAR HEMOGLOBIN 24.2 pg (27.0-33.0); MEAN CORPUSCULAR HGB CONC 30.2 g/dl (32.0-36.5); MEAN CORPUSCULAR VOLUME 79.9 fl (80.0-96.0); MONO # 0.6 10^3/uL (0.0-0.8); MONO % 6.5 % (2.0-8.0); NEUTROPHILS # 6.2 10^3/uL (1.5-8.5); NEUTROPHILS % 62.9 % (36.0-66.0); PLATELET COUNT, AUTOMATED 276 10^3/uL (150-450); RED BLOOD COUNT 4.72 10^6/uL (4.00-5.40); WHITE BLOOD COUNT 9.9 10^3/uL (4.0-10.0)
[2023-07-27 16:54] LABS: VALPROIC ACID (DEPAKOTE) 55.3 UG/ML (50.0-100.0)
[2023-07-27 16:56] LABS: ALBUMIN 3.3 G/DL (3.2-5.2); ALKALINE PHOSPHATASE 79 U/L (46-116); ALT/SGPT 9 U/L (7.0-40); AST/SGOT 11 U/L (<34); BILIRUBIN,TOTAL 0.3 MG/DL (0.3-1.2); BLOOD UREA NITROGEN 8 MG/DL (9-23); CALCIUM LEVEL 8.4 MG/DL (8.5-10.1); CARBON DIOXIDE LEVEL 29 MMOL/L (20-31); CHLORIDE LEVEL 102 MMOL/L (98-107); GLOMERULAR FILTRATION RATE > 60.0 (>60); GLUCOSE, FASTING 81 MG/DL (60-100); POTASSIUM SERUM 4.3 MMOL/L (3.5-5.1); SODIUM LEVEL 138 MMOL/L (136-145); TOTAL PROTEIN 6.5 G/DL (5.7-8.2)
== END ==
LOC: M PLALAB 14:15
PROVIDERS: ATTEND Psychiatry & Neurology Neurology
DX: R56.9 Unspecified convulsions (principal)

== ENCOUNTER → 2023-09-22 | Outpatient (CLI) | payer OTHER ==
[2023-09-22 11:06] LABS: BASO % 0.6 % (0.0-1.0); EOS # 0.1 10^3/uL (0.0-0.5); EOS % 1.3 % (0.0-3.0); HEMATOCRIT 37.6 % (36.0-47.0); HEMOGLOBIN 11.5 g/dl (12.0-15.5); LYMPH # 1.4 10^3/uL (1.5-5.0); LYMPH % 20.8 % (24.0-44.0); MEAN CORPUSCULAR HGB CONC 30.6 g/dl (32.0-36.5); MEAN CORPUSCULAR VOLUME 81.7 fl (80.0-96.0); MONO # 0.4 10^3/uL (0.0-0.8); MONO % 6.1 % (2.0-8.0); NEUTROPHILS # 4.9 10^3/uL (1.5-8.5); NEUTROPHILS % 70.9 % (36.0-66.0); PLATELET COUNT, AUTOMATED 257 10^3/uL (150-450); WHITE BLOOD COUNT 6.9 10^3/uL (4.0-10.0)
[2023-09-22 11:29] LABS: HEMOGLOBIN A1c 5.3 % (4.0-6.0)
[2023-09-22 11:38] LABS: ALBUMIN 3.4 G/DL (3.2-5.2); ALKALINE PHOSPHATASE 73 U/L (46-116); ALT/SGPT 14 U/L (7.0-40); AST/SGOT 12 U/L (<34); BILIRUBIN,TOTAL 0.5 MG/DL (0.3-1.2); BLOOD UREA NITROGEN 9 MG/DL (9-23); CALCIUM LEVEL 8.5 MG/DL (8.5-10.1); CARBON DIOXIDE LEVEL 28 MMOL/L (20-31); CHLORIDE LEVEL 105 MMOL/L (98-107); GLOMERULAR FILTRATION RATE > 60.0 (>60); GLUCOSE, FASTING 93 MG/DL (60-100); SODIUM LEVEL 139 MMOL/L (136-145); TOTAL PROTEIN 6.5 G/DL (5.7-8.2)
[2023-09-22 11:39] LABS: FREE T4 0.97 NG/DL (0.89-1.76); THYROID STIMULATING HORMONE 5.291 uIU/ML (0.55-4.78)
[2023-09-22 11:40] LABS: FOLATE 10.7 NG/ML (>5.4)
[2023-09-22 11:41] LABS: VITAMIN B12 LEVEL 840 PG/ML (211-911)
== END ==
LOC: M LAB 09:04 → M PLALAB 09:04
PROVIDERS: ATTEND Physician Assistant
DX: R56.9 Unspecified convulsions (principal); E66.01 Morbid (severe) obesity due to excess calories; E55.9 Vitamin D deficiency, unspecified; E03.9 Hypothyroidism, unspecified; Z98.84 Bariatric surgery status

== ENCOUNTER → 2023-12-29 | Outpatient (CLI) | payer OTHER ==
[2023-12-29 10:49] LABS: THYROID STIMULATING HORMONE 3.08 uIU/ML (0.55-4.78)
[2023-12-29 10:50] LABS: FREE T4 0.89 NG/DL (0.89-1.76)
== END ==
LOC: M LAB 09:04
PROVIDERS: ATTEND Physician Assistant
DX: R79.89 Other specified abnormal findings of blood chemistry (principal)

== ENCOUNTER → 2024-02-04 | Outpatient (CLI) | payer MEDICAID, OTHER | LOC: M PLALAB 13:24 | PROVIDERS: ATTEND Obstetrics & Gynecology | DX: N91.1 Secondary amenorrhea (principal) ==

== ENCOUNTER → 2024-04-11 | Outpatient (REF) | payer MEDICAID, OTHER ==
[2024-04-13 18:12] LABS: HPV APTIMA Not Detected (Not Detected)
== END ==
LOC: M SFHCWAGY 17:35
PROVIDERS: ATTEND Obstetrics & Gynecology
DX: Z12.4 Encounter for screening for malignant neoplasm of cervix (principal)

== ENCOUNTER 2024-05-06 10:05 | Emergency (ER) | payer OTHER ==
[~2024-05-06] VITALS: Ht 165.1 cm; Wt 163.6 kg
[2024-05-06] MEDS ORDERED: RELP20TA PO (10:14)
[2024-05-06] MEDS ORDERED: CYMB60CA4 PO (10:14)
[2024-05-06] MEDS ORDERED: AJOV225I SC (10:14)
[2024-05-06 12:09] LABS: BASO % 0.3 % (0.0-1.0); EOS # 0.1 10^3/uL (0.0-0.5); EOS % 0.6 % (0.0-3.0); HEMATOCRIT 35.7 % (36.0-47.0); HEMOGLOBIN 10.7 g/dl (12.0-15.5); LYMPH # 2.5 10^3/uL (1.5-5.0); LYMPH % 25.3 % (24.0-44.0); MEAN CORPUSCULAR HEMOGLOBIN 23.6 pg (27.0-33.0); MEAN CORPUSCULAR VOLUME 78.8 fl (80.0-96.0); MONO # 0.6 10^3/uL (0.0-0.8); MONO % 5.6 % (2.0-8.0); NEUTROPHILS # 6.8 10^3/uL (1.5-8.5); NEUTROPHILS % 67.8 % (36.0-66.0); PLATELET COUNT, AUTOMATED 318 10^3/uL (150-450); RED BLOOD COUNT 4.53 10^6/uL (4.00-5.40)
[2024-05-06 12:30] LABS: LIPASE 21 U/L (12-53)
[2024-05-06 12:31] LABS: HCG, SERUM QUALITATIVE NEGATIVE (NEGATIVE)
[2024-05-06 12:32] LABS: ALBUMIN 3.6 G/DL (3.2-5.2); ALKALINE PHOSPHATASE 83 U/L (46-116); ALT/SGPT 20 U/L (7.0-40); AMYLASE 29 U/L (30-118); AST/SGOT 11 U/L (<34); BILIRUBIN,DIRECT 0.2 MG/DL (<0.4); BILIRUBIN,TOTAL 0.5 MG/DL (0.3-1.2); BLOOD UREA NITROGEN 9 MG/DL (9-23); CALCIUM LEVEL 8.3 MG/DL (8.5-10.1); CARBON DIOXIDE LEVEL 29 MMOL/L (20-31); CHLORIDE LEVEL 107 MMOL/L (98-107); CREATININE FOR GFR 0.59 MG/DL (0.55-1.30); GLOMERULAR FILTRATION RATE > 60.0 (>60); GLUCOSE, FASTING 87 MG/DL (60-100); POTASSIUM SERUM 3.8 MMOL/L (3.5-5.1); SODIUM LEVEL 140 MMOL/L (136-145); TOTAL PROTEIN 6.9 G/DL (5.7-8.2)
[2024-05-06] MEDS: NS 1,000 ML IV ONE (13:49)
[2024-05-06] MEDS: ONDANSETRON 4MG 2ML VIAL IV ONE (13:50)
[2024-05-06] MEDS: KETOROLAC 30 MG/ML 1ML VIAL IV ONE (13:50)
[2024-05-06] MEDS: DICYCLOMINE 10 MG CAP PO ONE (13:55)
[2024-05-06] MEDS: GASTROGRAFIN SOLUTION 30ML PO SCH (14:35)
[2024-05-06] MEDS ORDERED: ISOVUE-370 76% 100ML VIAL As Ordered ONE (14:49)
[2024-05-06] MEDS: ACETAMINOPHEN TAB 650MG DOSE (2X325MG) PO ONE (17:38)
[2024-05-06 18:02] VITALS: BP 132/63; TEMP 97.3; O2SAT 97
== END 2024-05-06 18:04 | disposition home or self-care (01) ==
LOC: M ED 10:05
DX: R10.9 Unspecified abdominal pain (principal); R11.10 Vomiting, unspecified; R19.7 Diarrhea, unspecified; R56.9 Unspecified convulsions; F43.10 Post-traumatic stress disorder, unspecified; G43.909 Migraine, unspecified, not intractable, without status migrainosus; F17.290 Nicotine dependence, other tobacco product, uncomplicated; Z68.44 Body mass index [BMI] 60.0-69.9, adult; Z98.84 Bariatric surgery status; R16.0 Hepatomegaly, not elsewhere classified; K76.0 Fatty (change of) liver, not elsewhere classified; Z88.0 Allergy status to penicillin; Z91.040 Latex allergy status
CPT/HCPCS: 74177; 80048; 80076; 81001; 82150; 83605; 83690; 84703; 85025; 87086; 96361; 96374; 96375; 99284; J1885; J2405; Q9963; Q9967

== ENCOUNTER 2024-09-22 09:32 | Emergency (ER) | payer MEDICAID, OTHER ==
[~2024-09-22] VITALS: Ht 165.1 cm; Wt 163.3 kg
[~2024-09-22 09:32] MED LIST changes: +AJOV225I SC; +CYMB60CA4 PO; +RELP20TA PO
[2024-09-22 10:38] LABS: HCG, SERUM QUALITATIVE NEGATIVE (NEGATIVE)
[2024-09-22 10:43] LABS: BASO % 0.4 % (0.0-1.0); EOS # 0.1 10^3/uL (0.0-0.5); HEMATOCRIT 37.3 % (36.0-47.0); LYMPH # 2.1 10^3/uL (1.5-5.0); LYMPH % 23.5 % (24.0-44.0); MEAN CORPUSCULAR HEMOGLOBIN 22.7 pg (27.0-33.0); MEAN CORPUSCULAR HGB CONC 29.5 g/dl (32.0-36.5); MEAN CORPUSCULAR VOLUME 77.1 fl (80.0-96.0); MONO # 0.7 10^3/uL (0.0-0.8); MONO % 7.7 % (2.0-8.0); NEUTROPHILS % 67.1 % (36.0-66.0); RED BLOOD COUNT 4.84 10^6/uL (4.00-5.40); WHITE BLOOD COUNT 8.9 10^3/uL (4.0-10.0)
[2024-09-22 10:51] LABS: BLOOD UREA NITROGEN 10 MG/DL (9-23); CALCIUM LEVEL 8.4 MG/DL (8.5-10.1); CARBON DIOXIDE LEVEL 24 MMOL/L (20-31); CHLORIDE LEVEL 106 MMOL/L (98-107); CREATININE FOR GFR 0.54 MG/DL (0.55-1.30); GLOMERULAR FILTRATION RATE > 60.0 (>60); GLUCOSE, FASTING 92 MG/DL (60-100); POTASSIUM SERUM 4.7 MMOL/L (3.5-5.1); SODIUM LEVEL 138 MMOL/L (136-145)
[2024-09-22 10:54] LABS: PROLACTIN 6.06 NG/ML
[2024-09-22 11:14] LABS: ETHYL ALCOHOL (ETHANOL) < 0.003 % (0.000-0.010)
[2024-09-22 11:16] LABS: SALICYLATE LEVEL < 3.0 MG/DL (<30)
[2024-09-22 11:18] LABS: PLATELET COUNT, AUTOMATED 217 10^3/uL (150-450)
[2024-09-22 12:09] LABS: AMPHETAMINES LEVEL URINE NEGATIVE (NEGATIVE); BARBITURATES URINE NEGATIVE (NEGATIVE); BENZODIAZEPINES URINE NEGATIVE (NEGATIVE); COCAINE METABOLITE URINE NEGATIVE (NEGATIVE); METHADONE URINE NEGATIVE (NEGATIVE); OPIATES URINE NEGATIVE (NEGATIVE); PHENCYCLIDINE URINE NEGATIVE (NEGATIVE)
[2024-09-22 12:10] LABS: CANNABINOIDS URINE NEGATIVE (NEGATIVE)
[2024-09-22] MEDS: ACETAMINOPHEN 325 MG TAB PO ONE (13:02)
[2024-09-22 13:15] VITALS: BP 125/84; TEMP 98; O2SAT 98
== END 2024-09-22 13:30 | disposition home or self-care (01) ==
LOC: M ED 09:32
DX: S00.83XA Contusion of other part of head, initial encounter (principal); R56.9 Unspecified convulsions; W19.XXXA Unspecified fall, initial encounter; Y92.9 Unspecified place or not applicable; Y93.9 Activity, unspecified; Y99.9 Unspecified external cause status; F43.10 Post-traumatic stress disorder, unspecified; F41.9 Anxiety disorder, unspecified; F32.A Depression, unspecified; Z79.899 Other long term (current) drug therapy; Z88.0 Allergy status to penicillin; Z91.040 Latex allergy status

== ENCOUNTER → 2024-10-19 | Outpatient (REF) | payer MEDICAID, OTHER ==
[2024-10-19 17:11] LABS: APPEARANCE, URINE HAZY (CLEAR); BACTERIA, URINE AUTO 1+ (NEGATIVE); BILIRUBIN, URINE AUTO NEGATIVE (NEGATIVE); BLOOD, URINE BLOOD NEGATIVE (NEGATIVE); COLOR, URINE YELLOW (YELLOW); GLUCOSE, URINE (UA) AUTO NEGATIVE (NEGATIVE); KETONE, URINE AUTO NEGATIVE (NEGATIVE); LEUKOCYTE ESTERASE, URINE AUTO NEGATIVE (NEGATIVE); NITRITE, URINE AUTO NEGATIVE (NEGATIVE); PROTEIN, URINE AUTO NEGATIVE (NEGATIVE); RBC, URINE AUTO 1 /HPF (0-3); SPECIFIC GRAVITY URINE AUTO 1.024 (1.002-1.035); SQUAMOUS EPITHELIAL CELL UR AU 5 /HPF (0-6); UROBILINOGEN, URINE AUTO 0.2 mg/dL (0.0-2.0); WBC, URINE AUTO 1 /HPF (0-3)
[2024-10-19 17:13] LABS: BASO # 0.1 10^3/uL (0.0-0.2); BASO % 0.5 % (0.0-1.0); EOS # 0.1 10^3/uL (0.0-0.5); EOS % 0.6 % (0.0-3.0); HEMATOCRIT 34.2 % (36.0-47.0); HEMOGLOBIN 10.5 g/dl (12.0-15.5); LYMPH # 1.9 10^3/uL (1.5-5.0); LYMPH % 18.3 % (24.0-44.0); MEAN CORPUSCULAR HEMOGLOBIN 24.2 pg (27.0-33.0); MEAN CORPUSCULAR HGB CONC 30.7 g/dl (32.0-36.5); MONO # 0.6 10^3/uL (0.0-0.8); MONO % 5.3 % (2.0-8.0); PLATELET COUNT, AUTOMATED 328 10^3/uL (150-450); RED BLOOD COUNT 4.33 10^6/uL (4.00-5.40); WHITE BLOOD COUNT 10.6 10^3/uL (4.0-10.0)
[2024-10-19 17:16] LABS: IRON (FE) 17 UG/DL (50-170); PERCENT SATURATION 4.1 % (13.2-45.0); TOTAL IRON BINDING CAPACITY 415 UG/DL (250-425)
[2024-10-19 17:17] LABS: ALBUMIN 3.3 G/DL (3.2-5.2); ALKALINE PHOSPHATASE 77 U/L (35-104); ALT/SGPT 17 U/L (7.0-40); AST/SGOT 11 U/L (<34); BILIRUBIN,TOTAL 0.3 MG/DL (0.3-1.2); BLOOD UREA NITROGEN 13 MG/DL (9-23); CALCIUM LEVEL 8.9 MG/DL (8.5-10.1); CARBON DIOXIDE LEVEL 27 MMOL/L (20-31); CHLORIDE LEVEL 106 MMOL/L (98-107); CREATININE FOR GFR 0.67 MG/DL (0.55-1.30); GLOMERULAR FILTRATION RATE > 60.0 (>60); GLUCOSE, FASTING 104 MG/DL (60-100); SODIUM LEVEL 141 MMOL/L (136-145); TOTAL PROTEIN 6.9 G/DL (5.7-8.2)
[2024-10-19 17:18] LABS: FREE T4 1.12 NG/DL (0.89-1.76); THYROID STIMULATING HORMONE 2.883 uIU/ML (0.55-4.78)
[2024-10-19 17:19] LABS: FERRITIN 5.7 NG/ML (7.3-270.7); VITAMIN B12 LEVEL 464 PG/ML (211-911)
[2024-10-19 17:22] LABS: HEMOGLOBIN A1c 5.5 % (4.0-6.0)
== END ==
LOC: M SFHCCAPE 11:43
PROVIDERS: ATTEND Physician Assistant Medical
DX: Z90.3 Acquired absence of stomach [part of] (principal); R35.0 Frequency of micturition; R42 Dizziness and giddiness; E03.9 Hypothyroidism, unspecified

== ENCOUNTER → 2024-12-30 | Outpatient (REF) | payer OTHER | LOC: M LAB REF 19:03 | PROVIDERS: ATTEND Physician Assistant | DX: B34.9 Viral infection, unspecified (principal) ==

== ENCOUNTER → 2025-01-04 | Outpatient (REF) | payer OTHER, MEDICAID ==
[2025-01-04 14:55] LABS: APPEARANCE, URINE CLOUDY (CLEAR); BACTERIA, URINE AUTO 1+ (NEGATIVE); BILIRUBIN, URINE AUTO NEGATIVE (NEGATIVE); BLOOD, URINE BLOOD 3+ (NEGATIVE); COLOR, URINE YELLOW (YELLOW); GLUCOSE, URINE (UA) AUTO NEGATIVE (NEGATIVE); KETONE, URINE AUTO NEGATIVE (NEGATIVE); LEUKOCYTE ESTERASE, URINE AUTO 3+ (NEGATIVE); MUCUS, URINE SMALL (NEGATIVE); NITRITE, URINE AUTO NEGATIVE (NEGATIVE); PROTEIN, URINE AUTO 2+ mg/dL (NEGATIVE); RBC, URINE AUTO TNTC /HPF (0-3); SPECIFIC GRAVITY URINE AUTO 1.023 (1.002-1.035); SQUAMOUS EPITHELIAL CELL UR AU 8 /HPF (0-6); UROBILINOGEN, URINE AUTO 0.2 mg/dL (0.0-2.0); WBC, URINE AUTO TNTC /HPF (0-3)
== END ==
LOC: M LAB REF 13:41
PROVIDERS: ATTEND Physician Assistant
DX: N39.0 Urinary tract infection, site not specified (principal)

== ENCOUNTER → 2025-04-24 | Outpatient (CLI) | payer OTHER | LOC: M LAB 09:58 | PROVIDERS: ATTEND Physician Assistant | DX: N91.2 Amenorrhea, unspecified (principal) ==

== ENCOUNTER → 2025-05-30 | Outpatient (CLI) | payer OTHER | LOC: M WUC 08:53 | PROVIDERS: ATTEND Physician Assistant Medical | DX: M54.50 Low back pain, unspecified (principal); M54.6 Pain in thoracic spine; M54.2 Cervicalgia ==

== ENCOUNTER → 2025-07-09 | Outpatient (CLI) | payer OTHER | LOC: M PLAIMG 12:28 | PROVIDERS: ATTEND Physician Assistant Medical | DX: M54.2 Cervicalgia (principal); V89.2XXA Person injured in unspecified motor-vehicle accident, traffic, initial encounter; M54.50 Low back pain, unspecified; M54.16 Radiculopathy, lumbar region; M54.6 Pain in thoracic spine; S22.069A Unspecified fracture of T7-T8 vertebra, initial encounter for closed fracture ==

== ENCOUNTER → 2025-09-02 | Outpatient (REF) | payer OTHER | LOC: M LAB REF 09:04 | DX: J02.9 Acute pharyngitis, unspecified (principal) ==